=== PATIENT | male | born 1995 | race Caucasian/White ===

== ENCOUNTER 2016-12-09 09:38 | Day surgery (SDC) | payer OTHER ==
[2016-11-23 09:15] VITALS: BMI 25.0
[~2016-12-09] VITALS: Ht 188 cm; Wt 88.6 kg
[~2016-12-09 09:38] MED LIST: ALBU18002 INH; IBUP-1050 PO; LACTATED RINGER'S 1000ML 1,000 ML IV SCH; MONT1TAB3 PO; MULT-506 PO
[2016-12-09 09:59] VITALS: BP 133/81; PULSE 79; TEMP 36.4; BMI 25.0
[2016-12-09 10:48] VITALS: BP 119/70; PULSE 74; TEMP 36.5; Ht 188 cm; Wt 88.6 kg
[2016-12-09] MEDS ORDERED: ROCURONIUM BROMIDE 10 MG/ML 5 ML VIAL ONE (11:18)
[2016-12-09] MEDS ORDERED: SUCCINYLCHOLINE CHLORIDE 20 MG/ML 10 ML VIAL IV ONE (11:18)
[2016-12-09] MEDS ORDERED: LIDOCAINE HCL 2% 2 ML VIAL (20MG/ML) ONE (11:18)
[2016-12-09] MEDS ORDERED: ONDANSETRON INJ 2 MG/ML 2 ML VIAL ONE (11:18)
[2016-12-09] MEDS ORDERED: DEXAMETHASONE SOD INJ 4 MG/ML VIAL ONE (11:18)
[2016-12-09] MEDS ORDERED: PHENYLEPHRINE HCL INJ 10 MG/ML VIAL ONE (11:18)
[2016-12-09] MEDS ORDERED: PROPOFOL IV EMULSION 10 MG/ML 20 ML VIAL IV ONE ×2 (11:18→12:16)
[2016-12-09] MEDS ORDERED: EpHEDrine SULFATE INJ 50 MG/ML AMP ONE (11:18)
[2016-12-09] MEDS ORDERED: NEOSTIGMINE METHYLSULFATE 5 MG/5 ML SYR ONE (11:18)
[2016-12-09] MEDS ORDERED: GLYCOPYRROLATE INJ 0.2 MG/ML VIAL ONE ×2 (11:18→12:37)
[2016-12-09] MEDS ORDERED: FENTANYL CITRATE INJ 50 MCG/1 ML 2 ML VIAL ONE (11:19)
[2016-12-09] MEDS ORDERED: MIDAZOLAM HCL 1 MG/ML 2ML VIAL ONE ×2 (11:19)
[2016-12-09] MEDS ORDERED: LACTATED RINGER'S 1000ML 1,000 ML IV PRN (11:25)
--- NOTE | 2016-12-09 11:27 | History & Physical Bridge Note ---
H&P Re-Evaluation Bridge Note: I have examined the patient, reviewed the History & Physical and in the interval since the performance of the History & Physical I have noted the following changes of clinical significance: No changes noted mother at bedside pt marked
[2016-12-09] MEDS ORDERED: KETOROLAC TROMETHAMINE 30 MG/ML VIAL IV. PRN (11:30)
[2016-12-09] MEDS ORDERED: DiphenhydrAMINE HCL 50 MG/ML VIAL IV PRN (11:30)
[2016-12-09] MEDS ORDERED: METOCLOPRAMIDE HCL INJ 5 MG/ML 2 ML VIAL IV PRN (11:30)
[2016-12-09] MEDS ORDERED: ONDANSETRON INJ 2 MG/ML 2 ML VIAL IV PRN ×2 (11:30→13:15)
[2016-12-09] MEDS ORDERED: BACITRACIN 50000 UNIT VIAL IR ONE (12:27)
[2016-12-09] MEDS ORDERED: CEFAZOLIN SOD 1 GM VIAL ONE (12:34)
[2016-12-09] MEDS ORDERED: OXYC-57 PO (12:48)
--- NOTE | 2016-12-09 12:50 | Discharge Instructions ---
Discharge Instructions Visit Reason for Visit: Right Inguinal Hernia Discharge Discharge Diagnosis / Problem: right inguinal hernia repair Discharge Goals Goal(s): Decrease discomfort Activity Recommendations Activity Limitations: per Instructions/Follow-up section Lifting Limitations: no more than 10 pounds Shower/Bathe: tomorrow Driving or Machine Use: resume 3 days after discharge Anesthesia . Post Anesthesia Instructions: If you have had General Anesthesia or IV Sedation: * Do not drive today. * Resume driving when surgeon permits. * Do not make important decisions or sign legal documents today. * Call surgeon for: 1. Temperature elevations greater than 101 degrees F. 2. Uncontrollable pain. 3. Excessive bleeding. 4. Persistent nausea and vomiting. 5. Medication intolerance (nausea, vomiting or rash). * For nausea and vomiting use only clear liquids such as: tea, soda, bouillon until nausea subsides, then gradually increase diet as tolerated. * If you have any concerns or questions, call your surgeon's office. If physician is unavailable and it is an emergency, call 911 or go to the nearest emergency room. . Instructions / Follow-Up Instructions / Follow-Up Dr. Knapp in 1 week, call [phone] if you do not already have an appt Ice right groin incision off and on alternating every 20 min until bedtime Diet Recommendations Recommended Home Diet: no limitations Pending Studies Studies pending at discharge: no Medical Emergencies . Who to Call and When: Medical Emergencies: If at any time you feel your situation is an emergency, please call 911 immediately. . Non-Emergent Contact Non-Emergency issues call your: Surgeon Call Non-Emergent contact if: you have a fever, temperature is above 101.5, your pain is not controlled, wound has increased redness, wound has increased pain . . "Provider Documentation" section prepared by Adonis Zimmer.
[2016-12-09] MEDS ORDERED: LACTATED RINGER'S 1000ML 1,000 ML IV SCH (13:12)
[2016-12-09] MEDS ORDERED: BUPIVACAINE 0.5 % 5 MG/1 ML MPF 30ML VIAL INJ ONE (13:13)
[2016-12-09] MEDS ORDERED: OXYCODONE/ACETAMINOPHEN 5-325 TAB PO PRN (13:15)
[2016-12-09] MEDS ORDERED: MoRPHine SULFATE 2 MG/ML CARP IV PRN (13:15)
--- NOTE | 2016-12-09 13:25 | [facility] Post Operative Brief Note ---
Immediate Operative Summary Operative Date Dec 09, 2016. Pre-Operative Diagnosis Right inguinal hernia Post-Operative Diagnosis Same Procedure(s) Performed Repair of Open Right Indirect sliding Inguinal Hernia Repair Sage repair Surgeon Dr Knapp Aluminum Hydroxide Process Operator Surgeon(s) Lora Can PA-C Estimated Blood Loss 5ml Findings long indirect sliding hernia Specimens A. Hernia sac
[2016-12-09] MEDS: FENTANYL CITRATE INJ 50 MCG/1 ML 2 ML VIAL IV PRN ×2 (13:29→13:34)
--- NOTE | 2016-12-09 13:40 | Anesthesiology Progress Note ---
Anesthesia Post Op Note Date & Time Dec 09, 2016 at 13:39 Vital Signs Pain Intensity: 5 Vital Signs Past 12 Hours Date Time Temp Pulse Resp B/P Pulse Ox O2 Delivery O2 Flow Rate FiO2 12/09/16 10:48 36.5 74 18 119/70 12/09/16 09:59 36.4 79 18 133/81 Room Air Notes Mental Status: alert / awake / arousable, participated in evaluation Pt Amnestic to Procedure: Yes Nausea / Vomiting: adequately controlled Pain: adequately controlled Airway Patency, RR, SpO2: stable & adequate BP & HR: stable & adequate Hydration State: stable & adequate Anesthetic Complications: no major complications apparent Pt doing well.
[2016-12-09] MEDS: HYDROmorphone INJ 1 MG/ML SYR IV PRN ×2 (13:42→13:47)
[2016-12-09 14:15] VITALS: BP 130/69; PULSE 70; TEMP 36.8; O2SAT 95
[2016-12-09 14:45] VITALS: BP 119/64; PULSE 83; O2SAT 97
--- NOTE | 2016-12-09 14:59 | OPERATIVE REPORT ---
DATE OF OPERATION: 12/09/2016 SURGEON: Sae Knapp MD. SENIOR SUPPORT ENGINEER: Lora Can PA-C. PREOPERATIVE DIAGNOSIS: Right inguinal hernia. POSTOPERATIVE DIAGNOSIS: Right indirect sliding inguinal hernia. PROCEDURE: Repair (Bassini). SUMMARY: The patient induction of anesthesia, the right lower quadrant scrotal area was prepped with Betadine scrub and solution and properly draped. The patient had a large hernia that was going down into the scrotal area on physical exam. It was reducible. We at this point were able then to inject preemptive analgesia about 2 fingerbreadths medial, anterior, superior iliac crest through subfascial external oblique. An incision was made about 2-1/2 inches to 3 inches long parallel to the inguinal ligament, deepened through the subcutaneous tissues. Some larger venous plexus were ligated with 2-0 silk. We went onto the external oblique. More local was used once we had exposed the external oblique to the external ring. The incision was made in the external oblique, opened to the external ring. The nerve identified and avoided and placed underneath hemostats and less superiorly. We got to the external ring area where we were able then to elevate the cord and its structures. There was quite significant amount of tissue, we placed a Jeanine drain and as we were able then to identify, we tried looking for the indirect hernial sac which we identified initially and freed it form significant amount of scar tissue along the cord structure and some really attenuated transversalis fascia inferiorly. Most of our dissection was either blunt or sharp to free up the indirect hernia. Did make a small opening in the indirect hernia, placed my finger in there intraabdominally and what appeared to be like the sliding component was the bladder coming more inferiorly. The protrusion of the hernial sac into the scrotum was approximately 10 cm or so. We at this point then I closed this opening with a chromic suture. We then went to further dissect out and completely free the cord structure from this indirect sac all the way down to the internal ring. Cremasteric fibers and transversalis fascia that were more laterally were divided and ligated with 2-0 silk. At this point, the Jeanine drain was elevated into the cord and actually testicle came into the wound. Once we had freed up completely to the internal ring, it appeared to me that I had more of a free indirect sac at this time, I opened it again, I placed my finger inside and actually could still see that we had freed up more laterally the indirect sac but medially still had a sliding compartment, I resected part of it and then oversewed the sac with a 3-0 chromic suture and attention not to molest the sliding component. Then we were able to return this into the internal ring. Then I closed the internal ring with 2-0 silk sutures as we did a Bassini repair. The direct defect was fairly minimal if any. Using a Bassini repair with #2 interrupted silk, we put the shelving portion of the ligament up to the transversalis fascia. When the internal ring was constructed, it could only accommodate the tip of a hemostat. Hemostasis was achieved and appeared satisfactory. The testicle was returned in the scrotal area along with the cord. We closed the external oblique over the cord structure with interrupted 3-0 silk suture, 3-0 Dexon, luis f for skin edges. Dressing was applied. The procedure was tolerated well by the patient. Estimated blood loss approximately 5 mL. I attest to the content of the Intraoperative Record and any orders documented therein. Any exceptio ns are noted below.
[2016-12-09 15:15] VITALS: BP 126/70; PULSE 73; TEMP 36.5; O2SAT 98
[2017-07-20] MEDS ORDERED: CETI10TA84 PO (14:45)
[2017-07-20] MEDS ORDERED: VNTHFA/IN INH (14:45)
[2017-07-20] MEDS ORDERED: MONT1TAB3 PO (14:45)
[2017-07-28] MEDS ORDERED: MULT-513 PO (12:45)
== END 2016-12-09 15:34 | disposition home or self-care (01) ==
LOC: C.ACU 09:38
PROVIDERS: ATTEND Surgery
DX: K40.90 Unilateral inguinal hernia, without obstruction or gangrene, not specified as recurrent (principal); J45.909 Unspecified asthma, uncomplicated; J30.9 Allergic rhinitis, unspecified; F41.9 Anxiety disorder, unspecified; F32.9 Major depressive disorder, single episode, unspecified

== ENCOUNTER 2017-07-04 12:16 | Inpatient (IN) | payer OTHER ==
[~2017-07-04] VITALS: Ht 185.4 cm; Wt 82.1 kg
[~2017-07-04 12:16] MED LIST changes: -LACTATED RINGER'S 1000ML 1,000 ML IV SCH
[2017-07-04] MEDS ORDERED: BUPRTAB51 PO (12:59)
[2017-07-04 13:02] LABS: ISTAT CREATININE 0.8 mg/dl (0.6-1.3); ISTAT HEMOGLOBIN 13.3 g/dl (14.0-18.0); ISTAT IONIZED CALCIUM 1.12 mmol/l (1.12-1.32)
[2017-07-04] MEDS ORDERED: LEVETIRACETAM IV 1,000 MG in DEXTROSE 5% 100ML 100 ML IV ONE (13:15)
[2017-07-04] MEDS ORDERED: CARBAMAZEPINE 200 MG TAB PO ONE (13:15)
[2017-07-04 13:27] LABS: HEMATOCRIT 37.5 % (42-52); MEAN CORPUSCULAR HEMOGLOBIN 23.6 pg (25-34); MEAN CORPUSCULAR HGB CONC 30.7 g/dl (32-36); MEAN PLATELET VOLUME 9.7 fL (7.4-10.4); PLATELET COUNT 153 K/uL (130-400); RED BLOOD COUNT 4.87 M/uL (4.7-6.1)
[2017-07-04 13:38] LABS: ALT/SGPT 80 U/L (12-78); AST/SGOT 146 U/L (15-37); BLOOD UREA NITROGEN 14 mg/dl (7-18); BUN/CREATININE RATIO 14.7 (10-20); CALCIUM 8.5 mg/dl (8.5-10.1); CARBON DIOXIDE 26 mmol/L (21-32); CHLORIDE 101 mmol/L (98-107); CREATININE 0.92 mg/dl (0.60-1.40); GLUCOSE 128 mg/dl (70-99); POTASSIUM 3.7 mmol/L (3.5-5.1); SODIUM 135 mmol/L (136-145)
[2017-07-04 13:40] LABS: PARTIAL THROMBOPLASTIN RATIO 0.9; PROTHROMBIN TIME (PATIENT) 11.2 SECONDS (9.0-12.0)
[2017-07-04 13:41] LABS: ALKALINE PHOSPHATASE 154 U/L (45-117)
--- NOTE | 2017-07-04 13:45 | EMERGENCY ROOM VISIT NOTE ---
History Report prepared by Bar: Kylah Rutledge Under the Supervision of: Dr. Johnny York M.D. First contact with patient: 12:56 Chief Complaint: GI ASSESSMENT Stated Complaint: VOMITING UP BLOOD, BLACK DIARRHEA, DEHYDRATED Nursing Triage Summary: pt reports head cold, tested negative for strep at urgent care, sent here for further eval. pt reports vomiting blood, having black stools. pt appears pale has been having fevers, diarrhea feels weak History of Present Illness The patient is a 21 year old white male presents to the ED with a cc of constant nausea beginning this morning. Positive hard time breathing, sore throat, vomiting with blood, diarrhea, chills. Negative fever, cough, ear pain. The pt was sent to the ED by [facility]. Source of History: patient Onset: this morning Timing: constant Associated Symptoms: + chills, + nausea, + vomiting, + diarrhea, No fevers, No cough Review of Systems See HPI for pertinent positives and negatives. A total of ten systems were reviewed and were otherwise negative. Past Medical & Surgical Medical Problems: (1) No active medical problems Family History no pertinent family history stated Social History Smoking Status: Current Every Day Smoker Marital Status: single Current/Historical Medications Scheduled Bupropion (Wellbutrin-Xl), 300 MG PO DAILY Allergies Coded Allergies: NO KNOWN DRUG ALLERGIES (Unverified Allergy, Unknown, NONE, 11/23/16) Peanut (Unverified Allergy, Unknown, ANAPHYLAXIS, 11/23/16) Physical Exam Vital Signs Date Time Temp Pulse Resp B/P (MAP) Pulse Ox O2 Delivery O2 Flow Rate FiO2 07/04/17 17:33 111 20 148/93 100 Room Air 07/04/17 16:46 120 19 100 07/04/17 16:11 121 19 98 07/04/17 16:06 119 11 97 07/04/17 16:01 121 15 163/89 97 07/04/17 15:57 134/85 07/04/17 15:56 118 19 97 07/04/17 15:51 119 20 97 07/04/17 15:46 118 19 98 07/04/17 15:41 122 15 98 07/04/17 15:36 120 20 97 07/04/17 15:31 118 20 97 07/04/17 15:26 134 20 07/04/17 15:21 123 15 07/04/17 15:16 262 14 98 07/04/17 14:46 125 17 98 07/04/17 14:16 121 14 100 07/04/17 14:01 123/85 07/04/17 13:46 122 21 99 07/04/17 13:38 122 07/04/17 13:31 140/91 07/04/17 12:26 36.3 122 18 109/66 100 Room Air Physical Exam GENERAL: Awake, alert, well-appearing, NAD HENT: Normocephalic, atraumatic. Posterior pharynx mild exudate, bilateral large tonsils neck no stridor EYES: Normal conjunctiva. Sclera non-icteric. NECK: Supple. No nuchal rigidity. FROM. RESPIRATORY: CTAB, no rhonchi, wheezing, crackles CARDIAC: Tachycardic and regular, no MRG ABDOMEN: Soft, NTND, BS+ MSK: No chest wall TTP, no LE edema NEURO: GCS 15, CN 2-12 intact, moves all 4s on command SKIN: No rash or jaundice noted. Medical Decision & Procedures Laboratory Results 07/04/17 12:40 Red Blood Count 4.87, Mean Corpuscular Volume 77.0, Mean Corpuscular Hemoglobin 23.6, Mean Corpuscular Hemoglobin Concent 30.7, Mean Platelet Volume 9.7 07/04/17 12:40 Test 07/04/17 12:40 07/04/17 12:51 07/04/17 14:46 White Blood Count 11.70 K/uL (4.8-10.8) Red Blood Count 4.87 M/uL (4.7-6.1) Hemoglobin 11.5 g/dL (14.0-18.0) Hematocrit 37.5 % (42-52) Mean Corpuscular Volume 77.0 fL (80-100) Mean Corpuscular Hemoglobin 23.6 pg (25-34) Mean Corpuscular Hemoglobin Concent 30.7 g/dl (32-36) Platelet Count 153 K/uL (130-400) Mean Platelet Volume 9.7 fL (7.4-10.4) RDW Standard Deviation 47.6 fL (36.4-46.3) RDW Coefficient of Variation 16.9 % (11.5-14.5) Neutrophils % (Manual) 47.3 % Lymphocytes % (Manual) 2.6 % Variant Lymphocytes % (manual) 41.4 % Monocytes % (Manual) 6.9 % Basophils % (Manual) 0.9 % (0-2) Metamyelocytes % 0.9 % Neutrophils # (Manual) 5.53 K/uL (1.4-6.5) Total Absolute Neutrophils 5.53 K/uL (1.4-6.5) Lymphocytes # (Manual) 0.30 K/uL (1.2-3.4) Absolute Variant Lymphocytes 4.84 K/uL Total Absolute Lymphocytes 5.15 K/uL (1.2-3.4) Monocytes # (Manual) 0.81 K/uL (0.11-0.59) Basophils # (Manual) 0.11 K/uL (0-0.2) Metamyelocytes # 0.11 K/uL (0-0) Blood Smear Review Prothrombin Time 11.2 SECONDS (9.0-12.0) Prothromb Time International Ratio 1.0 (0.9-1.1) Activated Partial Thromboplast Time 23.8 SECONDS (21.0-31.0) Partial Thromboplastin Ratio 0.9 Est Creatinine Clear Calc Drug Dose 142.3 ml/min Estimated GFR () 136.4 Estimated GFR (Non- 117.6 BUN/Creatinine Ratio 14.7 (10-20) Calcium Level 8.5 mg/dl (8.5-10.1) Total Bilirubin 0.2 mg/dl (0.2-1) Direct Bilirubin < 0.1 mg/dl (0-0.2) Aspartate Amino Transf (AST/SGOT) 146 U/L (15-37) Alanine Aminotransferase (ALT/SGPT) 80 U/L (12-78) Alkaline Phosphatase 154 U/L (45-117) Total Protein 7.9 gm/dl (6.4-8.2) Albumin 3.0 gm/dl (3.4-5.0) Lipase 156 U/L (73-393) Bedside Hemoglobin 13.3 g/dl (14.0-18.0) Bedside Hematocrit 39 % (42-52) Bedside Sodium 137 mEq/L (135-144) Bedside Potassium 3.7 mEq/L (3.3-5.0) Bedside Chloride 99 mEq/L (101-112) Bedside Total CO2 25 mEq/l (24-31) Anion Gap 18.0 mmol/L (16-25) Bedside Blood Urea Nitrogen 13 mg/dl (7-18) Bedside Creatinine 0.8 mg/dl (0.6-1.3) Bedside Glucose (other) 133 mg/dl (70-99) Bedside Ionized Calcium (Keven) 1.12 mmol/l (1.12-1.32) Urine Color YELLOW Urine Appearance CLEAR (CLEAR) Urine pH 8.0 (4.5-7.5) Urine Specific [place] 1.017 (1.000-1.030) Urine Protein NEG (NEG) Urine Glucose (UA) NEG (NEG) Urine Ketones 1+ (NEG) Urine Occult Blood NEG (NEG) Urine Nitrite NEG (NEG) Urine Bilirubin NEG (NEG) Urine Urobilinogen NEG (NEG) Urine Leukocyte Esterase NEG (NEG) Laboratory results reviewed by me Medications Administered Medications (Trade) Dose Ordered Sig/Jasmin Route Start Time Stop Time Status Last Admin Dose Admin Sodium Chloride 1,000 ml @ 999 mls/hr Q1H1M STAT IV 07/04/17 13:50 07/04/17 14:50 DC 07/04/17 13:50 999 MLS/HR Dexamethasone Sodium Phosphate (Decadron Inj) 10 mg NOW ONCE IV 07/04/17 14:00 07/04/17 14:01 DC 07/04/17 13:56 10 MG Ibuprofen (Motrin Tab) 800 mg NOW STAT PO 07/04/17 13:50 07/04/17 13:51 DC 07/04/17 13:50 800 MG Acetaminophen (Tylenol Tab) 1,000 mg NOW STAT PO 07/04/17 13:50 07/04/17 13:51 DC 07/04/17 13:50 1,000 MG Sodium Chloride 1,000 ml @ 999 mls/hr Q1H1M STAT IV 07/04/17 13:51 07/04/17 14:51 DC 07/04/17 13:51 999 MLS/HR Amoxicillin/ Clavulanate Potassium (Augmentin Tab) 875 mg ONE ONCE PO 07/04/17 15:30 07/04/17 15:31 DC 07/04/17 16:23 875 MG Sodium Chloride 1,000 ml @ 999 mls/hr Q1H1M STAT IV 07/04/17 16:17 07/04/17 17:17 DC 07/04/17 16:23 999 MLS/HR Sodium Chloride 1,000 ml @ 999 mls/hr Q1H1M STAT IV 07/04/17 16:17 07/04/17 17:17 DC 07/04/17 16:23 999 MLS/HR ED Course 1330: The patient was evaluated in room C7. A complete history and physical exam was performed. 1515: I reevaluated the pt heels better but his HR still high. 171: Discussed the patient's case with Dr. Frausto. The patient will be evaluated for further treatment and disposition. 1718: Upon reexamination, the patient was resting. I discussed the test results and treatment plan with him. The patient will be evaluated for further management. Medical Decision The patient is a 21 year old white male presents to the ED with a cc of nausea beginning this morning. Differential diagnosis includes but is not limited too : URI, tonsillitis, pharyngitis, strep throat, RPA, [employer], Miguel angina. Patient seen and evaluated. Patient did not have any asymmetric posterior pharyngeal swelling swelling of the submandibular or sublingual space. Patient did have some mildly persistent tachycardia which was evaluated at the bedside ultrasound which showed that his cardiac motion was appropriate patient's IVC was fairly collapsible upon respiration. Patient did have a rectal exam did show gross blood that was heme occult positive. Patient was given antibiotics as well as dexamethasone for his upper respiratory type symptoms . Posterior pharyngeal swelling with tonsillar exudate. Patient's white count was 14. Patient did have a lymphocytic predominance is likely viral. Patient is non- stridulous is handling his secretions and able to tolerate by mouth. Patient had received 4 L of fluid as well as by mouth liquids which did not improve his tachycardia. Given the patient's abnormal hemoglobin in the setting of a positive Hemoccult without great resolution of his tachycardia spoke with the medicine team who agreed to follow-up patient will continue hydration and discussed the need for any additional therapy for the bleeding which may be from his URI-type symptoms versus possible GI source. A PPI was deferred at this time to the medicine team. Medication Reconcilliation Current Medication List: was personally reviewed by mi Blood Pressure Screening Patient's blood pressure: Normal blood pressure Consults Time Called: 1710 Consulting Physician: Dr. Frausto Returned Call: 1712 Discussed the patient's case. The patient will be evaluated for further treatment and disposition. Impression Primary Impression: GI bleed Additional Impressions: Pharyngitis Dehydration Scribe Attestation The scribe's documentation has been prepared under my direction and personally reviewed by me in its entirety. I confirm that the note above accurately reflects all work, treatment, procedures, and medical decision making performed by me. Departure Information Dispostion Being Evaluated By Hospitalist Referrals RV. Lewis MD (PCP) Patient Instructions My [facility] Problem Qualifiers Primary Impression: GI bleed GI bleed type/associated pathology: unspecified gastrointestinal hemorrhage type Qualified Codes: K92.2 - Gastrointestinal hemorrhage, unspecified Additional Impressions: Pharyngitis Pharyngitis/tonsillitis etiology: unspecified etiology Qualified Codes: J02.9 - Acute pharyngitis, unspecified
[2017-07-04] MEDS ORDERED: ACETAMINOPHEN 500 MG TAB PO STA (13:50)
[2017-07-04] MEDS ORDERED: SODIUM CHLORIDE 0.9% 1000ML 1,000 ML IV STA ×4 (13:50→16:17)
[2017-07-04] MEDS ORDERED: IBUPROFEN 800 MG TAB PO STA (13:50)
[2017-07-04] MEDS ORDERED: DEXAMETHASONE SOD INJ 10 MG/ML VIAL IV ONE (14:00)
[2017-07-04 15:01] LABS: URINE APPEARANCE CLEAR (CLEAR); URINE BILIRUBIN NEG (NEG); URINE COLOR YELLOW; URINE NITRITE NEG (NEG); URINE SPECIFIC GRAVITY 1.017 (1.000-1.030); UROBILINOGEN NEG (NEG); ZZUR CULT IF INDIC CLEAN CATCH NO
[2017-07-04 15:03] LABS: MANUAL MICROSCOPIC REQUIRED? NO; REVIEW REQ? NO
[2017-07-04 15:12] LABS: BASO ABS # 0.11 K/uL (0-0.2); BASOPHIL % 0.9 % (0-2); COMPLETE YES; LYMPHOCYTE % 2.6 %; META ABS # 0.11 K/uL (0-0); METAMYELOCYTE % 0.9 %; NEUTROPHILS % 47.3 %; VARIANT LYM ABS # 4.84 K/uL; VARIANT LYMPHOCYTE % 41.4 %
[2017-07-04] MEDS ORDERED: AMOXICILLIN/CLAVULANATE TAB 875 MG TAB PO ONE (15:30)
[2017-07-04] MEDS ORDERED: ONDANSETRON INJ 2 MG/ML 2 ML VIAL IV PRN (18:30)
[2017-07-04] MEDS ORDERED: ZOLPIDEM TARTRATE 5 MG TAB PO PRN (18:30)
[2017-07-04] MEDS ORDERED: IV FLUIDS COMPLETED PRN (18:45)
[2017-07-04 19:04] LABS: HEMATOCRIT 33.2 % (42-52)
[2017-07-04 19:29] VITALS: BP 150/94; PULSE 111; TEMP 36.6; O2SAT 95
--- NOTE | 2017-07-04 20:33 | History and Physical ---
History & Physical Date & Time of Service: Jul 04, 2017 at 20:21 Chief Complaint: Gi Bleed Primary Care Physician: RV. Lewis MD History of Present Illness Source: patient The patient is a 21-year-old male who presents emergency department with sinus congestion and drainage, chills, nausea without vomiting, dark stools, and blood -tinged sputum over the past 24 hours. Because of these symptoms he went to [facility], and was then referred to the emergency department for assessment. Past Medical/Surgical History Medical Problems: (1) No active medical problems Status: Chronic Family History Noncontributory Social History Smoking Status: Current Every Day Smoker Smokeless Tobacco Use: No Alcohol Use: none Drug Use: none Marital Status: single Housing status: lives alone Immunizations History of Influenza Vaccine: Unknown History of Tetanus Vaccine?: Unknown History of Pneumococcal: Unknown History of Hepatitis B Vaccine: Unknown Multi-Drug Resistant Organisms History of MDRO: No Allergies Coded Allergies: NO KNOWN DRUG ALLERGIES (Unverified Allergy, Unknown, NONE, 11/23/16) Peanut (Unverified Allergy, Unknown, ANAPHYLAXIS, 11/23/16) Home Medications Scheduled Bupropion (Wellbutrin-Xl), 300 MG PO DAILY Review of Systems The patient denies chest pain, palpitations, lower extremity swelling, vision change, hearing change, sore throat, fevers, sweats, weight change, fatigue, vomiting, diarrhea or constipation, abdominal pain, pelvic pain, blood in urine , dysuria, urinary frequency or urgency, lightheadedness, dizziness, headache, memory loss, rash, abnormal bruising, imbalance, focal or generalized weakness , numbness or tingling in arms or legs, generalized arthralgias or myalgias, back or neck pain, night sweats, or allergy symptoms. The review of systems is otherwise negative other than for that already noted above, and at least 10 systems have been reviewed. Physical Exam Vital Signs Date Time Temp Pulse Resp B/P (MAP) Pulse Ox O2 Delivery O2 Flow Rate FiO2 07/04/17 19:29 36.6 111 18 150/94 (112) 95 Room Air 07/04/17 18:56 36.3 116 22 148/93 97 07/04/17 18:21 116 22 97 07/04/17 17:51 113 18 97 07/04/17 17:33 111 20 148/93 100 Room Air 07/04/17 17:31 148/93 07/04/17 17:26 148/92 07/04/17 17:21 112 13 98 07/04/17 16:51 112 19 98 07/04/17 16:46 120 19 100 07/04/17 16:11 121 19 98 07/04/17 16:06 119 11 97 07/04/17 16:01 121 15 163/89 97 07/04/17 15:57 134/85 07/04/17 15:56 118 19 97 07/04/17 15:51 119 20 97 07/04/17 15:46 118 19 98 07/04/17 15:41 122 15 98 07/04/17 15:36 120 20 97 07/04/17 15:31 118 20 97 07/04/17 15:26 134 20 07/04/17 15:21 123 15 07/04/17 15:16 262 14 98 07/04/17 14:46 125 17 98 07/04/17 14:16 121 14 100 07/04/17 14:01 123/85 07/04/17 13:46 122 21 99 07/04/17 13:38 122 07/04/17 13:31 140/91 07/04/17 12:26 36.3 122 18 109/66 100 Room Air The patient is awake, well-developed and adequately nourished, alert and oriented 3, normocephalic and atraumatic, lying in bed and in no acute distress. HEENT--PERRL, EOMI, mucous membranes and oropharynx moist, sinus congestion. Neck--supple, no JVD or bruits, thyroid normal, trachea midline, no adenopathy. Heart--normal S1 and S2, no extra beats, no murmurs, rubs or gallops. Lungs--clear bilaterally with good air movement, no respiratory distress, no accessory muscle use. Abdomen--normal bowel sounds and soft, nontender and nondistended, no hernias or masses, no organomegaly. Extremities--no cyanosis, clubbing or edema. There are good distal pulses b/l. Dermatologic--normal skin turgor, normal color, warm and dry, no abnormal lymph nodes, no rash. Neurologic--cranial nerves II through XII grossly intact, motor and sensory examination normal. Rheumatologic--normal range of motion, nontender, muscles and joints. Psychiatric--normal affect. Diagnostics Laboratory Results Results Past 24 Hours Test 07/04/17 12:40 07/04/17 12:51 07/04/17 14:46 07/04/17 18:56 Range/Units White Blood Count 11.70 4.8-10.8 K/uL Red Blood Count 4.87 4.7-6.1 M/uL Hemoglobin 11.5 10.4 14.0-18.0 g/dL Hematocrit 37.5 33.2 42-52 % Mean Corpuscular Volume 77.0 80-100 fL Mean Corpuscular Hemoglobin 23.6 25-34 pg Mean Corpuscular Hemoglobin Concent 30.7 32-36 g/dl Platelet Count 153 130-400 K/uL Mean Platelet Volume 9.7 7.4-10.4 fL RDW Standard Deviation 47.6 36.4-46.3 fL RDW Coefficient of Variation 16.9 11.5-14.5 % Neutrophils % (Manual) 47.3 % Lymphocytes % (Manual) 2.6 % Variant Lymphocytes % (manual) 41.4 % Monocytes % (Manual) 6.9 % Basophils % (Manual) 0.9 0-2 % Metamyelocytes % 0.9 % Neutrophils # (Manual) 5.53 1.4-6.5 K/uL Total Absolute Neutrophils 5.53 1.4-6.5 K/uL Lymphocytes # (Manual) 0.30 1.2-3.4 K/uL Absolute Variant Lymphocytes 4.84 K/uL Total Absolute Lymphocytes 5.15 1.2-3.4 K/uL Monocytes # (Manual) 0.81 0.11-0.59 K/uL Basophils # (Manual) 0.11 0-0.2 K/uL Metamyelocytes # 0.11 0-0 K/uL Blood Smear Review Prothrombin Time 11.2 9.0-12.0 SECONDS Prothromb Time International Ratio 1.0 0.9-1.1 Activated Partial Thromboplast Time 23.8 21.0-31.0 SECONDS Partial Thromboplastin Ratio 0.9 Sodium Level 135 136-145 mmol/L Potassium Level 3.7 3.5-5.1 mmol/L Chloride Level 101 98-107 mmol/L Carbon Dioxide Level 26 21-32 mmol/L Anion Gap 8.0 18.0 16-25 mmol/L Blood Urea Nitrogen 14 7-18 mg/dl Creatinine 0.92 0.60-1.40 mg/dl Est Creatinine Clear Calc Drug Dose 142.3 ml/min Estimated GFR () 136.4 Estimated GFR (Non- 117.6 BUN/Creatinine Ratio 14.7 10-20 Random Glucose 128 70-99 mg/dl Calcium Level 8.5 8.5-10.1 mg/dl Total Bilirubin 0.2 0.2-1 mg/dl Direct Bilirubin < 0.1 0-0.2 mg/dl Aspartate Amino Transf (AST/SGOT) 146 15-37 U/L Alanine Aminotransferase (ALT/SGPT) 80 12-78 U/L Alkaline Phosphatase 154 45-117 U/L Total Protein 7.9 6.4-8.2 gm/dl Albumin 3.0 3.4-5.0 gm/dl Lipase 156 73-393 U/L Bedside Hemoglobin 13.3 14.0-18.0 g/dl Bedside Hematocrit 39 42-52 % Bedside Sodium 137 135-144 mEq/L Bedside Potassium 3.7 3.3-5.0 mEq/L Bedside Chloride 99 101-112 mEq/L Bedside Total CO2 25 24-31 mEq/l Bedside Blood Urea Nitrogen 13 7-18 mg/dl Bedside Creatinine 0.8 0.6-1.3 mg/dl Bedside Glucose (other) 133 70-99 mg/dl Bedside Ionized Calcium (Keven) 1.12 1.12-1.32 mmol/l Urine Color YELLOW Urine Appearance CLEAR CLEAR Urine pH 8.0 4.5-7.5 Urine Specific [place] 1.017 1.000-1.030 Urine Protein NEG NEG Urine Glucose (UA) NEG NEG Urine Ketones 1+ NEG Urine Occult Blood NEG NEG Urine Nitrite NEG NEG Urine Bilirubin NEG NEG Urine Urobilinogen NEG NEG Urine Leukocyte Esterase NEG NEG Microbiology Results 07/04/17 Group A Streptococcus Screen - Final, Resulted SPECIMEN NEGATIVE FOR GROUP A BETA ST... 07/04/17 Group A Streptococcus Screen (JJ), Resulted Pending Impression Assessment and Plan Sinus congestion/gastritis/secondarily heme positive stool--patient will be admitted to the medical floor. H&H every 6 hours. Nothing by mouth status. Normal saline with KCl 20 mEq at 200 ML's per hour. Famotidine 20 mg IV every 12 hours. Zofran 4 mg IV every 6 hours when necessary. Review of patient's outpatient records show history of excessive alcohol use, and therefore presumptive gastritis. Hemoglobin of 11.5 is stable.\ Abnormal liver tests likely secondary to alcohol abuse. We will order an ultrasound of right upper quadrant of abdomen to further assess Consult gastroenterology. Tobacco use disorder--.Counseling. Lymphocytosis--likely cause of sinus congestion. Level of Care Med/Surg Advanced Directives Existing Advance Directive: No Existing Living Will: No Existing Power of Jukebox Routeman: No Resuscitation Status FULL RESUSCITATION VTE Prophylaxis VTE Risk Assessment Done? Y/N: Yes Risk Level: Low Given or contraindicated: SCD's Social Service Consult None Apply
[2017-07-04] MEDS ORDERED: SODIUM CHLORIDE 0.65% NA SOLN 45 ML (OCEAN) PRN (20:45)
[2017-07-04] MEDS ORDERED: NURSING VERBAL MED ORDER ONE (20:45)
[2017-07-04] MEDS ORDERED: FAMOTIDINE IV INJ 20 MG in DEXTROSE 5% 100ML 100 ML IV SCH (21:00)
[2017-07-04] MEDS: NSS + 20MEQ KCL 1000ML 1,000 ML IV SCH (21:01)
[2017-07-04 22:55] VITALS: BP 150/94; PULSE 111; TEMP 36.6; O2SAT 95; Ht 185.4 cm; Wt 82.1 kg
[2017-07-04 23:06] LABS: HEMATOCRIT 26.1 % (42-52)
[2017-07-04 23:38] VITALS: BP 123/74; PULSE 155; TEMP 36.5; O2SAT 96
[2017-07-05] VITALS (25 sets, daily range): BP systolic 109–154; BP diastolic 69–86; PULSE 103–191; TEMP 36.4–37.7; O2SAT 97–100
[2017-07-05] MEDS ORDERED: OCTREOTIDE IV BOLUS & DRIP IV STA (00:47)
[2017-07-05] MEDS ORDERED: OCTREOTIDE ACETATE INJ 100 MCG in SYRINGE 9 ML IV SCH (01:15)
[2017-07-05] MEDS: NSS + 20MEQ KCL 1000ML 1,000 ML IV SCH ×4 (01:43→17:00)
[2017-07-05] MEDS: OCTREOTIDE ACETATE INJ 500 MCG in NSS 100ML IV SCH ×2 (01:43→12:10)
[2017-07-05 02:01] LABS: HEMATOCRIT 22.1 % (42-52)
[2017-07-05] MEDS ORDERED: PANTOprazole INJ 80 MG in DEXTROSE 5% 100ML IV SCH (02:45)
--- NOTE | 2017-07-05 03:08 | Progress Note ---
Progress Note Date of Service Jul 05, 2017. Progress Note 21-year-old male admitted with GI bleed and was started on famotidine IV twice a day with an initial hemoglobin of 11.5. Was paged by RN about episodes of linda hematemesis and dark stool followed by bright red bloody diarrhea. He was continued on NSS with KCl at 200 mL's per hour and hemoglobin and hematocrit were checked every 4 hours which revealed a drop in hemoglobin to 8.2. He was tachycardic but not hypotensive. He was started on octreotide drip with bolus and later Protonix drip was added. His last hemoglobin was 7.2 at which time gastroenterology was called and situation explained. Per GI recommendations, he was ordered 2 units PRBC transfusion. He is to be scheduled for an endoscopic exploration in the morning. Resident Tracking Resident Involvement: Rib Stiffener And Heel Dipper Coverage Note Care Provided: Adult Hospital Medicine
[2017-07-05] MEDS: PANTOprazole INJ 40 MG in DEXTROSE 5% 100ML IV SCH ×2 (03:53→12:11)
[2017-07-05] MEDS ORDERED: NURSING VERBAL MED ORDER ONE ×2 (05:30→18:15)
[2017-07-05] MEDS ORDERED: ACETAMINOPHEN IV 1000MG/100ML IV ONE (05:45)
[2017-07-05] MEDS ORDERED: LORAZEPAM 2 MG/ML 1 ML VIAL IV PRN ×2 (07:30→09:15)
[2017-07-05 08:10] LABS: HEMATOCRIT 25.5 % (42-52); MEAN CORPUSCULAR HEMOGLOBIN 25.4 pg (25-34); MEAN CORPUSCULAR HGB CONC 32.9 g/dl (32-36); MEAN PLATELET VOLUME 9.6 fL (7.4-10.4); PLATELET COUNT 123 K/uL (130-400); RED BLOOD COUNT 3.31 M/uL (4.7-6.1)
[2017-07-05 08:35] LABS: BUN/CREATININE RATIO 11.4 (10-20); CALCIUM 7.3 mg/dl (8.5-10.1); CREATININE 0.81 mg/dl (0.60-1.40); MAGNESIUM 1.7 mg/dl (1.8-2.4); POTASSIUM 3.9 mmol/L (3.5-5.1)
--- NOTE | 2017-07-05 08:51 | GASTROINTESTINAL CONSULTATION ---
DATE OF CONSULTATION: 07/05/2017 DATE OF CONSULTATION: 07/05/2017 REASON FOR EVALUATION: Upper GI bleeding. HISTORY OF PRESENT ILLNESS: The patient is a 21-year-old male who developed a respiratory infection 2 days ago with sinus drainage, cough, sore throat. He was having difficulty sleeping and was feeling very weak. He went to [employer] yesterday and passed out. He had a pulse of 140 and they transferred him to the hospital Emergency Room where he was found to be acutely ill. They rehydrated him and because his pulse remained elevated they decided to admit him to the hospital. After being admitted to the hospital he has had an episode of hematemesis as well as some episodes of melena. His hemoglobin has dropped from 11.2 to 7.2 overnight and he has gotten 2 units of red cells. Currently his blood pressure is 127/84, pulse is 114, temperature is 37. The patient was started initially on famotidine IV and switched to Protonix as well as octreotide. The patient does consume a large amount of alcohol on a daily basis for several years. Also, according to his father, he has used some narcotics and benzodiazepines as well. His liver tests show an abnormal transaminase pattern consistent with alcohol related liver disease. Because of this, he has been on octreotide as well overnight. He has had no further episodes of melena or hematemesis since about 3:00 this morning. PAST MEDICAL HISTORY: Positive for some depression. MEDICATIONS: Wellbutrin 300 mg a day. ALLERGIES: PEANUT CAUSES ANAPHYLAXIS. SOCIAL HISTORY: The patient is single, smokes every day. He is drinking alcohol daily for at least 5 years. 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 REVIEW OF SYSTEMS: Positive for fatigue, sore throat. Remainder is negative. PHYSICAL EXAMINATION: GENERAL: The patient appears pale, but in no acute distress. NECK: Showed anterior and posterior cervical adenopathy. LUNGS: Clear. HEART: Showed a normal S1 and S2 at a rate of 114. ABDOMEN: Soft. There are no masses, tenderness, or hepatosplenomegaly. EXTREMITIES: Showed no clubbing, cyanosis or edema. NEUROLOGIC EXAMINATION: Grossly normal. IMPRESSION: The patient presents with respiratory infection followed by a large volume GI bleeding. There is also concern that he might have alcohol related liver disease which could include esophageal varices, Lora-Benson tear or an ulcer. He does report that since he started feeling sick 2 days ago he has been taking some Tylenol or Aleve. For now the patient will continue on IV fluids. Will order a Monospot and benzodiazepines in case patient goes into alcohol withdrawal. Will get an ultrasound of his abdomen. Will get a toxicology screen. I have ordered a social work consult as the patient will need to go to rehab once he is medically stable and will schedule him for an EGD sometime today whenever we can get it on the schedule. The patient will remain n.p.o. until that time.
[2017-07-05] MEDS ORDERED: BuPROPion XL 300 MG TABCR PO SCH (09:00)
[2017-07-05] MEDS ORDERED: LORAZEPAM 1 MG TAB PO PRN (09:15)
[2017-07-05] MEDS ORDERED: MULTI-VITAMIN INFUSION INJ 10 ML, THIAMINE HCL INJ 100 MG, FoLIC ACID INJ 1 MG in SODIU... IV SCH (09:15)
[2017-07-05 09:26] LABS: BENZODIAZEPINE, URINE NEG (NEG); COCAINE,URINE NEG (NEG); PHENCYCLIDINE, URINE NEG (NEG)
[2017-07-05] MEDS ORDERED: GABAPENTIN 600 MG TAB PO STA (09:26)
[2017-07-05 10:32] LABS: BASO ABS # 0.11 K/uL (0-0.2); BASOPHIL % 0.9 % (0-2); COMPLETE YES; GIANT PLATELETS 1+; HYPOCHROMIA PRESENT; LYMPH ABS # 6.22 K/uL (1.2-3.4); LYMPHOCYTE % 51.8 %; NEUTROPHILS % 25.5 %; VARIANT LYM ABS # 2.18 K/uL; VARIANT LYMPHOCYTE % 18.2 %
--- NOTE | 2017-07-05 10:41 | DIAGNOSTIC IMAGING REPORT ---
ABDOMINAL ULTRASOUND COMPLETE HISTORY: Abnormal LFTs.. COMPARISON: None. FINDINGS: Pancreas: The pancreatic tail is obscured by overlying bowel gas. The remaining portions of the pancreas are within normal limits. Liver: Unremarkable. Gallbladder: No gallbladder wall thickening. No gallstones. CBD: 4 mm. Kidneys: The right kidney was not visualized. The left kidney measures 15 cm. No hydronephrosis. Spleen: Enlarged measuring 15.4 cm in length. Aorta: Normal in caliber. IVC: Patent. IMPRESSION: 1. The right kidney was not visualized and could be absent on a congenital basis given the mildly enlarged left kidney. 2. Splenomegaly. Electronically signed by: Mikael Fung M.D. 07/05/2017 10:39 AM Dictated Date/Time: 07/05/2017 10:37 AM
[2017-07-05 12:31] LABS: HEMATOCRIT 26.6 % (42-52)
--- NOTE | 2017-07-05 13:16 | Endo History and Physical ---
History & Physical Date of Service: Jul 05, 2017. Chief Complaint: bleeding Referring Physician: History of Present Illness See GI consult. Pt with melena and hematemesis. No emesis since early am. Last stool about 1100. No abd pain. Past Surgical History Hx Cardiac Surgery: No Hx Abdominal Surgery: Yes (Ing Hernia 12/2016) Hx Post-Op Nausea and Vomiting: No Hx Cancer Surgery: No Hx Thoracic Surgery: No Hx Orthopedic: No Hx Urinary Tract Surgery: No Social History Smoking Status: Current Every Day Smoker Smokeless Tobacco Use: No Hx Substance Use: No Hx Alcohol Use: Yes (Beer 4-6/week) Allergies Coded Allergies: NO KNOWN DRUG ALLERGIES (Unverified Allergy, Unknown, NONE, 11/23/16) Peanut (Unverified Allergy, Unknown, ANAPHYLAXIS, 11/23/16) Current Medications Reported Home Medications Medications Dose Route/Sig Max Daily Dose Days Date Category Wellbutrin-Xl (Bupropion HCl) 300 Mg Tabcr 300 Mg PO DAILY 07/04/17 Reported Vital Signs Weight (Kilograms): 89.000 Height (Feet): 6 Height (Inches): 1.00 Date Time Temp Pulse Resp B/P (MAP) Pulse Ox O2 Delivery O2 Flow Rate FiO2 07/05/17 12:27 37.0 122 18 114/73 98 Room Air 07/05/17 12:00 98 Room Air 07/05/17 12:00 37.0 122 18 114/73 (87) 98 Room Air 07/05/17 08:00 98 Room Air 07/05/17 08:00 37.3 115 16 138/78 (98) 98 Room Air 07/05/17 06:30 37.0 114 17 127/84 97 07/05/17 06:00 37.0 191 20 154/86 98 07/05/17 05:45 37.1 126 16 136/80 98 07/05/17 05:30 37.1 122 21 147/82 97 07/05/17 05:15 37.4 125 24 148/86 99 07/05/17 05:00 37.0 130 14 146/86 97 07/05/17 04:00 99 Room Air 07/05/17 04:00 36.6 122 16 138/75 99 07/05/17 03:45 36.8 126 21 137/83 99 07/05/17 03:30 36.9 130 78 133/78 97 07/05/17 03:18 36.4 125 20 109/78 07/05/17 00:00 Room Air 07/04/17 23:38 36.5 155 20 123/74 (90) 96 Room Air 07/04/17 22:55 36.6 111 18 150/94 95 Room Air 07/04/17 19:29 36.6 111 18 150/94 (112) 95 Room Air 07/04/17 18:56 36.3 116 22 148/93 97 07/04/17 18:21 116 22 97 07/04/17 17:51 113 18 97 07/04/17 17:33 111 20 148/93 100 Room Air 07/04/17 17:31 148/93 07/04/17 17:26 148/92 07/04/17 17:21 112 13 98 07/04/17 16:51 112 19 98 07/04/17 16:46 120 19 100 07/04/17 16:11 121 19 98 07/04/17 16:06 119 11 97 07/04/17 16:01 121 15 163/89 97 07/04/17 15:57 134/85 07/04/17 15:56 118 19 97 07/04/17 15:51 119 20 97 07/04/17 15:46 118 19 98 07/04/17 15:41 122 15 98 07/04/17 15:36 120 20 97 07/04/17 15:31 118 20 97 07/04/17 15:26 134 20 07/04/17 15:21 123 15 07/04/17 15:16 262 14 98 07/04/17 14:46 125 17 98 07/04/17 14:16 121 14 100 07/04/17 14:01 123/85 07/04/17 13:46 122 21 99 07/04/17 13:38 122 07/04/17 13:31 140/91 Physical Exam General Appearance: WD/WN, no apparent distress Respiratory/Chest: Respiratory effort: no dyspnea, good air movement Auscultation: breath sounds normal, no wheezing Cardiovascular: Heart Auscultation: RRR, no murmurs Abdomen: Bowel Sounds: normal Inspection & Palpation: soft, non-distended Liver: non-tender, no hepatomegaly Assessment and Plan UGI bleeding. EGD today. Procedure and risks explained to patient and mother which include but not limited to medication reaction, bleeding, perforation, aspiration, and missed lesions. Hgb 8.6 at 1200. Noted tox screen pos for maijuana and mono screen positive.
[2017-07-05] MEDS ORDERED: PROPOFOL IV EMULSION 10 MG/ML 20 ML VIAL IV ONE ×6 (13:26→14:15)
[2017-07-05] MEDS ORDERED: LIDOCAINE HCL 2% 2 ML VIAL (20MG/ML) ONE (13:26)
[2017-07-05] MEDS ORDERED: FENTANYL CITRATE INJ 50 MCG/1 ML 2 ML VIAL ONE (13:26)
[2017-07-05] MEDS ORDERED: MIDAZOLAM HCL 1 MG/ML 2ML VIAL ONE ×2 (13:43→14:05)
[2017-07-05] MEDS ORDERED: PROPOFOL IV EMULSION 10 MG/ML 100 ML VIAL IV ONE ×2 (14:00→15:37)
[2017-07-05] MEDS ORDERED: ICU PROTOCOL FOR HYPERGLYCEMIA PRN (14:15)
--- NOTE | 2017-07-05 14:31 | GI REPORT ---
Procedure Date: 07/05/2017 1:24 PM Procedure: Upper GI endoscopy Indications: Hematemesis, Melena Medicines: General Anesthesia Complications: No immediate complications. Estimated Blood Loss: Estimated blood loss was minimal. Procedure: Pre-Anesthesia Assessment: - The risks and benefits of the procedure and the sedation options and risks were discussed with the patient. All questions were answered and informed consent was obtained. - Patient identification and proposed procedure were verified prior to the procedure by the physician, the nurse and the copper plater. The procedure was verified in the procedure room. Procedure and risks explained to patient and mother which include but not limited to medication reaction, bleeding, perforation, aspiration , and missed lesion. After obtaining informed consent, the endoscope was passed under direct vision. Throughout the procedure, the patient's blood pressure, pulse, and oxygen saturations were monitored continuously. The scope was introduced through the mouth, and advanced to the second part of duodenum. The upper GI endoscopy technical part was accomplished without difficulty. The patient desatured during the procedure without any evidence of aspiration but required conversion to endotracheal intubation to complete the procedure becuase of airway spasm presumably from pharygeal disease from mono. . Judicious gas insufflation was used and gas removal done on the way out. The lumen was always visualized when advancing the scope. Prep was good. Washes and suctioning used as needed to get good visualization of the mucosa. Retroflexion to look at the fundus and cardia of the stomach and GE junction was done. Findings: The Z-line was regular and was found 45 cm from the incisors. Localized moderate mucosal variance characterized by congestion and erosion was found at the gastroesophageal junction. Biopsies were taken with a cold forceps for histology. Estimated blood loss was minimal. One 8 mm semipedunculated polyp with ulceration was found in the gastric body. Biopsies were taken with a cold forceps for histology. Estimated blood loss was minimal. A large, viillous friable polypoid mass on a thick stalk was found in the cardia. Biopsies were taken with a cold forceps for histology. Estimated blood loss was minimal. The examined duodenum was normal. No fresh or old blood noted excpept self limited post biopsy and the cardia polyp self limited oozing after passing over with a scope. The exam was otherwise without abnormality. Impression: - Z-line regular, 45 cm from the incisors. - GE junction edema with erosion. Biopsied. - One ulcerated gastric polyp in body. Biopsied. - Rule out malignancy, gastric tumor in the cardia. Biopsied. - Normal examined duodenum. - No fresh or old blood noted excpept self limited post biopsy and the cardia polyp self limited oozing after passing over with a scope. - The examination was otherwise normal. Recommendation: - Return patient to ICU for ongoing care. One or more of the polyps presumably source of bleeding. Johnathan Landrum M.D. Johnathan Landrum MD 07/05/2017 2:30:25 PM This report has been signed electronically. Note Initiated On: 07/05/2017 1:24 PM I attest to the content of the Intraoperative Record and orders documented therein, exceptions below
[2017-07-05] MEDS ORDERED: SUCCINYLCHOLINE 100MG/5ML SYR IV ONE (14:42)
--- NOTE | 2017-07-05 14:49 | Anesthesiology Progress Note ---
Anesthesia Post Op Note Date & Time Jul 05, 2017 at 14:41 Vital Signs Pain Intensity: 0.0 Vital Signs Past 12 Hours Date Time Temp Pulse Resp B/P (MAP) Pulse Ox O2 Delivery O2 Flow Rate FiO2 07/05/17 13:11 37 122 24 159/90 (113) 97 Room Air 07/05/17 12:27 37.0 122 18 114/73 98 Room Air 07/05/17 12:00 98 Room Air 07/05/17 12:00 37.0 122 18 114/73 (87) 98 Room Air 07/05/17 08:00 98 Room Air 07/05/17 08:00 37.3 115 16 138/78 (98) 98 Room Air 07/05/17 06:30 37.0 114 17 127/84 97 07/05/17 06:00 37.0 191 20 154/86 98 07/05/17 05:45 37.1 126 16 136/80 98 07/05/17 05:30 37.1 122 21 147/82 97 07/05/17 05:15 37.4 125 24 148/86 99 07/05/17 05:00 37.0 130 14 146/86 97 07/05/17 04:00 99 Room Air 07/05/17 04:00 36.6 122 16 138/75 99 07/05/17 03:45 36.8 126 21 137/83 99 07/05/17 03:30 36.9 130 78 133/78 97 07/05/17 03:18 36.4 125 20 109/78 Notes Mental Status: alert / awake / arousable, participated in evaluation Pt Amnestic to Procedure: Yes Nausea / Vomiting: adequately controlled Pain: adequately controlled Airway Patency, RR, SpO2: stable & adequate, see Notes BP & HR: stable & adequate, see Notes Hydration State: stable & adequate Anesthetic Complications: Unanticipated intubation Due to significant upper respiratory infection, severe cervical lymphadenopathy , copious secretions, and airway sharing nature of procedure, patient did laryngospasm during procedure. Scope was removed and the laryngospasm was broken with propofol, positive pressure breaths, and eventually succinylcholine. Air movement bilaterally was poor due to cervical adenopathy and so an LMA was placed to facilitate ventilation while the patient was prepped for intubation. The LMA was removed and an 8.0 ETT was placed with glidescope to 23cm at the lip. The cords appeared clear and there was no evidence for obvious aspiration. ETCO2 was confirmed and the tube was secured. Hemodynamics were managed throughout, and pulse ox was never persistently below 60, although transient drops <60 did occur for <30 seconds. Given the patient's ongoing upper respiratory disease, I think it best to leave him intubated for now. Bronchoscopy can be performed if deemed necessary at the discretion of the customer energy specialist. SPO2 on transport to the ICU was 100%. I have spoken with the patient's family member and also the ICU nurse and resident. Awaiting discussion with the customer energy specialist.
--- NOTE | 2017-07-05 15:15 | Progress Note ---
Progress Note Date of Service Jul 05, 2017. Progress Note Saw patient in ICU sedated and intubated. Abdomen exam benign--positive bowel sounds, no gaurding nor rebound. Went over results of procedure and reasons for intubation with mother, Dr Phan the publicity agent and Dr Carlin of [facility]. If he rebleeds and is on vent discussed putting NG down to look for bleeding in stomach. Agree with Dr Phan regarding CT scan of abdomen/ pelvis since saw these lesions in stomach--defer ordering to him when he thinks patient stable to do so. Dr Degroot assuming GI care today at 1700.
[2017-07-05] MEDS ORDERED: OPTIRAY 320 IV PRN (15:30)
[2017-07-05] MEDS ORDERED: MAGNESIUM SULFATE 1GM / D5W 1 GM in PREMIXED IN D5W 100 ML IV SCH (15:30)
--- NOTE | 2017-07-05 15:33 | DIAGNOSTIC IMAGING REPORT ---
CHEST ONE VIEW PORTABLE CLINICAL HISTORY: Placement of endotracheal tube. COMPARISON STUDY: No previous studies for comparison. FINDINGS: The tip of the endotracheal tube is 3.5 cm above the ronaldo. The tip of the nasogastric tube is below the lower aspect of this image but at least within the distal body of the stomach. There is no pneumothorax or pleural effusion. Linear left basilar opacities are suggestive of atelectasis. Pulmonary vascularity is normal. Cardiomediastinal silhouette is normal. IMPRESSION: 1. Satisfactory positioning of the endotracheal tube. 2. Linear left basilar opacity suggestive of atelectasis. Electronically signed by: Abelardo Hendricks M.D. 07/05/2017 3:32 PM Dictated Date/Time: 07/05/2017 3:30 PM
[2017-07-05] MEDS: CEFTRIAXONE SOD INJ 1000 MG in DEXTROSE 5% 50ML IV SCH (15:46)
[2017-07-05] MEDS: GABAPENTIN 600MG Q6H DOSE PO SCH ×2 (15:48→22:13)
[2017-07-05] MEDS ORDERED: METHYLPREDNISOLONE IV 80 MG in SYRINGE 0 ML IV SCH (16:00)
[2017-07-05] MEDS: MIDAZOLAM 125MG/250ML D5W 250 ML IV PRN (17:32)
[2017-07-05] MEDS: PROPOFOL IV EMULSION 10 MG/ML 100 ML VIAL IV PRN ×2 (17:32→21:20)
[2017-07-05] MEDS: NORMOSOL R 1,000 ML IV SCH (18:27)
--- NOTE | 2017-07-05 18:58 | Family Medicine Progress Note ---
Progress Note Date of Service Jul 05, 2017. Subjective Pt evaluation today including: conversation w/ patient, physical exam, chart review, lab review, review of studies Pain: No pain reported this morning Voiding: no voiding problems, no incontinence Patient states that he has had pain with swallowing and enlarged glands in his throat for "months". He also states that he has 4 [place] ice teas and a 6 pack of beer daily for the last 3 years. His last drink was Tuesday night and did not have a drink over the weekend. Yesterday afternoon he was noticing some blood streaking in his sputum and felt very anxious. He also states that he has been having on and off headaches for the last month. He denies any other symptoms including abdominal pain, chest pain, fever, chills, diarrhea, or constipation. Constitutional: + fatigue, No fever, No chills, No sweats ENT: + sore throat, + trouble swallowing, No tinnitus Respiratory: + cough, + sputum, + hemoptysis, No wheezing, No shortness of breath Cardiovascular: No chest pain, No orthopnea, No palpitations Abdomen: + GI bleeding, No pain, No nausea, No vomiting, No diarrhea, No constipation Neurologic: No memory loss, No numbness/tingling Heme: + abnormal bleeding/bruising, + swollen lymph nodes, + night sweats Skin: No rash Medications Current Inpatient Medications Medications (Trade) Dose Ordered Sig/Jasmin Route Start Time Stop Time Status Last Admin Dose Admin Bupropion HCl (Wellbutrin-Xl Tab) 300 mg DAILY PO 07/05/17 09:00 08/04/17 08:59 Future Hold Ondansetron HCl (Zofran Inj) 4 mg Q6H PRN IV 07/04/17 18:30 08/03/17 18:29 Miscellaneous (Iv Fluids Completed) 1 ea PRN PRN N/A 07/04/17 18:45 07/04/18 18:44 Sodium Chloride ([place]ary Nasal [place]) 1 sprays PRN PRN NA 07/04/17 20:45 08/03/17 20:44 07/04/17 21:01 1 SPRAYS Gabapentin (Neurontin Tab) 600 mg Q6H PO 07/05/17 16:00 07/05/17 22:01 07/05/17 15:48 600 MG Gabapentin (Neurontin Tab) 600 mg Q8H PO 07/06/17 06:00 07/06/17 22:01 Gabapentin (Neurontin Tab) 600 mg Q12H PO 07/07/17 10:00 07/07/17 22:01 Gabapentin (Neurontin Tab) 600 mg Q24H PO 07/08/17 22:00 07/08/17 22:01 Miscellaneous Information (Icu Protocol For Hyperglycemia) 1 ea PRN PRN N/A 07/05/17 14:15 07/07/17 14:14 Pantoprazole Sodium 40 mg/ Syringe 10 ml @ 5 mls/min DAILY@,21 IV 07/05/17 21:00 08/04/17 20:59 Ceftriaxone Sodium 1000 mg/ Dextrose 60 ml @ 120 mls/hr Q24H IV 07/05/17 16:00 07/09/17 16:29 07/05/17 15:46 120 MLS/HR Methylprednisolone Sodium Succinate 80 mg/Syringe 1.28 ml @ 1.5 mls/min DAILY@1600 IV 07/05/17 16:00 07/08/17 16:01 07/05/17 15:47 1.5 MLS/MIN Midazolam HCl 250 ml @ 0 mls/hr Q0M PRN IV 07/05/17 15:17 08/04/17 15:16 07/05/17 17:32 20 MLS/HR Ioversol (Optiray 320) 125 ml UD PRN IV 07/05/17 15:30 07/09/17 15:29 Enteral Nutritional Formula (Peptamen Intense VHP) 1 ml goal rate of 70ml/hr OG 07/06/17 16:00 08/05/17 15:59 Propofol (Diprivan Iv Emulsion 100ml Vial) 1 dose UD PRN IV 07/05/17 15:45 07/06/17 15:44 07/05/17 17:32 1 DOSE Parenteral Electrolyte Solution 1,000 ml @ 100 mls/hr Q10H IV 07/05/17 18:30 08/04/17 18:29 Objective Vital Signs Date Time Temp Pulse Resp B/P (MAP) Pulse Ox O2 Delivery O2 Flow Rate FiO2 07/05/17 18:12 40 07/05/17 18:00 109 27 127/81 (96) 100 Mechanical Ventilator 40 07/05/17 16:00 100 Mechanical Ventilator 40 07/05/17 16:00 37.7 107 26 129/76 (93) 100 Mechanical Ventilator 40 07/05/17 15:00 37.7 106 28 121/77 100 Mechanical Ventilator 40 07/05/17 14:55 108 32 125/73 100 Mechanical Ventilator 40 07/05/17 14:50 109 32 120/69 100 Mechanical Ventilator 40 07/05/17 14:45 111 35 131/78 99 Mechanical Ventilator 40 07/05/17 14:42 40 07/05/17 14:40 118 31 128/75 100 Mechanical Ventilator 40 07/05/17 14:35 119 30 128/76 100 Mechanical Ventilator 40 07/05/17 14:30 37.4 107 33 116/71 100 Mechanical Ventilator 40 07/05/17 13:11 37 122 24 159/90 (113) 97 Room Air 07/05/17 12:27 37.0 122 18 114/73 98 Room Air 07/05/17 12:00 98 Room Air 07/05/17 12:00 37.0 122 18 114/73 (87) 98 Room Air 07/05/17 08:00 98 Room Air 07/05/17 08:00 37.3 115 16 138/78 (98) 98 Room Air 07/05/17 06:30 37.0 114 17 127/84 97 07/05/17 06:00 37.0 191 20 154/86 98 07/05/17 05:45 37.1 126 16 136/80 98 07/05/17 05:30 37.1 122 21 147/82 97 07/05/17 05:15 37.4 125 24 148/86 99 07/05/17 05:00 37.0 130 14 146/86 97 07/05/17 04:00 99 Room Air 07/05/17 04:00 36.6 122 16 138/75 99 07/05/17 03:45 36.8 126 21 137/83 99 07/05/17 03:30 36.9 130 78 133/78 97 07/05/17 03:18 36.4 125 20 109/78 07/05/17 00:00 Room Air 07/04/17 23:38 36.5 155 20 123/74 (90) 96 Room Air 07/04/17 22:55 36.6 111 18 150/94 95 Room Air 07/04/17 19:29 36.6 111 18 150/94 (112) 95 Room Air 07/04/17 18:56 36.3 116 22 148/93 97 Physical Exam General Appearance: WD/WN, no apparent distress Eyes: normal inspection, sclerae normal ENT: + pharyngeal erythema, + tonsillar exudate, + pertinent finding ( Bilateral tonsillary enlargement) Neck: supple, trachea midline, + adenopathy present Respiratory/Chest: chest non-tender, lungs clear, normal breath sounds, no respiratory distress, no accessory muscle use Cardiovascular: regular rate, rhythm, no edema, no gallop Abdomen: normal bowel sounds, non tender, soft Extremities: normal range of motion, non-tender, no calf tenderness Neurologic/Psychiatric: alert, normal mood/affect, oriented x 3 Skin: no rash Laboratory Results Results Past 24 Hours Test 07/04/17 18:56 07/04/17 22:55 07/05/17 01:25 07/05/17 08:01 Range/Units Hemoglobin 10.4 8.2 7.2 8.4 14.0-18.0 g/dL Hematocrit 33.2 26.1 22.1 25.5 42-52 % White Blood Count 12.00 4.8-10.8 K/uL Red Blood Count 3.31 4.7-6.1 M/uL Mean Corpuscular Volume 77.0 80-100 fL Mean Corpuscular Hemoglobin 25.4 25-34 pg Mean Corpuscular Hemoglobin Concent 32.9 32-36 g/dl Platelet Count 123 130-400 K/uL Mean Platelet Volume 9.6 7.4-10.4 fL RDW Standard Deviation 50.7 36.4-46.3 fL RDW Coefficient of Variation 17.7 11.5-14.5 % Neutrophils % (Manual) 25.5 % Lymphocytes % (Manual) 51.8 % Variant Lymphocytes % (manual) 18.2 % Monocytes % (Manual) 3.6 % Basophils % (Manual) 0.9 0-2 % Neutrophils # (Manual) 3.06 1.4-6.5 K/uL Total Absolute Neutrophils 3.06 1.4-6.5 K/uL Lymphocytes # (Manual) 6.22 1.2-3.4 K/uL Absolute Variant Lymphocytes 2.18 K/uL Total Absolute Lymphocytes 8.40 1.2-3.4 K/uL Monocytes # (Manual) 0.43 0.11-0.59 K/uL Basophils # (Manual) 0.11 0-0.2 K/uL Giant Platelets 1+ Hypochromasia PRESENT Sodium Level 140 136-145 mmol/L Potassium Level 3.9 3.5-5.1 mmol/L Chloride Level 111 98-107 mmol/L Carbon Dioxide Level 21 21-32 mmol/L Anion Gap 8.0 3-11 mmol/L Blood Urea Nitrogen 9 7-18 mg/dl Creatinine 0.81 0.60-1.40 mg/dl Est Creatinine Clear Calc Drug Dose 161.6 ml/min Estimated GFR () 146.2 Estimated GFR (Non- 126.2 BUN/Creatinine Ratio 11.4 10-20 Random Glucose 140 70-99 mg/dl Calcium Level 7.3 8.5-10.1 mg/dl Magnesium Level 1.7 1.8-2.4 mg/dl Monoscreen POS NEG Test 07/05/17 08:40 07/05/17 09:24 07/05/17 12:19 07/05/17 15:26 Range/Units Urine Opiates Screen NEG NEG Urine Methadone, Qualitative NEG NEG Urine Barbiturates NEG NEG Urine Phencyclidine (PCP) Level NEG NEG Ur Amphetamine/Methamphetamine NEG NEG MDMA (Ecstasy) Screen NEG NEG Urine Benzodiazepines Screen NEG NEG Urine Cocaine Metabolite NEG NEG Urine Marijuana (THC) POS NEG Vitamin B12 Level 285 211-911 pg/mL Folate 12.88 >5.38 ng/mL Hemoglobin 8.6 14.0-18.0 g/dL Hematocrit 26.6 42-52 % Test 07/05/17 16:11 07/05/17 18:27 Range/Units Bedside Glucose 136 70-99 mg/dl Microbiology Results 07/05/17 MRSA DNA Surveillance Screen, Received Pending Assessment and Plan Patient is a 21 year old male that presented to the hospital with hematemesis and hematochezia 1) GI Bleeding - Hematemesis and Hematochezia - EGD performed this afternoon revealed ulcerated gastric polyp as most likely cause of bleed and was subsequently biopsied - Hemoglobin 8.6 after 2 units of transfused PRBC (was as low as 7.2 after being admitted with a Hgb of 11.2) - H/H q6h - IV Protonix - Stool occult positive in ED, along with visualized bright red blood in the toilet - GI consulted 2) Respiratory failure secondary to laryngospasm after EGD - Currently intubated and sedated in the ED - stable - Patient had laryngospasm after procedure 2/2 severe cervical lymphadenopathy, copious secretions, and EGD procedure as per anesthesiology - Hemodynamically stable throughout and pulse ox never went below 60 - Currently being managed in the ICU while sedated on propofol and continue to monitor respiratory status - Midazolam and Propofol 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 Discussed with Dr. Laws and agree with findings and plan as documented in the note. Any exceptions or clarifications are listed here: Pt seen and examined twice today, first in mid-morning prior to his EGD, and then later when he returned from EGD, intubated for acute hypoxemic respiratory failure likely secondary to laryngospasm and pharyngeal edema. He is admitted with acute blood loss anemia, GI bleeding found to be from bleeding large polypoid masses in stomach, and both Mononucleosis pharyngitis and Group G beta Strep pharyngitis. He was transfused 2 units PRBCs overnight and hgb stabilized today in the 8s despite 2 more episodes of melena mixed with BRBPR this AM. He is also here with elevated LFTs, mild thrombocytopenia, and splenomegaly, all related to either Alcoholic Hepatitis, Mononucleosis, or a combination of both. When I spoke to him this AM, his biggest complaint was of a very sore throat, and nasal congestion, blowing out yellow mucus. He told me that those symptoms only started a few days prior. 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 He is also a daily cigarette smoker but had cut down to 1 cigg/ day recently after starting Wellbutrin. Smokes Marijuana but denies any other illicit drug use. He reported his throat felt much better yesterday after being given ibuprofen and IV Decadron in the ER. He also reported hot flashes, feeling that something was crawling on his arms, and anxiety, nervousness. He was having sinus tachycardia and some elevated BPs. After pt returned from EGD and was intubated, I discussed the EGD findings and the case with both GI Dr. Landrum, and Drug Clerk Dr. Phan. Vitals reviewed, ST on tele, appears pale, had a mildly muffled voice Neck with significantly enlarged posterior cervical chain bilateral adenopathy Right TM with mild erythema but no loss of light reflex, no fluid behind TM, Left TM and bilat EACs clear/normal Posterior OP with 3+ tonsils, no exudate, +erythema, uvula in midline, airway was patent Reg rhythm but mild tachycardia, no mgr CTAB no wcr, breathing unlabored Abd +BS, soft, NT ND Ext no edema or calf tenderness in legs Skin no rashes Abd US with splenomegaly, normal liver, GB, and with absent right kidney, enlarged left kidney CT abd/pel with absent right kidney, splenomegaly with possible splenic infarcts vs laceration, prominent ileocolic LINDA possibly reactive Pt is a 21 yo male here with ventilator dependent acute hypoxemic respiratory failure likely secondary to laryngospasm and pharyngeal edema, acute blood loss anemia, GI bleeding found to be from bleeding large polypoid masses in stomach, both Mononucleosis pharyngitis and Group G beta Strep pharyngitis, elevated LFTs , thrombocytopenia, and splenomegaly -Follow CBC and transfuse as needed if hemodynamically unstable with active bleeding or for Hgb < 6.5 -dc octreotide, dc PPI gtt and start Protonix 40mg IV bid as d/w GI -f/u pathology results of gastric masses-malignancy vs benign ulcerated masses -now on Versed gtt for sedation and will be beneficial for EtOH withdrawal -Elevated LFTs and splenomegaly related to [place] vs EtOH-induced hepatitis, INR normal and TBili normal, plts mildly reduced--> follow LFTs, CBC, INR, advised cessation of EtOH and pt wants to do so -continue IV steroids for pharyngeal edema and extubate when able to, may need bronchoscopy prior to that, vent settings as per Drug Clerk -Rocephin for Group G beta strep pharyngitis -will need close observation of splenomegaly and possible infarcts vs laceration , observe for worsening abd pain, worsening anemia in the absence of further GI bleeding -congenital absence of right kidney--> could possibly be part of genetic syndrome? Unclear if has any relationship to abnormal appearing masses in stomach at this time -will need EtOH rehab-suggest inpatient, when recovered from acute illness DVT Proph- SCDs Documented By: Claire Carlin
[2017-07-05 19:31] LABS: HEMATOCRIT 26.7 % (42-52)
--- NOTE | 2017-07-05 19:40 | Critical Care Consultation ---
Critical Care Consultation Date of Consultation: Jul 05, 2017. Attending Physician: Claire Carlin MD Reason for Consultation: Required intubation during Upper Endoscopy, GI Bleed History of Present Illness Patient is a 21-year-old male who was admitted to the ICU after upper endoscopy being performed today for evaluation of upper GI bleeding. The patient has a past medical history significant for alcohol abuse. He drinks at least 10 beers per day. Per records, the patient has been feeling rundown and developed bloody stools which were grossly Hemoccult positive. He continued to drop his H &H and upper endoscopy was performed by GI. During upper endoscopy, the patient had significant bronchospasm requiring intubation here this was performed by anesthesia. Addition to bronchospasm, the patient was found to have significant lymphadenopathy and tonsillar hypertrophy which did seem to complicate intubation. He presents to the ICU sedated on propofol. Per GI, the patient was found to have 2 separate masses in the stomach on upper endoscopy which were each biopsied. There was no active bleeding appreciated during exam. Per records, the patient was found to have a positive Monospot. Patient has a significant past medical history for anxiety for which she is treated previously with Wellbutrin. He has not been on his medications most recently. Other than concern for alcohol abuse, the parents are uncertain as to any other substance use. Per family, the patient recently moved to [place] approximately one year ago. He is currently employed at a local restaurant. Patient is unable to contribute to history of present illness secondary to state of sedation and intubation. Past Medical/Surgical History Anxiety Family History No family history of neurofibromatosis No contributory family history. Social History Smoking Status: Current Every Day Smoker Smokeless Tobacco Use: No Alcohol Use: none Drug Use: none Marital Status: single Housing Status: lives with family Allergies Coded Allergies: NO KNOWN DRUG ALLERGIES (Unverified Allergy, Unknown, NONE, 11/23/16) Peanut (Unverified Allergy, Unknown, ANAPHYLAXIS, 11/23/16) Home Medications Scheduled Bupropion (Wellbutrin-Xl), 300 MG PO DAILY Current Inpatient Medications Current Inpatient Medications Medications (Trade) Dose Ordered Sig/Jasmin Route Start Time Stop Time Status Last Admin Dose Admin Bupropion HCl (Wellbutrin-Xl Tab) 300 mg DAILY PO 07/05/17 09:00 08/04/17 08:59 Future Hold Ondansetron HCl (Zofran Inj) 4 mg Q6H PRN IV 07/04/17 18:30 08/03/17 18:29 Miscellaneous (Iv Fluids Completed) 1 ea PRN PRN N/A 07/04/17 18:45 07/04/18 18:44 Sodium Chloride ([place] Nasal [place]) 1 sprays PRN PRN NA 07/04/17 20:45 08/03/17 20:44 07/04/17 21:01 1 SPRAYS Gabapentin (Neurontin Tab) 600 mg Q6H PO 07/05/17 16:00 07/05/17 22:01 07/05/17 15:48 600 MG Gabapentin (Neurontin Tab) 600 mg Q8H PO 07/06/17 06:00 07/06/17 22:01 Gabapentin (Neurontin Tab) 600 mg Q12H PO 07/07/17 10:00 07/07/17 22:01 Gabapentin (Neurontin Tab) 600 mg Q24H PO 07/08/17 22:00 07/08/17 22:01 Miscellaneous Information (Icu Protocol For Hyperglycemia) 1 ea PRN PRN N/A 07/05/17 14:15 07/07/17 14:14 Pantoprazole Sodium 40 mg/ Syringe 10 ml @ 5 mls/min DAILY@09,21 IV 07/05/17 21:00 08/04/17 20:59 Ceftriaxone Sodium 1000 mg/ Dextrose 60 ml @ 120 mls/hr Q24H IV 07/05/17 16:00 07/09/17 16:29 07/05/17 15:46 120 MLS/HR Methylprednisolone Sodium Succinate 80 mg/Syringe 1.28 ml @ 1.5 mls/min DAILY@1600 IV 07/05/17 16:00 07/08/17 16:01 07/05/17 15:47 1.5 MLS/MIN Midazolam HCl 250 ml @ 0 mls/hr Q0M PRN IV 07/05/17 15:17 08/04/17 15:16 07/05/17 17:32 20 MLS/HR Ioversol (Optiray 320) 125 ml UD PRN IV 07/05/17 15:30 07/09/17 15:29 Enteral Nutritional Formula (Peptamen Intense VHP) 1 ml goal rate of 70ml/hr OG 07/06/17 16:00 08/05/17 15:59 Propofol (Diprivan Iv Emulsion 100ml Vial) 1 dose UD PRN IV 07/05/17 15:45 07/06/17 15:44 07/05/17 17:32 1 DOSE Parenteral Electrolyte Solution 1,000 ml @ 100 mls/hr Q10H IV 07/05/17 18:30 08/04/17 18:29 07/05/17 18:27 100 MLS/HR Review of Systems Unable to obtain secondary to current state of sedation with intubation. Physical Exam Date Time Temp Pulse Resp B/P (MAP) Pulse Ox O2 Delivery O2 Flow Rate FiO2 07/05/17 18:12 40 07/05/17 18:00 109 27 127/81 (96) 100 Mechanical Ventilator 40 07/05/17 16:00 100 Mechanical Ventilator 40 07/05/17 16:00 37.7 107 26 129/76 (93) 100 Mechanical Ventilator 40 07/05/17 15:00 37.7 106 28 121/77 100 Mechanical Ventilator 40 07/05/17 14:55 108 32 125/73 100 Mechanical Ventilator 40 07/05/17 14:50 109 32 120/69 100 Mechanical Ventilator 40 07/05/17 14:45 111 35 131/78 99 Mechanical Ventilator 40 07/05/17 14:42 40 07/05/17 14:40 118 31 128/75 100 Mechanical Ventilator 40 07/05/17 14:35 119 30 128/76 100 Mechanical Ventilator 40 07/05/17 14:30 37.4 107 33 116/71 100 Mechanical Ventilator 40 07/05/17 13:11 37 122 24 159/90 (113) 97 Room Air 07/05/17 12:27 37.0 122 18 114/73 98 Room Air 07/05/17 12:00 98 Room Air 07/05/17 12:00 37.0 122 18 114/73 (87) 98 Room Air 07/05/17 08:00 98 Room Air 07/05/17 08:00 37.3 115 16 138/78 (98) 98 Room Air 07/05/17 06:30 37.0 114 17 127/84 97 07/05/17 06:00 37.0 191 20 154/86 98 07/05/17 05:45 37.1 126 16 136/80 98 07/05/17 05:30 37.1 122 21 147/82 97 8/29/17 05:15 37.4 125 24 148/86 99 07/05/17 05:00 37.0 130 14 146/86 97 07/05/17 04:00 99 Room Air 07/05/17 04:00 36.6 122 16 138/75 99 07/05/17 03:45 36.8 126 21 137/83 99 07/05/17 03:30 36.9 130 78 133/78 97 07/05/17 03:18 36.4 125 20 109/78 07/05/17 00:00 Room Air 07/04/17 23:38 36.5 155 20 123/74 (90) 96 Room Air 07/04/17 22:55 36.6 111 18 150/94 95 Room Air VITAL SIGNS - Vital signs and nursing notes were reviewed. GENERAL - 21-year-old male appearing his stated age who is in no acute distress. Resting comfortably on the ventilator. SKIN - Without rashes. Pale appearing. HEAD - NC/AT. EYES - PERRL with EOMI bilaterally. Sclera anicteric. Palpebral conjunctiva pale with no injection noted. EARS - No deformities of external structures noted on gross examination bilaterally. NOSE - Midline and without cyanosis. No epistaxis or purulent drainage noted. MOUTH/OROPHARYNX - Intubated. Without perioral cyanosis. NECK - Neck with FROM. Supple to palpation. LUNGS - Chest wall symmetric without accessory muscle use, intercostals retractions, or central cyanosis. Normal vesicular breath sounds CTA B/L. No wheezes, rales, or rhonchi appreciated. CARDIAC - RRR with S1/S2. No murmur, rubs, or gallops appreciated. ABDOMEN - Abdominal contour flat without pulsations or visible masses. BS normoactive all four quadrants. No tenderness, palpable masses, hepatosplenomegaly, or ascites noted. EXTREMITIES - No clubbing or peripheral cyanosis. No pretibial edema present. +3 /5 radial and dorsalis pedis pulses palpated throughout. NEUROLOGIC/PSYCH - Intubated and sedated. Laboratory Results Last 24 Hours Test 07/04/17 22:55 07/05/17 01:25 07/05/17 08:01 07/05/17 08:40 Hemoglobin 8.2 g/dL 7.2 g/dL 8.4 g/dL Hematocrit 26.1 % 22.1 % 25.5 % White Blood Count 12.00 K/uL Red Blood Count 3.31 M/uL Mean Corpuscular Volume 77.0 fL Mean Corpuscular Hemoglobin 25.4 pg Mean Corpuscular Hemoglobin Concent 32.9 g/dl Platelet Count 123 K/uL Mean Platelet Volume 9.6 fL RDW Standard Deviation 50.7 fL RDW Coefficient of Variation 17.7 % Neutrophils % (Manual) 25.5 % Lymphocytes % (Manual) 51.8 % Variant Lymphocytes % (manual) 18.2 % Monocytes % (Manual) 3.6 % Basophils % (Manual) 0.9 % Neutrophils # (Manual) 3.06 K/uL Total Absolute Neutrophils 3.06 K/uL Lymphocytes # (Manual) 6.22 K/uL Absolute Variant Lymphocytes 2.18 K/uL Total Absolute Lymphocytes 8.40 K/uL Monocytes # (Manual) 0.43 K/uL Basophils # (Manual) 0.11 K/uL Giant Platelets 1+ Hypochromasia PRESENT Sodium Level 140 mmol/L Potassium Level 3.9 mmol/L Chloride Level 111 mmol/L Carbon Dioxide Level 21 mmol/L Anion Gap 8.0 mmol/L Blood Urea Nitrogen 9 mg/dl Creatinine 0.81 mg/dl Est Creatinine Clear Calc Drug Dose 161.6 ml/min Estimated GFR () 146.2 Estimated GFR (Non- 126.2 BUN/Creatinine Ratio 11.4 Random Glucose 140 mg/dl Calcium Level 7.3 mg/dl Magnesium Level 1.7 mg/dl Monoscreen POS Urine Opiates Screen NEG Urine Methadone, Qualitative NEG Urine Barbiturates NEG Urine Phencyclidine (PCP) Level NEG Ur Amphetamine/Methamphetamine NEG MDMA (Ecstasy) Screen NEG Urine Benzodiazepines Screen NEG Urine Cocaine Metabolite NEG Urine Marijuana (THC) POS Test 07/05/17 09:24 07/05/17 12:19 07/05/17 16:11 07/05/17 19:21 Vitamin B12 Level 285 pg/mL Folate 12.88 ng/mL Hemoglobin 8.6 g/dL 8.7 g/dL Hematocrit 26.6 % 26.7 % Bedside Glucose 136 mg/dl Diagnostic Results Radiological imaging and reports were reviewed by myself. Radiologist's Interpretation as follows: ABDOMINAL ULTRASOUND COMPLETE HISTORY: Abnormal LFTs.. COMPARISON: None. FINDINGS: Pancreas: The pancreatic tail is obscured by overlying bowel gas. The remaining portions of the pancreas are within normal limits. Liver: Unremarkable. Gallbladder: No gallbladder wall thickening. No gallstones. CBD: 4 mm. Kidneys: The right kidney was not visualized. The left kidney measures 15 cm. No hydronephrosis. Spleen: Enlarged measuring 15.4 cm in length. Aorta: Normal in caliber. IVC: Patent. IMPRESSION: 1. The right kidney was not visualized and could be absent on a congenital basis given the mildly enlarged left kidney. 2. Splenomegaly. CHEST ONE VIEW PORTABLE CLINICAL HISTORY: Placement of endotracheal tube. COMPARISON STUDY: No previous studies for comparison. FINDINGS: The tip of the endotracheal tube is 3.5 cm above the ronaldo. The tip of the nasogastric tube is below the lower aspect of this image but at least within the distal body of the stomach. There is no pneumothorax or pleural effusion. Linear left basilar opacities are suggestive of atelectasis. Pulmonary vascularity is normal. Cardiomediastinal silhouette is normal. IMPRESSION: 1. Satisfactory positioning of the endotracheal tube. 2. Linear left basilar opacity suggestive of atelectasis. Assessment & Plan Reason Critically Ill: Intubated and sedated status post upper endoscopy with GI bleed requiring transfusion 2. Mathews with difficult intubation secondary to lymphadenopathy. Neuro - * [facility] ICU: POSITIVE * Sedated with Versed and Propofol. * History of Alcohol abuse with Withdraw. * Protocol in place - Gabapentin, Ativan. Cardiac - * No history of cardiac disease. * Will monitor on telemetry. Respiratory - * Intubated and Ventilated - * Settings: 16/500/5/40% * Planned sedation vacation in the morning with leak test of the cuff - important 2/2 h/o pharyngeal edema and difficulty with intubation. * CXR Without significant findings. * Will monitor pulse oximetry closely. GI - * GI Bleed: * Upper Endoscopy concerning for 2 lesions (?masses) noted to the stomach. Biopsy pending. * Will add CT of Abdomen/Pelvis for further evaluation of other possible contributing processes. * Continue Protonix. * Continue to watch for bleeding - lower GIB not ruled out at this time. * Appreciate GI Consultation. * Transaminitis - EtOH use versus hepatitis 2/2 Mathews. * GI Prophylaxis: Protonix 40 mg. * Tube Feeds - Peptamen with increasing to goal of 70 mL/hr. RENAL/LYTES - * Will monitor daily and correct appropriately. * Normosol at 100 mL/hr - * Garcia Catheter in place. * Strict I&Os ENDO - * No history of DM or Thyroid Dz. * Will monitor BSGs per ICU protocol. * ISS as needed. HEME - * Blood loss anemia 2/2 GIB. * Will monitor serial H&H's. * Transfuse as needed. ID - * IV Rocephin 2/2 ?UGIB. Will be helpful with pharyngitis as well. * IV Steroids for pharyngitis in the setting of mono. LINES/IV ACCESS - * PIVs in place. * Garcia Catheter to [place]. DVT PROPHYLAXIS - * SCDs. * Will hold chemical prophylaxis in the setting of GIB and blood loss anemia. I have personally spent 45 minutes of critical care time in the direct management of this patient. This is a life/limb threatening event. This includes time spent evaluating patient, direct bedside care, chart review, placing orders, interpretation of diagnostic studies, discussion with consultants, patient, and family members, as well as other required patient management activities. This time is exclusive of all separately billable procedures, and teaching time and separate from and in addition to any other critical care service time. Thank you for this consultation allow us to be part of this patient's care. Please refer to my attending physician's documentation for any further recommendations. I have personally evaluated and examined this patient. I agree with assessment and plan of Nancy Garcia PA-C. Possible aspiration pneumonitis versus acute airway obstruction given significant tonsillar swelling from mononucleosis. Will remain intubated overnight to allow starting steroids. Will not start beta blockade given acute gastrointestinal bleeding, will require follow-up pathology. Can start to feeding at this point, because after bedside consultation with gastroenterology patient would require a bowel prep, we can stop to feeds and start bowel prep at that time at the patient declares himself that he has a lower gastrointestinal bleeding source. Patient critically ill due to acute respiratory failure
[2017-07-05] MEDS ORDERED: PEPTAMEN INTENSE VHP 1000ML BAG OG SCH (20:15)
[2017-07-05] MEDS: PANTOprazole INJ 40 MG in SYRINGE 0 ML IV SCH (20:58)
--- NOTE | 2017-07-05 22:17 | DIAGNOSTIC IMAGING REPORT ---
CT ABD/PELVIS IV CONTRAST ONLY CLINICAL HISTORY: abdominal mass COMPARISON STUDY: Abdominal ultrasound dated 07/05/2017 TECHNIQUE: Following the IV administration of 120 mL of Optiray-320, CT scan of the abdomen and pelvis was performed from the lung bases to the proximal femurs. Images are reviewed in the axial, sagittal, and coronal planes. IV contrast was administered without complication. A dose lowering technique was utilized adhering to the principles of ALARA. CT DOSE: 543.65 mGy.cm FINDINGS: Lower chest: There are by basilar opacities, likely atelectatic Liver: The contrast-enhanced liver is normal in size, contour, and attenuation. There is no intrahepatic biliary ductal dilatation. The hepatic veins and portal veins are patent. Gallbladder: Unremarkable. Spleen: The spleen is mildly enlarged measuring 15.9 cm. There is subtle hypodensities involving the superior spleen. In the absence of trauma, these could reflect small infarcts. Pancreas: Unremarkable. Adrenal glands: Unremarkable. Kidneys: The left kidney appears normal. No right kidney is visualized. Bowel: There are no transition zones indicate bowel obstruction. There is no acute diverticulitis. There are no findings to indicate acute appendicitis. Enteric tube is visualized within the stomach. Peritoneum: There is minimal free pelvic fluid. No free air is visualized. Vasculature: The abdominal aorta is normal in course and caliber. Adenopathy: There are minimally prominent ileocolic lymph nodes. These are likely reactive. Pelvic viscera: There is indwelling Garcia catheter Skeletal structures: No destructive osseous lesions are seen. IMPRESSION: 1. No evidence of bowel obstruction. No evidence of free air 2. Small amount of free pelvic fluid 3. Absent right kidney 4. Mild splenomegaly 5. Subtle hypodensities within the superior aspect of the spleen. These are peripheral. In the absence of a traumatic history these may represent small infarcts. There is no significant perisplenic fluid to indicate splenic lacerations, although this is within differential. Electronically signed by: Jhonathan Alicea M.D. 07/05/2017 10:16 PM Dictated Date/Time: 07/05/2017 10:10 PM
[2017-07-06] VITALS (38 sets, daily range): BP systolic 108–133; BP diastolic 62–86; PULSE 91–129; TEMP 36.5–38.9; O2SAT 93–100
[2017-07-06 00:33] LABS: HEMATOCRIT 28.2 % (42-52)
[2017-07-06] MEDS: PROPOFOL IV EMULSION 10 MG/ML 100 ML VIAL IV PRN ×2 (01:23→04:58)
[2017-07-06] MEDS: NORMOSOL R 1,000 ML IV SCH ×2 (02:27→13:23)
[2017-07-06] MEDS: MIDAZOLAM 125MG/250ML D5W 250 ML IV PRN (05:18)
[2017-07-06] MEDS: GABAPENTIN 600MG Q8H DOSE PO SCH ×3 (05:33→21:11)
[2017-07-06 06:10] LABS: HEMATOCRIT 27.9 % (42-52); MEAN CELL VOLUME 80.2 fL (80-100); MEAN CORPUSCULAR HEMOGLOBIN 24.7 pg (25-34); MEAN CORPUSCULAR HGB CONC 30.8 g/dl (32-36); MEAN PLATELET VOLUME 10.5 fL (7.4-10.4); PLATELET COUNT 129 K/uL (130-400); RED BLOOD COUNT 3.48 M/uL (4.7-6.1); WHITE BLOOD COUNT 12.15 K/uL (4.8-10.8)
[2017-07-06 06:11] LABS: VEN BLOOD GAS BASE EXCESS 0.1 mEq/L; VENOUS BLOOD GAS PCO2 51 mmHg (38.0-50.0); VENOUS BLOOD GAS PO2 27 mmHg
[2017-07-06 06:16] LABS: INR 0.9 (0.9-1.1); PROTHROMBIN TIME (PATIENT) 10.1 SECONDS (9.0-12.0)
[2017-07-06 06:17] LABS: VEN BLD GAS O2 SATURATION < 60.0 %
[2017-07-06 06:47] LABS: ALT/SGPT 80 U/L (12-78); AST/SGOT 104 U/L (15-37); BLOOD UREA NITROGEN 5 mg/dl (7-18); BUN/CREATININE RATIO 6.4 (10-20); CALCIUM 7.8 mg/dl (8.5-10.1); CARBON DIOXIDE 26 mmol/L (21-32); CHLORIDE 106 mmol/L (98-107); GLUCOSE 107 mg/dl (70-99); MAGNESIUM 2.4 mg/dl (1.8-2.4); POTASSIUM 4.3 mmol/L (3.5-5.1); SODIUM 138 mmol/L (136-145)
[2017-07-06 06:50] LABS: ALKALINE PHOSPHATASE 100 U/L (45-117); PHOSPHORUS 3.9 mg/dl (2.5-4.9)
--- NOTE | 2017-07-06 07:17 | DIAGNOSTIC IMAGING REPORT ---
CHEST ONE VIEW PORTABLE CLINICAL HISTORY: Intubation. Respiratory failure. COMPARISON STUDY: Chest radiograph July 05, 2017. FINDINGS: Endotracheal tube tip is difficult to visualize on this exam but is appropriately positioned, approximately 3.6 cm above the ronaldo. Tip of nasogastric tube is below lower aspect of image but at least within the mid body of the stomach. There is no pneumothorax or pleural effusion. Mild left basilar opacity suggests atelectasis. There is no consolidation to suggest pneumonia. There is no evidence of pulmonary edema. IMPRESSION: 1. Tip of endotracheal tube approximately 3.6 cm above the ronaldo. 2. Mild left basilar atelectasis. Electronically signed by: Abelardo Hendricks M.D. 07/06/2017 7:15 AM Dictated Date/Time: 07/06/2017 7:12 AM
--- NOTE | 2017-07-06 07:27 | Family Medicine Progress Note ---
Progress Note Date of Service Jul 06, 2017. Subjective Pt evaluation today including: conversation w/ patient, physical exam, chart review, lab review, review of studies Pain: Patient complaining of 9/10 pharyngeal pain Voiding: no voiding problems, no incontinence Patient is resting comfortably in bed this morning after being extubated. He is alert and oriented and understands all of the medical care he has received this far. His only complaint is that he is have a sore throat at this time. He denies any fever, shortness of breath, chest pain, nausea, vomiting, abdominal pain, or any other acute complaints. Constitutional: + fatigue, No fever, No chills, No weakness ENT: + sore throat, No nasal symptoms Respiratory: No cough, No sputum, No shortness of breath Cardiovascular: No chest pain, No palpitations Abdomen: No pain, No nausea, No vomiting, No diarrhea, No constipation, No GI bleeding Neurologic: No memory loss, No weakness Skin: No rash Medications Current Inpatient Medications Medications (Trade) Dose Ordered Sig/Jasmin Route Start Time Stop Time Status Last Admin Dose Admin Bupropion HCl (Wellbutrin-Xl Tab) 300 mg DAILY PO 07/05/17 09:00 08/04/17 08:59 Future Hold Ondansetron HCl (Zofran Inj) 4 mg Q6H PRN IV 07/04/17 18:30 08/03/17 18:29 Miscellaneous (Iv Fluids Completed) 1 ea PRN PRN N/A 07/04/17 18:45 07/04/18 18:44 Sodium Chloride ([place] Nasal [place]) 1 sprays PRN PRN NA 07/04/17 20:45 08/03/17 20:44 07/04/17 21:01 1 SPRAYS Gabapentin (Neurontin Tab) 600 mg Q8H PO 07/06/17 06:00 07/06/17 22:01 07/06/17 21:11 600 MG Gabapentin (Neurontin Tab) 600 mg Q12H PO 07/07/17 10:00 07/07/17 22:01 Gabapentin (Neurontin Tab) 600 mg Q24H PO 07/08/17 22:00 07/08/17 22:01 Miscellaneous Information (Icu Protocol For Hyperglycemia) 1 ea PRN PRN N/A 07/05/17 14:15 07/07/17 14:14 Pantoprazole Sodium 40 mg/ Syringe 10 ml @ 5 mls/min DAILY@09,21 IV 07/05/17 21:00 08/04/17 20:59 07/06/17 21:11 5 MLS/MIN Ceftriaxone Sodium 1000 mg/ Dextrose 60 ml @ 120 mls/hr Q24H IV 07/05/17 16:00 07/09/17 16:29 07/06/17 16:07 120 MLS/HR Ioversol (Optiray 320) 125 ml UD PRN IV 07/05/17 15:30 07/09/17 15:29 Parenteral Electrolyte Solution 1,000 ml @ 100 mls/hr Q10H IV 07/05/17 18:30 08/04/17 18:29 07/06/17 13:23 100 MLS/HR Enteral Nutritional Formula (Peptamen Intense VHP) 1 ml goal rate of 70ml/hr OG 07/05/17 20:15 08/04/17 20:14 07/05/17 20:58 15 ML Acetaminophen 100 ml @ 400 mls/hr Q8H PRN IV 07/06/17 08:00 08/05/17 07:59 07/06/17 16:40 400 MLS/HR Dexmedetomidine HCl 200 mcg/ Sodium Chloride 50 ml @ 0 mls/hr Q0M PRN IV 07/06/17 08:45 07/10/17 08:44 07/06/17 13:26 4.1 MLS/HR Chlordiazepoxide (Librium Cap) 50 mg Q8H PO 07/06/17 18:00 07/07/17 10:01 07/06/17 17:51 50 MG Chlordiazepoxide (Librium Cap) 25 mg Q8H PO 07/07/17 18:00 07/08/17 10:01 Chlordiazepoxide (Librium Cap) 10 mg Q12H PO 07/08/17 22:00 07/09/17 10:01 Methylprednisolone Sodium Succinate 100 mg/Syringe 1.6 ml @ 1.5 mls/min Q12H IV 07/06/17 16:00 08/05/17 15:59 07/06/17 16:05 1.5 MLS/MIN Oxymetazoline HCl (Afrin 0.05% Nasal [place]) 1 sprays Q6H PRN NA 07/06/17 15:45 07/08/17 23:00 07/06/17 16:39 1 SPRAYS Heparin Sodium (Porcine) (Heparin Sq 5000 Unit/0.5ml) 5,000 unit Q12 SQ 07/06/17 21:00 08/05/17 20:59 07/06/17 21:12 5,000 UNIT Objective Vital Signs Date Time Temp Pulse Resp B/P (MAP) Pulse Ox O2 Delivery O2 Flow Rate FiO2 07/06/17 21:00 91 18 115/62 (79) 100 Room Air 07/06/17 20:00 96 Nasal Cannula 2.0 07/06/17 20:00 36.8 94 18 113/66 (82) 96 Nasal Cannula 2.0 07/06/17 19:00 96 20 113/66 (82) 100 Nasal Cannula 2.0 07/06/17 18:00 37.5 108 18 108/79 (89) 98 Nasal Cannula 4.0 07/06/17 17:00 129 20 123/70 (87) 97 Nasal Cannula 4.0 07/06/17 16:00 95 Nasal Cannula 4.0 07/06/17 16:00 121 18 133/79 (97) 96 Nasal Cannula 4.0 07/06/17 15:00 38.5 121 18 132/80 (97) 95 Nasal Cannula 4.0 07/06/17 13:12 37.7 106 20 109/70 (83) 100 Nasal Cannula 4.0 07/06/17 13:01 105 16 121/76 (91) 98 07/06/17 13:00 105 21 96 07/06/17 12:55 104 20 124/76 (92) 98 07/06/17 12:01 108 18 111/77 (88) 97 07/06/17 12:00 106 16 97 07/06/17 11:30 37.9 102 16 125/66 (85) 100 Nasal Cannula 4.0 07/06/17 11:10 Nasal Cannula 4.0 07/06/17 11:01 105 21 121/62 (81) 93 07/06/17 11:00 100 20 07/06/17 10:47 106 23 125/66 (85) 96 07/06/17 10:01 111 26 112/63 (79) 98 07/06/17 10:00 110 24 98 07/06/17 09:47 116 21 109/70 (83) 97 07/06/17 09:30 37.9 114 22 109/70 (83) 100 Mechanical Ventilator 40 07/06/17 09:01 123 31 120/72 (88) 100 07/06/17 09:00 126 26 99 07/06/17 08:50 38.9 07/06/17 08:40 125 32 123/73 (90) 100 07/06/17 08:01 119 19 122/84 (97) 100 07/06/17 08:00 122 16 100 07/06/17 07:50 40 07/06/17 07:39 126 19 132/86 (101) 100 07/06/17 07:36 40 07/06/17 07:30 Mechanical Ventilator 40 07/06/17 07:30 38.8 125 22 132/86 (101) 100 Mechanical Ventilator 40 07/06/17 07:30 40 07/06/17 07:30 Mechanical Ventilator 40 07/06/17 07:01 118 16 122/75 (91) 100 07/06/17 07:00 106 17 100 07/06/17 06:00 101 22 118/72 (87) 100 Mechanical Ventilator 40 07/06/17 05:17 40 07/06/17 04:00 40 07/06/17 04:00 100 Mechanical Ventilator 40 07/06/17 04:00 36.9 96 24 117/71 (86) 100 Mechanical Ventilator 40 07/06/17 02:00 98 24 116/71 (86) 100 Mechanical Ventilator 40 07/06/17 01:57 40 07/06/17 00:01 36.7 92 24 113/68 (83) 100 Mechanical Ventilator 40 07/05/17 23:59 40 07/05/17 23:59 100 Mechanical Ventilator 40 07/05/17 22:19 40 07/05/17 22:00 103 24 119/75 (90) 100 Mechanical Ventilator 40 Physical Exam General Appearance: WD/WN, no apparent distress ENT: + nasal congestion, + pharyngeal erythema, + pertinent finding ( tonsillary enlargement with pharyngeal edema) Neck: + adenopathy present (significant cervical lymph node enlargement) Respiratory/Chest: chest non-tender, lungs clear, normal breath sounds Cardiovascular: regular rate, rhythm, no edema, no gallop Abdomen: normal bowel sounds, non tender, soft, no organomegaly Extremities: no calf tenderness Neurologic/Psychiatric: alert, normal mood/affect, oriented x 3 Laboratory Results Results Past 24 Hours Test 07/05/17 22:22 07/06/17 00:15 07/06/17 05:53 07/06/17 06:15 Range/Units Bedside Glucose 132 101 70-99 mg/dl Hemoglobin 9.1 8.6 14.0-18.0 g/dL Hematocrit 28.2 27.9 42-52 % White Blood Count 12.15 4.8-10.8 K/uL Red Blood Count 3.48 4.7-6.1 M/uL Mean Corpuscular Volume 80.2 80-100 fL Mean Corpuscular Hemoglobin 24.7 25-34 pg Mean Corpuscular Hemoglobin Concent 30.8 32-36 g/dl Platelet Count 129 130-400 K/uL Mean Platelet Volume 10.5 7.4-10.4 fL RDW Standard Deviation 53.4 36.4-46.3 fL RDW Coefficient of Variation 18.1 11.5-14.5 % Neutrophils % (Manual) 22.5 % Lymphocytes % (Manual) 9.0 % Variant Lymphocytes % (manual) 63.1 % Monocytes % (Manual) 5.4 % Neutrophils # (Manual) 2.73 1.4-6.5 K/uL Total Absolute Neutrophils 2.73 1.4-6.5 K/uL Lymphocytes # (Manual) 1.09 1.2-3.4 K/uL Absolute Variant Lymphocytes 7.67 K/uL Total Absolute Lymphocytes 8.76 1.2-3.4 K/uL Monocytes # (Manual) 0.66 0.11-0.59 K/uL Polychromasia 1+ Hypochromasia PRESENT Prothrombin Time 10.1 9.0-12.0 SECONDS Prothromb Time International Ratio 0.9 0.9-1.1 Venous Blood pH 7.33 7.36-7.41 Venous Blood Partial Pressure CO2 51 38.0-50.0 mmHg Venous Blood Partial Pressure O2 27 mmHg Venous Blood HCO3 26 mmol/L Venous Blood Oxygen Saturation < 60.0 % Venous Blood Base Excess 0.1 mEq/L Sodium Level 138 136-145 mmol/L Potassium Level 4.3 3.5-5.1 mmol/L Chloride Level 106 98-107 mmol/L Carbon Dioxide Level 26 21-32 mmol/L Anion Gap 6.0 3-11 mmol/L Blood Urea Nitrogen 5 7-18 mg/dl Creatinine 0.70 0.60-1.40 mg/dl Est Creatinine Clear Calc Drug Dose 187.0 ml/min Estimated GFR () > 150.0 Estimated GFR (Non- 134.0 BUN/Creatinine Ratio 6.4 10-20 Random Glucose 107 70-99 mg/dl Calcium Level 7.8 8.5-10.1 mg/dl Phosphorus Level 3.9 2.5-4.9 mg/dl Magnesium Level 2.4 1.8-2.4 mg/dl Total Bilirubin 0.2 0.2-1 mg/dl Direct Bilirubin < 0.1 0-0.2 mg/dl Aspartate Amino Transf (AST/SGOT) 104 15-37 U/L Alanine Aminotransferase (ALT/SGPT) 80 12-78 U/L Alkaline Phosphatase 100 45-117 U/L Total Protein 6.8 6.4-8.2 gm/dl Albumin 2.6 3.4-5.0 gm/dl Lipase 128 73-393 U/L Test 07/06/17 08:45 07/06/17 10:51 07/06/17 12:23 07/06/17 16:46 Range/Units Urine Color YELLOW Urine Appearance CLEAR CLEAR Urine pH 5.5 4.5-7.5 Urine Specific [place] 1.026 1.000-1.030 Urine Protein TRACE NEG Urine Glucose (UA) NEG NEG Urine Ketones NEG NEG Urine Occult Blood 1+ NEG Urine Nitrite NEG NEG Urine Bilirubin NEG NEG Urine Urobilinogen NEG NEG Urine Leukocyte Esterase NEG NEG Urine WBC (Auto) 1-5 0-5 /hpf Urine RBC (Auto) 10-30 0-4 /hpf Urine Hyaline Casts (Auto) 0 0-5 /lpf Urine Epithelial Cells (Auto) 5-10 0-5 /lpf Urine Bacteria (Auto) NEG NEG Bedside Glucose 103 111 70-99 mg/dl Hemoglobin 8.2 14.0-18.0 g/dL Hematocrit 25.4 42-52 % Test 07/06/17 21:24 Range/Units Bedside Glucose 118 70-99 mg/dl Microbiology Results 07/06/17 Blood Culture, Received Pending 07/06/17 Blood Culture, Received Pending Assessment and Plan Patient is a 21 year old male that presented to the hospital with hematemesis and hematochezia 1) Acute blood loss anemia 2/2 GI Bleeding - Hematemesis and Hematochezia - Hemoglobin 8.6 after 2 units of transfused PRBC (was as low as 7.2 after being admitted with a Hgb of 11.2) - EGD performed yesterday revealed ulcerated gastric polyp as most likely cause of bleed and was subsequently biopsied - Large polypoid mass also seen on EGD --> benign tissue identified with no malignancy identified on pathology - Biopsies also negative for H. Pylori - H/H q12h and transfuse with Hgb threshold of <6.5 or if hemodynamically unstable with active bleeding - IV Protonix 40mg BID as discussed with GI, discontinued octreotide and PPI gtt - Stool occult positive in ED, along with visualized bright red blood in the toilet - GI consulted 2) Ventilator Dependent Acute Hypoxic Respiratory failure secondary to laryngospasm after EGD - Extubated this afternoon and being weaned off of Librium and Precedex - Weaned off of Propofol and Versed earlier today for extubation - Patient had laryngospasm after procedure 2/2 severe cervical lymphadenopathy, copious secretions, and EGD procedure as per anesthesiology - Hemodynamically stable throughout and pulse ox never went below 60 - Currently being managed in the ICU 3) Alcoholic Withdrawal - Last drink Sunday 07/01 - Minor tremors this morning - Tachycardia and borderline elevated temperatures - AWSS protocol - Librium 50mg q8h - Urine Tox positive for marijuana 4) Transaminitis and Splenomegaly - Secondary to Mononucleosis vs Alcoholic Hepatitis - LFTs improving - AST 140 --> 104, ALT 86 --> 80, Alk Phos 154 --> 100 - INR within normal limits - Low Platelets (129) - CT abdomen also shows splenic infarcts vs laceration so continue to monitor H/ H and abdominal pain - Echo ordered to evaluate for possible cardiac emboli leading to splenic infarcts 5) Mononucleosis - Monospot test returned positive - Significant pharyngeal enlargement significantly contributing to laryngospasm leading to intubation - IV Methylprednisolone for pharyngeal edema - Tylenol IV as needed for pharyngeal pain 6) Group B Strep Pharyngitis - Recently worsening sore throat over the last few days in addition to yellow mucous production - Positive Group B Strep throat culture - Rocephin Day 2 7) Gastric Mass - Large, Villous, friable polypoid mass on a thick stalk found in the cardia - Pathology --> Biopsied masses all benign, no malignant cells identified 8) Congenital Absence of Right Kidney - Initially visualized on Abdominal US and later confirmed on CT abdomen - Unsure if related to Gastric Masses - Kidney function appears within normal limits 9) Depression - Restart Wellbutrin tomorrow morning 10) Nicotine Use - Recently decreased cigarette use while on Wellbutrin 11) DVT Prophylaxis - Heparin 5,000 units q12 12) Code Status - Full Resuscitation 13) Disposition - Consider alcoholic rehabilitation on discharge Resident Tracking Resident Involvement: Resident Care Provided Care Provided: [facility] Medicine Reviewed: Pt Seen/Exam by Me History Resident Physician Supervision Note: I interviewed and examined the patient. Discussed with Dr. Laws and agree with findings and plan as documented in the note. Any exceptions or clarifications are listed here: Patient was extubated this morning and remains on Precedex drip but is being weaned off as tolerated for alcohol withdrawal symptoms. He still has significant throat pain. No further GI bleeding. His hemoglobin remained stable. I discussed the case with GI today at length. I also reviewed the case conjunction with the metal base blocker. Vitals reviewed, ST on tele, appears pale, had a mildly muffled voice Neck with significantly enlarged posterior cervical chain bilateral adenopathy Posterior OP with 3+ tonsils, no exudate, no erythema uvula in midline, with significantly increased posterior pharynx and soft palate edema Reg rhythm but mild tachycardia, no mgr CTAB no wcr, breathing unlabored Abd +BS, soft, NT ND Ext no edema or calf tenderness in legs Skin no rashes Abd US with splenomegaly, normal liver, GB, and with absent right kidney, enlarged left kidney CT abd/pel with absent right kidney, splenomegaly with possible splenic infarcts vs laceration, prominent ileocolic LINDA possibly reactive Pt is a 21 yo male here with ventilator dependent acute hypoxemic respiratory failure-now resolved, likely secondary to laryngospasm and pharyngeal edema, acute blood loss anemia, GI bleeding found to be from bleeding 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 There is no evidence of portal hypertension or varices on imaging. Splenomegaly could be from his acute mononucleosis - pathology results of gastric masses-benign hyperplastic polyps with ulceration and gastritis-could be secondary to alcohol use -Continue Librium and gabapentin tapers and wean off Precedex drip for alcohol withdrawal symptoms -INR normal and TBili normal, plts mildly reduced-all improving--> follow LFTs, CBC, INR, check acute hepatitis panel, advised cessation of EtOH and pt wants to do so -continue IV steroids for pharyngeal edema from mono -Rocephin for Group G beta strep pharyngitis -will need close observation of splenomegaly and possible infarcts vs laceration , observe for worsening abd pain, worsening anemia in the absence of further GI bleeding -congenital absence of right kidney--> could possibly be part of genetic syndrome? Unclear if has any relationship to abnormal appearing masses in stomach at this time -will need EtOH rehab-suggest inpatient, when recovered from acute illness DVT Proph- SCDs Documented By: Claire Carlin
[2017-07-06] MEDS: ACETAMINOPHEN IV 100 ML IV PRN ×2 (08:07→16:40)
[2017-07-06 08:08] LABS: COMPLETE YES; HYPOCHROMIA PRESENT; LYMPH ABS # 1.09 K/uL (1.2-3.4); NEUTROPHILS % 22.5 %; POLYCHROMASIA 1+; VARIANT LYM ABS # 7.67 K/uL; VARIANT LYMPHOCYTE % 63.1 %
[2017-07-06] MEDS: PANTOprazole INJ 40 MG in SYRINGE 0 ML IV SCH ×2 (08:08→21:11)
--- NOTE | 2017-07-06 08:51 | Anesthesiology Progress Note ---
Anesthesia Post Op Note Date & Time Jul 06, 2017 at 08:50 Vital Signs Pain Intensity: 0.0 Vital Signs Past 12 Hours Date Time Temp Pulse Resp B/P (MAP) Pulse Ox O2 Delivery O2 Flow Rate FiO2 07/06/17 07:50 40 07/06/17 07:36 40 07/06/17 07:30 Mechanical Ventilator 40 07/06/17 06:00 101 22 118/72 (87) 100 Mechanical Ventilator 40 07/06/17 05:17 40 07/06/17 04:00 40 07/06/17 04:00 100 Mechanical Ventilator 40 07/06/17 04:00 36.9 96 24 117/71 (86) 100 Mechanical Ventilator 40 07/06/17 02:00 98 24 116/71 (86) 100 Mechanical Ventilator 40 07/06/17 01:57 40 07/06/17 00:01 36.7 92 24 113/68 (83) 100 Mechanical Ventilator 40 07/05/17 23:59 40 07/05/17 23:59 100 Mechanical Ventilator 40 07/05/17 22:19 40 07/05/17 22:00 103 24 119/75 (90) 100 Mechanical Ventilator 40 Notes Mental Status: alert / awake / arousable, participated in evaluation Pt Amnestic to Procedure: Yes Nausea / Vomiting: adequately controlled Pain: adequately controlled Airway Patency, RR, SpO2: stable & adequate BP & HR: stable & adequate Hydration State: stable & adequate Anesthetic Complications: no major complications apparent Patient extubated and doing well this morning
[2017-07-06] MEDS: DexMEDEtomidine HCL INJ 200 MCG in SODIUM CHLORIDE 0.9% 50ML 48 ML IV PRN ×2 (08:56→13:26)
[2017-07-06] MEDS ORDERED: CHLORDIAZEPOXIDE 25 MG CAP PO ONE (09:00)
[2017-07-06 09:15] LABS: URINE APPEARANCE CLEAR (CLEAR); URINE BILIRUBIN NEG (NEG); URINE COLOR YELLOW; URINE NITRITE NEG (NEG); URINE PH 5.5 (4.5-7.5); URINE SPECIFIC GRAVITY 1.026 (1.000-1.030); UROBILINOGEN NEG (NEG)
[2017-07-06 09:18] LABS: MANUAL MICROSCOPIC REQUIRED? NO; REVIEW REQ? NO
[2017-07-06] MEDS ORDERED: CHLORDIAZEPOXIDE 25 MG CAP PO STA (09:19)
--- NOTE | 2017-07-06 10:33 | Medical Student: [facility] ---
Med Student Progress Note Date of Service Jul 06, 2017. Subjective Pt evaluation today including: conversation w/ patient, physical exam, chart review, lab review, review of studies Pain: Denies PO Intake: Clear liquid diet as tolerated Voiding: wolfe catheter in place Patient is a 21yo with PMH of substance abuse and anxiety who presented to ED with several day history of nausea, fever, chills, fatigue. He also reported melena at home. While in hospital heme occult was positive for blood in stool and he had hematemesis. During EGD study, two friable, polypoid lesions where discovered with bleeding, study was terminated early due to laryngeo/bronchospasm that resulted in patient intubation with ventilation. Patient has been successfully extubated but remains moderately sedated do to alcohol prophylaxis although he has become increasingly alert and orientated throughout the day. Denies any chest/abd pain, nausea, vomiting, SOB. Does report feeling weak/fatigues described as "out of it", and feeling feverish. Also states that his throat is very sore 9/10 and has a throbbing headache. He has been tolerating small sips of liquid without difficulty Review of Systems Constitutional: + fever (38.8), + weakness, + fatigue, No chills, No sweats ENT: + sore throat (recently extubated, strep +, mono +), + problem reported ( tolerating small sips of water well), No trouble swallowing Respiratory: No shortness of breath Cardiac: No chest pain Abdomen: No pain, No nausea, No vomiting Neurologic: + weakness Psychiatric: + substance abuse (per family - daily alcohol for several year) Endo: + fatigue Objective Vital Signs Date Time Temp Pulse Resp B/P (MAP) Pulse Ox O2 Delivery O2 Flow Rate FiO2 07/06/17 07:50 40 07/06/17 07:36 40 07/06/17 07:30 Mechanical Ventilator 40 07/06/17 06:00 101 22 118/72 (87) 100 Mechanical Ventilator 40 07/06/17 05:17 40 07/06/17 04:00 40 07/06/17 04:00 100 Mechanical Ventilator 40 07/06/17 04:00 36.9 96 24 117/71 (86) 100 Mechanical Ventilator 40 07/06/17 02:00 98 24 116/71 (86) 100 Mechanical Ventilator 40 07/06/17 01:57 40 07/06/17 00:01 36.7 92 24 113/68 (83) 100 Mechanical Ventilator 40 07/05/17 23:59 40 07/05/17 23:59 100 Mechanical Ventilator 40 07/05/17 22:19 40 07/05/17 22:00 103 24 119/75 (90) 100 Mechanical Ventilator 40 07/05/17 20:00 Mechanical Ventilator 40 07/05/17 20:00 40 07/05/17 20:00 37.0 108 24 144/74 (97) 99 Mechanical Ventilator 40 07/05/17 19:40 40 07/05/17 18:12 40 07/05/17 18:00 109 27 127/81 (96) 100 Mechanical Ventilator 40 07/05/17 16:00 100 Mechanical Ventilator 40 07/05/17 16:00 37.7 107 26 129/76 (93) 100 Mechanical Ventilator 40 07/05/17 15:00 37.7 106 28 121/77 100 Mechanical Ventilator 40 07/05/17 14:55 108 32 125/73 100 Mechanical Ventilator 40 07/05/17 14:50 109 32 120/69 100 Mechanical Ventilator 40 07/05/17 14:45 111 35 131/78 99 Mechanical Ventilator 40 07/05/17 14:42 40 07/05/17 14:40 118 31 128/75 100 Mechanical Ventilator 40 07/05/17 14:35 119 30 128/76 100 Mechanical Ventilator 40 07/05/17 14:30 37.4 107 33 116/71 100 Mechanical Ventilator 40 07/05/17 13:11 37 122 24 159/90 (113) 97 Room Air 07/05/17 12:27 37.0 122 18 114/73 98 Room Air 07/05/17 12:00 98 Room Air 07/05/17 12:00 37.0 122 18 114/73 (87) 98 Room Air Physical Exam General Appearance: WD/WN, + mild distress, + pertinent finding (Sedated post extubation) ENT: + pharyngeal erythema (significant, soft palate distension), + muffled/ hoarse voice Neck: supple, no JVD, trachea midline, + adenopathy present ([place] v. strep v. extubation) Respiratory/Chest: chest non-tender, lungs clear, normal breath sounds, no respiratory distress, no accessory muscle use Cardiovascular: no edema, no gallop, no JVD, no murmur, + tachycardia (100s- 110s on tele monitor) Abdomen: normal bowel sounds, non tender, soft, no organomegaly, no pulsatile mass Extremities: non-tender, normal inspection, no pedal edema, normal capillary refill Neurologic/Psychiatric: alert, + pertinent finding (moderately sedated, fidgeting (withdrawal v. anxiety)) Skin: no rash, + diaphoresis, + pallor, + pertinent finding (warm/hot to the touch) Lymphatic: + pertinent finding (Cervical lymphadenopathy) Laboratory Results Last 24 Hours Test 07/05/17 08:40 07/05/17 09:24 07/05/17 12:19 07/05/17 16:11 Urine Opiates Screen NEG Urine Methadone, Qualitative NEG Urine Barbiturates NEG Urine Phencyclidine (PCP) Level NEG Ur Amphetamine/Methamphetamine NEG MDMA (Ecstasy) Screen NEG Urine Benzodiazepines Screen NEG Urine Cocaine Metabolite NEG Urine Marijuana (THC) POS Vitamin B12 Level 285 pg/mL Folate 12.88 ng/mL Hemoglobin 8.6 g/dL Hematocrit 26.6 % Bedside Glucose 136 mg/dl Test 07/05/17 19:21 07/05/17 22:22 07/06/17 00:15 07/06/17 05:53 Hemoglobin 8.7 g/dL 9.1 g/dL 8.6 g/dL Hematocrit 26.7 % 28.2 % 27.9 % HIV (1&2) Ab and P24 Ag, 4th Gener NEG Bedside Glucose 132 mg/dl White Blood Count 12.15 K/uL Red Blood Count 3.48 M/uL Mean Corpuscular Volume 80.2 fL Mean Corpuscular Hemoglobin 24.7 pg Mean Corpuscular Hemoglobin Concent 30.8 g/dl Platelet Count 129 K/uL Mean Platelet Volume 10.5 fL RDW Standard Deviation 53.4 fL RDW Coefficient of Variation 18.1 % Neutrophils % (Manual) 22.5 % Lymphocytes % (Manual) 9.0 % Variant Lymphocytes % (manual) 63.1 % Monocytes % (Manual) 5.4 % Neutrophils # (Manual) 2.73 K/uL Total Absolute Neutrophils 2.73 K/uL Lymphocytes # (Manual) 1.09 K/uL Absolute Variant Lymphocytes 7.67 K/uL Total Absolute Lymphocytes 8.76 K/uL Monocytes # (Manual) 0.66 K/uL Polychromasia 1+ Hypochromasia PRESENT Prothrombin Time 10.1 SECONDS Prothromb Time International Ratio 0.9 Venous Blood pH 7.33 Venous Blood Partial Pressure CO2 51 mmHg Venous Blood Partial Pressure O2 27 mmHg Venous Blood HCO3 26 mmol/L Venous Blood Oxygen Saturation < 60.0 % Venous Blood Base Excess 0.1 mEq/L Sodium Level 138 mmol/L Potassium Level 4.3 mmol/L Chloride Level 106 mmol/L Carbon Dioxide Level 26 mmol/L Anion Gap 6.0 mmol/L Blood Urea Nitrogen 5 mg/dl Creatinine 0.70 mg/dl Est Creatinine Clear Calc Drug Dose 187.0 ml/min Estimated GFR () > 150.0 Estimated GFR (Non- 134.0 BUN/Creatinine Ratio 6.4 Random Glucose 107 mg/dl Calcium Level 7.8 mg/dl Phosphorus Level 3.9 mg/dl Magnesium Level 2.4 mg/dl Total Bilirubin 0.2 mg/dl Direct Bilirubin < 0.1 mg/dl Aspartate Amino Transf (AST/SGOT) 104 U/L Alanine Aminotransferase (ALT/SGPT) 80 U/L Alkaline Phosphatase 100 U/L Total Protein 6.8 gm/dl Albumin 2.6 gm/dl Lipase 128 U/L Test 07/06/17 06:15 Bedside Glucose 101 mg/dl Medications Current Inpatient Medications Medications (Trade) Dose Ordered Sig/Jasmin Route Start Time Stop Time Status Last Admin Dose Admin Bupropion HCl (Wellbutrin-Xl Tab) 300 mg DAILY PO 07/05/17 09:00 08/04/17 08:59 Future Hold Ondansetron HCl (Zofran Inj) 4 mg Q6H PRN IV 07/04/17 18:30 08/03/17 18:29 Miscellaneous (Iv Fluids Completed) 1 ea PRN PRN N/A 07/04/17 18:45 07/04/18 18:44 Sodium Chloride (Keith Nasal Tell) 1 sprays PRN PRN NA 07/04/17 20:45 08/03/17 20:44 07/04/17 21:01 1 SPRAYS Gabapentin (Neurontin Tab) 600 mg Q8H PO 07/06/17 06:00 07/06/17 22:01 07/06/17 08:07 600 MG Gabapentin (Neurontin Tab) 600 mg Q12H PO 07/07/17 10:00 07/07/17 22:01 Gabapentin (Neurontin Tab) 600 mg Q24H PO 07/08/17 22:00 07/08/17 22:01 Miscellaneous Information (Icu Protocol For Hyperglycemia) 1 ea PRN PRN N/A 07/05/17 14:15 07/07/17 14:14 Pantoprazole Sodium 40 mg/ Syringe 10 ml @ 5 mls/min DAILY@09,21 IV 07/05/17 21:00 08/04/17 20:59 07/06/17 08:08 5 MLS/MIN Ceftriaxone Sodium 1000 mg/ Dextrose 60 ml @ 120 mls/hr Q24H IV 07/05/17 16:00 07/09/17 16:29 07/05/17 15:46 120 MLS/HR Methylprednisolone Sodium Succinate 80 mg/Syringe 1.28 ml @ 1.5 mls/min DAILY@1600 IV 07/05/17 16:00 07/08/17 16:01 07/05/17 15:47 1.5 MLS/MIN Midazolam HCl 250 ml @ 0 mls/hr Q0M PRN IV 07/05/17 15:17 08/04/17 15:16 07/06/17 05:18 8 MLS/HR Ioversol (Optiray 320) 125 ml UD PRN IV 07/05/17 15:30 07/09/17 15:29 Propofol (Diprivan Iv Emulsion 100ml Vial) 1 dose UD PRN IV 07/05/17 15:45 07/06/17 15:44 07/06/17 04:58 1 DOSE Parenteral Electrolyte Solution 1,000 ml @ 100 mls/hr Q10H IV 07/05/17 18:30 08/04/17 18:29 07/06/17 02:27 100 MLS/HR Enteral Nutritional Formula (Peptamen Intense VHP) 1 ml goal rate of 70ml/hr OG 07/05/17 20:15 08/04/17 20:14 07/05/17 20:58 15 ML Acetaminophen 100 ml @ 400 mls/hr Q8H PRN IV 07/06/17 08:00 08/05/17 07:59 07/06/17 08:07 400 MLS/HR Assessment and Plan Problems GI bleed Assessment and Plan: GI Bleeding: Hgb 8.6 * Likely secondary to gastric lesions * EGD: two friable, oozing polypoid lesions in stomach * 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 pylori * Official pathology report * Q12 CBC to r/o continued bleeding * Patients hgb fell from 9.1 to 8.6 (most recent) * Lab draw induced v. continued bleeding * Continuous cardiac monitoring and vitals q2 - tachycardia + hypotension may suggest hypovolemic shock due to blood loss * Colonoscopy to r/o additional source of bleeding if Hgb downtrends - bowel prep * Transfuse if Hgb falls below 6.5 * Pantoprazole IV drip Ventilation assisted respiration - now extubated * Sedation with midazolam and propofol IV * Lower dosage for weaning ventilation - patient now more aware with decrease, able to answer yes/no questions * Continue use of soft restraints to prevent self-extubation * D/C Wolfe catheter with D/C ventilator and decreased sedation * Extubated 07/[address] Phan - patient awake and able to answer questions, complains of sore throat - no other complaints Substance abuse * Gabapentin prophylaxis for curbing withdrawal symptoms * Chlordiazepoxide PRN for agitation/withdrawal symptoms - it program engagement director recommends changing to IV Ativan * PRECEDEX for assistance of withdrawal symptom control * Consult psych once patient is weaned from the ventilator - substance abuse, anxiety * Case management for alcohol discontinuation - rehab * Smoking cessation education - able to cut down with use of Wellbutrin Anxiety: restless movements * Restless secondary to situation v. withdrawal * Continue IV Ativan and gabapentin * Consult psych - management of KALIN * Restart Wellbutrin - helped him reduce smoking quantity Pharyngitis: secondary to positive group G strep + mono * Ceftriaxone IV for Group G: day 2 of 5 * IV steroids to reduce inflammation: day 2 of 5 * Acetaminophen PRN for pain/fever * Supportive maintenance fluids * Clear liquid diet Elevated LFTs: AST 104, ALT 80, Albumin 2.6 * Likely secondary to alcoholic hepatitis with contribution from mono * Daily CMP to trend Splenomegaly with areas of darkening: mild-moderate on CT imaging * Enlargement likely secondary to mono * CT - darkening likely infarcts, trauma v. septic emboli from an underlying endocarditis * Echocardiogram makes endocarditis unlikely DVT prophylaxis * HUSSAIN and SCDs * Hold Lovenox due to presenting GI bleed Discharge plan * Plan to keep in ICU for today due to continued pharyngeal erythema and lymphadenopathy * Downgrade to tele due to continued tachycardia Continued [facility] stay due to: multiple IV medications needed Discharge planning: home
--- NOTE | 2017-07-06 12:30 | ECHOCARDIOGRAM REPORT ---
*NOTICE TO RECEIVING [employer] This information is strictly Confidential and protected under [place] law. [place] law prohibits you from making any further disclosure of this information unless further disclosure is expressly permitted by the written consent of the person to whom it pertains or is authorized by law. A general authorization for the release of medical or other information is not sufficient for this purpose. Hospital accepts no responsibility if the information is made available to any other person, INCLUDING THE PATIENT. Interpretation Summary * Name: DONOVAN BALL Study Date: 07/06/2017 09:57 AM BP: 109/70 mmHg * [facility] HR: 110 * : 1995 (M/d/yyyy) Gender: Male Height: 73 in * Age: 21 yrs Ethnicity: [place] Weight: 179 lb * Ordering Physician: Aditya Garcia * Referring Physician: Self, Referred * Performed By: Lauren Shaw RDCS * * Reason For Study: ENDOCARDITIS * BSA: 2.1 m2 * Normal biventricular systolic function. * Normal chamber dimensions. * No significant valvular abnormalities. * There is no evidence of a mass or vegetation. This does not rule out endocarditis. Procedure Details * A complete two-dimensional transthoracic echocardiogram was performed (2D, M-mode, Doppler and color flow Doppler). Left Ventricle * The left ventricle is normal in size. * There is normal left ventricular wall thickness. * Ejection Fraction = 50-55%. * Left ventricular systolic function is low normal. * No regional wall motion abnormalities noted. Right Ventricle * The right ventricle is normal in size and function. * The right ventricular systolic function is normal as assessed by tricuspid annular plane systolic excursion (TAPSE) (normal >1.5 cm). Atria * The left atrial size is normal. * Right atrial size is normal. * No ASD detected; PFO is not assessed. Mitral Valve * The mitral valve is normal. * There is no mitral valve stenosis. * There is no mitral regurgitation noted. Tricuspid Valve * The tricuspid valve is normal. * There is no tricuspid stenosis. * There is trace tricuspid regurgitation. * Right ventricular systolic pressure is normal. Aortic Valve * The aortic valve is trileaflet. * The aortic valve opens well. * Aortic stenosis is absent. * No aortic regurgitation is present. Pulmonic Valve * The pulmonic valve is not well seen, but is grossly normal. * There is no pulmonic valvular stenosis. * There is no pulmonic valvular regurgitation. Great Vessels * The aortic root is normal size. Pericardium/Pleural * There is no pericardial effusion. Great Vessels * Normal inferior vena cava diameter and respiratory variation suggests normal central venous pressure. MMode 2D Measurements and Calculations IVSd 1.0 cm IVSs 1.5 cm LVIDd 5.3 cm LVIDs 3.9 cm LVPWd 1.1 cm LVPWs 1.8 cm IVS/LVPW 0.95 FS 25.9 % EDV(Teich) 132.5 ml ESV(Teich) 65.6 ml EF(Teich) 50.5 % EDV(cubed) 144.8 ml ESV(cubed) 58.9 ml EF(cubed) 59.3 % % IVS thick 48.0 % % LVPW thick 64.1 % LV mass(C)d 211.8 grams LV mass(C)dI 103.2 grams/m\S\2 LV mass(C)s 260.4 grams LV mass(C)sI 126.8 grams/m\S\2 SV(Teich) 66.9 ml SI(Teich) 32.6 ml/m\S\2 SV(cubed) 85.9 ml SI(cubed) 41.8 ml/m\S\2 Ao root diam 3.6 cm Ao root area 10.2 cm\S\2 LA dimension 3.2 cm LA/Ao 0.88 LVAd ap4 38.4 cm\S\2 LVLd ap4 10.4 cm EDV(MOD-sp4) 116.8 ml EDV(sp4-el) 120.6 ml LVAs ap4 22.9 cm\S\2 LVLs ap4 8.4 cm ESV(MOD-sp4) 52.0 ml ESV(sp4-el) 52.9 ml EF(MOD-sp4) 55.4 % EF(sp4-el) 56.2 % LVAd ap2 41.1 cm\S\2 LVLd ap2 10.6 cm EDV(MOD-sp2) 132.8 ml EDV(sp2-el) 135.5 ml LVAs ap2 25.3 cm\S\2 LVLs ap2 9.0 cm ESV(MOD-sp2) 62.4 ml ESV(sp2-el) 60.5 ml EF(MOD-sp2) 53.0 % EF(sp2-el) 55.3 % LVLd %diff 1.8 % EDV(MOD-bp) 124.7 ml LVLs %diff 6.3 % ESV(MOD-bp) 58.7 ml EF(MOD-bp) 52.9 % SV(MOD-sp4) 64.8 ml SI(MOD-sp4) 31.6 ml/m\S\2 SV(MOD-sp2) 70.4 ml SI(MOD-sp2) 34.3 ml/m\S\2 SV(MOD-bp) 65.9 ml SI(MOD-bp) 32.1 ml/m\S\2 SV(sp4-el) 67.8 ml SI(sp4-el) 33.0 ml/m\S\2 SV(sp2-el) 75.0 ml SI(sp2-el) 36.5 ml/m\S\2 Doppler Measurements and Calculations Ao V2 max 146.6 cm/sec Ao max PG 8.6 mmHg Ao max PG (full) 4.7 mmHg LV V1 max PG 3.9 mmHg LV V1 max 98.5 cm/sec TR max trav 176.5 cm/sec
[2017-07-06 12:34] LABS: HEMATOCRIT 25.4 % (42-52)
[2017-07-06] MEDS ORDERED: SODIUM CHLORIDE 0.9% 500ML 500 ML IV ONE (16:00)
[2017-07-06] MEDS ORDERED: PEPTAMEN INTENSE VHP 1000ML BAG OG SCH (16:00)
[2017-07-06] MEDS: METHYLPREDNISOLONE IV 100 MG in SYRINGE 0 ML IV SCH (16:05)
[2017-07-06] MEDS: CEFTRIAXONE SOD INJ 1000 MG in DEXTROSE 5% 50ML IV SCH (16:07)
--- NOTE | 2017-07-06 16:29 | Critical Care Progress Note ---
Critical Care Progress Note Date of Service Jul 06, 2017. ICU Day ICU Day Number: [address] Phan Subjective Patient is a 21-year-old male who was admitted to the ICU after upper endoscopy and need for continued intubation. There were no reported events overnight. The patient is alert with mild sedation at this point. He will likely undergo extubation pending leak test. Objective VITAL SIGNS - Vital signs and nursing notes were reviewed. GENERAL - 21-year-old male appearing his stated age who is in no acute distress. Resting comfortably on the ventilator. SKIN - Without rashes. Pale appearing. HEAD - NC/AT. EYES - PERRL with EOMI bilaterally. Sclera anicteric. Palpebral conjunctiva pale with no injection noted. EARS - No deformities of external structures noted on gross examination bilaterally. NOSE - Midline and without cyanosis. No epistaxis or purulent drainage noted. MOUTH/OROPHARYNX - Intubated. Without perioral cyanosis. NECK - Neck with FROM. Moderate bilateral lymphadenopathy appreciated. LUNGS - Chest wall symmetric without accessory muscle use, intercostals retractions, or central cyanosis. Normal vesicular breath sounds CTA B/L. No wheezes, rales, or rhonchi appreciated. CARDIAC - RRR with S1/S2. No murmur, rubs, or gallops appreciated. ABDOMEN - Abdominal contour flat without pulsations or visible masses. BS normoactive all four quadrants. No tenderness, palpable masses, hepatosplenomegaly, or ascites noted. EXTREMITIES - No clubbing or peripheral cyanosis. No pretibial edema present. +3 /5 radial and dorsalis pedis pulses palpated throughout. NEUROLOGIC/PSYCH - CAM NEGATIVE. Remains lightly sedated. Current SOFA Score SOFA Score Response (Comments) Value Platelets (x10) < 150 1 Bilirubin (mg/dL) < 1.2 0 Sabrina Coma Score 15 0 Level of Hypotension No Hypotension 0 Creatinine (mg/dL) < 1.2 0 Total 1 Assessment & Plan (1) Alcohol withdrawal (2) Transaminitis (3) Mononucleosis (4) splenic hypodensities with questionable significance (5) Pharyngitis (6) GI bleed (7) Acute blood loss anemia (8) Congenital absence of one kidney Reason Critically Ill: Intubated and sedated status post upper endoscopy with GI bleed requiring transfusion 2. Woodson with difficult intubation secondary to lymphadenopathy. Neuro - * CAM ICU: NEGATIVE * On evaluation today, patient is tolerating sedation vacation well. Will plan on moving forward with extubation if he is found to have a successful leak test. * History of Alcohol abuse with Withdraw. * Will continue with Ativan and Gabapentin. * Will add Librium. * Will place on Precedex s/p intubation for concerns for need of heavy sedation (likely related to EtOH use) and risk for withdraw symptoms. Cardiac - * No history of cardiac disease. * Will monitor on telemetry. * In the setting of fever this AM, will add Echo for evaluation of valvular disease/vegetations. * Will consider the use of Propranolol for withdraw for a HR >120 not in the setting of fever or hypovolemia. Respiratory - * Intubated and Ventilated - * Settings: 16/500/5/40% * Planned sedation vacation in the morning with leak test of the cuff - important 2/2 h/o pharyngeal edema and difficulty with intubation. * CXR Without significant findings. * Will monitor pulse oximetry closely. * Patient had successful leak test this AM. Was successfully extubated. GI - * GI Bleed: * Upper Endoscopy concerning for 2 lesions (?masses) noted to the stomach. Formal Pathology Biopsy pending. * CT Abdomen demonstrates congenitally absent RIGHT kidney, Splenomegaly, and subtle hypodensities in the spleen without significant perisplenic fluid. * Continue Protonix. * Continue to watch for bleeding - lower GIB not ruled out at this time. * Appreciate GI Consultation. * Transaminitis (EtOH use versus hepatitis 2/2 Woodson.) - Improving. * Maddrey's Discriminant Function for Alcoholic Hepatitis screening score: 5.3 ( suggests "Good Prognosis"). * Will continue Protonix 40 mg. * Will add a clear liquid diet at this point. RENAL/LYTES - * Will monitor daily and correct appropriately. * Normosol at 100 mL/hr * Found to have a Congenitally Absent RIGHT Kidney on CT - Educated Patient. - * Garcia Catheter in place. * Strict I&Os ENDO - * No history of DM or Thyroid Dz. * Will monitor BSGs per ICU protocol. * ISS as needed. HEME - * Blood loss anemia 2/2 GIB. * H&H has remained stable. Will change to serial q8h assessments. * Transfuse as needed. ID - * IV Rocephin 2/2 ?UGIB. Will be helpful with pharyngitis as well. * IV Steroids for pharyngitis in the setting of mono. * In conversation with Dr. Malhotra (ENT), he recommends increasing the steroid dose to 100 mg BID for the next few days. He also suggests symptomatic management at this point as the patient is not a surgical candidate and the setting of his active mononucleosis infection. * Blood cultures x2 obtained today in setting of fever. Will follow. * Echo ordered for further evaluation. LINES/IV ACCESS - * PIVs in place. * Garcia Catheter to [place]. DVT PROPHYLAXIS - * SCDs. * Will add Heparin sq - Monitor platelets as they are 129 today. Will start with BID dosing. Can escalate as tolerated. I have personally spent 45 minutes of critical care time in the direct management of this patient. This is a life/limb threatening event. This includes time spent evaluating patient, direct bedside care, chart review, placing orders, interpretation of diagnostic studies, discussion with consultants, patient, and family members, as well as other required patient management activities. This time is exclusive of all separately billable procedures, and teaching time and separate from and in addition to any other critical care service time. Thank you for this consultation allow us to be part of this patient's care. Please refer to my attending physician's documentation for any further recommendations. I have personally evaluated and examined this patient. I agree with assessment and plan of Nancy Garcia PA-C. Patient critically ill due to respiratory failure secondary to possible aspiration and medication effect, he was successfully extubated this morning, however remains at risk for further respiratory failure having intermittent difficulty handling secretions. We have discussed the case with ENT, and we'll accordingly increase the steroid dosage. Patient also experiencing alcohol withdrawal, drinks approximately 10 beers daily for the past 3 years and had prior withdrawal symptoms when he had a short period of incarceration and required medications. Accordingly we'll place him on empiric Librium. Consults & Procedures Consultants: Dr. Malhotra - BLAKE (Informal) Dr. Diallo Carlin - Hospitalist Procedures: None at this point. Data Medications: Current Inpatient Medications Medications (Trade) Dose Ordered Sig/Jasmin Route Start Time Stop Time Status Last Admin Dose Admin Bupropion HCl (Wellbutrin-Xl Tab) 300 mg DAILY PO 07/05/17 09:00 08/04/17 08:59 Future Hold Ondansetron HCl (Zofran Inj) 4 mg Q6H PRN IV 07/04/17 18:30 08/03/17 18:29 Miscellaneous (Iv Fluids Completed) 1 ea PRN PRN N/A 07/04/17 18:45 07/04/18 18:44 Sodium Chloride ([place] Nasal [place]) 1 sprays PRN PRN NA 07/04/17 20:45 08/03/17 20:44 07/04/17 21:01 1 SPRAYS Gabapentin (Neurontin Tab) 600 mg Q8H PO 07/06/17 06:00 07/06/17 22:01 07/06/17 08:07 600 MG Gabapentin (Neurontin Tab) 600 mg Q12H PO 07/07/17 10:00 07/07/17 22:01 Gabapentin (Neurontin Tab) 600 mg Q24H PO 07/08/17 22:00 07/08/17 22:01 Miscellaneous Information (Icu Protocol For Hyperglycemia) 1 ea PRN PRN N/A 07/05/17 14:15 07/07/17 14:14 Pantoprazole Sodium 40 mg/ Syringe 10 ml @ 5 mls/min DAILY@09,21 IV 07/05/17 21:00 08/04/17 20:59 07/06/17 08:08 5 MLS/MIN Ceftriaxone Sodium 1000 mg/ Dextrose 60 ml @ 120 mls/hr Q24H IV 07/05/17 16:00 07/09/17 16:29 07/05/17 15:46 120 MLS/HR Methylprednisolone Sodium Succinate 80 mg/Syringe 1.28 ml @ 1.5 mls/min DAILY@1600 IV 07/05/17 16:00 07/08/17 16:01 07/05/17 15:47 1.5 MLS/MIN Ioversol (Optiray 320) 125 ml UD PRN IV 07/05/17 15:30 07/09/17 15:29 Parenteral Electrolyte Solution 1,000 ml @ 100 mls/hr Q10H IV 07/05/17 18:30 08/04/17 18:29 07/06/17 13:23 100 MLS/HR Enteral Nutritional Formula (Peptamen Intense VHP) 1 ml goal rate of 70ml/hr OG 07/05/17 20:15 9/28/17 20:14 07/05/17 20:58 15 ML Acetaminophen 100 ml @ 400 mls/hr Q8H PRN IV 07/06/17 08:00 08/05/17 07:59 07/06/17 08:07 400 MLS/HR Dexmedetomidine HCl 200 mcg/ Sodium Chloride 50 ml @ 0 mls/hr Q0M PRN IV 07/06/17 08:45 07/10/17 08:44 07/06/17 13:26 4.1 MLS/HR Chlordiazepoxide (Librium Cap) 50 mg Q8H PO 07/06/17 18:00 07/07/17 10:01 Chlordiazepoxide (Librium Cap) 25 mg Q8H PO 07/07/17 18:00 07/08/17 10:01 Chlordiazepoxide (Librium Cap) 10 mg Q12H PO 07/08/17 22:00 07/09/17 10:01 I & O: 24-Hour Column 07/07/17 08:00 Intake Total 902 ml Output Total 900 ml Balance 2 ml Vital Signs: Date Time Temp Pulse Resp B/P (MAP) Pulse Ox O2 Delivery O2 Flow Rate FiO2 07/06/17 13:12 37.7 106 20 109/70 (83) 100 Nasal Cannula 4.0 07/06/17 13:01 105 16 121/76 (91) 98 07/06/17 13:00 105 21 96 07/06/17 12:55 104 20 124/76 (92) 98 07/06/17 12:01 108 18 111/77 (88) 97 07/06/17 12:00 106 16 97 07/06/17 11:30 37.9 102 16 125/66 (85) 100 Nasal Cannula 4.0 07/06/17 11:10 Nasal Cannula 4.0 07/06/17 11:01 105 21 121/62 (81) 93 07/06/17 11:00 100 20 07/06/17 10:47 106 23 125/66 (85) 96 07/06/17 10:01 111 26 112/63 (79) 98 07/06/17 10:00 110 24 98 07/06/17 09:47 116 21 109/70 (83) 97 07/06/17 09:30 37.9 114 22 109/70 (83) 100 Mechanical Ventilator 40 07/06/17 09:01 123 31 120/72 (88) 100 07/06/17 09:00 126 26 99 07/06/17 08:50 38.9 07/06/17 08:40 125 32 123/73 (90) 100 07/06/17 08:01 119 19 122/84 (97) 100 07/06/17 08:00 122 16 100 07/06/17 07:50 40 07/06/17 07:39 126 19 132/86 (101) 100 07/06/17 07:36 40 07/06/17 07:30 Mechanical Ventilator 40 07/06/17 07:30 38.8 125 22 132/86 (101) 100 Mechanical Ventilator 40 07/06/17 07:30 40 07/06/17 07:30 Mechanical Ventilator 40 07/06/17 07:01 118 16 122/75 (91) 100 07/06/17 07:00 106 17 100 07/06/17 06:00 101 22 118/72 (87) 100 Mechanical Ventilator 40 07/06/17 05:17 40 07/06/17 04:00 40 07/06/17 04:00 100 Mechanical Ventilator 40 07/06/17 04:00 36.9 96 24 117/71 (86) 100 Mechanical Ventilator 40 07/06/17 02:00 98 24 116/71 (86) 100 Mechanical Ventilator 40 07/06/17 01:57 40 07/06/17 00:01 36.7 92 24 113/68 (83) 100 Mechanical Ventilator 40 07/05/17 23:59 40 07/05/17 23:59 100 Mechanical Ventilator 40 07/05/17 22:19 40 07/05/17 22:00 103 24 119/75 (90) 100 Mechanical Ventilator 40 07/05/17 20:00 Mechanical Ventilator 40 07/05/17 20:00 40 07/05/17 20:00 37.0 108 24 144/74 (97) 99 Mechanical Ventilator 40 07/05/17 19:40 40 07/05/17 18:12 40 07/05/17 18:00 109 27 127/81 (96) 100 Mechanical Ventilator 40 07/05/17 16:00 100 Mechanical Ventilator 40 07/05/17 16:00 37.7 107 26 129/76 (93) 100 Mechanical Ventilator 40 Laboratory Results: Last 24 Hours Test 07/05/17 16:11 07/05/17 19:21 07/05/17 22:22 07/06/17 00:15 Bedside Glucose 136 mg/dl 132 mg/dl Hemoglobin 8.7 g/dL 9.1 g/dL Hematocrit 26.7 % 28.2 % HIV (1&2) Ab and P24 Ag, 4th Gener NEG Test 07/06/17 05:53 07/06/17 06:15 07/06/17 08:45 07/06/17 10:51 White Blood Count 12.15 K/uL Red Blood Count 3.48 M/uL Hemoglobin 8.6 g/dL Hematocrit 27.9 % Mean Corpuscular Volume 80.2 fL Mean Corpuscular Hemoglobin 24.7 pg Mean Corpuscular Hemoglobin Concent 30.8 g/dl Platelet Count 129 K/uL Mean Platelet Volume 10.5 fL RDW Standard Deviation 53.4 fL RDW Coefficient of Variation 18.1 % Neutrophils % (Manual) 22.5 % Lymphocytes % (Manual) 9.0 % Variant Lymphocytes % (manual) 63.1 % Monocytes % (Manual) 5.4 % Neutrophils # (Manual) 2.73 K/uL Total Absolute Neutrophils 2.73 K/uL Lymphocytes # (Manual) 1.09 K/uL Absolute Variant Lymphocytes 7.67 K/uL Total Absolute Lymphocytes 8.76 K/uL Monocytes # (Manual) 0.66 K/uL Polychromasia 1+ Hypochromasia PRESENT Prothrombin Time 10.1 SECONDS Prothromb Time International Ratio 0.9 Venous Blood pH 7.33 Venous Blood Partial Pressure CO2 51 mmHg Venous Blood Partial Pressure O2 27 mmHg Venous Blood HCO3 26 mmol/L Venous Blood Oxygen Saturation < 60.0 % Venous Blood Base Excess 0.1 mEq/L Sodium Level 138 mmol/L Potassium Level 4.3 mmol/L Chloride Level 106 mmol/L Carbon Dioxide Level 26 mmol/L Anion Gap 6.0 mmol/L Blood Urea Nitrogen 5 mg/dl Creatinine 0.70 mg/dl Est Creatinine Clear Calc Drug Dose 187.0 ml/min Estimated GFR () > 150.0 Estimated GFR (Non- 134.0 BUN/Creatinine Ratio 6.4 Random Glucose 107 mg/dl Calcium Level 7.8 mg/dl Phosphorus Level 3.9 mg/dl Magnesium Level 2.4 mg/dl Total Bilirubin 0.2 mg/dl Direct Bilirubin < 0.1 mg/dl Aspartate Amino Transf (AST/SGOT) 104 U/L Alanine Aminotransferase (ALT/SGPT) 80 U/L Alkaline Phosphatase 100 U/L Total Protein 6.8 gm/dl Albumin 2.6 gm/dl Lipase 128 U/L Bedside Glucose 101 mg/dl 103 mg/dl Urine Color YELLOW Urine Appearance CLEAR Urine pH 5.5 Urine Specific [place] 1.026 Urine Protein TRACE Urine Glucose (UA) NEG Urine Ketones NEG Urine Occult Blood 1+ Urine Nitrite NEG Urine Bilirubin NEG Urine Urobilinogen NEG Urine Leukocyte Esterase NEG Urine WBC (Auto) 1-5 /hpf Urine RBC (Auto) 10-30 /hpf Urine Hyaline Casts (Auto) 0 /lpf Urine Epithelial Cells (Auto) 5-10 /lpf Urine Bacteria (Auto) NEG Test 07/06/17 12:23 Hemoglobin 8.2 g/dL Hematocrit 25.4 %
[2017-07-06] MEDS: OXYMETAZOLINE HCL 0.05% NA SPR 15 ML BTL PRN (16:39)
[2017-07-06] MEDS: CHLORDIAZEPOXIDE 50MG 2ND DOSE PO SCH (17:51)
[2017-07-06] MEDS: HEPARIN SOD 5000 UNIT/0.5 ML CARP SQ SCH (21:12)
[2017-07-07] VITALS (34 sets, daily range): BP systolic 121–145; BP diastolic 75–91; PULSE 96–132; TEMP 36.4–37.5; O2SAT 89–100
[2017-07-07] MEDS: NORMOSOL R 1,000 ML IV SCH ×3 (00:06→19:40)
[2017-07-07] MEDS: CHLORDIAZEPOXIDE 50MG 2ND DOSE PO SCH ×2 (01:43→09:24)
[2017-07-07] MEDS: METHYLPREDNISOLONE IV 100 MG in SYRINGE 0 ML IV SCH ×2 (03:59→15:41)
[2017-07-07 05:48] LABS: HEMATOCRIT 26.8 % (42-52); MEAN CELL VOLUME 77.9 fL (80-100); MEAN CORPUSCULAR HEMOGLOBIN 24.4 pg (25-34); MEAN CORPUSCULAR HGB CONC 31.3 g/dl (32-36); MEAN PLATELET VOLUME 9.9 fL (7.4-10.4); PLATELET COUNT 146 K/uL (130-400); RED BLOOD COUNT 3.44 M/uL (4.7-6.1); WHITE BLOOD COUNT 12.37 K/uL (4.8-10.8)
[2017-07-07 05:57] LABS: PROTHROMBIN TIME (PATIENT) 10.3 SECONDS (9.0-12.0)
[2017-07-07 06:23] LABS: ALT/SGPT 120 U/L (12-78); BLOOD UREA NITROGEN 7 mg/dl (7-18); BUN/CREATININE RATIO 9.7 (10-20); CALCIUM 7.7 mg/dl (8.5-10.1); CARBON DIOXIDE 27 mmol/L (21-32); CHLORIDE 100 mmol/L (98-107); CREATININE 0.71 mg/dl (0.60-1.40); GLUCOSE 99 mg/dl (70-99); MAGNESIUM 2.2 mg/dl (1.8-2.4); POTASSIUM 3.8 mmol/L (3.5-5.1); SODIUM 134 mmol/L (136-145)
[2017-07-07 06:30] LABS: ALKALINE PHOSPHATASE 111 U/L (45-117); AST/SGOT 149 U/L (15-37)
--- NOTE | 2017-07-07 06:45 | GASTROENTEROLOGY PROGRESS NOTE ---
DATE: 07/06/2017 I saw and examined the patient today. The patient was accompanied by his parents and brother. He underwent endotracheal extubation earlier today and was started on prednisone for some laryngeal swelling likely as a result to his infectious mononucleosis. The biopsies from his upper endoscopy performed earlier this week by Dr. Landrum revealed hypoplastic changes both in the sizable polyp in the cardia as well as in the gastric body and inflammatory features in the GE junctional region. There was no malignancy or premalignancy which was reported. I also asked radiology to review the CT scan to assess for any evidence of portal hypertension or varices, and except for a large spleen, there is no evidence for varices. The stomach is underdistended, and therefore, further clarification of this polypoid lesion at the cardia is not possible. The patient is doing well overall, although appears pale and is resting comfortably in bed. MEDICATIONS: His medications were reviewed and include gabapentin, Librium, Wellbutrin, Solu-Medrol, Afrin nasal spray, pantoprazole 40 mg IV daily, IV fluids. LABORATORY STUDIES: Today reveal hemoglobin of 8.2, hematocrit 25.4, platelets 129,000. His white count earlier this morning was 12.1. The MCV is low normal at 80.2 but was decreased on admission at 77 suggesting iron deficiency. Interestingly, the patient's mother had reported that at the time of an inguinal hernia repair several months ago, he was told that he was anemic at that time. ALLERGIES: He has no known drug allergies. HE DOES HAVE A PEANUT ALLERGY. REVIEW OF SYSTEMS: Otherwise noncontributory. There is significant alcohol history for this patient. He did receive 2 units of packed red cells on admission. PHYSICAL EXAMINATION: VITAL SIGNS: At the present time, blood pressure 133/79, pulse ox 96% on 4 liters, heart rate is tachycardic at 121 but regular, respirations 18. GENERAL: The patient is awake, alert and oriented x3. HEENT: Sclerae are anicteric. Conjunctivae are pale. Skin is pale. Oral mucosa is slightly parched. HEART: Normal S1, S2. LUNGS: Clear to auscultation. ABDOMEN: Soft, nontender, nondistended with good bowel sounds. EXTREMITIES: Without clubbing, cyanosis or edema. RECTAL: Deferred. IMPRESSION AND PLAN: The patient reports an evidence of microcytic anemia which would suggest chronicity. There are reports by the mother that he was known to be anemic at least at the time of a surgery several months ago. The patient himself does not recall any hematemesis, coffee-ground emesis, melena or bright red blood per rectum that is chronic, although there was copious gastrointestinal bleeding during this admission. Upper endoscopy identified polypoid lesions that are hypoplastic in nature, which is unusual for the patient's age, although it is unclear if this is the specific source of the patient's blood loss. Although these apparently were friable during endoscopy, it is not clear if this explains the patient's pattern. There is no family history of colorectal cancer, although there may be a family history of polyps; however, a familial type polyp distribution is not identified according to the parent's history. Nevertheless, I think this is important to exclude eventually by colonoscopy for other colonic polyps given the presence of these sizable lesions in the upper gastrointestinal tract. It would not appear that there is evidence of portal hypertension. Depending on the patient's response to extubation and his overall wellbeing, consideration for colonoscopy Tuesday will be made with bowel prep . At some point, a repeat upper endoscopy may be necessary to completely remove these polyps and to assess for any other sources of bleeding. I did spend some time talking to the patient and his family regarding the necessity to minimize or avoid alcoholic beverages, especially those taken in excess as this can have short and residential consequences on the patient's health. Further recommendations to follow. We will continue to follow with you. Thank you for allowing me to participate in this patient's care. NANCY
[2017-07-07 07:00] LABS: COMPLETE YES; HYPOCHROMIA PRESENT; LYMPH ABS # 0.46 K/uL (1.2-3.4); LYMPHOCYTE % 3.7 %; POLYCHROMASIA 1+; VACUOLIZATION 1+; VARIANT LYMPHOCYTE % 57.4 %
--- NOTE | 2017-07-07 07:11 | DIAGNOSTIC IMAGING REPORT ---
CHEST ONE VIEW PORTABLE CLINICAL HISTORY: intubated,respiratory failure COMPARISON STUDY: 07/06/2017 FINDINGS: The cardiac and mediastinal contours are normal. There is no evidence of focal pulmonary consolidation. There is no evidence of failure. No pleural effusions are visualized.[ The endotracheal tube and nasogastric tubes have been removed. IMPRESSION: Interval removal of the endotracheal tube and nasogastric tube. No active disease in the chest. Electronically signed by: Jhonathan Alicea M.D. 07/07/2017 7:09 AM Dictated Date/Time: 07/07/2017 7:09 AM
[2017-07-07] MEDS: BuPROPion XL 300 MG TABCR PO SCH (08:05)
[2017-07-07] MEDS: OXYMETAZOLINE HCL 0.05% NA SPR 15 ML BTL PRN (08:05)
[2017-07-07] MEDS: PANTOprazole INJ 40 MG in SYRINGE 0 ML IV SCH ×2 (08:05→20:50)
[2017-07-07] MEDS: HEPARIN SOD 5000 UNIT/0.5 ML CARP SQ SCH ×2 (08:17→21:02)
--- NOTE | 2017-07-07 08:25 | Medical Student: [facility] ---
Med Student Progress Note Date of Service Jul 07, 2017. Subjective Pt evaluation today including: conversation w/ patient, physical exam, chart review, lab review, review of studies, review of inpatient medication list Pain: Throat 5/10 PO Intake: Solids Voiding: wolfe catheter in place Patient was sitting up unassisted, speaking easily with his father, and eating breakfast without difficulty upon my arrival. He states he is feeling much better today - while his throat is still sore (rated 5/10), it has improved since yesterday and he reports no difficulty swallowing. He also reports a continued sinus pressure/pain and BARLOW which have also improved. We discussed the current state of his labs and the plan for the next couple of days, including the possibility of a bowel prep today for a colonoscopy tomorrow with which he is agreeable. Denies any SOB, chest/abdominal pain, NV, dizziness, fever, chills, palpitations , significant weakness, or numbness/tingling. States he does feel fatigued but is not concerned about the degree due to hospital stay and illness Review of Systems Constitutional: + fatigue, No fever, No chills, No sweats, No weakness Eyes: No problem reported ENT: + sore throat, No trouble swallowing Respiratory: No shortness of breath Cardiac: No chest pain, No palpitations Abdomen: No pain, No nausea, No vomiting Neurologic: No weakness, No numbness/tingling Objective Vital Signs Date Time Temp Pulse Resp B/P (MAP) Pulse Ox O2 Delivery O2 Flow Rate FiO2 07/07/17 07:30 Room Air 07/07/17 07:30 36.7 101 20 145/84 (104) 95 Room Air 07/07/17 06:00 37.5 110 20 136/79 (98) 94 Room Air 07/07/17 04:00 100 Room Air 07/07/17 04:00 37.0 106 20 125/82 (96) 100 Room Air 07/07/17 03:01 109 23 121/76 (91) 96 07/07/17 02:00 107 23 134/75 (94) 95 07/07/17 01:00 104 13 121/78 (92) 98 07/07/17 00:00 37.0 115 20 127/79 (95) 97 Room Air 07/06/17 23:28 98 Room Air 07/06/17 23:00 104 15 128/78 (95) 99 Room Air 07/06/17 22:00 36.5 111 20 127/79 (95) 99 Room Air 07/06/17 21:00 91 18 115/62 (79) 100 Room Air 07/06/17 20:00 96 Nasal Cannula 2.0 07/06/17 20:00 36.8 94 18 113/66 (82) 96 Nasal Cannula 2.0 07/06/17 19:00 96 20 113/66 (82) 100 Nasal Cannula 2.0 07/06/17 18:00 37.5 108 18 108/79 (89) 98 Nasal Cannula 4.0 07/06/17 17:00 129 20 123/70 (87) 97 Nasal Cannula 4.0 07/06/17 16:00 95 Nasal Cannula 4.0 07/06/17 16:00 121 18 133/79 (97) 96 Nasal Cannula 4.0 07/06/17 15:00 38.5 121 18 132/80 (97) 95 Nasal Cannula 4.0 07/06/17 13:12 37.7 106 20 109/70 (83) 100 Nasal Cannula 4.0 07/06/17 13:01 105 16 121/76 (91) 98 07/06/17 13:00 105 21 96 07/06/17 12:55 104 20 124/76 (92) 98 07/06/17 12:01 108 18 111/77 (88) 97 07/06/17 12:00 106 16 97 07/06/17 11:30 37.9 102 16 125/66 (85) 100 Nasal Cannula 4.0 07/06/17 11:10 Nasal Cannula 4.0 07/06/17 11:01 105 21 121/62 (81) 93 07/06/17 11:00 100 20 07/06/17 10:47 106 23 125/66 (85) 96 07/06/17 10:01 111 26 112/63 (79) 98 07/06/17 10:00 110 24 98 07/06/17 09:47 116 21 109/70 (83) 97 07/06/17 09:30 37.9 114 22 109/70 (83) 100 Mechanical Ventilator 40 07/06/17 09:01 123 31 120/72 (88) 100 07/06/17 09:00 126 26 99 07/06/17 08:50 38.9 07/06/17 08:40 125 32 123/73 (90) 100 Physical Exam General Appearance: WD/WN, no apparent distress Eyes: bilateral eyes normal inspection, bilateral eyes PERRL ENT: hearing grossly normal, + pharyngeal erythema, + muffled/hoarse voice ( improved from 07/06) Neck: no JVD, trachea midline, + adenopathy present Respiratory/Chest: chest non-tender, lungs clear, normal breath sounds, no respiratory distress, no accessory muscle use, + pertinent finding (x1 productive-sounding cough during exam) Cardiovascular: no edema, no gallop, no murmur, + tachycardia Abdomen: normal bowel sounds, non tender, soft, no organomegaly, no pulsatile mass Extremities: normal inspection, no pedal edema Neurologic/Psychiatric: no motor/sensory deficits, alert, normal mood/affect, oriented x 3 Skin: warm/dry, no rash, + pallor Comments: Patient appears more calm today compared to yesterday - hands resting comfortably in lap, good eye contact, no signs of restlessness/agitation Laboratory Results Last 24 Hours Test 07/06/17 08:45 07/06/17 10:51 07/06/17 12:23 07/06/17 16:46 Urine Color YELLOW Urine Appearance CLEAR Urine pH 5.5 Urine Specific [place] 1.026 Urine Protein TRACE Urine Glucose (UA) NEG Urine Ketones NEG Urine Occult Blood 1+ Urine Nitrite NEG Urine Bilirubin NEG Urine Urobilinogen NEG Urine Leukocyte Esterase NEG Urine WBC (Auto) 1-5 /hpf Urine RBC (Auto) 10-30 /hpf Urine Hyaline Casts (Auto) 0 /lpf Urine Epithelial Cells (Auto) 5-10 /lpf Urine Bacteria (Auto) NEG Bedside Glucose 103 mg/dl 111 mg/dl Hemoglobin 8.2 g/dL Hematocrit 25.4 % Test 07/06/17 21:24 07/06/17 22:19 07/07/17 05:38 07/07/17 07:42 Bedside Glucose 118 mg/dl Hemoglobin 8.8 g/dL 8.4 g/dL Hematocrit 28.0 % 26.8 % White Blood Count 12.37 K/uL Red Blood Count 3.44 M/uL Mean Corpuscular Volume 77.9 fL Mean Corpuscular Hemoglobin 24.4 pg Mean Corpuscular Hemoglobin Concent 31.3 g/dl Platelet Count 146 K/uL Mean Platelet Volume 9.9 fL RDW Standard Deviation 51.6 fL RDW Coefficient of Variation 18.0 % Neutrophils % (Manual) 37.0 % Lymphocytes % (Manual) 3.7 % Variant Lymphocytes % (manual) 57.4 % Monocytes % (Manual) 1.9 % Neutrophils # (Manual) 4.58 K/uL Total Absolute Neutrophils 4.58 K/uL Lymphocytes # (Manual) 0.46 K/uL Absolute Variant Lymphocytes 7.10 K/uL Total Absolute Lymphocytes 7.56 K/uL Monocytes # (Manual) 0.24 K/uL Toxic Vacuolation 1+ Polychromasia 1+ Hypochromasia PRESENT Prothrombin Time 10.3 SECONDS Prothromb Time International Ratio 1.0 Sodium Level 134 mmol/L Potassium Level 3.8 mmol/L Chloride Level 100 mmol/L Carbon Dioxide Level 27 mmol/L Anion Gap 7.0 mmol/L Blood Urea Nitrogen 7 mg/dl Creatinine 0.71 mg/dl Est Creatinine Clear Calc Drug Dose 184.4 ml/min Estimated GFR () > 150.0 Estimated GFR (Non- 133.2 BUN/Creatinine Ratio 9.7 Random Glucose 99 mg/dl Calcium Level 7.7 mg/dl Phosphorus Level 3.0 mg/dl Magnesium Level 2.2 mg/dl Total Bilirubin 0.2 mg/dl Direct Bilirubin 0.1 mg/dl Aspartate Amino Transf (AST/SGOT) 149 U/L Alanine Aminotransferase (ALT/SGPT) 120 U/L Alkaline Phosphatase 111 U/L Total Protein 6.8 gm/dl Albumin 2.5 gm/dl Lipase 169 U/L Medications Current Inpatient Medications Medications (Trade) Dose Ordered Sig/Jasmin Route Start Time Stop Time Status Last Admin Dose Admin Bupropion HCl (Wellbutrin-Xl Tab) 300 mg DAILY PO 07/05/17 09:00 08/04/17 08:59 Future Hold Ondansetron HCl (Zofran Inj) 4 mg Q6H PRN IV 07/04/17 18:30 08/03/17 18:29 Miscellaneous (Iv Fluids Completed) 1 ea PRN PRN N/A 07/04/17 18:45 07/04/18 18:44 Sodium Chloride ([place] Nasal Whiteside) 1 sprays PRN PRN NA 07/04/17 20:45 08/03/17 20:44 07/04/17 21:01 1 SPRAYS Gabapentin (Neurontin Tab) 600 mg Q12H PO 07/07/17 10:00 07/07/17 22:01 Gabapentin (Neurontin Tab) 600 mg Q24H PO 07/08/17 22:00 07/08/17 22:01 Miscellaneous Information (Icu Protocol For Hyperglycemia) 1 ea PRN PRN N/A 07/05/17 14:15 07/07/17 14:14 Pantoprazole Sodium 40 mg/ Syringe 10 ml @ 5 mls/min DAILY@,21 IV 07/05/17 21:00 08/04/17 20:59 07/06/17 21:11 5 MLS/MIN Ceftriaxone Sodium 1000 mg/ Dextrose 60 ml @ 120 mls/hr Q24H IV 07/05/17 16:00 07/09/17 16:29 07/06/17 16:07 120 MLS/HR Ioversol (Optiray 320) 125 ml UD PRN IV 07/05/17 15:30 07/09/17 15:29 Parenteral Electrolyte Solution 1,000 ml @ 100 mls/hr Q10H IV 07/05/17 18:30 08/04/17 18:29 07/07/17 00:06 100 MLS/HR Enteral Nutritional Formula (Peptamen Intense VHP) 1 ml goal rate of 70ml/hr OG 07/05/17 20:15 08/04/17 20:14 07/05/17 20:58 15 ML Acetaminophen 100 ml @ 400 mls/hr Q8H PRN IV 07/06/17 08:00 08/05/17 07:59 07/06/17 16:40 400 MLS/HR Chlordiazepoxide (Librium Cap) 50 mg Q8H PO 07/06/17 18:00 07/07/17 10:01 07/07/17 01:43 50 MG Chlordiazepoxide (Librium Cap) 25 mg Q8H PO 07/07/17 18:00 07/08/17 10:01 Chlordiazepoxide (Librium Cap) 10 mg Q12H PO 07/08/17 22:00 07/09/17 10:01 Methylprednisolone Sodium Succinate 100 mg/Syringe 1.6 ml @ 1.5 mls/min Q12H IV 07/06/17 16:00 08/05/17 15:59 07/07/17 03:59 1.5 MLS/MIN Oxymetazoline HCl (Afrin 0.05% Nasal [place]) 1 sprays Q6H PRN NA 07/06/17 15:45 07/08/17 23:00 07/06/17 16:39 1 SPRAYS Heparin Sodium (Porcine) (Heparin Sq 5000 Unit/0.5ml) 5,000 unit Q12 SQ 07/06/17 21:00 08/05/17 20:59 07/06/17 21:12 5,000 UNIT Bupropion HCl (Wellbutrin-Xl Tab) 300 mg QAM PO 07/07/17 09:00 08/06/17 08:59 Assessment and Plan Assessment and Plan: Patient is a pleasant 21yo male with history of substance abuse admitted for GI bleeding secondary to gastric polypoid masses complicated by laryngeospasm requiring 24hr intubation and mononucleosis + strep G induced pharyngitis with lymphadenopathy and edema GI Bleeding: Hgb 8.4 * Likely secondary to gastric lesions * EGD: two friable, oozing polypoid lesions in stomach * Official pathology: benign histology with signs of acute and chronic gastritis, negative for H. pylori * Q12 CBC to r/o continued bleeding * Patients hgb fell from 9.1 to 8.4 (most recent) * Lab draw induced v. continued bleeding * Continuous cardiac monitoring and vitals q2 - tachycardia + hypotension may suggest hypovolemic shock due to blood loss * Colonoscopy to r/o additional source of bleeding if Hgb downtrends and additional polypoid masses * Dr Harmon has been consulted and will evaluate patient stability - possible bowel prep today with colonoscopy tomorrow * Transfuse if Hgb falls below 6.5 * Continue Pantoprazole IV drip Ventilation assisted respiration - now extubated * Sedation with midazolam and propofol IV * Lower dosage for weaning ventilation - patient now more aware with decrease, able to answer yes/no questions * Continue use of soft restraints to prevent self-extubation * D/C Wolfe catheter with D/C ventilator and decreased sedation * Extubated 07/[address] Phan - patient awake on nasal cannula and able to answer questions, complains of sore throat - no other complaints * 07/07 Nasal cannula discontinued, patient breathing and conversing comfortably on room air Substance abuse * Gabapentin prophylaxis for curbing withdrawal symptoms - consider beginning taper due to day 5 since last drink * Chlordiazepoxide PRN for agitation/withdrawal symptoms - hull inspector recommends changing to IV Ativan * PRECEDEX for assistance of withdrawal symptom control * Consult psych - substance abuse, anxiety * Case management for alcohol discontinuation - rehab * Smoking cessation education - able to cut down with use of Wellbutrin Anxiety: no sign of restless movements * Restlessness secondary to situation v. withdrawal - resolved * Continue IV Ativan and gabapentin PRN * Restart Wellbutrin - helped him reduce smoking quantity Pharyngitis: secondary to positive group G strep + mono * Ceftriaxone IV for Group G: day 3 of 5 * IV steroids to reduce inflammation: day 3 of 5 * Acetaminophen PRN for pain/fever * Supportive maintenance fluids * Solid diet as tolerated - no reports of difficulty swallowing Elevated LFTs: AST 149, ALT 120, Albumin 2.6 * Likely secondary to alcoholic hepatitis with contribution from mono * Daily CMP to trend Splenomegaly with areas of darkening: mild-moderate on CT imaging * Enlargement likely secondary to mono * CT - darkening likely infarcts, trauma v. septic emboli from an underlying endocarditis * Echocardiogram makes endocarditis unlikely DVT prophylaxis * HSUSAIN and SCDs * Hold Lovenox due to presenting GI bleed Discharge plan - Reevaluate today * Downgrade to tele today due to continued tachycardia, pharyngeal erythema and lymphadenopathy Continued [facility] stay due to: multiple IV medications needed Discharge planning: home
[2017-07-07] MEDS: GABAPENTIN 600MG Q12H DOSE PO SCH ×2 (09:24→20:51)
[2017-07-07] MEDS ORDERED: ACETAMINOPHEN 500 MG TAB PO PRN (10:45)
--- NOTE | 2017-07-07 11:19 | Family Medicine Progress Note ---
Progress Note Date of Service Jul 07, 2017. Subjective Pt evaluation today including: conversation w/ patient, physical exam, chart review, lab review, review of studies Pain: Patient denies any pain this morning Voiding: no voiding problems (Garcia catheter removed this morning), no incontinence Patient resting comfortably in bed with no acute complaints overnight. Patient looks MUCH better today and is alert and conscious as compared to his previous mental status earlier in the week. He is still having some upper respiratory congestion. He was having a little difficulty sleeping but once he received his does of Librium he was able to fall asleep. Denies any throat discomfort this morning and had a bowel movement that was loose but with no blood. Has been able to tolerate a clear liquid diet and denies any difficulties swallowing. Denies any headache, tremor, abdominal pain, anxiety, or shortness of breath. Constitutional: + fatigue, No fever, No chills, No sweats ENT: + nasal symptoms (congestion), No sore throat, No trouble swallowing Respiratory: + sputum, No cough, No wheezing, No shortness of breath Medications Current Inpatient Medications Medications (Trade) Dose Ordered Sig/Jasmin Route Start Time Stop Time Status Last Admin Dose Admin Ondansetron HCl (Zofran Inj) 4 mg Q6H PRN IV 07/04/17 18:30 08/03/17 18:29 Miscellaneous (Iv Fluids Completed) 1 ea PRN PRN N/A 07/04/17 18:45 07/04/18 18:44 Sodium Chloride ([place] Nasal Merlin) 1 sprays PRN PRN NA 07/04/17 20:45 08/03/17 20:44 07/04/17 21:01 1 SPRAYS Gabapentin (Neurontin Tab) 600 mg Q12H PO 07/07/17 10:00 07/07/17 22:01 07/07/17 09:24 600 MG Gabapentin (Neurontin Tab) 600 mg Q24H PO 07/08/17 22:00 07/08/17 22:01 Miscellaneous Information ([facility] Protocol For Hyperglycemia) 1 ea PRN PRN N/A 07/05/17 14:15 07/07/17 14:14 Pantoprazole Sodium 40 mg/ Syringe 10 ml @ 5 mls/min DAILY@,21 IV 07/05/17 21:00 08/04/17 20:59 07/07/17 08:05 5 MLS/MIN Ceftriaxone Sodium 1000 mg/ Dextrose 60 ml @ 120 mls/hr Q24H IV 07/05/17 16:00 07/09/17 16:29 07/06/17 16:07 120 MLS/HR Ioversol (Optiray 320) 125 ml UD PRN IV 07/05/17 15:30 07/09/17 15:29 Parenteral Electrolyte Solution 1,000 ml @ 100 mls/hr Q10H IV 07/05/17 18:30 08/04/17 18:29 07/07/17 09:24 100 MLS/HR Chlordiazepoxide (Librium Cap) 25 mg Q8H PO 07/07/17 18:00 07/08/17 10:01 Chlordiazepoxide (Librium Cap) 10 mg Q12H PO 07/08/17 22:00 07/09/17 10:01 Methylprednisolone Sodium Succinate 100 mg/Syringe 1.6 ml @ 1.5 mls/min Q12H IV 07/06/17 16:00 07/11/17 04:02 07/07/17 03:59 1.5 MLS/MIN Oxymetazoline HCl (Afrin 0.05% Nasal Merlin) 1 sprays Q6H PRN NA 07/06/17 15:45 07/08/17 23:00 07/07/17 08:05 1 SPRAYS Heparin Sodium (Porcine) (Heparin Sq 5000 Unit/0.5ml) 5,000 unit Q12 SQ 07/06/17 21:00 08/05/17 20:59 07/07/17 08:17 5,000 UNIT Bupropion HCl (Wellbutrin-Xl Tab) 300 mg QAM PO 07/07/17 09:00 08/06/17 08:59 07/07/17 08:05 300 MG Acetaminophen (Tylenol Tab) 500 mg Q6H PRN PO 07/07/17 10:45 08/06/17 10:44 Objective Vital Signs Date Time Temp Pulse Resp B/P (MAP) Pulse Ox O2 Delivery O2 Flow Rate FiO2 07/07/17 09:30 36.7 115 20 130/84 (99) 96 Room Air 07/07/17 07:30 Room Air 07/07/17 07:30 36.7 101 20 145/84 (104) 95 Room Air 07/07/17 06:00 37.5 110 20 136/79 (98) 94 Room Air 07/07/17 04:00 100 Room Air 07/07/17 04:00 37.0 106 20 125/82 (96) 100 Room Air 07/07/17 03:01 109 23 121/76 (91) 96 07/07/17 02:00 107 23 134/75 (94) 95 07/07/17 01:00 104 13 121/78 (92) 98 07/07/17 00:00 37.0 115 20 127/79 (95) 97 Room Air 07/06/17 23:28 98 Room Air 07/06/17 23:00 104 15 128/78 (95) 99 Room Air 07/06/17 22:00 36.5 111 20 127/79 (95) 99 Room Air 07/06/17 21:00 91 18 115/62 (79) 100 Room Air 07/06/17 20:00 96 Nasal Cannula 2.0 07/06/17 20:00 36.8 94 18 113/66 (82) 96 Nasal Cannula 2.0 07/06/17 19:00 96 20 113/66 (82) 100 Nasal Cannula 2.0 07/06/17 18:00 37.5 108 18 108/79 (89) 98 Nasal Cannula 4.0 07/06/17 17:00 129 20 123/70 (87) 97 Nasal Cannula 4.0 07/06/17 16:00 95 Nasal Cannula 4.0 07/06/17 16:00 121 18 133/79 (97) 96 Nasal Cannula 4.0 07/06/17 15:00 38.5 121 18 132/80 (97) 95 Nasal Cannula 4.0 07/06/17 13:12 37.7 106 20 109/70 (83) 100 Nasal Cannula 4.0 07/06/17 13:01 105 16 121/76 (91) 98 07/06/17 13:00 105 21 96 07/06/17 12:55 104 20 124/76 (92) 98 07/06/17 12:01 108 18 111/77 (88) 97 07/06/17 12:00 106 16 97 07/06/17 11:30 37.9 102 16 125/66 (85) 100 Nasal Cannula 4.0 07/06/17 11:10 Nasal Cannula 4.0 07/06/17 11:01 105 21 121/62 (81) 93 07/06/17 11:00 100 20 Physical Exam General Appearance: WD/WN, no apparent distress Eyes: normal inspection, sclerae normal ENT: + pharyngeal erythema, + pertinent finding (Significant tonsillary enlargement) Neck: supple, + adenopathy present Respiratory/Chest: chest non-tender, lungs clear, normal breath sounds Cardiovascular: regular rate, rhythm, no edema, no gallop Abdomen: normal bowel sounds, non tender, soft Extremities: no pedal edema, no calf tenderness Neurologic/Psychiatric: alert, normal mood/affect, oriented x 3 Laboratory Results Results Past 24 Hours Test 07/06/17 12:23 07/06/17 16:46 07/06/17 21:24 07/06/17 22:19 Range/Units Hemoglobin 8.2 8.8 14.0-18.0 g/dL Hematocrit 25.4 28.0 42-52 % Bedside Glucose 111 118 70-99 mg/dl Test 07/07/17 05:38 07/07/17 08:22 Range/Units White Blood Count 12.37 4.8-10.8 K/uL Red Blood Count 3.44 4.7-6.1 M/uL Hemoglobin 8.4 14.0-18.0 g/dL Hematocrit 26.8 42-52 % Mean Corpuscular Volume 77.9 80-100 fL Mean Corpuscular Hemoglobin 24.4 25-34 pg Mean Corpuscular Hemoglobin Concent 31.3 32-36 g/dl Platelet Count 146 130-400 K/uL Mean Platelet Volume 9.9 7.4-10.4 fL RDW Standard Deviation 51.6 36.4-46.3 fL RDW Coefficient of Variation 18.0 11.5-14.5 % Neutrophils % (Manual) 37.0 % Lymphocytes % (Manual) 3.7 % Variant Lymphocytes % (manual) 57.4 % Monocytes % (Manual) 1.9 % Neutrophils # (Manual) 4.58 1.4-6.5 K/uL Total Absolute Neutrophils 4.58 1.4-6.5 K/uL Lymphocytes # (Manual) 0.46 1.2-3.4 K/uL Absolute Variant Lymphocytes 7.10 K/uL Total Absolute Lymphocytes 7.56 1.2-3.4 K/uL Monocytes # (Manual) 0.24 0.11-0.59 K/uL Toxic Vacuolation 1+ Polychromasia 1+ Hypochromasia PRESENT Prothrombin Time 10.3 9.0-12.0 SECONDS Prothromb Time International Ratio 1.0 0.9-1.1 Sodium Level 134 136-145 mmol/L Potassium Level 3.8 3.5-5.1 mmol/L Chloride Level 100 98-107 mmol/L Carbon Dioxide Level 27 21-32 mmol/L Anion Gap 7.0 3-11 mmol/L Blood Urea Nitrogen 7 7-18 mg/dl Creatinine 0.71 0.60-1.40 mg/dl Est Creatinine Clear Calc Drug Dose 184.4 ml/min Estimated GFR () > 150.0 Estimated GFR (Non- 133.2 BUN/Creatinine Ratio 9.7 10-20 Random Glucose 99 70-99 mg/dl Calcium Level 7.7 8.5-10.1 mg/dl Phosphorus Level 3.0 2.5-4.9 mg/dl Magnesium Level 2.2 1.8-2.4 mg/dl Total Bilirubin 0.2 0.2-1 mg/dl Direct Bilirubin 0.1 0-0.2 mg/dl Aspartate Amino Transf (AST/SGOT) 149 15-37 U/L Alanine Aminotransferase (ALT/SGPT) 120 12-78 U/L Alkaline Phosphatase 111 45-117 U/L Total Protein 6.8 6.4-8.2 gm/dl Albumin 2.5 3.4-5.0 gm/dl Lipase 169 73-393 U/L Hepatitis B Surface Antigen NEG NEG Hepatitis C Antibody NEG NEG Assessment and Plan Patient is a 21 year old male that presented to the hospital with hematemesis and hematochezia 1) Acute blood loss anemia 2/2 GI Bleeding - Hematemesis and Hematochezia - Hemoglobin stable (8.4) with no acute bleeding or transfusion requirements since EGD performed on 07/05 - Tolerating clear liquid diet now and GI will most likely take patient for Colonoscopy tomorrow - Hemoglobin 8.6 after 2 units of transfused PRBC (was as low as 7.2 after being admitted with a Hgb of 11.2) - EGD performed on 07/05 revealed ulcerated gastric polyp as most likely cause of bleed and was subsequently biopsied - Large polypoid mass also seen on EGD --> benign tissue identified with no malignancy identified on pathology - Biopsies also negative for H. Pylori - H/H q12h and transfuse with Hgb threshold of <6.5 or if hemodynamically unstable with active bleeding - IV Protonix 40mg BID as discussed with GI, discontinued octreotide and PPI gtt - Stool occult positive in ED, along with visualized bright red blood in the toilet - GI consulted 2) Ventilator Dependent Acute Hypoxic Respiratory failure secondary to laryngospasm after EGD - Extubated on 07/07 and weaned off of Precedex yesterday - Weaned off of Propofol and Versed earlier today for extubation - Patient had laryngospasm after procedure 2/2 severe cervical lymphadenopathy, copious secretions, and EGD procedure as per anesthesiology - Hemodynamically stable throughout and pulse ox never went below 60 - Currently being managed in the ICU 3) Alcoholic Withdrawal - Improving with no tremors but continued tachycardia - AWSS protocol - Librium 50mg q8h and Gabapentin 600mg q12h - Last drink Sunday 07/01 - Tremors have now resolved - Continued tachycardia and borderline elevated temperatures - Urine Tox positive for marijuana 4) Transaminitis and Splenomegaly - Secondary to Mononucleosis vs Alcoholic Hepatitis - LFTs initially improved but have now returned to the levels on admission - AST 140 --> 104 --> 149, ALT 86 --> 80 --> 120, Alk Phos 154 --> 100 --> 111 - INR within normal limits - Thrombocytopenia --> Resolved (129--> 146) - CT abdomen also shows splenic infarcts vs laceration so continue to monitor H/ H and abdominal pain - Echo on 07/06: No evidence of mass or vegetation or motion abnormality 5) Mononucleosis - IV Methylprednisolone for pharyngeal edema --> Increased to 100mg BID dosing as per Dr. Larson - Monospot test positive - Significant pharyngeal enlargement significantly contributing to laryngospasm leading to intubation - Tylenol IV as needed for pharyngeal pain 6) Group G Beta Strep Pharyngitis - No complaints of pharyngitis this morning - Recently worsening sore throat over the last few days in addition to yellow mucous production - Positive Group B Strep throat culture - Rocephin Day 3 7) Gastric Mass - Upper endoscopy showed polypoids lesions that were hypoplastic in nature ( large, Villous, friable polypoid mass on a thick stalk found in the cardia) which were unusual for the patients age - Although masses were friable, unclear if these were source of the patient's blood loss - Given sizeable gastric polyps Colonoscopy warranted to rule out colonic polyps - Pathology --> Biopsied masses all benign, no malignant cells identified - No family history of polyp disorders but may have questionable family history of polyps in Grandfather 8) Congenital Absence of Right Kidney - Initially visualized on Abdominal US and later confirmed on CT abdomen - Unsure if related to Gastric Masses - Kidney function appears within normal limits 9) Depression - Wellbutrin 300mg qAM 10) Nicotine Use - Recently decreased cigarette use while on Wellbutrin 11) DVT Prophylaxis - Heparin 5,000 units q12 12) Code Status - Full Resuscitation 13) Disposition - Consider alcoholic rehabilitation on discharge Resident Tracking Resident Involvement: Resident Care Provided Care Provided: Adult Hospital Medicine Reviewed: Pt Seen/Exam by Me History Resident Physician Supervision Note: I interviewed and examined the patient. Discussed with Dr. Laws and agree with findings and plan as documented in the note. Any exceptions or clarifications are listed here: Significantly improved today, cervical adenopathy is decreased, throat pain is much less, and only minimal tremors and anxiety. He was transferred to medical floor. Vitals reviewed Neck with significantly improved posterior cervical chain bilateral adenopathy now left greater than right Posterior OP with 2+ tonsils, minimal exudate and erythema, uvula in midline, with significantly decreased posterior pharynx and soft palate edema RRR, no mgr CTAB no wcr, breathing unlabored Abd +BS, soft, NT ND Ext no edema or calf tenderness in legs Skin no rashes Abd US with splenomegaly, normal liver, GB, and with absent right kidney, enlarged left kidney CT abd/pel with absent right kidney, splenomegaly with possible splenic infarcts vs laceration, prominent ileocolic LINDA possibly reactive Pt is a 21 yo male here with ventilator dependent acute hypoxemic respiratory failure-now resolved, likely secondary to laryngospasm and pharyngeal edema, acute blood loss anemia, GI bleeding found to be from bleeding 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 -Continue to Follow CBC and transfuse as needed if hemodynamically unstable with active bleeding or for Hgb < 6.5 -Continue Protonix 40mg IV bid -GI plans for colonoscopy tomorrow, may need removal of gastric polyps in the future to prevent rebleeding although unclear if this is the source of his massive hemorrhage. There is no evidence of portal hypertension or varices on imaging. Splenomegaly could be from his acute mononucleosis - pathology results of gastric masses-benign hyperplastic polyps with ulceration and gastritis-could be secondary to alcohol use versus polyp forming syndrome? -Continue Librium and gabapentin tapers for alcohol withdrawal symptoms -INR normal and TBili normal, plts improved to normal improving--> follow-up acute hepatitis panel, advised cessation of EtOH and pt wants to do so -continue IV steroids for pharyngeal edema from mono 5 days then taper off -Rocephin for Group G beta strep pharyngitis 5 days -will need close observation of splenomegaly and possible infarcts vs laceration , observe for worsening abd pain, worsening anemia in the absence of further GI bleeding-discussed with patient to avoid contact sports and vigorous activity for one month -congenital absence of right kidney--> could possibly be part of genetic syndrome? Not likely to have any relationship to abnormal appearing masses in stomach at this time-discussed with patient importance of staying well hydrated and if ever had flank pain, to get checked out for kidney stones right away -will need EtOH rehab-patient is on attending Alcoholics Anonymous meetings and will look into outpatient therapy with [facility] DVT Proph- SCDs, subcutaneous heparin started Documented By: Claire Carlin
--- NOTE | 2017-07-07 15:20 | Critical Care Progress Note ---
Critical Care Progress Note Date of Service Jul 07, 2017. ICU Day ICU Day Number: [address] Phan Subjective Patient is a 21-year-old male in the ICU status post need for intubation during upper endoscopy procedure performed secondary to concern for upper GI bleed. He was extubated yesterday. We did increase his steroid dose to 100 mg twice daily. He denies any complaints overnight other than difficulty with sleeping. His Precedex has been stopped. He continues the withdrawal protocol. Patient reports that his throat feels much better and he can swallow and breathe much better as well. Objective VITAL SIGNS - Vital signs and nursing notes were reviewed. GENERAL - 21-year-old male appearing his stated age who is in no acute distress. Voice sounds much better today. SKIN - Without rashes. Pale appearing. HEAD - NC/AT. EYES - PERRL with EOMI bilaterally. Sclera anicteric. Palpebral conjunctiva pale with no injection noted. EARS - No deformities of external structures noted on gross examination bilaterally. NOSE - Midline and without cyanosis. No epistaxis or purulent drainage noted. MOUTH/OROPHARYNX - Without perioral cyanosis. Moderate adenoidal edema, but improved since yesterday. NECK - Neck with FROM. Moderate bilateral lymphadenopathy appreciated. LUNGS - Chest wall symmetric without accessory muscle use, intercostals retractions, or central cyanosis. Normal vesicular breath sounds CTA B/L. No wheezes, rales, or rhonchi appreciated. CARDIAC - RRR with S1/S2. No murmur, rubs, or gallops appreciated. ABDOMEN - Abdominal contour flat without pulsations or visible masses. BS normoactive all four quadrants. No tenderness, palpable masses, hepatosplenomegaly, or ascites noted. EXTREMITIES - No clubbing or peripheral cyanosis. No pretibial edema present. +3 /5 radial and dorsalis pedis pulses palpated throughout. NEUROLOGIC - Cranial nerves II through XII grossly intact. Sensory intact to light touch throughout. PSYCH - A&Ox3 and cooperates fully with examiner. Pt is very pleasant and interacts well with examiner. Current SOFA Score SOFA Score Response (Comments) Value Platelets (x10) < 150 1 Bilirubin (mg/dL) < 1.2 0 Sabrina Coma Score 15 0 Level of Hypotension No Hypotension 0 Creatinine (mg/dL) < 1.2 0 Total 1 Assessment & Plan (1) Alcohol withdrawal (2) Transaminitis (3) Mononucleosis (4) splenic hypodensities with questionable significance (5) Pharyngitis (6) GI bleed (7) Acute blood loss anemia (8) Congenital absence of one kidney Reason Critically Ill: Intubated and sedated status post upper endoscopy with GI bleed requiring transfusion 2. Darke with difficult intubation secondary to lymphadenopathy. Neuro - * CAM ICU: NEGATIVE * History of Alcohol abuse with Withdraw. * Will continue Gabapentin and Librium. Cardiac - * No history of cardiac disease. * Will monitor on telemetry. * ECHO: * Normal biventricular systolic function. * Normal chamber dimensions. * No significant valvular abnormalities. * There is no evidence of a mass or vegetation. This does not rule out endocarditis. * Will consider the use of Propranolol for withdraw for a HR >120 not in the setting of fever or hypovolemia. Respiratory - * Extubated yesterday. * Airway improving w/ steroids. * Will monitor pulse oximetry closely. GI - * GI Bleed: * CT Abdomen demonstrates congenitally absent RIGHT kidney, Splenomegaly, and subtle hypodensities in the spleen without significant perisplenic fluid. * Continue Protonix. * Continue to watch for bleeding - lower GIB not ruled out at this time. * Appreciate GI Consultation. * Lesions to Stomach noted on EGD: A. POLYPOID MASS, STOMACH, BIOPSIES: 1. HYPERPLASTIC POLYP WITH MODERATE ACUTE AND CHRONIC GASTRITIS. 2. NEGATIVE FOR INTESTINAL METAPLASIA, DYSPLASIA, AND CARCINOMA. 3. H. PYLORI IMMUNOPEROXIDASE STAIN NEGATIVE. B. POLYPOID MASS, GASTRIC CARDIA, BIOPSIES: 1. HYPERPLASTIC POLYP WITH MODERATE ACUTE AND CHRONIC GASTRITIS. 2. NEGATIVE FOR INTESTINAL METAPLASIA, DYSPLASIA, AND CARCINOMA. 3. H. PYLORI IMMUNOPEROXIDASE STAIN NEGATIVE. C. GE JUNCTION, BIOPSIES: 1. BENIGN GASTRIC-TYPE GLANDULAR MUCOSA WITH MODERATE ACUTE AND CHRONIC INFLAMMATION AND FOCAL ULCERATION. 2. NEGATIVE FOR INTESTINAL METAPLASIA, DYSPLASIA, AND CARCINOMA. 3. NO SQUAMOUS EPITHELIUM IDENTIFIED. * Transaminitis (EtOH use versus hepatitis 2/2 Darke.) * Maddrey's Discriminant Function for Alcoholic Hepatitis screening score: 5.3 ( suggests "Good Prognosis"). * Will continue Protonix 40 mg. * Will progress diet to Soft Foods. RENAL/LYTES - * Will monitor daily and correct appropriately. * Will continue IVF for now as pt has poor diet 2/2 throat pain. Responded well to IVFs yesterday while febrile. * Found to have a Congenitally Absent RIGHT Kidney on CT - Educated Patient. - * Discontinue Garcia Catheter. ENDO - * No history of DM or Thyroid Dz. * Will monitor BSGs per ICU protocol. * ISS as needed. HEME - * Blood loss anemia 2/2 GIB. * H&H has remained stable. Will change to serial q8h assessments. * Transfuse as needed. ID - * IV Rocephin 2/2 ?UGIB. Will be helpful with pharyngitis as well. * IV Steroids for pharyngitis in the setting of mono. * In conversation with Dr. Malhotra (ENT), he recommends increasing the steroid dose to 100 mg BID for the next few days. He also suggests symptomatic management at this point as the patient is not a surgical candidate and the setting of his active mononucleosis infection. * Steroids improving edema and pt's symptoms. * Blood cultures x2 pending. * Echo unremarkable. LINES/IV ACCESS - * PIVs in place. DVT PROPHYLAXIS - * SCDs. * Will increase Heparin sq to tid dosing. At this time, the patient has improved greatly. His throat edema has improved. He will continue with antibiotics for a complete course of 5 days. He will continue the high-dose steroids for 5 days as well. He may benefit from taper. At this point, the patient can be downgraded from ICU status as he has had persistent improvement. I have personally spent 45 minutes of critical care time in the direct management of this patient. This is a life/limb threatening event. This includes time spent evaluating patient, direct bedside care, chart review, placing orders, interpretation of diagnostic studies, discussion with consultants, patient, and family members, as well as other required patient management activities. This time is exclusive of all separately billable procedures, and teaching time and separate from and in addition to any other critical care service time. Thank you for this consultation allow us to be part of this patient's care. Please refer to my attending physician's documentation for any further recommendations. I have personally evaluated and examined this patient. I agree with assessment and plan of Nancy Garcia PA-C. Significant improvement last 24 hours of patient's oral pharyngeal swelling. Also tolerating liquid diet will advance today. There is plan for colonoscopy on Tuesday. Pathology reviewed, I highly doubt there is bleeding in the spleen, the findings on the CT scan again likely artifactual. He is remained hemodynamically stable not requiring any additional blood transfusions. Patient is stable for downgraded out of the ICU today. Consults & Procedures Consultants: Dr. Malhotra - ENT (Informal) Dr. Landrum - GI Dr. Carlin - Hospitalist Procedures: None at this point. Data Medications: Current Inpatient Medications Medications (Trade) Dose Ordered Sig/Jasmin Route Start Time Stop Time Status Last Admin Dose Admin Ondansetron HCl (Zofran Inj) 4 mg Q6H PRN IV 07/04/17 18:30 08/03/17 18:29 Miscellaneous (Iv Fluids Completed) 1 ea PRN PRN N/A 07/04/17 18:45 07/04/18 18:44 Sodium Chloride ([place] Nasal [place]) 1 sprays PRN PRN NA 07/04/17 20:45 08/03/17 20:44 07/04/17 21:01 1 SPRAYS Gabapentin (Neurontin Tab) 600 mg Q12H PO 07/07/17 10:00 07/07/17 22:01 07/07/17 09:24 600 MG Gabapentin (Neurontin Tab) 600 mg Q24H PO 07/08/17 22:00 07/08/17 22:01 Pantoprazole Sodium 40 mg/ Syringe 10 ml @ 5 mls/min DAILY@09,21 IV 07/05/17 21:00 08/04/17 20:59 07/07/17 08:05 5 MLS/MIN Ceftriaxone Sodium 1000 mg/ Dextrose 60 ml @ 120 mls/hr Q24H IV 07/05/17 16:00 07/09/17 16:29 07/06/17 16:07 120 MLS/HR Ioversol (Optiray 320) 125 ml UD PRN IV 07/05/17 15:30 07/09/17 15:29 Parenteral Electrolyte Solution 1,000 ml @ 100 mls/hr Q10H IV 07/05/17 18:30 08/04/17 18:29 07/07/17 09:24 100 MLS/HR Chlordiazepoxide (Librium Cap) 25 mg Q8H PO 07/07/17 18:00 07/08/17 10:01 Chlordiazepoxide (Librium Cap) 10 mg Q12H PO 07/08/17 22:00 9/2/17 10:01 Methylprednisolone Sodium Succinate 100 mg/Syringe 1.6 ml @ 1.5 mls/min Q12H IV 07/06/17 16:00 07/11/17 04:02 07/07/17 03:59 1.5 MLS/MIN Oxymetazoline HCl (Afrin 0.05% Nasal [place]) 1 sprays Q6H PRN NA 07/06/17 15:45 07/08/17 23:00 07/07/17 08:05 1 SPRAYS Heparin Sodium (Porcine) (Heparin Sq 5000 Unit/0.5ml) 5,000 unit Q12 SQ 07/06/17 21:00 08/05/17 20:59 07/07/17 08:17 5,000 UNIT Bupropion HCl (Wellbutrin-Xl Tab) 300 mg QAM PO 07/07/17 09:00 08/06/17 08:59 07/07/17 08:05 300 MG Acetaminophen (Tylenol Tab) 500 mg Q6H PRN PO 07/07/17 10:45 08/06/17 10:44 I & O: 24-Hour Column 07/08/17 08:00 Intake Total 2032 ml Output Total 1550 ml Balance 482 ml Vital Signs: Date Time Temp Pulse Resp B/P (MAP) Pulse Ox O2 Delivery O2 Flow Rate FiO2 07/07/17 13:15 37.2 107 20 138/84 (102) 93 Room Air 07/07/17 11:15 Room Air 07/07/17 11:15 37.0 99 20 128/76 (93) 96 Room Air 07/07/17 10:30 89 Room Air 07/07/17 09:30 36.7 115 20 130/84 (99) 96 Room Air 07/07/17 07:30 Room Air 07/07/17 07:30 36.7 101 20 145/84 (104) 95 Room Air 07/07/17 06:00 37.5 110 20 136/79 (98) 94 Room Air 07/07/17 04:00 100 Room Air 07/07/17 04:00 37.0 106 20 125/82 (96) 100 Room Air 07/07/17 03:01 109 23 121/76 (91) 96 07/07/17 02:00 107 23 134/75 (94) 95 07/07/17 01:00 104 13 121/78 (92) 98 07/07/17 00:00 37.0 115 20 127/79 (95) 97 Room Air 07/06/17 23:28 98 Room Air 07/06/17 23:00 104 15 128/78 (95) 99 Room Air 07/06/17 22:00 36.5 111 20 127/79 (95) 99 Room Air 07/06/17 21:00 91 18 115/62 (79) 100 Room Air 07/06/17 20:00 96 Nasal Cannula 2.0 07/06/17 20:00 36.8 94 18 113/66 (82) 96 Nasal Cannula 2.0 07/06/17 19:00 96 20 113/66 (82) 100 Nasal Cannula 2.0 07/06/17 18:00 37.5 108 18 108/79 (89) 98 Nasal Cannula 4.0 07/06/17 17:00 129 20 123/70 (87) 97 Nasal Cannula 4.0 07/06/17 16:00 95 Nasal Cannula 4.0 07/06/17 16:00 121 18 133/79 (97) 96 Nasal Cannula 4.0 07/06/17 15:00 38.5 121 18 132/80 (97) 95 Nasal Cannula 4.0 Laboratory Results: Last 24 Hours Test 07/06/17 16:46 07/06/17 21:24 07/06/17 22:19 07/07/17 05:38 Bedside Glucose 111 mg/dl 118 mg/dl Hemoglobin 8.8 g/dL 8.4 g/dL Hematocrit 28.0 % 26.8 % White Blood Count 12.37 K/uL Red Blood Count 3.44 M/uL Mean Corpuscular Volume 77.9 fL Mean Corpuscular Hemoglobin 24.4 pg Mean Corpuscular Hemoglobin Concent 31.3 g/dl Platelet Count 146 K/uL Mean Platelet Volume 9.9 fL RDW Standard Deviation 51.6 fL RDW Coefficient of Variation 18.0 % Neutrophils % (Manual) 37.0 % Lymphocytes % (Manual) 3.7 % Variant Lymphocytes % (manual) 57.4 % Monocytes % (Manual) 1.9 % Neutrophils # (Manual) 4.58 K/uL Total Absolute Neutrophils 4.58 K/uL Lymphocytes # (Manual) 0.46 K/uL Absolute Variant Lymphocytes 7.10 K/uL Total Absolute Lymphocytes 7.56 K/uL Monocytes # (Manual) 0.24 K/uL Toxic Vacuolation 1+ Polychromasia 1+ Hypochromasia PRESENT Prothrombin Time 10.3 SECONDS Prothromb Time International Ratio 1.0 Sodium Level 134 mmol/L Potassium Level 3.8 mmol/L Chloride Level 100 mmol/L Carbon Dioxide Level 27 mmol/L Anion Gap 7.0 mmol/L Blood Urea Nitrogen 7 mg/dl Creatinine 0.71 mg/dl Est Creatinine Clear Calc Drug Dose 184.4 ml/min Estimated GFR () > 150.0 Estimated GFR (Non- 133.2 BUN/Creatinine Ratio 9.7 Random Glucose 99 mg/dl Calcium Level 7.7 mg/dl Phosphorus Level 3.0 mg/dl Magnesium Level 2.2 mg/dl Total Bilirubin 0.2 mg/dl Direct Bilirubin 0.1 mg/dl Aspartate Amino Transf (AST/SGOT) 149 U/L Alanine Aminotransferase (ALT/SGPT) 120 U/L Alkaline Phosphatase 111 U/L Total Protein 6.8 gm/dl Albumin 2.5 gm/dl Lipase 169 U/L Test 07/07/17 08:22 Hepatitis B Surface Antigen NEG Hepatitis C Antibody NEG
[2017-07-07] MEDS: CEFTRIAXONE SOD INJ 1000 MG in DEXTROSE 5% 50ML IV SCH (15:41)
[2017-07-07] MEDS ORDERED: LAVAGE SOLUTION 4000ML PO PRN (17:00)
--- NOTE | 2017-07-07 17:16 | GASTROENTEROLOGY PROGRESS NOTE ---
DATE: 07/07/2017 SUBJECTIVE: The patient is doing well since the extubation yesterday. His breathing is nonlabored. He is tolerating clear liquids well, although still has a slight sore throat. He has no abdominal pain, nausea or vomiting and overall feels like he is getting back to normal. His laboratory studies today show that his hemoglobin is 8.4 this morning and white count is 12.3, both of which are stable. MCV again is down to 77.9 and platelet count is actually slowly climbing and is currently 146. This may have multiple sources including the acute infectious mononucleosis as well as acute alcohol effect on production. His INR has remained stable and had been 1.0. Serum chemistries today, potassium is 3.8, BUN and creatinine 7 and 0.71. LFTs are still slightly elevated, AST 149, ALT 120, and alk phos is 111 and normal. Total bilirubin 0.2. LFTs are slightly elevated compared to yesterday. There appears to be no evidence for bacterial infection with negative specimen for group A beta hemolytic strep. Blood cultures are pending from yesterday. Chest x-ray today shows interval removal of the endotracheal tube with no active disease in the chest. REVIEW OF SYSTEMS: Otherwise noncontributory based on 13-point exam except for mentioned above. The patient is make urine. The patient also had bowel movements, which were nonbloody and mostly some loose stools with pellet-like contents. PHYSICAL EXAMINATION: GENERAL: Today, the patient is awake, alert and oriented x3. HEENT: Sclerae are anicteric. Conjunctivae moist. Oral mucosa is slightly parched. HEART: Normal S1 and S2. LUNGS: Clear to auscultation. ABDOMEN: Soft, nontender, and flat without rebound or guarding. There is no hepatosplenomegaly appreciated. There is no evidence of ascites or shifting dullness. EXTREMITIES: Without clubbing, cyanosis or edema. RECTAL: Deferred at this time. IMPRESSION: The patient is with a microcytic anemia that may go back at least to the time when he underwent inguinal hernia repair several months ago. The source of this is unclear and although, it may reflect an upper gastrointestinal bleeding source, it is importance to exclude any lower gastrointestinal sources including inflammatory bowel disease or possibly a polyposis syndrome given polyps identified on the upper endoscopy. These were benign. I made the following recommendations: The patient seems stable at the present time and I believe can tolerate the bowel prep. We will plan for colonoscopy tomorrow and this will be ordered with the [employer] prep this evening. Dr. Degroot will be performing the colonoscopy tomorrow afternoon. At some point, a repeat upper endoscopy to address these polyps is reasonable. Presently, there is no evidence for portal hypertension or varices. However, would favor repeating upper endoscopy and polypectomy once the patient's acute infectious mononucleosis is resolved. Further recommendations to follow. BARBERD
[2017-07-07 17:57] LABS: HEMATOCRIT 26.5 % (42-52)
[2017-07-07] MEDS ORDERED: LAVAGE SOLUTION 4000ML PO SCH (18:00)
[2017-07-07] MEDS: CHLORDIAZEPOXIDE 25MG 3RD DOSE PO SCH (18:03)
[2017-07-07] MEDS: LORAZEPAM INJ 1 MG in SYRINGE 0.5 ML IV PRN (23:48)
[2017-07-08] VITALS (7 sets, daily range): BP systolic 122–140; BP diastolic 76–90; PULSE 86–102; TEMP 36.5–37.1; O2SAT 96–98
[2017-07-08] MEDS: CHLORDIAZEPOXIDE 25MG 3RD DOSE PO SCH ×2 (02:11→11:17)
[2017-07-08] MEDS: METHYLPREDNISOLONE IV 100 MG in SYRINGE 0 ML IV SCH ×2 (04:09→16:29)
[2017-07-08] MEDS: HEPARIN SOD 5000 UNIT/0.5 ML CARP SQ SCH ×3 (05:23→22:41)
[2017-07-08] MEDS: NORMOSOL R 1,000 ML IV SCH ×2 (05:24→16:33)
[2017-07-08 06:38] LABS: HEMATOCRIT 26.5 % (42-52); MEAN CELL VOLUME 78.2 fL (80-100); MEAN CORPUSCULAR HEMOGLOBIN 25.1 pg (25-34); MEAN CORPUSCULAR HGB CONC 32.1 g/dl (32-36); MEAN PLATELET VOLUME 10.2 fL (7.4-10.4); PLATELET COUNT 185 K/uL (130-400); RED BLOOD COUNT 3.39 M/uL (4.7-6.1)
[2017-07-08 06:54] LABS: PROTHROMBIN TIME (PATIENT) 10.6 SECONDS (9.0-12.0)
[2017-07-08 07:12] LABS: ALKALINE PHOSPHATASE 102 U/L (45-117); ALT/SGPT 130 U/L (12-78); AST/SGOT 116 U/L (15-37)
--- NOTE | 2017-07-08 08:23 | Medical Student: [facility] ---
Med Student Progress Note Date of Service Jul 08, 2017. Subjective Pt evaluation today including: conversation w/ patient, physical exam, chart review, lab review, review of studies, review of inpatient medication list Pain: 2/10 PO Intake: Clear fluids Voiding: no voiding problems, no incontinence Patient states he is feeling 100% better than when he was admitted. Denies any difficulty ambulating, SOB, chest/abd pain, palpitations, NV, blood in stool, BARLOW , and dizziness at rest/standing. States pain has improved to 2 of 10, no difficulty swallowing, and reports he slept fairly well. Discussed plan for colonoscopy today, patient was able to tolerate and complete bowel prep yesterday. Patient also asked about possible discharge date Review of Systems Constitutional: + fatigue, No fever, No chills, No sweats, No weakness ENT: + sore throat, No trouble swallowing Respiratory: No shortness of breath Cardiac: No chest pain, No palpitations Abdomen: No pain, No nausea, No vomiting, No diarrhea, No constipation, No GI bleeding Male : No problem reported Neurologic: No weakness, No numbness/tingling, No balance problems Endo: + fatigue Objective Vital Signs Date Time Temp Pulse Resp B/P (MAP) Pulse Ox O2 Delivery O2 Flow Rate FiO2 07/08/17 07:19 36.5 90 16 132/85 (101) 96 Room Air 07/07/17 23:17 36.4 109 20 131/83 (99) 93 Room Air 07/07/17 16:11 37.4 96 22 97 2.0 07/07/17 16:00 37.4 99 20 137/82 (100) 97 Room Air 07/07/17 15:18 Room Air 07/07/17 15:18 37.4 96 22 123/75 (91) 97 Room Air 07/07/17 15:01 100 21 123/75 (91) 97 07/07/17 15:00 99 23 97 07/07/17 14:01 125 21 140/91 (107) 100 07/07/17 14:00 111 20 91 07/07/17 13:15 37.2 107 20 138/84 (102) 93 Room Air 07/07/17 13:01 100 14 138/84 (102) 95 07/07/17 13:00 112 18 98 07/07/17 12:01 108 136/80 (98) 98 07/07/17 12:00 110 99 07/07/17 11:26 104 13 128/76 (93) 97 07/07/17 11:15 Room Air 07/07/17 11:15 37.0 99 20 128/76 (93) 96 Room Air 07/07/17 11:00 104 19 98 07/07/17 10:30 89 Room Air 07/07/17 10:01 111 18 130/86 (101) 97 07/07/17 10:00 114 18 96 07/07/17 09:30 36.7 115 20 130/84 (99) 96 Room Air 07/07/17 09:01 112 21 130/84 (99) 97 07/07/17 09:00 132 15 97 07/07/17 08:27 113 15 129/82 (98) 97 Physical Exam General Appearance: WD/WN, no apparent distress Eyes: bilateral eyes normal inspection, bilateral eyes PERRL, bilateral eyes EOMI ENT: hearing grossly normal, + pharyngeal erythema (edema present but improved) , + muffled/hoarse voice (improved) Neck: no JVD, no carotid bruits, trachea midline, + adenopathy present ( improved) Respiratory/Chest: chest non-tender, lungs clear, normal breath sounds, no respiratory distress, no accessory muscle use Cardiovascular: no edema, no gallop, no JVD, no murmur, + tachycardia Abdomen: normal bowel sounds, non tender, soft, no organomegaly, no pulsatile mass Extremities: normal range of motion, normal inspection Neurologic/Psychiatric: no motor/sensory deficits, alert, normal mood/affect, oriented x 3 Skin: warm/dry, no rash, + pallor Comments: Continues to improve Laboratory Results Last 24 Hours Test 07/07/17 08:22 07/07/17 15:47 07/07/17 17:43 07/07/17 23:48 Hepatitis B Surface Antigen NEG Hepatitis C Antibody NEG Bedside Glucose 101 mg/dl 193 mg/dl Hemoglobin 8.3 g/dL Hematocrit 26.5 % Test 07/08/17 06:06 White Blood Count 10.50 K/uL Red Blood Count 3.39 M/uL Hemoglobin 8.5 g/dL Hematocrit 26.5 % Mean Corpuscular Volume 78.2 fL Mean Corpuscular Hemoglobin 25.1 pg Mean Corpuscular Hemoglobin Concent 32.1 g/dl Platelet Count 185 K/uL Mean Platelet Volume 10.2 fL RDW Standard Deviation 51.9 fL RDW Coefficient of Variation 18.1 % Nucleated RBC Absolute Count (auto) 0.03 K/uL Nucleated Red Blood Cells % 0.3 % Prothrombin Time 10.6 SECONDS Prothromb Time International Ratio 1.0 Phosphorus Level 3.0 mg/dl Total Bilirubin 0.2 mg/dl Direct Bilirubin < 0.1 mg/dl Aspartate Amino Transf (AST/SGOT) 116 U/L Alanine Aminotransferase (ALT/SGPT) 130 U/L Alkaline Phosphatase 102 U/L Total Protein 6.8 gm/dl Albumin 2.4 gm/dl Lipase 220 U/L Medications Current Inpatient Medications Medications (Trade) Dose Ordered Sig/Jasmin Route Start Time Stop Time Status Last Admin Dose Admin Ondansetron HCl (Zofran Inj) 4 mg Q6H PRN IV 07/04/17 18:30 08/03/17 18:29 Miscellaneous (Iv Fluids Completed) 1 ea PRN PRN N/A 07/04/17 18:45 07/04/18 18:44 Sodium Chloride ([place] Nasal [place]) 1 sprays PRN PRN NA 07/04/17 20:45 08/03/17 20:44 07/04/17 21:01 1 SPRAYS Gabapentin (Neurontin Tab) 600 mg Q24H PO 07/08/17 22:00 07/08/17 22:01 Pantoprazole Sodium 40 mg/ Syringe 10 ml @ 5 mls/min DAILY@09,21 IV 07/05/17 21:00 08/04/17 20:59 07/07/17 20:50 5 MLS/MIN Ceftriaxone Sodium 1000 mg/ Dextrose 60 ml @ 120 mls/hr Q24H IV 07/05/17 16:00 07/09/17 16:29 07/07/17 15:41 120 MLS/HR Ioversol (Optiray 320) 125 ml UD PRN IV 07/05/17 15:30 07/09/17 15:29 Parenteral Electrolyte Solution 1,000 ml @ 100 mls/hr Q10H IV 07/05/17 18:30 08/04/17 18:29 07/08/17 05:24 100 MLS/HR Chlordiazepoxide (Librium Cap) 25 mg Q8H PO 07/07/17 18:00 07/08/17 10:01 07/08/17 02:11 25 MG Chlordiazepoxide (Librium Cap) 10 mg Q12H PO 07/08/17 22:00 07/09/17 10:01 Methylprednisolone Sodium Succinate 100 mg/Syringe 1.6 ml @ 1.5 mls/min Q12H IV 07/06/17 16:00 07/11/17 04:02 07/08/17 04:09 1.5 MLS/MIN Oxymetazoline HCl (Afrin 0.05% Nasal [place]) 1 sprays Q6H PRN NA 07/06/17 15:45 07/08/17 23:00 07/07/17 08:05 1 SPRAYS Bupropion HCl (Wellbutrin-Xl Tab) 300 mg QAM PO 07/07/17 09:00 08/06/17 08:59 07/07/17 08:05 300 MG Acetaminophen (Tylenol Tab) 500 mg Q6H PRN PO 07/07/17 10:45 08/06/17 10:44 Heparin Sodium (Porcine) (Heparin Sq 5000 Unit/0.5ml) 5,000 unit Q8 SQ 07/07/17 22:00 08/06/17 21:59 07/07/17 21:02 5,000 UNIT Lorazepam 1 mg/ Syringe 1 ml @ 0.5 mls/min Q4H PRN IV 07/07/17 19:30 08/06/17 19:29 07/07/17 23:48 0.5 MLS/MIN Assessment and Plan Assessment and Plan: Patient is a pleasant 21yo male with history of substance abuse admitted for GI bleeding secondary to gastric polypoid masses complicated by laryngospasm requiring 24hr intubation and mononucleosis + strep G induced pharyngitis with lymphadenopathy and edema GI Bleeding: Hgb 8.5 * Likely secondary to gastric lesions * EGD: two friable, oozing polypoid lesions in stomach * Official pathology: benign histology with signs of acute and chronic gastritis, negative for H. pylori * Q12 CBC to r/o continued bleeding * Patients hgb fell from 9.1 to 8.5 (most recent) * Lab draw induced v. continued bleeding * Continuous cardiac monitoring and vitals q2 - tachycardia + hypotension may suggest hypovolemic shock due to blood loss * Colonoscopy to r/o additional source of bleeding if Hgb downtrends and additional polypoid masses * Dr Harmon has been consulted - bowel prep completed and colonoscopy planned for today * Transfuse if Hgb falls below 6.5 * Continue Pantoprazole IV drip Ventilation assisted respiration - Resolved * Sedation with midazolam and propofol IV * Lower dosage for weaning ventilation - patient now more aware with decrease, able to answer yes/no questions * Continue use of soft restraints to prevent self-extubation * D/C Garcia catheter with D/C ventilator and decreased sedation * Extubated 07/[address] Phan - patient awake on nasal cannula and able to answer questions, complains of sore throat - no other complaints * 07/07 Nasal cannula discontinued, patient breathing and conversing comfortably on room air Substance abuse * Gabapentin prophylaxis for curbing withdrawal symptoms - consider beginning taper due to day 6 since last drink * Chlordiazepoxide PRN for agitation/withdrawal symptoms * PRECEDEX D/C * Consult psych - substance abuse, anxiety * Case management consulted for alcohol discontinuation - patient is not interested in rehab at this time, plans to use accountability plan with AA meetings * Smoking cessation education - able to cut down with use of Wellbutrin Anxiety: no sign of restless movements * Restlessness secondary to situation v. withdrawal - resolved * Continue librium and gabapentin taper * Wellbutrin restarted Pharyngitis: secondary to positive group G strep + mono * Ceftriaxone IV for Group G: day 4 of 5 * IV steroids to reduce inflammation: day 4 of 5 * Acetaminophen PRN for pain/fever * Supportive maintenance fluids * Solid diet as tolerated planned for post colonoscopy - no reports of difficulty swallowing Elevated LFTs: AST 116, ALT 130, Albumin 2.6 * Likely secondary to alcoholic hepatitis with contribution from mono * Daily CMP to trend Splenomegaly with areas of darkening: mild-moderate on CT imaging * Enlargement likely secondary to mono * CT - darkening likely infarcts, trauma v. septic emboli from an underlying endocarditis * Echocardiogram makes endocarditis unlikely DVT prophylaxis * HUSSAIN and SCDs * Heparin prophylaxis - held today 07/08 for colonoscopy Discharge plan - Reevaluate today * Downgraded to med/surg Continued [facility] stay due to: multiple IV medications needed Discharge planning: home
[2017-07-08 08:36] LABS: COMPLETE YES; HYPOCHROMIA PRESENT; LYMPH ABS # 1.45 K/uL (1.2-3.4); LYMPHOCYTE % 13.8 %; MICROCYTOSIS PRESENT; NEUTROPHILS % 26.6 %; POLYCHROMASIA 1+; VARIANT LYM ABS # 6.07 K/uL; VARIANT LYMPHOCYTE % 57.8 %
[2017-07-08] MEDS: PANTOprazole INJ 40 MG in SYRINGE 0 ML IV SCH ×2 (08:55→22:00)
[2017-07-08] MEDS: BuPROPion XL 300 MG TABCR PO SCH (08:55)
--- NOTE | 2017-07-08 11:41 | Progress Note ---
Post ICU Progress Note Date & Time Jul 08, 2017 at 11:39 Vital Signs Vital Signs Past 12 Hours Date Time Temp Pulse Resp B/P (MAP) Pulse Ox O2 Delivery O2 Flow Rate FiO2 07/08/17 11:10 37.1 88 14 130/87 (101) 96 Room Air 07/08/17 08:37 96 Room Air 07/08/17 08:11 37.0 102 14 140/90 (107) 96 Room Air 07/08/17 08:00 Room Air 07/08/17 07:19 36.5 90 16 132/85 (101) 96 Room Air Notes Mental Status: alert / awake Nausea / Vomiting: adequately controlled Pain: adequately controlled Airway Patency, RR, SpO2: stable & adequate BP & HR: stable & adequate Patient is a 21-year-old male who was initially admitted to the ICU after need for intubation during upper endoscopy. He was subsequently extubated and did well with IV steroids for his pharyngeal edema in the setting of mononucleosis. For completion of care, the patient will reportedly undergo colonoscopy per GI recommendations for his GI bleed. His H&H has been stable. On review the patient today, he appears much better. He has continued posterior pharyngeal edema, but this has improved. Symptomatically, the patient has been doing well. He offers no complaints. Consider outpatient follow up in 1 to 2 weeks with: GI/PCP Repeat imaging needed: Per attending services Follow up cultures: Blood cultures negative x2 Reviewed progress notes, labs, and inpatient medication list Continue current management Additional recommendations: None at this point. Please feel free to reconsult as needed. ICU staff will sign off at this time. Thank you for allowing us to be part of the care of this patient. Consults & Procedures Consultants: Dr. Malhotra - ENT (Informal) Dr. Landrum - GI Dr. Carlin - Hospitalist Procedures: None at this point.
[2017-07-08] MEDS: CEFTRIAXONE SOD INJ 1000 MG in DEXTROSE 5% 50ML IV SCH (16:29)
--- NOTE | 2017-07-08 17:47 | PROGRESS NOTE ---
DATE: 07/08/2017 SUBJECTIVE: The patient is able to swallow a little bit better today and was tolerating full liquids. OBJECTIVE: His vital signs are normal. He is afebrile. LABORATORY DATA: His hemoglobin is stable at 8.5 today, white count is down to normal at 10.5. Chemistries show an AST 116, ALT 130, alkaline phosphatase is normal at 102; bilirubin 0.2. Toxicology is positive for marijuana, serologies are negative for hepatitis B and C, antibodies and HIV. Microbiology test is positive for group G beta strep in his throat. He has had no evidence of alcohol withdrawal symptoms. His EGD showed a 5 cm mass in the upper stomach and biopsies were consistent with hyperplastic polyp with erosion and bleeding. He was scheduled for a colonoscopy today but it was canceled due to the poor airway and desaturations during his EGD that required emergency intubation. The fact that he is no longer bleeding and his counts are stable, it was decided to cancel the procedure and pursue this as an outpatient in a few weeks once his mono has improved and his airway has improved as well. IMPRESSION AND PLAN: The patient has group G beta hemolytic strep, which is being treated. He is also on steroids to help reduce the swelling in his pharynx. Will also continue on his proton pump inhibitors to reduce the risk for rebleeding from this gastric polyp. Hopefully, will be able to be discharged tomorrow and plan on contacting the endoscopist at [place] to see if they would be willing to remove this lesion endoscopically, if so, will make the arrangements for him to go down there once his airway improves, otherwise will have a surgeon remove it surgically. We can pursue a colonoscopy at some point down the road. In the meantime, the patient will abstain from alcohol. Dr. Landrum will be covering this weekend.
[2017-07-08] MEDS ORDERED: NURSING VERBAL MED ORDER ONE (18:15)
[2017-07-08] MEDS ORDERED: COUGH DROP (SUGAR FREE) LOZ 24 LOZ/1 BOX PO PRN (18:30)
--- NOTE | 2017-07-08 19:14 | Family Medicine Progress Note ---
Progress Note Date of Service Jul 08, 2017. Subjective Pt evaluation today including: conversation w/ patient, physical exam, chart review, lab review, review of studies Pain: No pain reported this morning Voiding: no voiding problems, no incontinence Patient states that his throat is no longer sore at this time. He has been tolerating a liquid diet and would like to have solid foods at this point. No other complaints at this time. Constitutional: No fever, No chills, No sweats, No fatigue Respiratory: No cough, No sputum, No wheezing, No shortness of breath Cardiovascular: No chest pain, No orthopnea, No palpitations Abdomen: No pain, No nausea, No vomiting Musculoskeletal: No muscle pain Medications Current Inpatient Medications Medications (Trade) Dose Ordered Sig/Jasmin Route Start Time Stop Time Status Last Admin Dose Admin Ondansetron HCl (Zofran Inj) 4 mg Q6H PRN IV 07/04/17 18:30 08/03/17 18:29 Miscellaneous (Iv Fluids Completed) 1 ea PRN PRN N/A 07/04/17 18:45 07/04/18 18:44 Sodium Chloride (Zion Nasal Otto) 1 sprays PRN PRN NA 07/04/17 20:45 08/03/17 20:44 07/04/17 21:01 1 SPRAYS Gabapentin (Neurontin Tab) 600 mg Q24H PO 07/08/17 22:00 07/08/17 22:01 Pantoprazole Sodium 40 mg/ Syringe 10 ml @ 5 mls/min DAILY@09,21 IV 07/05/17 21:00 08/04/17 20:59 07/08/17 08:55 5 MLS/MIN Ceftriaxone Sodium 1000 mg/ Dextrose 60 ml @ 120 mls/hr Q24H IV 07/05/17 16:00 07/09/17 16:29 07/08/17 16:29 120 MLS/HR Ioversol (Optiray 320) 125 ml UD PRN IV 07/05/17 15:30 07/09/17 15:29 Parenteral Electrolyte Solution 1,000 ml @ 100 mls/hr Q10H IV 07/05/17 18:30 08/04/17 18:29 07/08/17 16:33 100 MLS/HR Chlordiazepoxide (Librium Cap) 10 mg Q12H PO 07/08/17 22:00 07/09/17 10:01 Methylprednisolone Sodium Succinate 100 mg/Syringe 1.6 ml @ 1.5 mls/min Q12H IV 07/06/17 16:00 07/11/17 04:02 07/08/17 16:29 1.5 MLS/MIN Oxymetazoline HCl (Afrin 0.05% Nasal Otto) 1 sprays Q6H PRN NA 07/06/17 15:45 07/08/17 23:00 07/07/17 08:05 1 SPRAYS Bupropion HCl (Wellbutrin-Xl Tab) 300 mg QAM PO 07/07/17 09:00 08/06/17 08:59 07/08/17 08:55 300 MG Acetaminophen (Tylenol Tab) 500 mg Q6H PRN PO 07/07/17 10:45 08/06/17 10:44 07/08/17 18:09 500 MG Heparin Sodium (Porcine) (Heparin Sq 5000 Unit/0.5ml) 5,000 unit Q8 SQ 07/07/17 22:00 08/06/17 21:59 07/07/17 21:02 5,000 UNIT Lorazepam 1 mg/ Syringe 1 ml @ 0.5 mls/min Q4H PRN IV 07/07/17 19:30 08/06/17 19:29 07/07/17 23:48 0.5 MLS/MIN Menthol (Nice Clara) 1 clara PRN PRN PO 07/08/17 18:30 08/07/17 18:29 07/08/17 18:44 1 CLARA Objective Vital Signs Date Time Temp Pulse Resp B/P (MAP) Pulse Ox O2 Delivery O2 Flow Rate FiO2 07/08/17 16:13 36.8 86 18 124/76 (92) 97 Room Air 07/08/17 15:30 Room Air 07/08/17 12:09 37.1 102 16 130/87 96 Room Air 07/08/17 11:10 37.1 88 14 130/87 (101) 96 Room Air 07/08/17 08:37 96 Room Air 07/08/17 08:11 37.0 102 14 140/90 (107) 96 Room Air 07/08/17 08:00 Room Air 07/08/17 07:19 36.5 90 16 132/85 (101) 96 Room Air 07/07/17 23:17 36.4 109 20 131/83 (99) 93 Room Air Physical Exam General Appearance: WD/WN, no apparent distress Eyes: normal inspection, sclerae normal ENT: + pharyngeal erythema, + pertinent finding (Significant tonsillary enlargement bilaterally ) Neck: supple, no carotid bruits, + adenopathy present (Significant), + pertinent finding Respiratory/Chest: chest non-tender, lungs clear, normal breath sounds Cardiovascular: regular rate, rhythm, no edema, no gallop Abdomen: normal bowel sounds, non tender, soft Extremities: normal inspection, no pedal edema, no calf tenderness Neurologic/Psychiatric: alert, normal mood/affect, oriented x 3 Laboratory Results Results Past 24 Hours Test 07/07/17 23:48 07/08/17 06:06 Range/Units Bedside Glucose 193 70-99 mg/dl White Blood Count 10.50 4.8-10.8 K/uL Red Blood Count 3.39 4.7-6.1 M/uL Hemoglobin 8.5 14.0-18.0 g/dL Hematocrit 26.5 42-52 % Mean Corpuscular Volume 78.2 80-100 fL Mean Corpuscular Hemoglobin 25.1 25-34 pg Mean Corpuscular Hemoglobin Concent 32.1 32-36 g/dl Platelet Count 185 130-400 K/uL Mean Platelet Volume 10.2 7.4-10.4 fL RDW Standard Deviation 51.9 36.4-46.3 fL RDW Coefficient of Variation 18.1 11.5-14.5 % Nucleated RBC Absolute Count (auto) 0.03 0-0 K/uL Neutrophils % (Manual) 26.6 % Lymphocytes % (Manual) 13.8 % Variant Lymphocytes % (manual) 57.8 % Monocytes % (Manual) 1.8 % Nucleated Red Blood Cells % 0.3 % Neutrophils # (Manual) 2.79 1.4-6.5 K/uL Total Absolute Neutrophils 2.79 1.4-6.5 K/uL Lymphocytes # (Manual) 1.45 1.2-3.4 K/uL Absolute Variant Lymphocytes 6.07 K/uL Total Absolute Lymphocytes 7.52 1.2-3.4 K/uL Monocytes # (Manual) 0.19 0.11-0.59 K/uL Polychromasia 1+ Hypochromasia PRESENT Microcytosis PRESENT Prothrombin Time 10.6 9.0-12.0 SECONDS Prothromb Time International Ratio 1.0 0.9-1.1 Phosphorus Level 3.0 2.5-4.9 mg/dl Total Bilirubin 0.2 0.2-1 mg/dl Direct Bilirubin < 0.1 0-0.2 mg/dl Aspartate Amino Transf (AST/SGOT) 116 15-37 U/L Alanine Aminotransferase (ALT/SGPT) 130 12-78 U/L Alkaline Phosphatase 102 45-117 U/L Total Protein 6.8 6.4-8.2 gm/dl Albumin 2.4 3.4-5.0 gm/dl Lipase 220 73-393 U/L Assessment and Plan Patient is a 21 year old male that presented to the hospital with hematemesis and hematochezia 1) Acute blood loss anemia 2/2 GI Bleeding - Hematemesis and Hematochezia - Hemoglobin stable (8.2) with no acute bleeding or transfusion requirements since EGD performed on 07/05 - Tolerating clear liquid diet now --> Advance to full liquid diet tonight and then soft diet tomorrow morning as tolerated - GI has decided a colonoscopy is not urgent at this time and the patient can have a colonoscopy performed as an outpatient - The patient will also require a procedure to remove the large gastric mass on EGD --> Arrange General Surgery outpatient consultation - Hemoglobin 8.6 after 2 units of transfused PRBC (was as low as 7.2 after being admitted with a Hgb of 11.2) - EGD performed on 07/05 revealed ulcerated gastric polyp as most likely cause of bleed and was subsequently biopsied - Large polypoid mass also seen on EGD --> benign tissue identified with no malignancy identified on pathology - Biopsies also negative for H. Pylori - H/H q12h and transfuse with Hgb threshold of <6.5 or if hemodynamically unstable with active bleeding - IV Protonix 40mg BID as discussed with GI, discontinued octreotide and PPI gtt --> Discharge home tomorrow of PPI as per GI - Stool occult positive in ED, along with visualized bright red blood in the toilet - GI consulted 2) Ventilator Dependent Acute Hypoxic Respiratory failure secondary to laryngospasm after EGD - Extubated on 07/07 and weaned off of Precedex prior to being transferred from the ICU - Weaned off of Propofol and Versed - Patient had laryngospasm after procedure 2/2 severe cervical lymphadenopathy, copious secretions, and EGD procedure as per anesthesiology - Hemodynamically stable throughout and pulse ox never went below 60 - Patient now stable in Med/ Surg 3) Alcoholic Withdrawal - Improving with no tremors but continued tachycardia - AWSS protocol - Librium 25mg q8h --> 10mg q12h tonight + Gabapentin 600mg q12h --> 600mg q24 tonight - Last drink Sunday 07/01 - Tremors have now resolved - Now afebrile with intermittent tachycardia - Urine Tox positive for marijuana 4) Transaminitis and Splenomegaly - Secondary to Mononucleosis vs Alcoholic Hepatitis - LFTs fluctuated over the last 4 days, both AST and ALT in low 100's - INR within normal limits - Thrombocytopenia --> Resolved (129--> 146) - CT abdomen also shows splenic infarcts vs laceration so continue to monitor H/ H and abdominal pain - Echo on 07/06: No evidence of mass or vegetation or motion abnormality ( performed to rule out cause of possible splenic findings on CT) 5) Mononucleosis - IV Methylprednisolone for pharyngeal edema --> Increased to 100mg BID dosing as per Dr. Larson - Monospot test positive - Significant pharyngeal enlargement significantly contributing to laryngospasm leading to intubation - Tylenol IV as needed for pharyngeal pain 6) Group G Beta Strep Pharyngitis - No complaints of pharyngitis this morning - Recently worsening sore throat over the last few days in addition to yellow mucous production - Positive Group G Beta Strep throat culture - Rocephin Day 4 7) Gastric Mass - Upper endoscopy showed polypoids lesions that were hypoplastic in nature ( large, Villous, friable polypoid mass on a thick stalk found in the cardia) which were unusual for the patients age - Although masses were friable, unclear if these were source of the patient's blood loss - Given sizeable gastric polyps Colonoscopy warranted to rule out colonic polyps - Pathology --> Biopsied masses all benign, no malignant cells identified - No family history of polyp disorders but may have questionable family history of polyps in Grandfather - General Surgery consultation as outpatient due to significant size of mass and will need coordinated effort between GI and Gen Surg to remove 8) Congenital Absence of Right Kidney - Initially visualized on Abdominal US and later confirmed on CT abdomen - Unsure if related to Gastric Masses - Kidney function appears within normal limits 9) Depression - Wellbutrin 300mg qAM 10) Nicotine Use - Recently decreased cigarette use while on Wellbutrin 11) DVT Prophylaxis - Heparin 5,000 units q12 12) Code Status - Full Resuscitation 13) Disposition - Consider alcoholic rehabilitation on discharge Resident Tracking Resident Involvement: Resident Care Provided Care Provided: Adult [facility] Medicine Reviewed: Pt Seen/Exam by Me History Resident Physician Supervision Note: I interviewed and examined the patient. Discussed with Dr. Laws and agree with findings and plan as documented in the note. Any exceptions or clarifications are listed here: Doing very well today. I discussed the case at length with GI today. Anesthesia canceled the case due to his persistent pharyngeal edema and risk for airway compromise during surgery. Colonoscopy will be deferred to as an outpatient. GI also suggests either endoscopic evaluation at [facility] for polypectomy versus general surgery consultation as an outpatient. Patient feeling much better, no further GI bleeding, throat is improved and he is hungry for regular food. Vitals reviewed Neck with significantly improved posterior cervical chain bilateral adenopathy now left greater than right Posterior OP with 2+ tonsils, minimal exudate and erythema, uvula in midline, with significantly decreased posterior pharynx and soft palate edema RRR, no mgr CTAB no wcr, breathing unlabored Abd +BS, soft, NT ND Ext no edema or calf tenderness in legs Skin no rashes Abd US with splenomegaly, normal liver, GB, and with absent right kidney, enlarged left kidney CT abd/pel with absent right kidney, splenomegaly with possible splenic infarcts vs laceration, prominent ileocolic LINDA possibly reactive Pt is a 21 yo male here with ventilator dependent acute hypoxemic respiratory failure-now resolved, likely secondary to laryngospasm and pharyngeal edema, acute blood loss anemia, GI bleeding found to be from bleeding 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 No further bleeding -Continue to Follow CBC in the morning but has remained stable and transfuse as needed if hemodynamically unstable with active bleeding or for Hgb < 6.5 -Continue Protonix 40mg IV bid and switch to by mouth twice a day for discharge -GI plans for colonoscopy as an outpatient, will need removal of gastric polyps in the future to prevent rebleeding. This will be GI at [facility] endoscopically versus general surgery. There is no evidence of portal hypertension or varices on imaging. Splenomegaly could be from his acute mononucleosis - pathology results of gastric masses-benign hyperplastic polyps with ulceration and gastritis-unclear etiology -Continue Librium and gabapentin tapers for alcohol withdrawal symptoms -INR normal and TBili normal, plts improved to normal improving--> follow-up acute hepatitis panel, advised cessation of EtOH and pt wants to do so -continue IV steroids for pharyngeal edema from mono 5 days then taper off with by mouth steroids -Rocephin for Group G beta strep pharyngitis 5 days and then switched to amoxicillin for 5 days -will need close observation of splenomegaly and possible infarcts vs laceration , observe for worsening abd pain, worsening anemia in the absence of further GI bleeding-discussed with patient to avoid contact sports and vigorous activity for one month -congenital absence of right kidney--> could possibly be part of genetic syndrome? Not likely to have any relationship to abnormal appearing masses in stomach at this time -Discussed with patient importance of staying well hydrated and if ever had flank pain, to get checked out for kidney stones right away -will need EtOH rehab-patient is on attending Alcoholics Anonymous meetings and will look into outpatient therapy with [facility] DVT Proph- SCDs, subcutaneous heparin started Documented By: Claire Carlin
[2017-07-08] MEDS ORDERED: GABAPENTIN 600MG Q24H DOSE PO SCH (22:00)
[2017-07-08] MEDS: CHLORDIAZEPOXIDE 10MG 4TH DOSE PO SCH (22:00)
[2017-07-08] MEDS: LORAZEPAM INJ 1 MG in SYRINGE 0.5 ML IV PRN (23:35)
[2017-07-09] MEDS: NORMOSOL R 1,000 ML IV SCH ×2 (02:45→12:30)
[2017-07-09] MEDS: METHYLPREDNISOLONE IV 100 MG in SYRINGE 0 ML IV SCH (05:05)
[2017-07-09] MEDS: HEPARIN SOD 5000 UNIT/0.5 ML CARP SQ SCH (05:05)
[2017-07-09 07:20] VITALS: BP 136/92; PULSE 99; TEMP 36.7; O2SAT 97
[2017-07-09 07:40] LABS: HEMATOCRIT 27.2 % (42-52); MEAN CELL VOLUME 78.6 fL (80-100); MEAN CORPUSCULAR HEMOGLOBIN 24.6 pg (25-34); MEAN CORPUSCULAR HGB CONC 31.3 g/dl (32-36); MEAN PLATELET VOLUME 10.2 fL (7.4-10.4); PLATELET COUNT 265 K/uL (130-400); RED BLOOD COUNT 3.46 M/uL (4.7-6.1); WHITE BLOOD COUNT 12.29 K/uL (4.8-10.8)
[2017-07-09 07:58] LABS: PROTHROMBIN TIME (PATIENT) 10.5 SECONDS (9.0-12.0)
[2017-07-09 08:11] LABS: ALKALINE PHOSPHATASE 94 U/L (45-117); ALT/SGPT 108 U/L (12-78); AST/SGOT 64 U/L (15-37); PHOSPHORUS 3.1 mg/dl (2.5-4.9)
[2017-07-09] MEDS: BuPROPion XL 300 MG TABCR PO SCH (09:34)
[2017-07-09] MEDS: PANTOprazole INJ 40 MG in SYRINGE 0 ML IV SCH (09:34)
[2017-07-09] MEDS: CHLORDIAZEPOXIDE 10MG 4TH DOSE PO SCH (09:37)
[2017-07-09] MEDS ORDERED: AMOX500C3 PO (12:41)
[2017-07-09] MEDS ORDERED: THIA100T11 PO (12:41)
[2017-07-09] MEDS ORDERED: PRT/40 PO ×2 (12:41→13:05)
[2017-07-09] MEDS ORDERED: CYAN100073 PO (12:41)
[2017-07-09] MEDS ORDERED: FLV1 PO (12:41)
[2017-07-09] MEDS ORDERED: METH4PAK PO (12:41)
[2017-07-09] MEDS ORDERED: MONT1TAB3 PO (12:41)
[2017-07-09] MEDS ORDERED: MULTTAB58 PO (12:41)
[2017-07-09] MEDS ORDERED: PRVHFAIN INH (12:43)
--- NOTE | 2017-07-09 12:54 | Discharge Instructions ---
Discharge Instructions Date of Service Jul 09, 2017. Admission Reason for Admission: Gi Bleed Discharge Discharge Diagnosis / Problem: Mononucleosis / Strep Throat / Gi bleed, acute blood loss anemia Discharge Goals Goal(s): Improve function, Improve nutritional status, Diagnostic testing, Therapeutic intervention, Screening, Prevent Disease Progression Activity Recommendations Activity Limitations: per Instructions/Follow-up section Exercise/Sports Limitations: until after follow-up appointment (please refrain from any sports or contact activities for the next 4 weeks) Shower/Bathe: no limitations Driving or Machine Use: no limitations Please refrain from any sports of physical contact for the next 1 month. Instructions / Follow-Up Instructions / Follow-Up You were diagnosed with mononucleosis, strep throat as well as a gastrointestinal bleed from a mass in your stomach 1) Mononucleosis - Please refrain from any sports or physical activity that could cause direct trauma to your abdomen for the next 1 month. Your spleen is at risk of bleeding during this time - You can take tylenol or ibuprofen on an as needed basis for your sore throat - Rest and drink plenty of fluids until symptoms resolve 2) Strep throat - We will be sending you home with 6 more days of antibiotics to complete a 10 day course. Please take these as prescribed 3) GI mass - Please follow up with Dr. Degroot in the next 1-2 weeks --> Please phone his office - Please repeat your blood work on Tuesday and follow up with your PCP on Tuesday in order to make sure your blood counts are stable 4) Alcohol dependence - Please refrain from drinking alcohol as it can be very damaging to your liver and can weaken your immune - Please follow up with [facility] outpatient alcohol counselling - Please take the multivitamins as prescribed. You can get these over the counter at the pharmacy 5) Asthma - We prescribed singulair and ventolin for your asthma. Please take these as prescribed and follow up with your PCP Current Hospital Diet Patient's current hospital diet: Regular Diet Discharge Diet Recommended Diet: Regular Diet Procedures Procedures Performed: EGD Pending Studies Studies pending at discharge: yes List of pending studies: Final blood culture results - negative to date Medical Emergencies . Who to Call and When: Medical Emergencies: If at any time you feel your situation is an emergency, please call 911 immediately. . Non-Emergent Contact Non-Emergency issues call your: Primary Care Provider, [facility] . . "Provider Documentation" section prepared by Ad Rasheed. . VTE Core Measure Inpt VTE Proph given/why not?: SCD's
[2017-07-09 13:18] VITALS: BP 136/92; PULSE 99; TEMP 36.7; O2SAT 97
--- NOTE | 2017-07-09 14:47 | Discharge Summary ---
Discharge Summary Date of Service Jul 09, 2017. (Ad Rasheed MD) Discharge Summary Admission Date: Jul 05, 2017 at 10:34 Discharge Date: Jul 09, 2017 Discharge Disposition: Home Principal Diagnosis: GI mass with acute blood loss anemia Problems/Secondary Diagnoses: Mononucleosis and Group G strep Immunizations: Have You Had Influenza Vaccine: Unknown History of Tetanus Vaccine?: Unknown History of Pneumococcal: Unknown History of Hepatitis B Vaccine: Unknown Procedures: EGD with biopsy Consultations: GI Intensive care (Ad Rasheed MD) Problems/Secondary Diagnoses: Hematemesis Hematochezia Acute blood loss anemia secondary to GI Bleeding Large gastric masses x 2-benign on pathology Ventilator Dependent Acute Hypoxic Respiratory failure secondary to laryngospasm during EGD Alcoholic Dependence and Withdrawal Marijuana abuse Transaminitis Splenomegaly Splenic infarcts Mononucleosis Alcoholic Hepatitis Thrombocytopenia Group G Beta Strep Pharyngitis Congenital Absence of Right Kidney Depression with anxiety Nicotine Use-current smoker Prominent ileocolic lymphadenopathy- possibly reactive, seen on CT Procedures: 1) ABD US: 1. The right kidney was not visualized and could be absent on a congenital basis given the mildly enlarged left kidney. 2. Splenomegaly 15.4 cm 2) Chest xrays s 3) Intubation 4) CT Abd/Pel: 1. No evidence of bowel obstruction. No evidence of free air 2. Small amount of free pelvic fluid 3. Absent right kidney 4. Mild splenomegaly 5. Subtle hypodensities within the superior aspect of the spleen. These are peripheral. In the absence of a traumatic history these may represent small infarcts. There is no significant perisplenic fluid to indicate splenic lacerations, although this is within differential. 5) ECHO: * Normal biventricular systolic function. * Normal chamber dimensions. * No significant valvular abnormalities. * There is no evidence of a mass or vegetation. This does not rule out endocarditis (Claire Carlin MD) Medication Reconciliation New Medications: Albuterol (Ventolin Hfa) 60 Puffs/5400 Mcg Aers 1 PUFF INH Q4 PRN for Shortness of Breath for 30 Days, #1 INHALER 3 Refills Amoxicillin (Amoxil) 500 Mg Cap 1 CAP PO BID for 6 Days, #12 CAP Cyanocobalamin (B12) 1,000 Mcg Tab 1000 MCG PO DAILY for 30 Days Folic Acid (Folic Acid) 1 Mg Tab 1 MG PO DAILY for 30 Days Methylprednisolone (Medrol Dosepak) 4 Mg Elpidio 1 PKT PO UD for 6 Days, #1 PKT Montelukast Sodium (Singulair) 10 Mg Tab 10 MG PO DAILY for 30 Days, #30 TAB Multiple Vitamin (Multivitamin) 1 Tab Tab 1 TAB PO DAILY for 30 Days, #30 TAB Pantoprazole (Pantoprazole Sodium) 40 Mg Tab 40 MG PO BID for 30 Days, #60 TAB Take 30 minutes before meal Thiamine Hcl (Vitamin B-1) 100 Mg Tab 100 MG PO DAILY for 30 Days, #30 TAB Continued Medications: Bupropion (Wellbutrin-Xl) 300 Mg Tabcr 300 MG PO DAILY Discharge Exam Patient without any acute events overnight He was transitioned to a regular diet yesterday evening without any diarrhea, nausea, vomiting He had a regular bowel movement this am without any blood Throat still painful 12/17 Says that he takes singulair and doesn't have a current script for it and also says he takes proair at home Review of Systems: Constitutional: No fever, No chills, No sweats Respiratory: No cough, No sputum, No shortness of breath, No dyspnea on exertion, No hemoptysis Cardiovascular: No chest pain, No edema, No palpitations Abdomen: No pain, No nausea, No vomiting, No diarrhea, No GI bleeding Musculoskeletal: No joint pain, No muscle pain, No calf pain Genitourinary - Male: No dysuria Hematologic / Lymphatic: + swollen lymph nodes, No abnormal bleeding/ bruising Integumentary: No rash, No itch, No new/changing skin lesions Physical Exam: General Appearance: WD/WN, no apparent distress Eyes: normal inspection, PERRL ENT: hearing grossly normal, + pharyngeal erythema (swollen but without any exudate), + pertinent finding (anterior cervical lymphadenopathy (worse on Left compared to Right)) Neck: supple, trachea midline Respiratory/Chest: lungs clear, no respiratory distress, no accessory muscle use Cardiovascular: regular rate, rhythm, no murmur, normal peripheral pulses Abdomen / GI: normal bowel sounds, non tender, soft Extremities: no calf tenderness, no pedal edema, normal range of motion, non -tender Neurologic/Psychiatric: alert, normal mood/affect, oriented x 3 Skin: normal color, warm/dry, no rash (Ad Rasheed MD) Hospital Course The patient is a 21-year-old male with alcohol dependence (10 beers/day) who developed a respiratory infection on 07/02 at which point he went to [facility] where he passed out and he was therefore transferred to the Emergency room. He was admitted to the hospital due to persistent tachycardia despite fluid resuscitation. After being admitted he had an episode of hematemasis as well as melena and his Hgb dropped from 11.2 to 7.2 overnight and he was given 2 units of PRBC. He was started on a Famotidine IV but was then switched to protonix and octreotide and GI were consulted for further intervention. On 07/05 he had an upper endoscopy performed by GI. During the endoscopy he had significant bronchospasm requiring intubation. He was then admitted to the ICU sedated on propofol. Gi found two separate masses in the stomach and both were biopsied. Complicating this the patient was also found to be positive for Mononucleosis as well as Group G strep pharyngitis Patient was started on Rocephin for the upper GI bleed and was started on IV steroids to decrease the swelling in his throat. He had a CT scan which showed splenomegaly as well as an absent right kidney. The biopsy results from his upper endoscopy revealed hypoplastic changes both in the gastric body and cardia of the stomach (there were no malignancy or pre- malignancy noted). The patient was successfully extubated on 07/06. The following day he was transitioned to the floors for continued medical management. The patient continued to progress well with IV steroids, and antibiotics. The patient had regular Hgb checks and GI decided that they would follow up with the patient as an outpatient with a colonoscopy and would help set up with further management of his abdominal masses. The patient was discharged on 07/09/2017 hemodynamically stable and in no acute distress. Plan Upon Discharge 1) GI Mass and Bleeding - Hgb stable at discharge at 8.5. Repeat CBC and CMP on Tuesday before visit with PCP - Follow up with Dr. Degroot for further management of gastric mass - Discharge with PPI 2) Group G strep - Take amoxicillin for 6 days to finish 10 day course of antibiotics 3) Mononucleosis - refrain from contact sports or high impact activity for 1 month - Follow transaminitis with CMP 4) Alcohol dependence - Advised to decrease alcohol intake and follow up with [facility] - Follow transaminitis with CMP Total Time Spent: Less than 30 minutes This includes examination of the patient, discharge planning, medication reconciliation, and communication with other providers. (Ad Rasheed MD) Discharge Instructions Please refer to the electronic Patient Visit Report (Discharge Instructions) for additional information. (Ad Rasheed MD) Additional Copies To RV. Lewis MD; Devon Degroot M.D. Reviewed: Pt Seen/Exam by Me (Claire Carlin MD) History Resident Physician Supervision Note: I interviewed and examined the patient. Discussed with Dr. Rasheed and agree with findings and plan as documented in the note. Any exceptions or clarifications are listed here: Doing very well today. Tolerating regular diet, throat improved, labs stable or improved. Motivated to not drink EtOH any more. Vitals reviewed Neck with significantly improved posterior cervical chain bilateral adenopathy now left greater than right Posterior OP with 2+ tonsils, minimal exudate and erythema, uvula in midline, with significantly decreased posterior pharynx and soft palate edema RRR, no mgr CTAB no wcr, breathing unlabored Abd +BS, soft, NT ND Ext no edema or calf tenderness in legs Skin no rashes Pt is a 21 yo male here with ventilator dependent acute hypoxemic respiratory failure-now resolved, likely secondary to laryngospasm and pharyngeal edema, acute blood loss anemia, GI bleeding found to be from bleeding 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 No further bleeding -Follow CBC and LFTs as outpt next week -continue PPI and f/u with GI for definitive management of gastric masses -GI plans for colonoscopy as an outpatient, will need removal of gastric polyps in the future to prevent rebleeding. This will be GI at [place] endoscopically versus general surgery. There is no evidence of portal hypertension or varices on imaging. Splenomegaly could be from his acute mononucleosis - pathology results of gastric masses-benign hyperplastic polyps with ulceration and gastritis-unclear etiology -completed Librium and gabapentin tapers for alcohol withdrawal symptoms -continue po steroids for pharyngeal edema from mono -Rocephin for Group G beta strep pharyngitis 5 days and then switched to amoxicillin for 5 days -will need close observation of splenomegaly and possible infarcts- observe for worsening abd pain, worsening anemia in the absence of further GI bleeding- discussed with patient to avoid contact sports and vigorous activity for one month -congenital absence of right kidney--> could possibly be part of genetic syndrome? Not likely to have any relationship to abnormal appearing masses in stomach at this time -Discussed with patient importance of staying well hydrated and if ever had flank pain, to get checked out for kidney stones right away -will need EtOH rehab-patient is on attending Alcoholics Anonymous meetings and will look into outpatient therapy with [facility] Total Time Spent: Greater than 30 minutes This includes examination of the patient, discharge planning, medication reconciliation, and communication with other providers. Documented By: Claire Carlin (Claire Carlin MD)
[2017-07-20] MEDS ORDERED: CETI10TA84 PO (14:45)
[2017-07-20] MEDS ORDERED: MONT1TAB3 PO (14:45)
[2017-07-20] MEDS ORDERED: VNTHFA/IN INH (14:45)
[2017-07-28] MEDS ORDERED: MULT-513 PO (12:45)
[2017-08-20] MEDS ORDERED: PRT40 PO (11:51)
== END 2017-07-09 13:45 | disposition home or self-care (01) | DRG 377 ==
LOC: C.EDB 12:19 → UNDOADMOB 18:27 → C.MS2W 18:27 → ENRESERV 18:42 → C.MSICU 07-05 03:37 → OBSVTOIN 07-05 10:34 → ENRESERV 07-07 15:40 → C.MS2W 07-07 16:32
PROVIDERS: ADMIT Hospitalist; ATTEND Family Medicine
PROC: 5A1935Z Respiratory Ventilation, Less than 24 Consecutive Hours (ICD-10-PCS; 2017-07-05)
PROC: 0BH17EZ Insertion of Endotracheal Airway into Trachea, Via Natural or Artificial Opening (ICD-10-PCS; 2017-07-05)
PROC: 0DB48ZX Excision of Esophagogastric Junction, Via Natural or Artificial Opening Endoscopic, Diagnostic (ICD-10-PCS; principal; 2017-07-05 12:52)
PROC: 0DB68ZX Excision of Stomach, Via Natural or Artificial Opening Endoscopic, Diagnostic (ICD-10-PCS; principal; 2017-07-05 12:52)
DX: K92.2 Gastrointestinal hemorrhage, unspecified (principal); J96.01 Acute respiratory failure with hypoxia; D62 Acute posthemorrhagic anemia; F10.239 Alcohol dependence with withdrawal, unspecified; Q60.0 Renal agenesis, unilateral; K25.9 Gastric ulcer, unspecified as acute or chronic, without hemorrhage or perforation; D13.1 Benign neoplasm of stomach; B27.90 Infectious mononucleosis, unspecified without complication; J02.0 Streptococcal pharyngitis; J38.5 Laryngeal spasm; J39.2 Other diseases of pharynx; K70.10 Alcoholic hepatitis without ascites; R16.1 Splenomegaly, not elsewhere classified; F17.210 Nicotine dependence, cigarettes, uncomplicated; F12.90 Cannabis use, unspecified, uncomplicated; D72.820 Lymphocytosis (symptomatic); F32.9 Major depressive disorder, single episode, unspecified; Z79.899 Other long term (current) drug therapy

== ENCOUNTER → 2017-07-12 | Outpatient (CLI) | payer OTHER ==
[~2017-07-12] MED LIST changes: -ALBU18002 INH; +AMOX500C3 PO; +BUPRTAB51 PO; +CETI10TA84 PO; +CYAN100073 PO; +FLV1 PO; -IBUP-1050 PO; +METH4PAK PO; -MULT-506 PO; +MULT-513 PO; +MULTTAB58 PO; +PANT40TA2 PO; +PRT40 PO; +PRVHFAIN INH; +THIA100T11 PO; +VNTHFA/IN INH
[2017-07-12 13:52] LABS: HEMATOCRIT 29.9 % (42-52); MEAN CELL VOLUME 78.7 fL (80-100); MEAN CORPUSCULAR HEMOGLOBIN 24.5 pg (25-34); MEAN CORPUSCULAR HGB CONC 31.1 g/dl (32-36); MEAN PLATELET VOLUME 10.4 fL (7.4-10.4); PLATELET COUNT 457 K/uL (130-400); WHITE BLOOD COUNT 12.73 K/uL (4.8-10.8)
[2017-07-12 14:22] LABS: ALT/SGPT 148 U/L (12-78); AST/SGOT 71 U/L (15-37); BLOOD UREA NITROGEN 12 mg/dl (7-18); BUN/CREATININE RATIO 15.5 (10-20); CALCIUM 8.9 mg/dl (8.5-10.1); CARBON DIOXIDE 25 mmol/L (21-32); CHLORIDE 102 mmol/L (98-107); GLUCOSE 123 mg/dl (70-99); POTASSIUM 4.5 mmol/L (3.5-5.1); SODIUM 135 mmol/L (136-145)
[2017-07-12 14:25] LABS: ALB/GLOB RATIO 0.5 (0.9-2); ALKALINE PHOSPHATASE 142 U/L (45-117)
--- NOTE | 2017-07-18 07:23 | CODING QUERY NO DIAGNOSIS ---
TREATMENT RENDERED WITHOUT A DIAGNOSIS Dr. Rasheed, To promote full compliance with coding requirements relating to patient care, physician participation is requested in all cases of copying machine repairer uncertainty. Please assist us with providing a diagnosis/symptom for the test(s) below: A diagnosis/symptom was not documented on your Order. A valid diagnosis/symptom is required to bill all insurances. Please remember that we are unable to code a diagnosis of rule out, probable, possible, questionable, or suspected. Tests that require a diagnosis: * CBC W/O DIFF DIAGNOSIS: * CMP DIAGNOSIS: DATE OF SERVICE: 07/12/17 Provider Signature: Date: Thank you Adonis Brown [facility] Information Management Once completed, please kindly fax back to [phone] For questions please call [phone]
--- NOTE | 2017-09-13 06:34 | EDITING REQUIRED CODING QUERY ---
TREATMENT RENDERED WITHOUT A DIAGNOSIS Dr. Rasheed, To promote full compliance with coding requirements relating to patient care, physician participation is requested in all cases of spray gun repairer uncertainty. Please assist us with providing a diagnosis/symptom for the test(s) below: A diagnosis/symptom was not documented on your Order. A valid diagnosis/symptom is required to bill all insurances. Please remember that we are unable to code a diagnosis of rule out, probable, possible, questionable, or suspected. Tests that require a diagnosis: * CBC W/O DIFF DIAGNOSIS: * CMP DIAGNOSIS: DATE OF SERVICE: 07/12/17 Provider Signature: Date: Thank you Adonis Brown [facility] Information Management Once completed, please kindly fax back to [phone] For questions please call [phone]
== END | disposition home or self-care (01) ==
LOC: C.LABBC 11:09
PROVIDERS: ATTEND Student in an Organized Health Care Education/Training Program
DX: K22.3 Perforation of esophagus (principal); D62 Acute posthemorrhagic anemia; R74.0 Nonspecific elevation of levels of transaminase and lactic acid dehydrogenase [LDH]

== ENCOUNTER → 2017-07-28 | Day surgery (SDC) | payer OTHER ==
[2017-07-20 14:46] VITALS: BMI 23.0
[~2017-07-28] VITALS: Ht 188 cm; Wt 81.8 kg
[~2017-07-28] MED LIST changes: -AMOX500C3 PO; -CYAN100073 PO; -FLV1 PO; +LIDOCAINE HCL 2% 2 ML VIAL (20MG/ML) ONE; -METH4PAK PO; -MULTTAB58 PO; -PANT40TA2 PO; +PHENYLEPHRINE 100MCG/ML 5ML SYR ONE; +PROPOFOL IV EMULSION 10 MG/ML 20 ML VIAL IV ONE; -PRVHFAIN INH; -THIA100T11 PO
[2017-07-28 12:46] VITALS: Ht 188 cm; Wt 81.8 kg
--- NOTE | 2017-07-28 13:16 | Endo History and Physical ---
History & Physical Date of Service: Jul 28, 2017. Chief Complaint: RECTAL BLEEDING Referring Physician: DR GRIMES History of Present Illness For Colonoscopy Past Surgical History Hx Cardiac Surgery: No Hx Internal Defibrillator: No Hx Pacemaker: No Hx Abdominal Surgery: Yes (HERNIA REPAIR) Hx of Implantable Prosthesis: No Hx Post-Op Nausea and Vomiting: No Hx Cancer Surgery: No Hx Thoracic Surgery: No Hx Orthopedic: No Hx Urinary Tract Surgery: No Family History None Social History Smoking Status: Former Smoker Hx Substance Use: No Hx Alcohol Use: No Allergies Coded Allergies: NO KNOWN DRUG ALLERGIES (Unverified Allergy, Unknown, NONE, 07/28/17) Peanut (Unverified Allergy, Unknown, ANAPHYLAXIS, 07/28/17) Current Medications Reported Home Medications Medications Dose Route/Sig Max Daily Dose Days Date Category Mvi With Minerals (Multivitamins/Minerals) Tab 1 Tab PO DAILY 07/28/17 Reported Ventolin Hfa (Albuterol) 200 Puffs/14032 Mcg Aers 2-4 Puffs INH Q6H PRN 07/20/17 Reported Zyrtec (Cetirizine HCl) 10 Mg Tab 10 Mg PO DAILY PRN 07/20/17 Reported Singulair (Montelukast Sodium) 10 Mg Tab 10 Mg PO QAM 07/20/17 Reported Wellbutrin-Xl (Bupropion HCl) 300 Mg Tabcr 300 Mg PO QAM 07/04/17 Reported Vital Signs Weight (Kilograms): 81.82 Height (Feet): 6 Height (Inches): 2 Date Time Temp Pulse Resp B/P (MAP) Pulse Ox O2 Delivery O2 Flow Rate FiO2 07/28/17 12:50 36.6 88 16 115/68 (84) 100 Room Air Physical Exam General Appearance: WD/WN Respiratory/Chest: Respiratory effort: no dyspnea Cardiovascular: Heart Auscultation: RRR Abdomen: Inspection & Palpation: soft Assessment and Plan Rectal bleeding for colonoscopy
--- NOTE | 2017-07-28 13:18 | Anesthesiology Progress Note ---
Anesthesia Post Op Note Date & Time Jul 28, 2017 at 13:18 Vital Signs Pain Intensity: 0 Vital Signs Past 12 Hours Date Time Temp Pulse Resp B/P (MAP) Pulse Ox O2 Delivery O2 Flow Rate FiO2 07/28/17 12:50 36.6 88 16 115/68 (84) 100 Room Air Notes Mental Status: alert / awake / arousable, participated in evaluation Pt Amnestic to Procedure: Yes Nausea / Vomiting: adequately controlled Pain: adequately controlled Airway Patency, RR, SpO2: stable & adequate BP & HR: stable & adequate Hydration State: stable & adequate Anesthetic Complications: no major complications apparent
--- NOTE | 2017-07-28 14:04 | Discharge Instructions ---
Endoscopy Patient Instructions Date / Procedure(s) Performed Jul 28, 2017. Colonoscopy Allergy Information Coded Allergies: NO KNOWN DRUG ALLERGIES (Unverified Allergy, Unknown, NONE, 07/28/17) Peanut (Unverified Allergy, Unknown, ANAPHYLAXIS, 07/28/17) Discharge Date / Findings Jul 28, 2017. colon polyps Medication Instructions Restart Stopped Medication(s): resume meds Reported Home Medications Medications Dose Route/Sig Max Daily Dose Days Date Category Mvi With Minerals (Multivitamins/Minerals) Tab 1 Tab PO DAILY 07/28/17 Reported Ventolin Hfa (Albuterol) 200 Puffs/11256 Mcg Aers 2-4 Puffs INH Q6H PRN 07/20/17 Reported Zyrtec (Cetirizine HCl) 10 Mg Tab 10 Mg PO DAILY PRN 07/20/17 Reported Singulair (Montelukast Sodium) 10 Mg Tab 10 Mg PO QAM 07/20/17 Reported Wellbutrin-Xl (Bupropion HCl) 300 Mg Tabcr 300 Mg PO QAM 07/04/17 Reported Provider Instructions Activity Restrictions - No exercising or heavy lifting for 24 hours. - Do not drink alcohol the day of the procedure. - Do not drive a car or operate machinery until the day after the procedure. - Do not make any important decisions or sign important papers in 24 hours after the procedure. Following Day: - Return to full activity which may include returning to work/school. Diet Start your diet with liquids and light foods (jello, soup, juice, toast). Then eat your usual diet if not nauseated. Treatment For Common After Affects For mild abdominal pain, bloating, or excessive gas: - Rest - Eat lightly - Lie on right side Follow-Up Information Follow-up with DR GRIMES as scheduled Anesthesia Information What You Should Know You have had a procedure that required some medicine to reduce anxiety and discomfort. This treatment is called moderate sedation. After receiving the treatment, you may be sleepy, but you will be able to breathe on your own. The effects of the treatment may last for several hours. Follow these instructions along with Activity/Diet recommendations noted above: * Do NOT do anything where dizziness or clumsiness would be dangerous. * Rest quietly at home today, then you can be up and about tomorrow. * Have a responsible person stay with you the rest of today. * You may have had an I.V. today. If so, you may take the dressing off later today. Recommendations Call your doctor if: * Trouble breathing * Continuous vomiting for more than 24 hours * Temperature above 101 degrees * Severe abdominal pain or bloating * Pain not relieved by pain medicine ordered * There is increased drainage or redness from any incision * A large amount of rectal bleeding greater than 2-3 tablespoons. (If you had a polyp/s removed or have hemorrhoids, a small amount of blood - from the rectum is to be expected.) * You have any unanswered questions or concerns. IN THE EVENT OF A SERIOUS EMERGENCY, GO TO THE NEAREST EMERGENCY ROOM Your discharge instructions were prepared by provider Devon Degroot. Patient Instructions Signature Page Hosea Castro Patient (or Guardian) Signature/Date: I have read and understand the instructions given to me by my caregivers. Caregiver/RN/Doctor Signature/Date: The above-named patient and/or guardian has received patient instructions on this date. + Original Patient Signature Page (only) stays with chart. Please make copy for patient.
--- NOTE | 2017-07-28 14:08 | GI REPORT ---
Procedure Date: 07/28/2017 1:05 PM Procedure: Colonoscopy Indications: Hematochezia Medicines: Propofol total dose 530 mg IV, Lidocaine 40 mg IV Complications: No immediate complications. Estimated Blood Loss: Estimated blood loss: none. Procedure: Pre-Anesthesia Assessment: - Prior to the procedure, a History and Physical was performed, and patient medications, allergies and sensitivities were reviewed. The patient's tolerance of previous anesthesia was reviewed. - The risks and benefits of the procedure and the sedation options and risks were discussed with the patient. All questions were answered and informed consent was obtained. After I obtained informed consent, the scope was passed under direct vision. Throughout the procedure, the patient's blood pressure, pulse, and oxygen saturations were monitored continuously. The scope was introduced through the anus and advanced to the cecum, identified by appendiceal orifice and ileocecal valve. The colonoscopy was performed without difficulty. The patient tolerated the procedure well. The quality of the bowel preparation was good. Findings: Three pedunculated polyps were found in the cecum. The polyps were 13 to 24 mm in size. These polyps were removed with a hot snare. Resection and retrieval were complete. To prevent bleeding post-intervention, five hemostatic clips were successfully placed (MR conditional). There was no bleeding during, and at the end, of the procedure. Estimated blood loss: none. Impression: - Three 13 to 24 mm polyps in the cecum, removed with a hot snare. Resected and retrieved. Clips (MR conditional) were placed. Recommendation: - Discharge patient to home (ambulatory). - Continue present medications. - Await pathology results. - Return to GI office as previously scheduled. Devon Degroot M.D. Devon Degroot MD 07/28/2017 2:08:32 PM This report has been signed electronically. Note Initiated On: 07/28/2017 1:05 PM I attest to the content of the Intraoperative Record and orders documented therein, exceptions below
--- NOTE | 2017-07-28 14:38 | Anesthesiology Progress Note ---
Anesthesia Post Op Note Date & Time Jul 28, 2017 at 14:38 Vital Signs Pain Intensity: 0 Vital Signs Past 12 Hours Date Time Temp Pulse Resp B/P (MAP) Pulse Ox O2 Delivery O2 Flow Rate FiO2 07/28/17 14:25 83 16 114/71 (85) 98 Room Air 07/28/17 14:10 85 16 103/56 (72) 100 Room Air 07/28/17 12:50 36.6 88 16 115/68 (84) 100 Room Air Notes Mental Status: alert / awake / arousable, participated in evaluation Pt Amnestic to Procedure: Yes Nausea / Vomiting: adequately controlled Pain: adequately controlled Airway Patency, RR, SpO2: stable & adequate BP & HR: stable & adequate Hydration State: stable & adequate Anesthetic Complications: no major complications apparent
[2017-07-28 14:40] VITALS: BP 123/72; PULSE 80; O2SAT 100
[2017-07-28 15:17] LABS: HEMATOCRIT 29.1 % (42-52)
== END | disposition home or self-care (01) ==
LOC: C.GI 12:19
PROVIDERS: ATTEND Internal Medicine Gastroenterology
DX: K62.5 Hemorrhage of anus and rectum (principal); D12.0 Benign neoplasm of cecum; J45.909 Unspecified asthma, uncomplicated; Z87.891 Personal history of nicotine dependence

== ENCOUNTER 2017-08-19 06:24 | Observation (INO) | payer OTHER ==
[2017-07-20 14:53] VITALS: BMI 23.0
[~2017-08-19] VITALS: Ht 188 cm; Wt 77.8 kg
[~2017-08-19 06:24] MED LIST changes: +LACTATED RINGER'S 1000ML 1,000 ML IV SCH; -LIDOCAINE HCL 2% 2 ML VIAL (20MG/ML) ONE; -PHENYLEPHRINE 100MCG/ML 5ML SYR ONE; -PROPOFOL IV EMULSION 10 MG/ML 20 ML VIAL IV ONE; -PRT40 PO
[2017-08-19 06:49] VITALS: BP 127/68; PULSE 80; TEMP 37.1; O2SAT 99
[2017-08-19 06:52] VITALS: BMI 23.0
[2017-08-19] MEDS ORDERED: PROMETHAZINE HCL INJ 12.5 MG in SODIUM CHLORIDE 0.9% 50ML 50 ML IV PRN (07:00)
[2017-08-19] MEDS ORDERED: ATROPINE SULFATE 0.1 MG/ML 5ML SYR IV PRN (07:00)
[2017-08-19] MEDS ORDERED: ONDANSETRON INJ 2 MG/ML 2 ML VIAL IV PRN ×2 (07:00→16:45)
[2017-08-19] MEDS ORDERED: FENTANYL CITRATE INJ 50 MCG/1 ML 2 ML VIAL IV PRN (07:00)
[2017-08-19] MEDS ORDERED: EpHEDrine SULFATE INJ 50 MG/ML AMP IV PRN (07:00)
[2017-08-19] MEDS ORDERED: HYDROmorphone INJ 1 MG/ML SYR IV PRN (07:00)
[2017-08-19] MEDS ORDERED: SODIUM CHLORIDE 0.9% 500ML 500 ML IV ONE ×2 (07:15→08:00)
--- NOTE | 2017-08-19 07:15 | Endo History and Physical ---
History & Physical Date of Service: Aug 19, 2017. Chief Complaint: gastric polyps; hx colonic juvenile polyposis; anemia Referring Physician: History of Present Illness gastric polyps; hx colonic juvenile polyposis; anemia Past Surgical History Hx Cardiac Surgery: No Hx Internal Defibrillator: No Hx Pacemaker: No Hx Abdominal Surgery: Yes (HERNIA REPAIR) Hx Post-Op Nausea and Vomiting: No Hx Cancer Surgery: No Hx Thoracic Surgery: No Hx Orthopedic: No Hx Urinary Tract Surgery: No Social History Smoking Status: Former Smoker Hx Substance Use: No Hx Alcohol Use: No Allergies Coded Allergies: NO KNOWN DRUG ALLERGIES (Unverified Allergy, Unknown, NONE, 07/28/17) Peanut (Unverified Allergy, Unknown, ANAPHYLAXIS, 07/28/17) Current Medications Reported Home Medications Medications Dose Route/Sig Max Daily Dose Days Date Category Mvi With Minerals (Multivitamins/Minerals) Tab 1 Tab PO DAILY 07/28/17 Reported Ventolin Hfa (Albuterol) 200 Puffs/91591 Mcg Aers 2-4 Puffs INH Q6H PRN 07/20/17 Reported Zyrtec (Cetirizine HCl) 10 Mg Tab 10 Mg PO DAILY PRN 07/20/17 Reported Singulair (Montelukast Sodium) 10 Mg Tab 10 Mg PO QAM 07/20/17 Reported Wellbutrin-Xl (Bupropion HCl) 300 Mg Tabcr 300 Mg PO QAM 07/04/17 Reported Vital Signs Weight (Kilograms): 81.82 Height (Feet): 6 Height (Inches): 2 Date Time Temp Pulse Resp B/P (MAP) Pulse Ox O2 Delivery O2 Flow Rate FiO2 08/19/17 06:49 37.1 80 18 127/68 (87) 99 Room Air Physical Exam General Appearance: WD/WN, no apparent distress Respiratory/Chest: Auscultation: breath sounds normal Cardiovascular: Heart Auscultation: RRR Abdomen: Bowel Sounds: normal Inspection & Palpation: soft, non-distended, no tenderness, guarding & rebound AAO x3 Nl s1s2 Lungs CTA Abd soft NT/ND + BS - CCE Assessment and Plan EGF with possible biospy, polypectomy /endoscopic mucosal resection. EUS to assess polypoid lesion Risks of bleeding/infection /perforation ( approx 1:500). pancreatitis Approx 5 % Pt agrees to proceed irena
[2017-08-19] MEDS ORDERED: MIDAZOLAM HCL 1 MG/ML 2ML VIAL ONE (07:31)
[2017-08-19] MEDS ORDERED: FENTANYL CITRATE INJ 50 MCG/1 ML 2 ML VIAL ONE (07:31)
[2017-08-19] MEDS ORDERED: PROPOFOL IV EMULSION 10 MG/ML 20 ML VIAL IV ONE (08:10)
[2017-08-19] MEDS ORDERED: LIDOCAINE HCL 2% 2 ML VIAL (20MG/ML) ONE ×2 (08:10)
[2017-08-19] MEDS ORDERED: DEXAMETHASONE SOD INJ 4 MG/ML VIAL ONE (08:53)
[2017-08-19] MEDS ORDERED: ONDANSETRON INJ 2 MG/ML 2 ML VIAL ONE (08:53)
[2017-08-19] MEDS ORDERED: SUCCINYLCHOLINE CHLORIDE 20 MG/ML 10 ML VIAL IV ONE (09:05)
[2017-08-19] MEDS ORDERED: ROCURONIUM BROMIDE 10 MG/ML 5 ML VIAL IV ONE (10:41)
--- NOTE | 2017-08-19 11:10 | Anesthesiology Progress Note ---
Anesthesia Post Op Note Date & Time Aug 19, 2017 at 11:10 Vital Signs Pain Intensity: 0 Vital Signs Past 12 Hours Date Time Temp Pulse Resp B/P (MAP) Pulse Ox O2 Delivery O2 Flow Rate FiO2 08/19/17 11:05 100 16 136/82 97 Oxymask 10 08/19/17 10:55 36.7 97 16 131/89 100 Oxymask 10 08/19/17 06:49 37.1 80 18 127/68 (87) 99 Room Air Notes Mental Status: alert / awake / arousable, participated in evaluation Pt Amnestic to Procedure: Yes Nausea / Vomiting: adequately controlled Pain: adequately controlled Airway Patency, RR, SpO2: stable & adequate BP & HR: stable & adequate Hydration State: stable & adequate Anesthetic Complications: no major complications apparent Doing well. VSS.
[2017-08-19 11:56] LABS: HEMATOCRIT 31.1 % (42-52); MEAN CELL VOLUME 70.7 fL (80-100); MEAN CORPUSCULAR HEMOGLOBIN 20.5 pg (25-34); MEAN CORPUSCULAR HGB CONC 28.9 g/dl (32-36); MEAN PLATELET VOLUME 9.1 fL (7.4-10.4); PLATELET COUNT 374 K/uL (130-400); WHITE BLOOD COUNT 14.55 K/uL (4.8-10.8)
--- NOTE | 2017-08-19 12:51 | Medical Consult ---
Consultation Note Date of Service Aug 19, 2017. Consultation Note Large polyp removed anhdf partly removed. No bleeding at end of procedure. Will plan for admit for observation. Rec: 1) PPI BID for 8 weeks 2) CBC NOW AND RECHECK IN AM CLEAR LIQUIDS TODAY Monitor stools for bloody output Thank You irena
[2017-08-19] MEDS ORDERED: IV FLUIDS COMPLETED PRN (16:00)
[2017-08-19 16:25] VITALS: BP 126/62; PULSE 82; TEMP 36.4; O2SAT 95; Ht 188 cm; Wt 77.8 kg
--- NOTE | 2017-08-19 16:32 | History and Physical ---
History & Physical Date & Time of Service: Aug 19, 2017 at 16:32 Chief Complaint: Acute Blood Loss Anemia Primary Care Physician: RV. Lewis MD History of Present Illness Source: patient The patient is referred directly from the endoscopy suite for admission by Dr. Harmon for concerns regarding the possibility of bleeding post polypectomy. The patient is a 21-year-old male with a tentative diagnosis of juvenile polyposis, who had a large polypectomy performed by Dr. villagran with cauterization and clipping, and because of the size of the polyp, there is increased risk for bleeding, and he is being admitted to the telemetry unit for close blood pressure and hemoglobin monitoring. Past Medical/Surgical History Medical Problems: (1) No active medical problems Status: Chronic Family History noncontributory Social History Smoking Status: Former Smoker Drug Use: none Marital Status: single Housing status: lives alone Immunizations History of Influenza Vaccine: Unknown History of Tetanus Vaccine?: Unknown History of Pneumococcal: Unknown History of Hepatitis B Vaccine: Unknown Multi-Drug Resistant Organisms History of MDRO: No Allergies Coded Allergies: NO KNOWN DRUG ALLERGIES (Unverified Allergy, Unknown, NONE, 07/28/17) Peanut (Unverified Allergy, Unknown, ANAPHYLAXIS, 07/28/17) Home Medications Scheduled Bupropion (Wellbutrin-Xl), 300 MG PO QAM Montelukast Sodium (Singulair), 10 MG PO QAM Multivitamins/Minerals (Mvi With Minerals), 1 TAB PO DAILY Scheduled PRN Albuterol Hfa (Ventolin Hfa), 2-4 PUFFS INH Q6H PRN for SOB/Wheezing Cetirizine (Zyrtec), 10 MG PO DAILY PRN for ALLERGIES Review of Systems The patient denies chest pain, palpitations, shortness of breath, cough, lower extremity swelling, vision change, hearing change, sore throat, fevers, chills, sweats, weight change, fatigue, nausea, vomiting, diarrhea or constipation, abdominal pain, pelvic pain, blood in urine or stool, dysuria, urinary frequency or urgency, lightheadedness , dizziness, headache, memory loss, rash, abnormal bruising or bleeding, imbalance, focal or generalized weakness, numbness or tingling in arms or legs, generalized arthralgias or myalgias, back or neck pain, or night sweats. The review of systems is otherwise negative other than for that already noted above, and at least 10 systems have been reviewed. Physical Exam Vital Signs Date Time Temp Pulse Resp B/P (MAP) Pulse Ox O2 Delivery O2 Flow Rate FiO2 08/19/17 15:45 88 16 134/76 97 Room Air 08/19/17 15:30 88 16 134/76 97 Room Air 08/19/17 15:15 87 16 144/72 100 Room Air 08/19/17 15:00 85 16 133/80 98 Room Air 08/19/17 14:45 86 16 125/87 97 Room Air 08/19/17 14:30 86 18 136/75 97 Room Air 08/19/17 14:15 36.2 94 18 141/89 97 Room Air 08/19/17 14:00 97 18 137/84 99 Room Air 08/19/17 13:45 83 18 129/75 100 Room Air 08/19/17 13:30 83 18 132/74 99 Room Air 08/19/17 13:15 86 18 141/81 99 Room Air 08/19/17 12:55 88 18 132/83 97 Room Air 08/19/17 12:40 90 18 136/75 99 Room Air 08/19/17 12:25 91 18 124/70 99 Room Air 08/19/17 12:15 83 16 121/73 99 Room Air 08/19/17 12:00 36.4 99 16 126/70 99 Room Air 08/19/17 11:45 36.4 80 16 121/86 97 Room Air 08/19/17 11:35 99 16 95/53 98 Room Air 08/19/17 11:25 96 16 126/80 97 Room Air 08/19/17 11:15 98 16 135/67 98 Room Air 08/19/17 11:05 100 16 136/82 97 Oxymask 10 08/19/17 10:55 36.7 97 16 131/89 100 Oxymask 10 08/19/17 06:49 37.1 80 18 127/68 (87) 99 Room Air The patient is awake, well-developed and adequately nourished, alert and oriented 3, normocephalic and atraumatic, lying in bed and in no acute distress. HEENT--PERRL, EOMI, mucous membranes and oropharynx normal. Neck--supple, no JVD or bruits, thyroid normal, trachea midline, no adenopathy. Heart--normal S1 and S2, no extra beats, no murmurs, rubs or gallops. Lungs--clear bilaterally with good air movement, no respiratory distress, no accessory muscle use. Abdomen--normal bowel sounds and soft, nontender and nondistended, no hernias or masses, no organomegaly. Extremities--no cyanosis, clubbing or edema. There are good distal pulses b/l. Dermatologic--normal skin turgor, normal color, warm and dry, no abnormal lymph nodes, no rash. Neurologic--cranial nerves II through XII grossly intact, motor and sensory examination normal. Rheumatologic--normal range of motion, nontender, muscles and joints. Psychiatric--normal affect. Diagnostics Laboratory Results Results Past 24 Hours Test 08/19/17 11:10 Range/Units White Blood Count 14.55 4.8-10.8 K/uL Red Blood Count 4.40 4.7-6.1 M/uL Hemoglobin 9.0 14.0-18.0 g/dL Hematocrit 31.1 42-52 % Mean Corpuscular Volume 70.7 80-100 fL Mean Corpuscular Hemoglobin 20.5 25-34 pg Mean Corpuscular Hemoglobin Concent 28.9 32-36 g/dl RDW Standard Deviation 43.3 36.4-46.3 fL RDW Coefficient of Variation 16.7 11.5-14.5 % Platelet Count 374 130-400 K/uL Mean Platelet Volume 9.1 7.4-10.4 fL Impression Assessment and Plan Juvenile polyposis/status post polypectomy/increased risk for bleeding-- Patient will be admitted to the telemetry unit for frequent monitoring for the possibility of bleeding and anemia. Patient will be placed on pantoprazole 40 mg by mouth twice a day, and will be continued post discharge. Clear liquid diet. Serial H&H's. Consult Dr. Harmon. Anxiety-- Continue Wellbutrin XL 300 mg by mouth every morning. Place on lorazepam 1 mg IV every 6 hours when necessary, as the patient reports he has needed 2-3 mg orally at a time, and did receive IV while in the hospital recently. Seasonal allergy-like Continue montelukast past and cetirizine. Level of Care Telemetry Advanced Directives Existing Advance Directive: No Existing Living Will: No Existing Power of Librarian Special Collections: No Resuscitation Status FULL RESUSCITATION VTE Prophylaxis VTE Risk Assessment Done? Y/N: Yes Risk Level: Low Given or contraindicated: SCD's Social Service Consult None Apply
[2017-08-19] MEDS ORDERED: ACETAMINOPHEN 325 MG TAB PO PRN (16:45)
[2017-08-19] MEDS ORDERED: ALBUTEROL HFA 8 GM INHALER INH PRN (16:45)
[2017-08-19] MEDS ORDERED: CETIRIZINE HCL 10 MG TAB PO PRN (16:45)
--- NOTE | 2017-08-19 17:49 | GI REPORT ---
Procedure Date: 08/19/2017 8:52 AM Procedure: Upper GI endoscopy Indications: Therapeutic procedure, Suspected benign gastric tumor Medicines: General Anesthesia: Complications: No immediate complications. Estimated blood loss: None. Estimated Blood Loss: Estimated blood loss: none. Procedure: Pre-Anesthesia Assessment: - Prior to the procedure, a History and Physical was performed, and patient medications and allergies were reviewed. Consent and preprocedure documentation and orders performed well in advance of 8 AM (scheduled start time). Case delayed nearly one hour due to OR schedule/staff. The patient's tolerance of previous anesthesia was also reviewed. The risks and benefits of the procedure and the sedation options and risks were discussed with the patient. All questions were answered, and informed consent was obtained. Prior Anticoagulants: The patient has taken no previous anticoagulant or antiplatelet agents. ASA Grade Assessment: II - A patient with mild systemic disease. After reviewing the risks and benefits, the patient was deemed in satisfactory condition to undergo the procedure. After obtaining informed consent, the endoscope was passed under direct vision. Throughout the procedure, the patient's blood pressure, pulse, and oxygen saturations were monitored continuously. The Scope was introduced through the mouth, and advanced to the second part of duodenum. The upper GI endoscopy was unusually difficult due to unusual anatomy. The patient tolerated the procedure well. Findings: The examined esophagus was normal. The Z-line was regular and was found 37 cm from the incisors. Initially, diagnostic exam performed to define lesions, followed by EUS and then return to EGD for therapy of polyps requiring increased time, equipment and multiple insertions and withdrawals due piecemeal resection. A single 25 mm pedunculated and sessile polyp with no bleeding and no stigmata of recent bleeding was found on the greater curvature of the stomach. Area was successfully injected with 12 mL of a 1:20,000 solution of epinephrine for a lift polypectomy. The polyp was removed with a hot snare. Resection and retrieval were complete. To prevent bleeding after the polypectomy, two hemostatic clips were successfully placed (MR conditional). There was no bleeding during, and at the end, of the procedure. A single greater than 50 mm pedunculated and sessile polyp with no bleeding and no stigmata of recent bleeding was found on the greater curvature of the gastric body. Area was successfully injected with 25 mL of a 1:20,000 solution of epinephrine for a lift polypectomy. The polyp was removed with a piecemeal technique using a hot snare. Polyp resection was incomplete. The resected tissue was retrieved. To prevent bleeding after mucosal resection, three hemostatic clips were successfully placed (MR conditional). There was no bleeding during, and at the end, of the procedure. The 2nd part of the duodenum was normal. Biopsies for histology were taken with a cold forceps for evaluation of celiac disease. Estimated blood loss was minimal. Verification of patient identification for the specimen was done by the physician and preventative maintenance technician using the patient's name and medical record number. Multiple greater than 50 mm sessile polyps with no bleeding and no stigmata of recent bleeding were found on the posterior wall of the gastric body. Biopsies were taken with a cold forceps for histology. Estimated blood loss was minimal. Verification of patient identification for the specimen was done by the physician and preventative maintenance technician using the patient's name and medical record number. The exam of the stomach was otherwise normal. The examined duodenum was normal. The cardia and gastric fundus were normal on retroflexion. Impression: - Normal esophagus. - Z-line regular, 37 cm from the incisors. - A single gastric polyp. Resected and retrieved. Injected. Clips (MR conditional) were placed. - A single gastric polyp. Incomplete resection. Resected tissue retrieved. Injected. Clips (MR conditional) were placed. - Normal 2nd part of the duodenum. Biopsied. - Multiple gastric polyps. Biopsied. - Normal examined duodenum. Recommendation: - Observe patient in same day observation unit for observation. request to hospitalist service placed near the end of the procedure. All personnel aware of plans for observation/admission at completion of procedure. - Clear liquid diet today. - Check hemogram with white blood cell count and platelets at the next available appointment. Follow Hb serially - Depending on pathology may need either surgical evaluation for consideration of gastric resection vs serial endoscopy and polypectomy. Significant portion of the proximal stomach also appears to be involved with multiple polypoid regions and/ or mucosal thickening. SEE EUS OF SAME DAY FOR IMAGES OF RESECTED POLYP SITES MD Carlos Griffith MD 08/19/2017 5:49:04 PM This report has been signed electronically. Note Initiated On: 08/19/2017 8:52 AM I attest to the content of the Intraoperative Record and orders documented therein, exceptions below
[2017-08-19] MEDS ORDERED: NURSING VERBAL MED ORDER ONE ×4 (18:00→20:45)
--- NOTE | 2017-08-19 18:03 | GI REPORT ---
Procedure Date: 08/19/2017 8:52 AM Procedure: Upper EUS Indications: Gastric mucosal mass/polyp found on endoscopy Medicines: General Anesthesia Complications: No immediate complications. Estimated blood loss: None. Estimated Blood Loss: Estimated blood loss: none. Procedure: Pre-Anesthesia Assessment: - Prior to the procedure, a History and Physical was performed, and patient medications and allergies were reviewed. The patient's tolerance of previous anesthesia was also reviewed. The risks and benefits of the procedure and the sedation options and risks were discussed with the patient. All questions were answered, and informed consent was obtained. Prior Anticoagulants: The patient has taken no previous anticoagulant or antiplatelet agents. ASA Grade Assessment: I - A normal, healthy patient. After reviewing the risks and benefits, the patient was deemed in satisfactory condition to undergo the procedure. After obtaining informed consent, the endoscope was passed under direct vision. Throughout the procedure, the patient's blood pressure, pulse, and oxygen saturations were monitored continuously. The Endosonoscope was introduced through the mouth, and advanced to the second part of duodenum. The upper EUS was accomplished without difficulty. The patient tolerated the procedure well. Findings: Endoscopic Finding : The examined esophagus was normal. Two 25 to 60 mm pedunculated and sessile polyps with no bleeding and no stigmata of recent bleeding were found in the gastric body. The examined duodenum was normal. Endosonographic Finding : The esophagus, stomach and duodenum and adjacent structures were visualized endosonographically. There was no sign of significant endosonographic abnormality in the esophagus. No pathologic lymphadenopathy was identified. A hyperechoic and heterogenous non-circumferential mass was identified endosonographically in the proximal greater curve of the stomach. The mass measured 60 mm in maximal cross-sectional diameter. The endosonographic borders were well-defined. An intact interface was seen between the mass and the adjacent structures suggesting a lack of invasion. There was no sign of significant endosonographic abnormality in the examined duodenum. No pathologic lymphadenopathy was identified. There was no sign of significant endosonographic abnormality in the gallbladder. An unremarkable gallbladder and no pathologic lymphadenopathy were identified. There was no sign of significant endosonographic abnormality in the pancreatic head, in the pancreatic body, in the pancreatic tail and in the main pancreatic duct. The pancreatic duct measured up to 1 mm in diameter. The pancreas was well visualized, no pathologic lymphadenopathy, no masses, no cysts, the pancreatic duct was regular in contour. No lymphadenopathy seen. Impression: - Normal esophagus. - Two gastric polyps. Large- to be removed upon completion of EUS today. - Normal examined duodenum. - There was no sign of significant pathology in the esophagus. - A mass was found in the greater curve of the stomach. - There was no sign of significant pathology in the examined duodenum. - There was no sign of significant pathology in the gallbladder. - There was no sign of significant pathology in the pancreatic head, in the pancreatic body, in the pancreatic tail and in the main pancreatic duct. - No specimens collected. Recommendation: - Perform an upper GI endoscopy today for polypectomy/EMR. - Clear liquid diet today. NOTE - pictures of polypectomy therapy performed during EGD. MD Carlos Griffith MD 08/19/2017 6:02:57 PM This report has been signed electronically. Note Initiated On: 08/19/2017 8:52 AM I attest to the content of the Intraoperative Record and orders documented therein, exceptions below
[2017-08-19] MEDS: LORAZEPAM 2 MG/ML 1 ML VIAL IV PRN (18:15)
[2017-08-19] MEDS ORDERED: LORAZEPAM INJ 1 MG in SYRINGE 0.5 ML IV PRN (18:15)
[2017-08-19 20:00] VITALS: BP 122/78; PULSE 92; TEMP 36.7; O2SAT 99
--- NOTE | 2017-08-19 20:54 | GASTROENTEROLOGY PROGRESS NOTE ---
DATE: 08/19/2017 GASTROENTEROLOGY INPATIENT PROGRESS NOTE The patient underwent outpatient EGD, endoscopic ultrasound, and therapeutic EGD for removal of large polyps. Decision was made intraoperatively that the patient should be managed with admission with observation status at least for 24 hours to exclude any perforation or the development of post-procedural bleeding although at the time of completion of the procedure, there were no features to suggest perforation and no active bleeding had occurred throughout the entire study. During the procedure, all participants in the room were aware that the patient would need admission for observation status and that it would occur through the hospitalist. This was communicated with the PACU staff. Following the procedure, the patient was examined by me in the PACU area, and his abdomen was benign. The patient was alert and lying in bed comfortably with the patient's mother at the bedside. All questions and explanation of the procedure were provided to both of them and the recommendation for observation given the sizable yet incomplete removal of the large proximal gastric polyp. Hospitalist service was made aware of the request for admission for observation. Recommendations for the postoperative and discharge include; 1. A post-procedure baseline CBC as well as a serial blood count in the morning, Tuesday, to ensure that there is no evidence of blood loss. 2. Careful monitoring of the patient's abdominal exam as well as stool output to ensure that there is no evidence for melena or bright red blood per rectum. 3. The patient should be placed on a proton pump inhibitor (Protonix 40 mg twice daily or an equivalent orally and this should be continued in the discharge period for at least 8-12 weeks). As I discussed with the patient in the PACU and his mother the options, depending on the pathology results, include continued serial endoscopy for removal of the remnant of polyp in the proximal stomach. This will depend on the specimens microscopically as well as the sizable proximal stomach, sessile polypoid appearance that seems to involve a significant portion of the upper third of the stomach. Second option depending on the pathology is a surgical evaluation and potential surgery to remove this portion of the stomach. If serial polypectomy by endoscopy is agreeable, then this may occur at [facility] given the sizable sessile appearance to this area in addition to the remnant remaining from the quite large polyp in the proximal stomach. I discussed these recommendations also with Dr. Winter, the admitting hospitalist, at approximately 3:15 p.m. this afternoon. I visited the patient at 6:15 this evening. The patient was lying comfortably in bed, had finished his clear-liquid diet without difficulty and had no symptoms of nausea, vomiting or abdominal pain, and had no bowel movement at the time of exam. The abdomen was soft without rebound or guarding, and there were positive bowel sounds. I again reviewed all the recommendations above with the patient. I also encouraged him to refrain from the use of any alcoholic beverages. Dr. Landrum will be covering for the [facility] GI service this weekend and is aware of these recommendations as well. Addendum 08/20/17 at ~ 10:30 am: Spoke with patient by phone directly via hospital multiplex operator. Pt reports doing well overnight . Pt w/o abdominal pain, GI bleeding/melena and tolerated clears. Pt feels hungry and report formed brown BM this am. I also spoke with nurse caring for pt and she reports, except for mild anxiety for which he received Ativan ( chronic home med), he was also tachycardic but otherwise asymptomatic. Pt had orthostatics performed at my request today and she reports no evidence for drop in BP or significant rise in HR. Pt is ambulating in [place]. Post Hb yesterday was 9.7, this am 9.4 and in mid 8 range upon d/c from hospital in Jul 2017. Dr Landrum to see pt today prior to D/C today. OK to advance diet to regular meal. Please d/c pt on po BID PPI. Thank You irena CRUZ
[2017-08-19 22:29] LABS: HEMATOCRIT 33.2 % (42-52)
[2017-08-19 22:56] VITALS: BP 134/77; PULSE 86; TEMP 36.8; O2SAT 98
[2017-08-20] VITALS (7 sets, daily range): BP systolic 115–128; BP diastolic 60–85; PULSE 89–108; TEMP 36.5–37.1; O2SAT 99–100
[2017-08-20] MEDS: LORAZEPAM 2 MG/ML 1 ML VIAL IV PRN (00:26)
[2017-08-20 06:44] LABS: MEAN CELL VOLUME 69.8 fL (80-100); MEAN CORPUSCULAR HEMOGLOBIN 19.9 pg (25-34); MEAN CORPUSCULAR HGB CONC 28.5 g/dl (32-36); MEAN PLATELET VOLUME 9.4 fL (7.4-10.4); PLATELET COUNT 388 K/uL (130-400); RED BLOOD COUNT 4.73 M/uL (4.7-6.1); WHITE BLOOD COUNT 6.11 K/uL (4.8-10.8)
[2017-08-20 07:08] LABS: BLOOD UREA NITROGEN 9 mg/dl (7-18); CREATININE 0.76 mg/dl (0.60-1.40); GLUCOSE 88 mg/dl (70-99)
[2017-08-20 07:09] LABS: CALCIUM 8.4 mg/dl (8.5-10.1); CARBON DIOXIDE 23 mmol/L (21-32); CHLORIDE 107 mmol/L (98-107); MAGNESIUM 2.2 mg/dl (1.8-2.4); POTASSIUM 3.4 mmol/L (3.5-5.1); SODIUM 139 mmol/L (136-145)
[2017-08-20 07:26] LABS: ANISOCYTOSIS PRESENT; BASO % 0.5 %; BASO ABS # 0.03 K/uL (0-0.2); COMPLETE YES; EOS % 1.1 %; HYPOCHROMIA PRESENT; IG% 0.2 %; LYMPH % 35.4 %; LYMPH ABS # 2.16 K/uL (1.2-3.4); MICROCYTOSIS PRESENT; MONO % 12.8 %
[2017-08-20] MEDS ORDERED: POTASSIUM CHLORIDE 10 MEQ TABCR PO ONE (08:15)
[2017-08-20] MEDS ORDERED: CEROVITE ADV FORMULA TAB PO SCH (09:00)
[2017-08-20] MEDS ORDERED: MONTELUKAST SOD 10 MG TAB PO SCH (09:00)
[2017-08-20] MEDS ORDERED: BuPROPion XL 300 MG TABCR PO SCH (09:00)
--- NOTE | 2017-08-20 11:19 | Gastroenterology Progress Note ---
Progress Note Date of Service: Aug 20, 2017 Subjective Pt evaluation today including: conversation w/ patient, physical exam, chart review, lab review, review of studies, review of inpatient medication list cc f/u post EGD/EUS with large gastric polyps removal HPI Pt denies abd pain. No n./v. No lightheadedness. Had normal brown stool this am. States he is normally tachycardic. Orthostatic BP HR up but pressures normal. Review of Systems Respiratory: No shortness of breath Cardiac: No chest pain Medications Current Inpatient Medications Medications (Trade) Dose Ordered Sig/Jasmin Route Start Time Stop Time Status Last Admin Dose Admin Miscellaneous (Iv Fluids Completed) 1 ea PRN PRN N/A 08/19/17 16:00 08/19/18 15:59 Acetaminophen (Tylenol Tab) 650 mg Q4H PRN PO 08/19/17 16:45 09/18/17 16:44 Albuterol (Ventolin Hfa Inhaler) 2 puffs Q6H PRN INH 08/19/17 16:45 09/18/17 16:44 Bupropion HCl (Wellbutrin-Xl Tab) 300 mg QAM PO 08/20/17 09:00 09/19/17 08:59 08/20/17 07:44 300 MG Cetirizine HCl (zyrTEC TAB) 10 mg DAILY PRN PO 08/19/17 16:45 09/18/17 16:44 Montelukast Sodium (Singulair Tab) 10 mg QAM PO 08/20/17 09:00 09/19/17 08:59 08/20/17 07:43 10 MG Multivitamins/ Minerals (Multivitamin W/ Minerals Tab) 1 tab DAILY PO 08/20/17 09:00 09/19/17 08:59 08/20/17 07:44 1 TAB Ondansetron HCl (Zofran Inj) 4 mg Q6H PRN IV 08/19/17 16:45 09/18/17 16:44 Lorazepam 1 mg/ Syringe 1 ml @ 1 mls/min Q6H PRN IV 08/19/17 18:15 09/18/17 18:14 08/19/17 18:15 1 MLS/MIN Lorazepam (Ativan Inj) 1 mg Q6H PRN IV 08/19/17 18:15 09/18/17 18:14 08/20/17 00:26 1 MG Objective Vital Signs Date Time Temp Pulse Resp B/P (MAP) Pulse Ox O2 Delivery O2 Flow Rate FiO2 08/20/17 09:54 108 125/60 (81) 99 Room Air 08/20/17 09:53 101 18 128/69 (88) 99 Room Air 08/20/17 09:52 36.9 89 18 125/63 (83) 99 Room Air 08/20/17 08:05 Room Air 08/20/17 07:59 36.5 98 16 125/85 (98) 99 08/20/17 04:00 Room Air 08/20/17 03:10 37.1 101 18 115/68 (84) 100 Room Air 08/20/17 00:01 Room Air 08/19/17 22:56 36.8 86 16 134/77 (96) 98 Room Air 08/19/17 20:00 Room Air 08/19/17 20:00 36.7 92 18 122/78 (93) 99 08/19/17 16:25 36.4 82 18 126/62 95 Room Air 08/19/17 15:45 88 16 134/76 97 Room Air 08/19/17 15:30 88 16 134/76 97 Room Air 08/19/17 15:15 87 16 144/72 100 Room Air 08/19/17 15:00 85 16 133/80 98 Room Air 08/19/17 14:45 86 16 125/87 97 Room Air 08/19/17 14:30 86 18 136/75 97 Room Air 08/19/17 14:15 36.2 94 18 141/89 97 Room Air 08/19/17 14:00 97 18 137/84 99 Room Air 08/19/17 13:45 83 18 129/75 100 Room Air 08/19/17 13:30 83 18 132/74 99 Room Air 08/19/17 13:15 86 18 141/81 99 Room Air 08/19/17 12:55 88 18 132/83 97 Room Air 08/19/17 12:40 90 18 136/75 99 Room Air 08/19/17 12:25 91 18 124/70 99 Room Air 08/19/17 12:15 83 16 121/73 99 Room Air 08/19/17 12:00 36.4 99 16 126/70 99 Room Air 08/19/17 11:45 36.4 80 16 121/86 97 Room Air 08/19/17 11:35 99 16 95/53 98 Room Air 08/19/17 11:25 96 16 126/80 97 Room Air Physical Exam General Appearance: WD/WN, no apparent distress Respiratory/Chest: lungs clear, no respiratory distress Cardiovascular: regular rate, rhythm, no edema Abdomen: normal bowel sounds, non tender, soft, no organomegaly, no pulsatile mass Neurologic/Psych: normal mood/affect, oriented x 3 Laboratory Results Last 24 Hours Test 08/19/17 22:09 08/20/17 06:11 Hemoglobin 9.7 g/dL 9.4 g/dL Hematocrit 33.2 % 33.0 % White Blood Count 6.11 K/uL Red Blood Count 4.73 M/uL Mean Corpuscular Volume 69.8 fL Mean Corpuscular Hemoglobin 19.9 pg Mean Corpuscular Hemoglobin Concent 28.5 g/dl Platelet Count 388 K/uL Mean Platelet Volume 9.4 fL Neutrophils (%) (Auto) 50.0 % Lymphocytes (%) (Auto) 35.4 % Monocytes (%) (Auto) 12.8 % Eosinophils (%) (Auto) 1.1 % Basophils (%) (Auto) 0.5 % Neutrophils # (Auto) 3.06 K/uL Lymphocytes # (Auto) 2.16 K/uL Monocytes # (Auto) 0.78 K/uL Eosinophils # (Auto) 0.07 K/uL Basophils # (Auto) 0.03 K/uL RDW Standard Deviation 42.7 fL RDW Coefficient of Variation 16.6 % Immature Granulocyte % (Auto) 0.2 % Immature Granulocyte # (Auto) 0.01 K/uL Hypochromasia PRESENT Anisocytosis PRESENT Microcytosis PRESENT Sodium Level 139 mmol/L Potassium Level 3.4 mmol/L Chloride Level 107 mmol/L Carbon Dioxide Level 23 mmol/L Anion Gap 9.0 mmol/L Blood Urea Nitrogen 9 mg/dl Creatinine 0.76 mg/dl Est Creatinine Clear Calc Drug Dose 167.8 ml/min Estimated GFR () > 150.0 Estimated GFR (Non- 129.5 BUN/Creatinine Ratio 12.0 Random Glucose 88 mg/dl Calcium Level 8.4 mg/dl Magnesium Level 2.2 mg/dl Assessment and Plan Gastric polyps--s/p removal, pt stable. Recommend protonix daily to help heal ulcers from polypectomy. Warned patient about bleeding in the next 2 weeks so if he vomits blood or coffee grounds or has black or bloody stools needs to call or go to ER. Recommended bland diet, avoid NSAIDS except tylenol and avoid ETOH. Ok for DC after solid lunch if tolerates that anemia--recommend he continue oral Iron at home.
[2017-08-20] MEDS ORDERED: PANTOprazole SOD 40 MG TAB PO SCH (11:45)
[2017-08-20] MEDS ORDERED: PRT40 PO (11:51)
--- NOTE | 2017-08-20 11:52 | Discharge Instructions ---
Discharge Instructions Date of Service Aug 20, 2017. Admission Reason for Admission: Acute Blood Loss Anemia Discharge Discharge Diagnosis / Problem: Gastric polyps--s/p removal, possibel uper GI bleeding Discharge Goals Goal(s): Decrease discomfort, Improve function, Increase independence, Improve disease control, Improve nutritional status, Learn about illness, Diagnostic testing, Therapeutic intervention, Prevent Disease Progression, Specific goals Activity Recommendations Activity Limitations: resume your previous activity . Instructions / Follow-Up Instructions / Follow-Up you have Gastric polyps--s/p removal, pt stable. Recommend protonix daily to help heal ulcers from polypectomy. you may bleeding again in the next 2 weeks you needs to call GI , or go to ER if vomits blood or coffee grounds or has black or bloody stools Recommended bland diet, avoid NSAIDS except tylenol and avoid ETOH. you need to continue oral Iron at home - you need to follow up with your primary care physician in 1 week, - you need to follow up with Gi as instructed - take medication as instructed, never overdose or any misuse, or take with alcohol, because misuse of medicine may cause organ damage or , call your primary care physician if have questions of medicaitons. - call your primary care physician OR go to local emergency room if has any fever/chill, chest pain, shortness of breathing, nausea/vomiting/abdominal pain , facial droop/slurry speech/local weakness, or if has any questions. - fall precaution - diet as instructed - you need to follow up with your subspecialist - you should understand that it is important to follow up the above instruction , and "not following the above instruction" may cause delayed or missed care of your medical conditions which may cause permanent organ damage and even . Current Hospital Diet Patient's current hospital diet: Regular Diet Discharge Diet Recommended Diet: Regular Diet Procedures Procedures Performed: Esophagogastroduodenoscopy, Upper Endoscopic Ultrasonography, Esophagogastroduodenoscopy with Polypectomy Pending Studies Studies pending at discharge: no Medical Emergencies . Who to Call and When: Medical Emergencies: If at any time you feel your situation is an emergency, please call 911 immediately. . Non-Emergent Contact Non-Emergency issues call your: Primary Care Provider, Straw Hat Plunger Operator . . "Provider Documentation" section prepared by Ad Graf. . VTE Core Measure Inpt VTE Proph given/why not?: SCD's
--- NOTE | 2017-08-20 12:06 | Discharge Summary ---
Discharge Summary Date of Service Aug 20, 2017. Discharge Summary Admission Date: Aug 19, 2017 at 15:36 Discharge Date: Aug 20, 2017 Discharge Disposition: Home Principal Diagnosis: Gastric polyps--s/p remova Problems/Secondary Diagnoses: possible upper GI bleeding Immunizations: Have You Had Influenza Vaccine: Unknown History of Tetanus Vaccine?: Unknown History of Pneumococcal: Unknown History of Hepatitis B Vaccine: Unknown Procedures: post EGD/EUS with large gastric polyps removal Consultations: GI Medication Reconciliation New Medications: Pantoprazole (Pantoprazole Sodium) 40 Mg Tab 40 MG PO QAM for 30 Days, #30 TAB Continued Medications: Albuterol Hfa (Ventolin Hfa) 200 Puffs/48366 Mcg Aers 2-4 PUFFS INH Q6H PRN for SOB/Wheezing Bupropion (Wellbutrin-Xl) 300 Mg Tabcr 300 MG PO QAM Cetirizine (Zyrtec) 10 Mg Tab 10 MG PO DAILY PRN for ALLERGIES Montelukast Sodium (Singulair) 10 Mg Tab 10 MG PO QAM Multivitamins/Minerals (Mvi With Minerals) Tab 1 TAB PO DAILY, TAB Discharge Exam Doing well, no nausea vomiting, no vomiting blood, no dizziness Review of Systems: Constitutional: No fever, No chills, No sweats, No weight loss, No weakness , No fatigue, No problem reported Eyes: No worsening of vision, No eye pain, No redness, No discharge, No diplopia, No problem reported ENT: No hearing loss, No unusual epistaxis, No nasal symptoms, No sore throat, No tinnitus, No dental problems, No trouble swallowing, No problem reported Respiratory: No cough, No sputum, No wheezing, No shortness of breath, No dyspnea on exertion, No dyspnea at rest, No hemoptysis, No problem reported Cardiovascular: No chest pain, No orthopnea, No PND, No edema, No claudication, No palpitations, No problem reported Abdomen: No pain, No nausea, No vomiting, No diarrhea, No constipation, No GI bleeding, No problem reported Musculoskeletal: No joint pain, No muscle pain, No swelling, No calf pain, No problem reported Genitourinary - Male: No hematuria, No dysuria, No urinary frequency, No urinary urgency, No urinary hesitancy, No urinary retention, No urinary incontinence, No penile discharge, No lesions, No impotence, No problem reported Neurologic: No memory loss, No paralysis, No weakness, No numbness/tingling , No vertigo, No balance problems, No problem reported Psychiatric: No depression symptoms, No anhedonism, No anxiety, No insomnia , No substance abuse, No problem reported Endocrine: No fatigue, No excessive thirst, No excessive urination, No problem reported Hematologic / Lymphatic: No abnormal bleeding/bruising, No clotting problems , No swollen lymph nodes, No night sweats, No problem reported Integumentary: No rash, No itch, No new/changing skin lesions, No color change, No bleeding, No problem reported Physical Exam: General Appearance: WD/WN, no apparent distress Eyes: normal inspection, PERRL ENT: normal ENT inspection, hearing grossly normal Neck: supple, no adenopathy, thyroid normal Respiratory/Chest: chest non-tender, lungs clear, normal breath sounds, no respiratory distress, no accessory muscle use Cardiovascular: regular rate, rhythm, no edema, no gallop, no JVD Abdomen / GI: normal bowel sounds, non tender, soft, no organomegaly, no pulsatile mass Extremities: normal inspection, no calf tenderness, normal capillary refill , no pedal edema, normal range of motion Neurologic/Psychiatric: conference concierge II-XII nml as tested, no motor/sensory deficits , alert, normal mood/affect, normal reflexes, oriented x 3 Skin: normal color, warm/dry Hospital Course 21 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 was on placed on pantoprazole 40 mg by mouth twice a day, Clear liquid diet. Serial H&H's. Consult Dr EBRNSTEIN, who informed me , pt can be discharged, i eval pt and talk to mom , pt is stable, ok ot release Anxiety-- Continue Wellbutrin XL 300 mg by mouth every morning. Place on lorazepam 1 mg IV every 6 hours when necessary, as the patient reports he has needed 2-3 mg orally at a time, and did receive IV while in the hospital recently. Seasonal allergy-like Continue montelukast past and cetirizine. Patient up and walk no dizziness, no any complaint, patient discharged in stable condition Instructions / Follow-Up you have Gastric polyps--s/p removal, pt stable. Recommend protonix daily to help heal ulcers from polypectomy. you may bleeding again in the next 2 weeks you needs to call GI , or go to ER if vomits blood or coffee grounds or has black or bloody stools Recommended bland diet, avoid NSAIDS except tylenol and avoid ETOH. you need to continue oral Iron at home - you need to follow up with your primary care physician in 1 week, - you need to follow up with Gi as instructed - take medication as instructed, never overdose or any misuse, or take with alcohol, because misuse of medicine may cause organ damage or , call your primary care physician if have questions of medicaitons. - call your primary care physician OR go to local emergency room if has any fever/chill, chest pain, shortness of breathing, nausea/vomiting/abdominal pain , facial droop/slurry speech/local weakness, or if has any questions. - fall precaution - diet as instructed - you need to follow up with your subspecialist - you should understand that it is important to follow up the above instruction , and "not following the above instruction" may cause delayed or missed care of your medical conditions which may cause permanent organ damage and even . Total Time Spent: Less than 30 minutes This includes examination of the patient, discharge planning, medication reconciliation, and communication with other providers. Discharge Instructions Please refer to the electronic Patient Visit Report (Discharge Instructions) for additional information. Additional Copies To RV. Lewis MD; Carlos Harmon M.D.
== END 2017-08-20 12:39 | disposition home or self-care (01) ==
LOC: C.ACU 06:24 → C.2T 15:36 → ENRESERV 15:54
PROVIDERS: ADMIT Hospitalist; ATTEND Hospitalist
DX: D62 Acute posthemorrhagic anemia (principal); K31.7 Polyp of stomach and duodenum; J45.909 Unspecified asthma, uncomplicated; F41.9 Anxiety disorder, unspecified; Z87.891 Personal history of nicotine dependence; Z86.010 Personal history of colon polyps

== ENCOUNTER → 2017-10-26 | Day surgery (SDC) | payer OTHER ==
[2017-10-20 14:38] VITALS: BMI 22.0
[~2017-10-26] VITALS: Ht 188 cm; Wt 77.3 kg
[~2017-10-26] MED LIST changes: +FENTANYL CITRATE INJ 50 MCG/1 ML 2 ML VIAL ONE; -LACTATED RINGER'S 1000ML 1,000 ML IV SCH; +MIDAZOLAM HCL 1 MG/ML 2ML VIAL ONE; +ONDANSETRON INJ 2 MG/ML 2 ML VIAL ONE; +PROPOFOL IV EMULSION 10 MG/ML 20 ML VIAL IV ONE; +SODIUM CHLORIDE 0.9% 500ML 500 ML IV ONE
[2017-10-26 12:28] VITALS: Ht 188 cm; Wt 77.3 kg
--- NOTE | 2017-10-26 13:13 | Endo History and Physical ---
History & Physical Date of Service: Oct 26, 2017. Chief Complaint: JUVENILE POLYPOSIS Referring Physician: DR GRIMES History of Present Illness gastric polyp Past Surgical History Hx Cardiac Surgery: No Hx Internal Defibrillator: No Hx Pacemaker: No Hx Abdominal Surgery: Yes (HERNIA REPAIR) Hx of Implantable Prosthesis: No Hx Post-Op Nausea and Vomiting: No Hx Cancer Surgery: No Hx Thoracic Surgery: No Hx Orthopedic: No Hx Urinary Tract Surgery: No Family History None Social History Smoking Status: Current Every Day Smoker Hx Substance Use: No Hx Alcohol Use: No Allergies Coded Allergies: NO KNOWN DRUG ALLERGIES (Verified Allergy, Unknown, NONE, 10/26/17) Peanut (Verified Allergy, Unknown, ANAPHYLAXIS, 10/26/17) Current Medications Reported Home Medications Medications Dose Route/Sig Max Daily Dose Days Date Category Mvi With Minerals (Multivitamins/Minerals) Tab 1 Tab PO DAILY 07/28/17 Reported Ventolin Hfa (Albuterol) 200 Puffs/44748 Mcg Aers 2-4 Puffs INH Q6H PRN 07/20/17 Reported Zyrtec (Cetirizine HCl) 10 Mg Tab 10 Mg PO DAILY PRN 07/20/17 Reported Singulair (Montelukast Sodium) 10 Mg Tab 10 Mg PO QAM 07/20/17 Reported Wellbutrin-Xl (Bupropion HCl) 300 Mg Tabcr 300 Mg PO QAM 07/04/17 Reported Vital Signs Weight (Kilograms): 77.27 Height (Feet): 6 Height (Inches): 2 Date Time Temp Pulse Resp B/P (MAP) Pulse Ox O2 Delivery O2 Flow Rate FiO2 10/26/17 12:27 37.1 72 20 133/78 (96) 98 Room Air Physical Exam General Appearance: WD/WN, no apparent distress Respiratory/Chest: Auscultation: breath sounds normal Cardiovascular: Heart Auscultation: RRR Abdomen: Bowel Sounds: normal Inspection & Palpation: soft, non-distended, no tenderness, guarding & rebound Assessment and Plan EGD for polyp removal
--- NOTE | 2017-10-26 14:30 | Discharge Instructions ---
Endoscopy Patient Instructions Date / Procedure(s) Performed Oct 26, 2017. EGD Allergy Information Coded Allergies: NO KNOWN DRUG ALLERGIES (Verified Allergy, Unknown, NONE, 10/26/17) Peanut (Verified Allergy, Unknown, ANAPHYLAXIS, 10/26/17) Discharge Date / Findings Oct 26, 2017. partial polyp resection Medication Instructions Restart Stopped Medication(s): Reported Home Medications Medications Dose Route/Sig Max Daily Dose Days Date Category Mvi With Minerals (Multivitamins/Minerals) Tab 1 Tab PO DAILY 07/28/17 Reported Ventolin Hfa (Albuterol) 200 Puffs/34067 Mcg Aers 2-4 Puffs INH Q6H PRN 07/20/17 Reported Zyrtec (Cetirizine HCl) 10 Mg Tab 10 Mg PO DAILY PRN 07/20/17 Reported Singulair (Montelukast Sodium) 10 Mg Tab 10 Mg PO QAM 07/20/17 Reported Wellbutrin-Xl (Bupropion HCl) 300 Mg Tabcr 300 Mg PO QAM 07/04/17 Reported Prilosec 40mg twice daily Reported Home Medications Medications Dose Route/Sig Max Daily Dose Days Date Category Mvi With Minerals (Multivitamins/Minerals) Tab 1 Tab PO DAILY 07/28/17 Reported Ventolin Hfa (Albuterol) 200 Puffs/53623 Mcg Aers 2-4 Puffs INH Q6H PRN 07/20/17 Reported Zyrtec (Cetirizine HCl) 10 Mg Tab 10 Mg PO DAILY PRN 07/20/17 Reported Singulair (Montelukast Sodium) 10 Mg Tab 10 Mg PO QAM 07/20/17 Reported Wellbutrin-Xl (Bupropion HCl) 300 Mg Tabcr 300 Mg PO QAM 07/04/17 Reported Prilosec 40mg twice daily Provider Instructions Activity Restrictions - No exercising or heavy lifting for 24 hours. - Do not drink alcohol the day of the procedure. - Do not drive a car or operate machinery until the day after the procedure. - Do not make any important decisions or sign important papers in 24 hours after the procedure. Following Day: - Return to full activity which may include returning to work/school. Diet Start your diet with liquids and light foods (jello, soup, juice, toast). Then eat your usual diet if not nauseated. Treatment For Common After Affects For mild abdominal pain, bloating, or excessive gas: - Rest - Eat lightly - Lie on right side Follow-Up Information Follow-up with DR GRIMES as scheduled Anesthesia Information What You Should Know You have had a procedure that required some medicine to reduce anxiety and discomfort. This treatment is called moderate sedation. After receiving the treatment, you may be sleepy, but you will be able to breathe on your own. The effects of the treatment may last for several hours. Follow these instructions along with Activity/Diet recommendations noted above: * Do NOT do anything where dizziness or clumsiness would be dangerous. * Rest quietly at home today, then you can be up and about tomorrow. * Have a responsible person stay with you the rest of today. * You may have had an I.V. today. If so, you may take the dressing off later today. Recommendations Call your doctor if: * Trouble breathing * Continuous vomiting for more than 24 hours * Temperature above 101 degrees * Severe abdominal pain or bloating * Pain not relieved by pain medicine ordered * There is increased drainage or redness from any incision * A large amount of rectal bleeding greater than 2-3 tablespoons. (If you had a polyp/s removed or have hemorrhoids, a small amount of blood - from the rectum is to be expected.) * You have any unanswered questions or concerns. IN THE EVENT OF A SERIOUS EMERGENCY, GO TO THE NEAREST EMERGENCY ROOM Your discharge instructions were prepared by provider Carlos Harmon. Patient Instructions Signature Page Hosea Castro Patient (or Guardian) Signature/Date: I have read and understand the instructions given to me by my caregivers. Caregiver/RN/Doctor Signature/Date: The above-named patient and/or guardian has received patient instructions on this date. + Original Patient Signature Page (only) stays with chart. Please make copy for patient.
--- NOTE | 2017-10-26 14:47 | GI REPORT ---
Procedure Date: 10/26/2017 12:50 PM Procedure: Upper GI endoscopy Indications: Benign gastric tumor, For therapy of benign gastric tumor Medicines: Propofol per Anesthesia Complications: No immediate complications. Estimated blood loss: Minimal. Estimated Blood Loss: Estimated blood loss was minimal. Procedure: Pre-Anesthesia Assessment: - Prior to the procedure, a History and Physical was performed, and patient medications and allergies were reviewed. The patient's tolerance of previous anesthesia was also reviewed. The risks and benefits of the procedure and the sedation options and risks were discussed with the patient. All questions were answered, and informed consent was obtained. Prior Anticoagulants: The patient has taken no previous anticoagulant or antiplatelet agents. ASA Grade Assessment: II - A patient with mild systemic disease. After reviewing the risks and benefits, the patient was deemed in satisfactory condition to undergo the procedure. After obtaining informed consent, the endoscope was passed under direct vision. Throughout the procedure, the patient's blood pressure, pulse, and oxygen saturations were monitored continuously. The Scope was introduced through the mouth, and advanced to the second part of duodenum. The upper GI endoscopy was accomplished without difficulty. The patient tolerated the procedure well. Findings: The examined esophagus was normal. A single greater than 50 mm pedunculated and sessile polyp with no bleeding and no stigmata of recent bleeding was found in the gastric fundus. Area was successfully injected with 10 mL of a 1:10,000 solution of epinephrine for hemostasis. The polyp was removed with a hot snare at 20 live. Polyp resection was incomplete. The resected tissue was retrieved using a [place] net. Multiple sessile polyps with no bleeding and no stigmata of recent bleeding were found in the gastric fundus and in the gastric body. The exam of the stomach was otherwise normal. The examined duodenum was normal. The cardia and gastric fundus were normal on retroflexion. Impression: - Normal esophagus. - A single gastric polyp. Incomplete resection. Resected tissue retrieved. Injected. - Multiple gastric polyps. - Normal examined duodenum. Recommendation: - Discharge patient to home (ambulatory). - Resume regular diet. - Use Prilosec (omeprazole) 40 mg PO BID for 2 months. - Repeat the upper endoscopy in 6 weeks for retreatment. - Will arrange for intubation given need for piecemeal resection of polyps and repeated needed for specimen retreival. The sessile portion of the polyp remains and may need to refer [place] [facility] [place] . - Await pathology results. - Return to referring physician as previously scheduled. MD Carlos Griffith MD 10/26/2017 2:28:19 PM This report has been signed electronically. Note Initiated On: 10/26/2017 12:50 PM I attest to the content of the Intraoperative Record and orders documented therein, exceptions below
[2017-10-26 14:52] VITALS: BP 130/90; PULSE 83; O2SAT 98
--- NOTE | 2017-10-26 14:54 | Anesthesiology Progress Note ---
Anesthesia Post Op Note Date & Time Oct 26, 2017 at 14:53 Vital Signs Pain Intensity: 0 Vital Signs Past 12 Hours Date Time Temp Pulse Resp B/P (MAP) Pulse Ox O2 Delivery O2 Flow Rate FiO2 10/26/17 14:37 81 18 141/91 (108) 98 Room Air 10/26/17 14:22 37.1 101 16 134/76 (95) 98 Room Air 10/26/17 12:27 37.1 72 20 133/78 (96) 98 Room Air Notes Mental Status: alert / awake / arousable, participated in evaluation Pt Amnestic to Procedure: Yes Nausea / Vomiting: adequately controlled Pain: adequately controlled Airway Patency, RR, SpO2: stable & adequate BP & HR: stable & adequate Hydration State: stable & adequate Anesthetic Complications: no major complications apparent
[2017-10-26 16:16] LABS: HEMATOCRIT 33.3 % (42-52); MEAN CELL VOLUME 66.2 fL (80-100); MEAN CORPUSCULAR HEMOGLOBIN 19.1 pg (25-34); MEAN CORPUSCULAR HGB CONC 28.8 g/dl (32-36); MEAN PLATELET VOLUME 9.3 fL (7.4-10.4); PLATELET COUNT 258 K/uL (130-400); RED BLOOD COUNT 5.03 M/uL (4.7-6.1); WHITE BLOOD COUNT 8.67 K/uL (4.8-10.8)
[2017-10-26 16:19] LABS: ANISOCYTOSIS PRESENT; BASO % 0.3 %; BASO ABS # 0.03 K/uL (0-0.2); COMPLETE YES; EOS % 1.3 %; HYPOCHROMIA PRESENT; IG% 0.2 %; LYMPH % 27.1 %; LYMPH ABS # 2.35 K/uL (1.2-3.4); MICROCYTOSIS PRESENT; MONO % 7.7 %; NEUT % 63.4 %
== END | disposition home or self-care (01) ==
LOC: C.GI 12:09
PROVIDERS: ATTEND Internal Medicine Gastroenterology
DX: K31.7 Polyp of stomach and duodenum (principal); D21.4 Benign neoplasm of connective and other soft tissue of abdomen; F17.200 Nicotine dependence, unspecified, uncomplicated; J45.909 Unspecified asthma, uncomplicated; F41.9 Anxiety disorder, unspecified

== ENCOUNTER 2019-03-05 04:53 | Inpatient (IN) ==
[2019-03-05] MEDS ORDERED: ONDANSETRON INJ 2 MG/ML 2 ML VIAL IV STA (05:27)
[2019-03-05] MEDS ORDERED: MoRPHine SULFATE 4 MG/ML 1 ML CARP\\VIAL IV STA (05:27)
[2019-03-05] MEDS ORDERED: FAMOTIDINE 20MG/5ML IV PUSH IV STA (05:27)
[2019-03-05] MEDS: SODIUM CHLORIDE 0.9% 1000ML 1,000 ML IV SCH ×4 (05:41→18:13)
[2019-03-05 05:44] LABS: Basophils # (auto) 0.02 K/uL (0-0.2); Basophils % (auto) 0.2 %; Eosinophils # (auto) 0.41 K/uL (0-0.5); Eosinophils % (auto) 4.7 %; Hematocrit (blood only) 35.6 % (42-52); Hemoglobin 12.3 g/dL (14.0-18.0); Immature Granulocytes # (auto) 0.01 K/uL (0.00-0.02); Immature Granulocytes % (auto) 0.1 %; Lymphocytes # (auto) 2.74 K/uL (1.2-3.4); Lymphocytes % (auto) 31.7 %; Mean Corpuscular Hgb Conc 34.6 g/dL (32-36); Mean Corpuscular Volume 89.9 fL (80-100); Mean Platelet Volume 10.2 fL (7.4-10.4); Monocytes # (auto) 0.61 K/uL (0.11-0.59); Monocytes % (auto) 7.1 %; Neutrophils # (auto) 4.85 K/uL (1.4-6.5); Neutrophils % (auto) 56.2 %; Platelet Count 184 K/uL (130-400); RDW Coefficient of Variation 12.6 % (11.5-14.5); Red Blood Count 3.96 M/uL (4.7-6.1); White Blood Count 8.64 K/uL (4.8-10.8)
[2019-03-05 06:02] LABS: Alanine Aminotransferase 32 U/L (12-78); Albumin Level 3.3 gm/dl (3.4-5.0); Aspartate Aminotransferase 27 U/L (15-37); Blood Urea Nitrogen 28 mg/dl (7-18); Calcium 8.3 mg/dl (8.5-10.1); Carbon Dioxide 22 mmol/L (21-32); Chloride 106 mmol/L (98-107); Creatinine Clr Calc Pharmacy 194.8 ml/min; Est GFR (African American) > 150.0; Est GFR (Non-African American) 133.7; Glucose 86 mg/dl (70-99); Potassium 3.9 mmol/L (3.5-5.1); Sodium 134 mmol/L (136-145)
[2019-03-05 06:09] LABS: INR 1.1 (0.9-1.1); Partial Thromboplastin Ratio 0.9; Partial Thromboplastin Time 24.1 Seconds (21.0-31.0); Prothrombin Time 10.8 Seconds (9.0-12.0)
[2019-03-05 06:13] LABS: Albumin Globulin Ratio 0.9 (0.9-2); Alkaline Phosphatase 56 U/L (45-117); Bilirubin,Total 0.5 mg/dl (0.2-1); C Reactive Protein < 0.29 mg/dl (0-0.29); Globulin 3.6 gm/dl (2.5-4.0); Total Protein 6.9 gm/dl (6.4-8.2); Troponin I < 0.015 ng/ml (0-0.045)
[2019-03-05 06:39] LABS: Appearance Urine Clear (Clear); Bilirubin Urine Negative (Negative); Blood Urine Negative (Negative); Color Urine Yellow; Glucose Urine UA Negative (Negative); Ketones Urine Negative (Negative); Leukocyte Esterase Urine Negative (Negative); Nitrite Urine Negative (Negative); Protein Urine Negative (Negative); Specific Gravity Urine 1.015 (1.000-1.030); Urobilinogen Urine Negative (Negative)
--- NOTE | 2019-03-05 07:39 | History & Physical Report ---
Date of Service March 05, 2019 Assessment & Plan (1) Gastrointestinal bleeding: most likely related to GI polyposis; can't exclude UGI source related to irritation from EtOH -pepcid given in ER, continue w BID protonix -2 units on hold -isotonic IVF -follow vitals, follow Hgb, follow clinical status working ddx for lower abdominal pain is colon irritation/cramping from GI bleeding - will continue to follow closely. exam c/w this, no imaging indicated at this time, but will follow situation. (2) Anemia: mild, but does show significant drop from just a few months ago -almost certainly related to above (3) Tachycardia: follow - not clear how much is related to blood/volume loss and how much is related to anxiety, but given context, have to assume bleed related until proven otherwise -follow closely -follow Hgb/blood on hold as above -isotonic fluids -supportive care (4) Anxiety: continue home meds, reassurance, supportive care, PCP f/u after discharge (5) DVT prophylaxis: pharmacologic contraindicated due to bleeding; mechanical of dubious benefit and possible harm (falls) (6) Allergic asthma: continue singulair and albuterol (7) Intestinal polyposis: History of Present Illness Chief Complaint: black and bloody stool Primary Care Provider: Allan Barahona MD pleasant 23yo male, prior GI bleeding with colon and gastric polyps. weak and dizzy, black and maroon stools last day or so. no significant epigastric pain. no other complaints - given that this was similar to prior bleeding he ended up stopping eating yesterday and then came to hospital for evaluation. otherwise anxiety not good but is trying to reduce drinking - down from prior 8- 10 beers a night to probalby more like 4-5 recently - and no EtOH since about tuesday. allergies have been a bit bad this spring - didn't start on zyrtec as early as he usually does, and has needed albuterol a little more than typical. otherwise ROS otherwise entirely negative except for as above Allergies Allergy/AdvReac Type Severity Reaction Status Date / Time No Known Drug Allergies Allergy Unknown NONE Verified 12/15/18 22:52 peanut Allergy Unknown ANAPHYLAXIS Verified 12/15/18 22:52 Home Medications Home Medications Medication Instructions Recorded Confirmed Type montelukast 10 mg PO QAM 12/15/18 03/05/19 History multivitamin 1 tab PO DAILY 12/15/18 03/05/19 History albuterol sulfate 2 puff INHALATION Q6H PRN 03/05/19 03/05/19 History cetirizine [Zyrtec] 10 mg PO DAILY 03/05/19 03/05/19 History hydroxyzine HCl 10 mg PO DAILY PRN 03/05/19 03/05/19 History sertraline 50 mg PO DAILY 03/05/19 03/05/19 History Past Med/Surg History Medical History Inguinal hernia repair by aubree Intestinal polyposis Anxiety Environmental and seasonal allergies (Chronic) Asthma (Chronic) Congenital absence of one kidney (Chronic) Alcohol abuse Juvenile polyposis syndrome Family History Father Anxiety Essential hypertension Family/Other Colorectal cancer Social History Feels Safe at Home: Yes Smoking Status: Current every day smoker Hx Alcohol Use: Yes Review of Systems Review of Systems: All systems reviewed & are unremarkable except as noted in HPI & below Physical Exam Physical Exam: gen - aaox3 pleasant nad heent - nc at mmm cardio - reg no r/m/g lungs - technically clear, but faintly tubular sounding base L, no true r/r/w good effort no accessory muscles abd - soft nd, very mild suprapubic tenderness no guarding no rebound (+) BS. no other tenderness, elsewhere soft nd nt no guarding/reboundrigidity rectal - deferred - was done by ER SOLIS black stool grossly heme (+) ext -no c/c/e no calf tenderness skin - no rashes no pallor or icterus, scattered acne lesions on trunk neuro - cn 2-12 grossly intact gross motor/sensory intact mental - good recent and remote recall, normal mood and affect, good judgement and insight msk - no gross lesions/deformities, normal joint motion, no notably significant somatic dysfunction Results & Data Vital Signs (Past 12 Hours) Vital Signs Temp Pulse Pulse Resp BP BP Pulse Ox 03/05/19 06:50 114 H 22 129/90 100 03/05/19 06:15 170 H 40 H 141/91 H 100 03/05/19 05:40 98 H 16 132/87 98 03/05/19 05:30 97 03/05/19 04:58 36.7 C 135 H 18 127/80 99 Lab Results 03/05/19 03/05/19 03/05/19 Range/Units 05:30 05:30 05:30 WBC 8.64 (4.8-10.8) K/uL RBC 3.96 L (4.7-6.1) M/uL Hgb 12.3 L (14.0-18.0) g/dL Hct 35.6 L (42-52) % MCV 89.9 (80-100) fL MCH 31.1 (25-34) pg MCHC 34.6 (32-36) g/dL RDW Std Deviation 41.0 (36.4-46.3) fL RDW Coeff of [place] 12.6 (11.5-14.5) % Plt Count 184 (130-400) K/uL MPV 10.2 (7.4-10.4) fL Immature Gran % (Auto) 0.1 % Neut % (Auto) 56.2 % Lymph % (Auto) 31.7 % [place] % (Auto) 7.1 % Eos % (Auto) 4.7 % Baso % (Auto) 0.2 % Immature Gran # (Auto) 0.01 (0.00-0.02) K/uL Neut # (Auto) 4.85 (1.4-6.5) K/uL Lymph # (Auto) 2.74 (1.2-3.4) K/uL [place] # (Auto) 0.61 H (0.11-0.59) K/uL Eos # (Auto) 0.41 (0-0.5) K/uL Baso # (Auto) 0.02 (0-0.2) K/uL ESR (0-14) mm/hr PT 10.8 (9.0-12.0) Seconds INR 1.1 (0.9-1.1) APTT 24.1 (21.0-31.0) Seconds PTT Ratio 0.9 Sodium 134 L (136-145) mmol/L Potassium 3.9 (3.5-5.1) mmol/L Chloride 106 (98-107) mmol/L Carbon Dioxide 22 (21-32) mmol/L Anion Gap 6.0 (3-11) BUN 28 H (7-18) mg/dl Creatinine 0.68 (0.6-1.4) mg/dl Est Cr Clr Drug Dosing 194.8 ml/min Est GFR ( Amer) > 150.0 Est GFR (Non-Af Amer) 133.7 BUN/Creatinine Ratio 41.0 H (10-20) Glucose 86 (70-99) mg/dl Calcium 8.3 L (8.5-10.1) mg/dl Total Bilirubin 0.5 (0.2-1) mg/dl AST 27 (15-37) U/L ALT 32 (12-78) U/L Alkaline Phosphatase 56 (45-117) U/L Troponin I < 0.015 (0-0.045) ng/ml C-Reactive Protein < 0.29 (0-0.29) mg/dl Total Protein 6.9 (6.4-8.2) gm/dl Albumin 3.3 L (3.4-5.0) gm/dl Globulin 3.6 (2.5-4.0) gm/dl Albumin/Globulin Ratio 0.9 (0.9-2) Lipase 130 (73-393) U/L TSH 2.700 (0.300-4.500) uIu/ml Urine Color Urine Appearance (Clear) Urine pH (4.5-7.5) Ur Specific [place] (1.000-1.030) Urine Protein (Negative) Urine Glucose (UA) (Negative) Urine Ketones (Negative) Urine Blood (Negative) Urine Nitrite (Negative) Urine Bilirubin (Negative) Urine Urobilinogen (Negative) Ur Leukocyte Esterase (Negative) Blood Type Antibody Screen 03/05/19 03/05/19 03/05/19 Range/Units 05:30 05:32 06:16 WBC (4.8-10.8) K/uL RBC (4.7-6.1) M/uL Hgb (14.0-18.0) g/dL Hct (42-52) % MCV (80-100) fL MCH (25-34) pg MCHC (32-36) g/dL RDW Std Deviation (36.4-46.3) fL RDW Coeff of [place] (11.5-14.5) % Plt Count (130-400) K/uL MPV (7.4-10.4) fL Immature Gran % (Auto) % Neut % (Auto) % Lymph % (Auto) % [place] % (Auto) % Eos % (Auto) % Baso % (Auto) % Immature Gran # (Auto) (0.00-0.02) K/uL Neut # (Auto) (1.4-6.5) K/uL Lymph # (Auto) (1.2-3.4) K/uL [place] # (Auto) (0.11-0.59) K/uL Eos # (Auto) (0-0.5) K/uL Baso # (Auto) (0-0.2) K/uL ESR 2 (0-14) mm/hr PT (9.0-12.0) Seconds INR (0.9-1.1) APTT (21.0-31.0) Seconds PTT Ratio Sodium (136-145) mmol/L Potassium (3.5-5.1) mmol/L Chloride (98-107) mmol/L Carbon Dioxide (21-32) mmol/L Anion Gap (3-11) BUN (7-18) mg/dl Creatinine (0.6-1.4) mg/dl Est Cr Clr Drug Dosing ml/min Est GFR ( Amer) Est GFR (Non-Af Amer) BUN/Creatinine Ratio (10-20) Glucose (70-99) mg/dl Calcium (8.5-10.1) mg/dl Total Bilirubin (0.2-1) mg/dl AST (15-37) U/L ALT (12-78) U/L Alkaline Phosphatase (45-117) U/L Troponin I (0-0.045) ng/ml C-Reactive Protein (0-0.29) mg/dl Total Protein (6.4-8.2) gm/dl Albumin (3.4-5.0) gm/dl Globulin (2.5-4.0) gm/dl Albumin/Globulin Ratio (0.9-2) Lipase (73-393) U/L TSH (0.300-4.500) uIu/ml Urine Color Yellow Urine Appearance Clear (Clear) Urine pH 8.0 H (4.5-7.5) Ur Specific [place] 1.015 (1.000-1.030) Urine Protein Negative (Negative) Urine Glucose (UA) Negative (Negative) Urine Ketones Negative (Negative) Urine Blood Negative (Negative) Urine Nitrite Negative (Negative) Urine Bilirubin Negative (Negative) Urine Urobilinogen Negative (Negative) Ur Leukocyte Esterase Negative (Negative) Blood Type O Positive Antibody Screen NEGATIVE
--- NOTE | 2019-03-05 07:54 | Emergency Department Note ---
History of Present Illness General Chief complaint: GI Assessment Stated complaint: BLOOD IN STOOL, DIZZY Time Seen by Provider: 03/05/19 05:04 History of Present Illness Maximum Pain Intensity: 4 This is a 23-year-old male presenting to the emergency department for evaluation of bleeding during bowel movements. The patient reports a history of colonic and gastric polyps were discovered after a significant GI bleed 2 years ago. The patient did require transfusion at that time, and has evidently been doing well ever since. Evidently 2 days ago the patient had a bowel movement that was primarily red and dark. This continued again today, and the patient is now feeling lightheaded and dizzy. He is not reporting significant chest pain, chest tightness, or shortness of breath. He may have some very low abdominal discomfort but not distinct pain. He has been urinating as normal. The patient does drink alcohol estimating 14 or more drinks per week. He does not drink every day. He does admit to tobacco and marijuana use. He does not report abdominal surgery in the past. He rates his current discomfort a 4/10. Home Medications Home Medications Medication Instructions Recorded Confirmed Type montelukast 10 mg PO QAM 12/15/18 03/05/19 History multivitamin 1 tab PO DAILY 12/15/18 03/05/19 History albuterol sulfate 2 puff INHALATION Q6H PRN 03/05/19 03/05/19 History cetirizine [Zyrtec] 10 mg PO DAILY 03/05/19 03/05/19 History hydroxyzine HCl 10 mg PO DAILY PRN 03/05/19 03/05/19 History sertraline 50 mg PO DAILY 03/05/19 03/05/19 History Allergies Allergy/AdvReac Type Severity Reaction Status Date / Time No Known Drug Allergies Allergy Unknown NONE Verified 12/15/18 22:52 peanut Allergy Unknown ANAPHYLAXIS Verified 12/15/18 22:52 Past Med/Surg History Medical History Intestinal polyposis Anxiety Environmental and seasonal allergies (Chronic) Asthma (Chronic) Congenital absence of one kidney (Chronic) Alcohol abuse Juvenile polyposis syndrome Family History Father Anxiety Essential hypertension Family/Other Colorectal cancer Social History Feels Safe at Home: Yes Smoking Status: Current every day smoker Hx Alcohol Use: Yes Review of Systems A total of 10 systems reviewed and were otherwise negative Physical Exam Vital Signs Vital Signs - 24 hr 03/05/19 04:58 03/05/19 05:30 03/05/19 05:40 Temperature 36.7 C Temperature Source Oral Sepsis Recent Fever Within 48 Hours No Sepsis Action Taken by Nursing No Action Required Pulse Rate 135 H Pulse Rate [Finger] 98 H Pulse Rhythm [Finger] Respiratory Rate 18 16 Respiratory Effort / Characteristics Non-Labored Respiratory Depth Normal Blood Pressure 127/80 Blood Pressure [Right Arm] 132/87 Blood Pressure Mean 95 Blood Pressure Mean [Right Arm] 102 Blood Pressure Position Sitting Pulse Oximetry 99 97 98 Oxygen Delivery Method Room Air Room Air Room Air 03/05/19 06:15 03/05/19 06:50 Temperature Temperature Source Sepsis Recent Fever Within 48 Hours Sepsis Action Taken by Nursing Pulse Rate Pulse Rate [Finger] 170 H 114 H Pulse Rhythm [Finger] Regular Respiratory Rate 40 H 22 Respiratory Effort / Characteristics Respiratory Depth Blood Pressure Blood Pressure [Right Arm] 141/91 H 129/90 Blood Pressure Mean Blood Pressure Mean [Right Arm] 107 103 Blood Pressure Position Pulse Oximetry 100 100 Oxygen Delivery Method Room Air Room Air VITALS: Vitals are noted on the nurse's note and reviewed by myself. Vital signs with tachycardia GENERAL: Anxious appearing white male who is cooperative with the examination HEAD: Normocephalic atraumatic. EARS: External ear normal. External auditory canals clear, tympanic membranes pearly combs without erythema or effusion bilaterally. EYES: Pupils equal round and reactive to light and accommodation. Conjunctivae without injection, sclerae without icterus. Extraocular movements intact. NOSE: Patent, turbinates without inflammation or discharge. MOUTH: Mucous membranes moist. Tonsils are not enlarged. Pharynx without erythema, blood, or exudate. Uvula midline. Airway patent. NECK: Supple without nuchal rigidity. No lymphadenopathy. No thyromegaly. Cervical spine is nontender. HEART: Regular rate and rhythm without murmurs gallops or rubs. LUNGS: Clear to auscultation bilaterally without wheezes, rales or rhonchi. No retractions or accessory muscle use. ABDOMEN: Positive normal bowel sounds x 4. Soft, nontender, without masses or organomegaly. No guarding or rebound tenderness. : No significant perirectal findings. Digital rectal exam does reveal a dark black sand-like stool that is guaiac positive. MUSCULOSKELETAL: No muscle atrophy, erythema, or edema noted. Full range of motion in all extremities. NEURO: Patient was alert and oriented to person place and time. CN II through XII grossly intact Course Administered Medications Discontinued Medications Famotidine (Pepcid 20mg Iv Push) 20 mg IV ONE STA Stop: 03/05/19 05:28 Last Admin: 03/05/19 05:41 Dose: 20 mg Documented by: [id number] Sodium Chloride (Nss 1000ml) 1,000 mls @ 999 mls/hr IV .Q1H1M SHONDA Stop: 03/05/19 07:30 Last Infusion: 03/05/19 07:26 Dose: 0 mls/hr Documented by: [id number] Admin: 03/05/19 06:25 Dose: 999 mls/hr Documented by: [id number] Infusion: 03/05/19 06:25 Dose: 999 mls/hr Documented by: [id number] Admin: 03/05/19 05:41 Dose: 999 mls/hr Documented by: [id number] Morphine Sulfate (Morphine Sulfate) 4 mg IV NOW STA Stop: 03/05/19 05:28 Last Admin: 03/05/19 05:41 Dose: Not Given Documented by: [id number] Medical Decision Making Differential Diagnosis Differential diagnosis: Etiologies such as esophagitis, variceal bleed, [place], [place] tear, gastritis, peptic ulcer disease, AVM, inflammatory bowel disease, ischemia, diverticulosis, colitis, malignancy, coagulopathy, thrombocytopenia, fissure, hemorrhoid, epistaxis , as well as others were entertained. Laboratory Data Result diagrams: 03/05/19 05:30 03/05/19 05:30 Lab Results 03/05/19 03/05/19 03/05/19 Range/Units 05:30 05:30 05:30 WBC 8.64 (4.8-10.8) K/uL RBC 3.96 L (4.7-6.1) M/uL Hgb 12.3 L (14.0-18.0) g/dL Hct 35.6 L (42-52) % MCV 89.9 (80-100) fL MCH 31.1 (25-34) pg MCHC 34.6 (32-36) g/dL RDW Std Deviation 41.0 (36.4-46.3) fL RDW Coeff of Guerrero 12.6 (11.5-14.5) % Plt Count 184 (130-400) K/uL MPV 10.2 (7.4-10.4) fL Immature Gran % (Auto) 0.1 % Neut % (Auto) 56.2 % Lymph % (Auto) 31.7 % [place] % (Auto) 7.1 % Eos % (Auto) 4.7 % Baso % (Auto) 0.2 % Immature Gran # (Auto) 0.01 (0.00-0.02) K/uL Neut # (Auto) 4.85 (1.4-6.5) K/uL Lymph # (Auto) 2.74 (1.2-3.4) K/uL [place] # (Auto) 0.61 H (0.11-0.59) K/uL Eos # (Auto) 0.41 (0-0.5) K/uL Baso # (Auto) 0.02 (0-0.2) K/uL ESR (0-14) mm/hr PT 10.8 (9.0-12.0) Seconds INR 1.1 (0.9-1.1) APTT 24.1 (21.0-31.0) Seconds PTT Ratio 0.9 Sodium 134 L (136-145) mmol/L Potassium 3.9 (3.5-5.1) mmol/L Chloride 106 (98-107) mmol/L Carbon Dioxide 22 (21-32) mmol/L Anion Gap 6.0 (3-11) BUN 28 H (7-18) mg/dl Creatinine 0.68 (0.6-1.4) mg/dl Est Cr Clr Drug Dosing 194.8 ml/min Est GFR ( Amer) > 150.0 Est GFR (Non-Af Amer) 133.7 BUN/Creatinine Ratio 41.0 H (10-20) Glucose 86 (70-99) mg/dl Calcium 8.3 L (8.5-10.1) mg/dl Total Bilirubin 0.5 (0.2-1) mg/dl AST 27 (15-37) U/L ALT 32 (12-78) U/L Alkaline Phosphatase 56 (45-117) U/L Troponin I < 0.015 (0-0.045) ng/ml C-Reactive Protein < 0.29 (0-0.29) mg/dl Total Protein 6.9 (6.4-8.2) gm/dl Albumin 3.3 L (3.4-5.0) gm/dl Globulin 3.6 (2.5-4.0) gm/dl Albumin/Globulin Ratio 0.9 (0.9-2) Lipase 130 (73-393) U/L TSH 2.700 (0.300-4.500) uIu/ml Urine Color Urine Appearance (Clear) Urine pH (4.5-7.5) Ur Specific [place] (1.000-1.030) Urine Protein (Negative) Urine Glucose (UA) (Negative) Urine Ketones (Negative) Urine Blood (Negative) Urine Nitrite (Negative) Urine Bilirubin (Negative) Urine Urobilinogen (Negative) Ur Leukocyte Esterase (Negative) Blood Type Antibody Screen 03/05/19 03/05/19 03/05/19 Range/Units 05:30 05:32 06:16 WBC (4.8-10.8) K/uL RBC (4.7-6.1) M/uL Hgb (14.0-18.0) g/dL Hct (42-52) % MCV (80-100) fL MCH (25-34) pg MCHC (32-36) g/dL RDW Std Deviation (36.4-46.3) fL RDW Coeff of [place] (11.5-14.5) % Plt Count (130-400) K/uL MPV (7.4-10.4) fL Immature Gran % (Auto) % Neut % (Auto) % Lymph % (Auto) % [place] % (Auto) % Eos % (Auto) % Baso % (Auto) % Immature Gran # (Auto) (0.00-0.02) K/uL Neut # (Auto) (1.4-6.5) K/uL Lymph # (Auto) (1.2-3.4) K/uL [place] # (Auto) (0.11-0.59) K/uL Eos # (Auto) (0-0.5) K/uL Baso # (Auto) (0-0.2) K/uL ESR 2 (0-14) mm/hr PT (9.0-12.0) Seconds INR (0.9-1.1) APTT (21.0-31.0) Seconds PTT Ratio Sodium (136-145) mmol/L Potassium (3.5-5.1) mmol/L Chloride (98-107) mmol/L Carbon Dioxide (21-32) mmol/L Anion Gap (3-11) BUN (7-18) mg/dl Creatinine (0.6-1.4) mg/dl Est Cr Clr Drug Dosing ml/min Est GFR ( Amer) Est GFR (Non-Af Amer) BUN/Creatinine Ratio (10-20) Glucose (70-99) mg/dl Calcium (8.5-10.1) mg/dl Total Bilirubin (0.2-1) mg/dl AST (15-37) U/L ALT (12-78) U/L Alkaline Phosphatase (45-117) U/L Troponin I (0-0.045) ng/ml C-Reactive Protein (0-0.29) mg/dl Total Protein (6.4-8.2) gm/dl Albumin (3.4-5.0) gm/dl Globulin (2.5-4.0) gm/dl Albumin/Globulin Ratio (0.9-2) Lipase (73-393) U/L TSH (0.300-4.500) uIu/ml Urine Color Yellow Urine Appearance Clear (Clear) Urine pH 8.0 H (4.5-7.5) Ur Specific [place] 1.015 (1.000-1.030) Urine Protein Negative (Negative) Urine Glucose (UA) Negative (Negative) Urine Ketones Negative (Negative) Urine Blood Negative (Negative) Urine Nitrite Negative (Negative) Urine Bilirubin Negative (Negative) Urine Urobilinogen Negative (Negative) Ur Leukocyte Esterase Negative (Negative) Blood Type O Positive Antibody Screen NEGATIVE MDM Narrative Physical exam and history were performed. Nursing notes, EMR, and Medication List were personally reviewed. Patient appears to have blood in his stool for the past 2 days. He does have a past history of GI bleed and polyps. On examination he is tachycardic. He is guaiac positive. IV access was established x2 and labs were obtained. The patient was hydrated with 2 L normal saline. He was given IV Pepcid. Type and screen was performed. Case was discussed with my attending. The patient's blood work is as above and was reviewed. His hemoglobin today is 12.3, whereas approximately 2 months ago it was 15.8. This does not seem to represent a distinct drop in his hemoglobin. He does not have a significant electrolyte imbalance. INR is 1.1. Transaminases are not diagnostic. Troponin x1 is negative. Urine is without evidence of infection. On reevaluation the patient did feel improved after hydration, however he is reporting anxiety with his symptoms. The case was discussed with the on-call GI, Dr. Landrum, who does recommend admission to the hospital for further management. I did speak with the on-call hospitalist, Dr Purcell, who did agree to evaluate the patient here in the department. Please see their dictation for further patient course, plan, and disposition. The chart was completed utilizing [employer] in [employer] Voice Recognition Software. Grammatical errors, random word insertions, pronoun errors, and incomplete sentences are an occasional consequence of this system due to software limitat ions, ambient noise, and hardware issues. Any formal questions or concerns about the content, text, or information contained within the body of this dictation should be directly addressed to the provider for clarification. . Impression & Plan GI bleed, Stool guaiac positive Discharge Plan Visit Data Chief Complaint: GI Assessment Stated Complaint: BLOOD IN STOOL, DIZZY ED Provider: Chely Krueger ED Midlevel Provider: Hao Rosenberg Discharge Problem: GI bleed, Stool guaiac positive Forms Stand Alone Forms: My [facility] Prescriptions Prescriptions: No Action hydroxyzine HCl 10 mg tablet 10 mg PO DAILY PRN (Reason: Anxiety) RF: 0 sertraline 50 mg tablet 50 mg PO DAILY RF: 0 cetirizine [Zyrtec] 10 mg Tablet 10 mg PO DAILY RF: 0 albuterol sulfate 90 mcg/actuation Hfa Aerosol Inhaler 2 puff INHALATION Q6H PRN (Reason: Shortness Of Breath Or Wheezing) RF: 0 multivitamin Tablet 1 tab PO DAILY RF: 0 montelukast 10 mg Tablet 10 mg PO QAM RF: 0 Referrals Referrals: Allan Barahona MD [Primary Care Provider] -
[2019-03-05] MEDS ORDERED: THIAMINE HCL 100 MG in SYRINGE 9 ML IV SCH (09:37)
[2019-03-05] MEDS ORDERED: SERTRALINE HCL 50 MG TABLET PO SCH (09:37)
[2019-03-05] MEDS ORDERED: CETIRIZINE HCL 10 MG TABLET PO SCH (09:37)
[2019-03-05] MEDS ORDERED: ONDANSETRON INJ 2 MG/ML 2 ML VIAL IV PRN (09:37)
[2019-03-05] MEDS ORDERED: hydrOXYzine HCl 10 MG TAB PO PRN (09:37)
[2019-03-05] MEDS ORDERED: SODIUM CHLORIDE 0.9% 250 ML IV PRN (09:37)
[2019-03-05] MEDS ORDERED: PANTOprazole 40 MG TAB PO SCH (09:37)
[2019-03-05] MEDS ORDERED: FOLIC ACID 1 MG in SYRINGE 9.8 ML IV SCH (09:37)
[2019-03-05] MEDS ORDERED: MONTELUKAST SODIUM 10 MG TABLET PO SCH (09:37)
[2019-03-05] MEDS ORDERED: ALBUTEROL HFA 8 GM INHALER INH PRN (09:37)
--- NOTE | 2019-03-05 10:42 | Anesthesiology Consultation ---
Date of Service March 05, 2019 Assessment & Plan (1) Encounter for pre-operative examination: Chart Review Chart Review: Acceptable Risk for Surgery History Surgery Operation Date: 03/05/19 08:30 Proposed Procedures p Esophagogastroduodenoscopy Dr Mikayla Degroot Height/Weight Height: 6 ft 2 in Weight: 88.4 kg Allergies Allergy/AdvReac Type Severity Reaction Status Date / Time No Known Drug Allergies Allergy Unknown NONE Verified 12/15/18 22:52 peanut Allergy Unknown ANAPHYLAXIS Verified 12/15/18 22:52 Medications Home Medications Medication Instructions Recorded Confirmed Last Taken montelukast 10 mg PO QAM 12/15/18 03/05/19 12/15/18 multivitamin 1 tab PO DAILY 12/15/18 03/05/19 12/15/18 albuterol sulfate 2 puff INHALATION Q6H PRN 03/05/19 03/05/19 Unknown cetirizine [Zyrtec] 10 mg PO DAILY 03/05/19 03/05/19 Unknown hydroxyzine HCl 10 mg PO DAILY PRN 03/05/19 03/05/19 Unknown sertraline 50 mg PO DAILY 03/05/19 03/05/19 Unknown Active Medications Generic Name Dose Route Start Last Admin Trade Name Freq PRN Reason Stop Dose Admin Cetirizine HCl 10 mg 03/05/19 09:37 03/05/19 10:38 Zyrtec PO 04/04/19 09:36 10 mg DAILY SHONDA Administration Sodium Chloride 1,000 mls @ 125 mls/hr 03/05/19 09:37 03/05/19 10:12 Nss 1000ml IV 04/04/19 09:36 125 mls/hr .Q8H SHONDA Administration Folic Acid 1 mg/ Syringe 10 mls @ 5 mls/min 03/05/19 09:37 03/05/19 10:22 IV 04/04/19 09:36 5 mls/min QAM SHONDA Administration Thiamine HCl 100 mg/ Syringe 10 mls @ 2 mls/min 03/05/19 09:37 03/05/19 10:21 IV 04/04/19 09:36 2 mls/min QAM SHONDA Administration Montelukast Sodium 10 mg 03/05/19 09:37 03/05/19 10:38 Singulair PO 04/04/19 09:36 10 mg QAM SHONDA Administration Pantoprazole Sodium 40 mg 03/05/19 09:37 03/05/19 10:37 Protonix PO 04/04/19 09:36 40 mg BID SHONDA Administration Sertraline HCl 50 mg 03/05/19 09:37 03/05/19 10:37 Zoloft PO 04/04/19 09:36 50 mg DAILY SHONDA Administration Past Medical History Medical History Inguinal hernia repair by ramondelli Intestinal polyposis Anxiety Environmental and seasonal allergies (Chronic) Asthma (Chronic) Congenital absence of one kidney (Chronic) Anemia Alcohol abuse Juvenile polyposis syndrome Past Family History Family History Father Anxiety Essential hypertension Family/Other Colorectal cancer Past Surgical History Surgical History History of endoscopy Social History Smoking Status: Current every day smoker tobacco type: cigarettes Smoking cigarettes per day: 10 Do You Dip or Chew Tobacco: No Hx Alcohol Use: Yes Alcohol type: wine alcohol intake frequency: 3 or more drinks per day Alcohol Intake Frequency Comment: 4-5/ day Hx Substance Use: Yes substance use type: marijuana Substance Use Type Other:: occasionally Physical Exam Vital Signs Last Vital Signs Temp 36.7 C 03/05/19 04:58 Pulse 111 H 03/05/19 09:52 Resp 16 03/05/19 09:52 BP 117/85 03/05/19 09:52 Pulse Ox 95 03/05/19 09:52 Testing Electrocardiogram Date: 03/05/19 Findings: + NSR @ (97 inf T's inverted) Laboratory Results 03/05/19 05:30 03/05/19 05:30 Blood Type O Positive 03/05/19 05:32 Antibody Screen NEGATIVE 03/05/19 05:32 PT 10.8 Seconds (9.0-12.0) 03/05/19 05:30 INR 1.1 (0.9-1.1) 03/05/19 05:30 APTT 24.1 Seconds (21.0-31.0) 03/05/19 05:30 Urine Color Yellow 03/05/19 06:16 Urine Appearance Clear (Clear) 03/05/19 06:16 Urine pH 8.0 (4.5-7.5) H 03/05/19 06:16 Ur Specific [place] 1.015 (1.000-1.030) 03/05/19 06:16 Urine Protein Negative (Negative) 03/05/19 06:16 Urine Glucose (UA) Negative (Negative) 03/05/19 06:16 Urine Ketones Negative (Negative) 03/05/19 06:16 Urine Nitrite Negative (Negative) 03/05/19 06:16 Ur Leukocyte Esterase Negative (Negative) 03/05/19 06:16
[2019-03-05] MEDS ORDERED: LIDOCAINE HCL 2% 2 ML VIAL/AMP(20MG/ML) INFIL ONE (15:29)
[2019-03-05] MEDS ORDERED: PROPOFOL IV EMULSION 10 MG/ML 20 ML VIAL IV ONE (15:29)
[2019-03-05] MEDS ORDERED: fentaNYL citrate 100 MCG/2 ML VIAL ONE (15:48)
[2019-03-05] MEDS ORDERED: MIDAZOLAM HCL 1 MG/ML 2ML VIAL ONE (15:48)
--- NOTE | 2019-03-05 15:50 | History & Physical Report ---
Date of Service March 05, 2019 History of Present Illness Chief Complaint: rectal bleeding Primary Care Provider: Allan Barahona MD For EGD Allergies Allergy/AdvReac Type Severity Reaction Status Date / Time No Known Drug Allergies Allergy Unknown NONE Verified 12/15/18 22:52 peanut Allergy Unknown ANAPHYLAXIS Verified 12/15/18 22:52 Home Medications Home Medications Medication Instructions Recorded Confirmed Type montelukast 10 mg PO QAM 12/15/18 03/05/19 History multivitamin 1 tab PO DAILY 12/15/18 03/05/19 History albuterol sulfate 2 puff INHALATION Q6H PRN 03/05/19 03/05/19 History cetirizine [Zyrtec] 10 mg PO DAILY 03/05/19 03/05/19 History hydroxyzine HCl 10 mg PO DAILY PRN 03/05/19 03/05/19 History sertraline 50 mg PO DAILY 03/05/19 03/05/19 History Past Med/Surg History Medical History Inguinal hernia repair by aubree Intestinal polyposis Anxiety Environmental and seasonal allergies (Chronic) Asthma (Chronic) Congenital absence of one kidney (Chronic) Anemia Alcohol abuse Juvenile polyposis syndrome Surgical History History of endoscopy Family History Father Anxiety Essential hypertension Family/Other Colorectal cancer Social History Preferred Language: Afghan Communication Ability: Effective Facility Service Manager Required: Yes Beliefs That Will Affect Care: None Current Living Situation: Parent Other Information That Helps Us Care for You: No Feels Safe at Home: Yes Safety Concerns: Feels Safe At This Time Smoking Status: Current every day smoker Tobacco Type: cigarettes Cigarettes Per Day: 10 Do You Dip or Chew Tobacco: No Second Hand Exposure: Yes Hx Alcohol Use: Yes Alcohol type: wine Hx Substance Use: Yes substance use type: marijuana Substance Use Type Other:: occasionally Physical Exam Vital Signs (Past 24 Hours): Last Vital Signs Temp 36.7 C 03/05/19 15:21 Pulse 113 H 03/05/19 15:21 Resp 22 03/05/19 15:21 BP 126/91 03/05/19 15:21 Pulse Ox 100 03/05/19 15:21 Constitutional: well developed and well nourished ENMT: Scar right cheek Respiratory: normal respiratory effort Cardiovascular: Rate/Rhythm: regular rate and regular rhythm Gastrointestinal (Abdomen): Percussion/Palpation: abdomen soft
--- NOTE | 2019-03-05 16:33 | GI REPORT ---
Patient Name: Hosea Castro Procedure Date: 03/05/2019 3:48 PM Date of : 1995 Admit Type: Inpatient Age: 23 Gender: Male Attending MD: Devon Degroot MD Procedure: Upper GI endoscopy Providers: Devon Degroot MD Referring MD: Ashish Purcell Indications: Melena Medicines: Fentanyl 100 micrograms IV, Midazolam 2 mg IV, Propofol total dose 400 mg IV Complications: treated with administration of oxygen Estimated Blood Loss: Estimated blood loss was minimal. Procedure: Pre-Anesthesia Assessment: - Prior to the procedure, a History and Physical was performed, and patient medications, allergies and sensitivities were reviewed. The patient's tolerance of previous anesthesia was reviewed. - The risks and benefits of the procedure and the sedation options and risks were discussed with the patient. All questions were answered and informed consent was obtained. After obtaining informed consent, the endoscope was passed under direct vision. Throughout the procedure, the patient's blood pressure, pulse, and oxygen saturations were monitored continuously. The Endoscope was introduced through the mouth, and advanced to the third part of duodenum. The upper GI endoscopy was technically difficult and complex due to unusual anatomy. The patient tolerated the procedure poorly due to the patient's agitation. Findings: The examined esophagus was normal. Two 20 mm semi-sessile polyps with no bleeding and stigmata of recent bleeding were found in the cardia. I was unable to maneuver an Endo loop or a large snare over the polyps. The examined duodenum was normal. Hematin (altered blood/impdtv-vrpfpp-cjol material) was found in the gastric body. Impression: - Normal esophagus. - Two gastric polyps. - Normal examined duodenum. - Hematin (altered blood/lccpql-bcgyjr-tech material) in the gastric body. - No specimens collected. Recommendation: - Transfer patient to another hospital. Devon Degroot M.D. Devon Degroot MD 03/05/2019 4:33:13 PM This report has been signed electronically. Note Initiated On: 03/05/2019 3:48 PM Number of Addenda: 0 I attest to the content of the Intraoperative Record and orders documented therein, exceptions below {[id number]}
[2019-03-05] MEDS ORDERED: ESMOLOL HCL INJ 10 MG/ML 10ML VIAL IV ONE (16:38)
--- NOTE | 2019-03-05 17:06 | Anesthesiology Progress Note ---
Date of Service March 05, 2019 Anesthesia Post Procedure Vital Signs Vital Signs: Temp Pulse Pulse Resp BP BP BP 03/05/19 16:51 110 H 22 125/88 03/05/19 16:35 115 H 22 125/61 03/05/19 15:21 36.7 C 113 H 22 126/91 03/05/19 15:13 36.8 C 107 H 20 130/85 03/05/19 09:52 111 H 16 117/85 03/05/19 09:15 111 H 14 117/85 03/05/19 09:01 105 H 14 117/85 03/05/19 08:20 116 H 14 119/71 03/05/19 06:50 114 H 22 129/90 03/05/19 06:15 170 H 40 H 141/91 H 03/05/19 05:40 98 H 16 132/87 03/05/19 05:30 03/05/19 04:58 36.7 C 135 H 18 127/80 Pulse Ox 03/05/19 16:51 97 03/05/19 16:35 97 03/05/19 15:21 100 03/05/19 15:13 100 03/05/19 09:52 95 03/05/19 09:15 96 03/05/19 09:01 98 03/05/19 08:20 98 03/05/19 06:50 100 03/05/19 06:15 100 03/05/19 05:40 98 03/05/19 05:30 97 03/05/19 04:58 99 Pain Intensity Abdomen: Pain Intensity: 2 Transfer of Care Handoff Completed per policy Notes Mental Status: alert / awake / arousable Patient Amnestic to Procedure: Yes Nausea / Vomiting: adequately controlled Pain: adequately controlled Airway Patency, RR, SpO2: stable & adequate BP & HR: stable & adequate Hydration State: stable & adequate Anesthetic Complications: no major complications apparent and Pt Satisfied with anesthetic care Notes: The patient was under MAC sedation. He was noted to have two large polyps. Dr. Degroot attempted to lasso one of the polyps but it was difficult for him to reach. The patient began to gag and was not tolerating the sedation anesthetic so the decision was made to end the procedure. The patient is now awake and comfortable in recovery. He will be transported to [place] where a specialist will remove the polyps. The patient and his mom agree with the plan.
--- NOTE | 2019-03-05 17:21 | Consultation Report ---
DATE OF CONSULTATION: 03/05/2019 REASON FOR EVALUATION: Melena. HISTORY: The patient is a 23-year-old with juvenile polyposis syndrome who was seen 2 years ago at the hospital when he presented with rectal bleeding. At that time he had 3 large polyps in the cecum that were removed. Pathology returned as juvenile polyps. He subsequently was seen by Dr. Harmon in October of 2017 had an upper endoscopy and was found to have a large polyp in the area of the cardia. The polyp was not able to be removed completely, but he did remove about 3 cm of the polyp and again returned as a juvenile polyp. The patient did well until today when he had some melena and maroon stool. He presented to the hospital where he was found to have a hemoglobin of 9.3. Blood pressure is 125/88. Endoscopy was performed in the [facility]. Unfortunately, he was very difficult to sedate and required a lot of sedation, 2 mg of Versed, 100 mcg of fentanyl and 400 mg of propofol. The patient was either gagging and kind of combative or not breathing at all, which made it difficult and there were 2 large polyps in the gastric cardia. One was so large I was not able to get an Endoloop or even the largest snare around it to try to resect it. There was some old blood in the stomach but no active bleeding after consultation with the patient and his mother and with the hospitalist at [facility], we decided to transfer the patient to [facility] for attempted endoscopic removal probably under general anesthesia.
--- NOTE | 2019-03-05 17:33 | Discharge Summary ---
Date of Service March 05, 2019 Admission HPI Per Admitting Provider For EGD Principal Diagnosis large gastric polyps with upper GI bleeding Discharge Exam see AM exam, no significant changes Discharge Data Allergies Allergy/AdvReac Type Severity Reaction Status Date / Time No Known Drug Allergies Allergy Unknown NONE Verified 12/15/18 22:52 peanut Allergy Unknown ANAPHYLAXIS Verified 12/15/18 22:52 Consultations 03/05/19 07:12 ED Decision to Admit Stat 03/05/19 09:37 Consult Gastroenterology Routine Procedures Performed Operation Date: 03/05/19 08:30 Actual Procedures p Esophagogastroduodenoscopy - Devon Degroot - showing large gastric polyps - unable to be resected due to size Hgb most recently 9.3 (was ~12 on admission, clinically, however, bleeding appears to have stopped) Hospital Course (1) Gastrointestinal bleeding: related to large gastric polyps - scope shows that bleeding appears to have stopped, but too large to be resected here - transfer to tertiary for higher end endoscopic interventions -was given pepcid x1, ongoing protonix BID working ddx for lower abdominal pain is colon irritation/cramping from GI bleeding - will continue to follow closely. exam c/w this, no imaging indicated at this time, but will follow situation. (2) Anemia: appearing to be acute blood loss related to upper GI bleeding -HR has improved overall, currently clinically stable - still needs to be followed closely -2 units PRBC matched -isotonic fluids -with bleeding appearing to have resolved endoscopically, and vitals improving, appears quite stable for ground transport (3) Tachycardia: see above. improving from this AM. continue to follow. isotonic fluids (4) Anxiety: continue home meds, reassurance, supportive care, PCP f/u after discharge (5) DVT prophylaxis: pharmacologic contraindicated due to bleeding; mechanical of dubious benefit and possible harm (falls) (6) Allergic asthma: continue singulair and albuterol (7) Intestinal polyposis: Total Time Total Time Spent Total Time Spent (In Minutes): <30 this afternoon. certainly well over 30 over the course of today. Discharge Plan Discharge Items Patient Disposition: Transfer Acute Care Hospital Reason For Visit: BLOOD IN STOOL, DIZZY, Discharge Diagnosis: GI bleeding from gastric polyps Discharge Goals: Diagnostic testing Activity: As commented below Activity Comment: per Non-emergency contact: Primary Care Provider and [place] Can Worker Call non-emergency contact if: your symptoms worsen Follow-up/Referrals: Allan Barahona MD [Primary Care Provider] - 03/12/19 11:40 am (Please, follow up with Dr. Lewis on TuesdayMarch 12 at 11:40 am. *If you need to change this appointment, call the office at [phone].) Diet: See below Diet Comment: pending orders on arrival at halfway, NPO currently Addtl Provider Instructions: per admitting and gastroenterology teams at halfway Prescriptions: New pantoprazole [Protonix] 40 mg tablet,delayed release (DR/EC) 40 mg PO BID 10 Days Qty: 20 RF: 0 Continued hydroxyzine HCl 10 mg tablet 10 mg PO DAILY PRN (Reason: Anxiety) RF: 0 sertraline 50 mg tablet 50 mg PO DAILY RF: 0 cetirizine [Zyrtec] 10 mg Tablet 10 mg PO DAILY RF: 0 albuterol sulfate 90 mcg/actuation Hfa Aerosol Inhaler 2 puff INHALATION Q6H PRN (Reason: Shortness Of Breath Or Wheezing) RF: 0 multivitamin Tablet 1 tab PO DAILY RF: 0 montelukast 10 mg Tablet 10 mg PO QAM RF: 0 Stand-Alone Forms: [facility] Discharge Orders: Discharge Order (Routine); Ordered 03/05/19 Ordered By: Ashish Purcell Admission Data Admit Date/Time: 03/05/19 07:43 Attending Provider: Ashish Purcell Admit Provider: Ashish Purcell Primary Care Provider: Allan Barahona V. Other Providers: Ashish Purcell ; Johnathan Landrum Service: Medical Other Interventions: Discharge Summary Assessment (RN) Last Done: 03/05/19 17:04
[2019-03-05] MEDS ORDERED: SODIUM CHLORIDE 0.65% NA SOLN 45 ML (OCEAN) ONE (19:11)
[2019-03-05] MEDS ORDERED: SALINE NASAL 225 SPRAYS, GENTAMICIN SULFATE 60 MG, BARCODE IDENTIFIER 0 EA PRN (19:14)
--- OUTSIDE RECORDS SUMMARY | 2019-03-05 22:47 | External Medical Summary | Continuity of Care Document ---
:1995 Author Name Handy Kang, Provider Address Unavailable Unavailable , Care Team Providers Name Role Phone Kirstin Lewis [email or web address] JULIANA GRIMES M.D., KIRSTIN Bryant Unavailable Un available Unavailable Unavailable Unavailable Problems Acne (706.1) (L70.9) Asthma (493.90) (J45.909) Depression (311) (F32.9) Hemorrhage of gastrointestinal tract (578.9) (K92.2) History of Mononucleosis (075) (B27.90) Status: Resolved Colon polyps (211.3) (K63.5) Juvenile polyposis syndrome (211.3) (D12.6) Anemia (285.9) (D64.9) Difficulty concentrating (799.51) (R41.840) Anxiety (300.00) (F41.9) Allergic rhinitis (477.9) (J30.9) Moderate alcohol consumption (V49.89) (Z78.9) Allergies and Adverse Reactions No Known Drug Allergies (Allergy) Nuts (Allergy) Medications Montelukast Sodium 10 MG Oral Tablet; Take 1 tablet da wero Pearl Lewis Start: 01-Sep-2016 Quantity: 90 Refills: 1 Sertraline HCl - 50 MG Oral Tablet; TAKE 1 TABLET ADIEL Y DIRECTED. Pearl Bey Start: 23-Feb-2019 Quantity: 1 30 Tablet Bottle Refills: 1 hydrOXYzine HCl - 10 MG Oral Tablet; Take 1 tablet by mouth every day Pearl Lewis Start: 23-Feb-2019 Quantity: 30 Refills: 0 Multi Vitamin Daily Oral Tablet; TAKE 1 TABLET DAILY. Start: 16-Nov-2016 Refills: 0 ZyrTEC Allergy 10 MG Oral Tablet; TAKE 1 TABLET DAILY DIR ECTED. Start: 01-Mar-2017 Refills: 0 Procedures History of Hernia Repair Inguinal Sliding Status: Completed 09-Dec-2016 0:00 Immunizations Immunizations not documented Family History Father Family history of Anxiety (300.00) (F41.9) Status: Active Family history of hypertension (V17.49) (Z82.49) Status: Act brown Family history of alcohol abuse (V61.41) (Z81.1) Status: Act brown Brother Family history of depression (V17.0) (Z81.8) Status: Active great grandfather Family history of Cancer of colon (153.9) (C18.9) Status: Ac tive Mother Family history of alcohol abuse (V61.41) (Z81.1) Status: Act brown Grandmother Family history of malignant neoplasm of breast (V16.3) (Z80. 3) Status: Active Grandmother Family history of myocardial infarction (V17.3) (Z82.49) Sta tus: Active Social History - Smoking Status Current every day smoker Former smoker Plan of Treatment Planned Encounters Appointment; Kirstin Leiws M.D. Start: 11:40 Request Planned Observations Planned Goals not documented Results No Known Results Results not documented Vital Signs 23-Feb-2019 13:29 Systolic 134 mm[Hg] Comments: Location: LUE; Position: Sitting Diastolic 100 mm[Hg] Comments: Location: LUE; Position: Sitting Respiration 16 /min Comments: Quality: N ormal Weight 199.375 lb Heart Rate 80 /min Comments: Location: L Radial; BMI Calculated 25.6 kg/m2 Height 74 in BSA Calculated 2.17 m2 Encounters Appointment; Kirstin Lewis M.D. 9 13:20 Encounter Diagnosis: Problem not documented Appointment; Kirstin Lewis M.D. 8 7:40 Encounter Diagnosis: Problem not documented Appointment; Kirstin Lewis M.D. 8 7:00 Encounter Diagnosis: Problem not documented Appointment; Kirstin Lewis M.D. 8 15:00 Encounter Diagnosis: Problem not documented Appointment; Ronda Carbajal PA-C 20-Jul-2017 8:00 Encounter Diagnosis: Problem not documented Appointment; Ronda Carbajal PA-C 13-Jul-2017 9:30 Encounter Diagnosis: Problem not documented Appointment; Ronda Carbajal PA-C 13-Jun-2017 9:15 Encounter Diagnosis: Problem not documented Appointment; Kirstin Lewis M.D. 12-Mar-2019 11:40 Encounter Diagnosis: Problem not documented
[2019-03-05] MEDS ORDERED: ONDANSETRON INJ 2 MG/ML 2 ML VIAL ONE (23:55)
== END 2019-03-05 20:04 | disposition short-term general hospital (02) | DRG 394 ==
LOC: ED 04:53 → 4W 07:43

== ENCOUNTER 2020-06-05 04:07 | Observation (INO) ==
[2020-06-05] MEDS ORDERED: SODIUM CHLORIDE 0.9% 1000ML 1,000 ML IV ONE (04:15)
[2020-06-05] MEDS ORDERED: ONDANSETRON INJ 2 MG/ML 2 ML VIAL IV STA (04:15)
[2020-06-05] MEDS ORDERED: LORazepam 2 MG/4 ML VIAL IV STA (04:15)
--- NOTE | 2020-06-05 04:20 | Emergency Department Note ---
History of Present Illness General Chief complaint: Anxiety Stated complaint: ANXIETY Time Seen by Provider: 06/05/20 04:09 Source: patient Mode of arrival: EMS Limitations: no limitations History of Present Illness This patient is a 24-year-old male who presents to the emergency department via EMS for evaluation of alcohol withdrawal. The patient was seen here by myself 2 days ago. He states that since then, he has not had any more alcohol to drink but his symptoms have worsened significantly. He states that he is feeling very shaky and anxious and has begun vomiting. He is unable to keep anything down. He states he has not had anything to drink since he was seen here. He has contacted an outpatient rehab facility to set this up. He denies any seizures or hallucinations. Patient has a history of alcoholism but states that he was sober for some time until the last few weeks. He states that he has been drinking about 15 malt beers per day along with a few shots of liquor. The patient denies any drug use. He denies chest pain or shortness of breath. Patient did have some rectal bleeding when he was seen here, but states that this has since improved. Home Medications Home Medications Medication Instructions Recorded Confirmed Type cetirizine [Zyrtec] 10 mg PO HS 03/05/19 06/05/20 History montelukast 10 mg tablet 10 mg PO QAM #90 tab 08/27/19 06/05/20 Rx trazodone 150 mg tablet 150 mg PO HS #90 tab 02/27/20 06/05/20 Rx epinephrine [EpiPen] 0.3 mg IM DIRECTED PRN 04/14/20 06/05/20 History albuterol sulfate 90 mcg/actuation 2 puff INHALATION Q6H PRN #8 gm 05/01/20 06/05/20 Rx aerosol inhaler naltrexone 50 mg tablet 50 mg PO DAILY #30 tab 05/01/20 06/05/20 Rx Allergies Allergy/AdvReac Type Severity Reaction Status Date / Time nut - unspecified Allergy Severe Anaphylaxis Verified 06/05/20 04:11 peanut Allergy Severe Anaphylaxis Verified 06/05/20 04:11 No Known Drug Allergies Allergy Unknown NONE Verified 06/05/20 04:11 Past Med/Surg History Social History Smoking Status: Current every day smoker Tobacco Type: Cigarettes Cigarettes Per Day: 10; Second Hand Exposure: Yes; Hx Alcohol Use: Yes Alcohol type: wine Hx Substance Use: Yes Substance Use Type Other:: occasionally Preferred Language: Bulgarian Communication Ability: Effective Visual Impairment: No Limitations Hearing Ability: Normal Towing Pilot Required: Yes Beliefs That Will Affect Care: None marital status: Single Current Living Situation: Parent current occupational status: employed Feels Safe at Home: Yes Childhood Exposure to Second-Hand Smoke: Yes Dental Care, Regularly: Yes Physical Activity Frequency: 1-2 Times per Week Seatbelt Use: always Review of Systems A total of 10 systems reviewed and were otherwise negative Physical Exam Vital Signs Vital Signs - 24 hr 06/05/20 04:25 06/05/20 05:25 Temperature 36.6 C Temperature Source Oral Pulse Rate 137 H Pulse Rate [Right Finger] 100 H Respiratory Rate 18 16 Respiratory Depth Normal Normal Blood Pressure 146/78 H Blood Pressure [Right Arm] 153/97 H Blood Pressure Mean 100 Blood Pressure Mean [Right Arm] 115 Blood Pressure Position Lying Blood Pressure Position [Right Arm] Lying Pulse Oximetry 98 98 Oxygen Delivery Method Room Air Room Air Sepsis Recent Fever Within 48 Hours No Sepsis New/Unexplained Change in Mental Status No Sepsis Action Taken by Nursing No Action Required VITALS: Vitals are noted on the nurse's note and reviewed by myself. GENERAL: This is a 24-year-old male, in no acute distress, well-developed well- nourished. SKIN: The skin was without rashes. HEAD: Normocephalic atraumatic. EARS: External auditory canals clear, tympanic membranes pearly combs without erythema or effusion bilaterally. EYES: Pupils equal round and reactive to light and accommodation. Extraocular movements intact. NOSE: Patent, turbinates without inflammation or discharge. MOUTH: Mucous membranes moist. Tonsils are not enlarged. Pharynx without erythema or exudate. NECK: Supple without nuchal rigidity. No lymphadenopathy. HEART: Tachycardic, regular rhythm without murmurs gallops or rubs. LUNGS: Clear to auscultation bilaterally without wheezes, rales or rhonchi. ABDOMEN: Positive bowel sounds x 4. Soft, nontender to palpation.. No guarding or rebound tenderness. MUSCULOSKELETAL: Full range of motion throughout. Strength 5/5 throughout. NEURO: Patient was alert and oriented to person place and time. No focal neurological deficits. Course Consultations Consultation #1: Dr. Mar - [facility] [place] Administered Medications Discontinued Medications Sodium Chloride (Nss 1000ml) 1,000 mls @ 999 mls/hr IV .Q1H1M ONE Stop: 06/05/20 05:15 Last Admin: 06/05/20 04:36 Dose: 999 mls/hr Documented by: [id number] Lorazepam (Ativan) 2 mg in 4 mls @ 4 mls/min IV NOW STA Stop: 06/05/20 04:16 Last Admin: 06/05/20 04:35 Dose: 4 mls/min Documented by: [id number] Ondansetron HCl (Zofran) 4 mg IV NOW STA Stop: 06/05/20 04:16 Last Admin: 06/05/20 04:36 Dose: 4 mg Documented by: [id number] Medical Decision Making Differential Diagnosis Differential diagnosis includes alcohol withdrawal, drug withdrawal, infection, dehydration, electrolyte abnormality, among others. Medical Records Attestation: I reviewed the patient's medical records. Home Medications Current Medication List: was personally reviewed by me Laboratory Data Attestation: I reviewed the patient's lab results. Result diagrams: 06/05/20 04:31 06/05/20 04:31 Lab Results 06/05/20 06/05/20 06/05/20 Range/Units 04:31 04:31 04:31 WBC 7.74 (4.8-10.8) K/uL RBC 5.74 (4.7-6.1) M/uL Hgb 18.4 H (14.0-18.0) g/dL Hct 52.5 H (42-52) % MCV 91.5 (80-100) fL MCH 32.1 (25-34) pg MCHC 35.0 (32-36) g/dL RDW Std Deviation 42.1 (36.4-46.3) fL RDW Coeff of Guerrero 12.6 (11.5-14.5) % Plt Count 196 (130-400) K/uL MPV 10.0 (7.4-10.4) fL Immature Gran % (Auto) 0.1 % Neut % (Auto) 67.4 % Lymph % (Auto) 22.2 % [place] % (Auto) 6.6 % Eos % (Auto) 3.4 % Baso % (Auto) 0.3 % Neut # (Auto) 5.22 (1.4-6.5) K/uL Lymph # (Auto) 1.72 (1.2-3.4) K/uL [place] # (Auto) 0.51 (0.11-0.59) K/uL Eos # (Auto) 0.26 (0-0.5) K/uL Baso # (Auto) 0.02 (0-0.2) K/uL Immature Gran # (Auto) 0.01 (0.00-0.02) K/uL Sodium 141 (136-145) mmol/L Potassium 4.0 (3.5-5.1) mmol/L Chloride 109 H (98-107) mmol/L Carbon Dioxide 19 L (21-32) mmol/L Anion Gap 13.0 H (3-11) BUN 10 (7-18) mg/dl Creatinine 0.90 (0.6-1.4) mg/dl Est Cr Clr Drug Dosing 145.9 ml/min Est GFR ( Amer) 137.1 Est GFR (Non-Af Amer) 118.3 BUN/Creatinine Ratio 11.3 (10-20) Glucose 91 (70-99) mg/dl Calcium 8.4 L (8.5-10.1) mg/dl Total Bilirubin 0.4 (0.2-1) mg/dl AST 41 H (15-37) U/L ALT 46 (12-78) U/L Alkaline Phosphatase 82 (45-117) U/L Troponin I < 0.015 (0-0.045) ng/ml Total Protein 7.8 (6.4-8.2) gm/dl Albumin 3.6 (3.4-5.0) gm/dl Globulin 4.2 H (2.5-4.0) gm/dl Albumin/Globulin Ratio 0.9 (0.9-2) Ethyl Alcohol mg/dL 72.0 H (0-3) mg/dl ECG Data Attestation: I personally reviewed and interpreted this ECG as follows: Indication: + tachycardia Rate (beats per minute): 125 Rhythm: + sinus tachycardia ECG Intervals/blocks: + Normal QRS ECG ST segments: + Nonspecific ST abnormalities ECG Findings: + Other (baseline artifact) Change: no significant change Blood Pressure Blood Pressure Findings: Elevated blood pressure Blood Pressure Disposition: further management by hospitalist VERONICA Narrative The patient is a 24-year-old male who presents today complaining of anxiety/worsening symptoms of alcohol withdrawal. Patient is shaky and vomiting. He has been unable to keep anything down. He is tachycardic and hypertensive. Labs revealed no leukocytosis or anemia. Medical alcohol is 72. Patient with an anion gap of 13, chloride 109 and CO2 of 19. Patient was given IV fluids, Ativan and Zofran with symptomatic improvement. Given patient's worsening symptoms, I do feel he would benefit from inpatient treatment. Patient is agreeable with this. The case was discussed with the [facility], who agreed to evaluate the patient for further care. Impression & Plan Alcohol withdrawal Discharge Plan Visit Data Chief Complaint: Anxiety Stated Complaint: ANXIETY ED Provider: Chely Krueger ED Midlevel Provider: Thuy Orellana Discharge Problem: Alcohol withdrawal Forms Stand Alone Forms: My [facility], Suicide Prevention Resources Prescriptions Prescriptions: No Action montelukast 10 mg tablet 10 mg PO QAM Qty: 90 RF: 3 trazodone 150 mg tablet 150 mg PO HS Qty: 90 RF: 1 albuterol sulfate 90 mcg/actuation HFA aerosol inhaler 2 puff INHALATION Q6H PRN (Reason: Shortness Of Breath Or Wheezing) Qty: 8 RF: 5 naltrexone 50 mg tablet 50 mg PO DAILY Qty: 30 RF: 3 cetirizine [Zyrtec] 10 mg Tablet 10 mg PO HS RF: 0 epinephrine [EpiPen] 0.3 mg/0.3 mL Auto-Injector 0.3 mg IM DIRECTED PRN (Reason: Anaphylaxis) RF: 0 Discharge Problem: Alcohol withdrawal Qualifiers: Complication of substance-induced condition: uncomplicated Qualified Code(s): F10.230 - Alcohol dependence with withdrawal, uncomplicated
[2020-06-05 04:49] LABS: Basophils # (auto) 0.02 K/uL (0-0.2); Basophils % (auto) 0.3 %; Eosinophils # (auto) 0.26 K/uL (0-0.5); Eosinophils % (auto) 3.4 %; Hematocrit (blood only) 52.5 % (42-52); Hemoglobin 18.4 g/dL (14.0-18.0); Immature Granulocytes # (auto) 0.01 K/uL (0.00-0.02); Immature Granulocytes % (auto) 0.1 %; Lymphocytes # (auto) 1.72 K/uL (1.2-3.4); Lymphocytes % (auto) 22.2 %; Mean Corpuscular Hemoglobin 32.1 pg (25-34); Mean Corpuscular Volume 91.5 fL (80-100); Monocytes # (auto) 0.51 K/uL (0.11-0.59); Monocytes % (auto) 6.6 %; Neutrophils # (auto) 5.22 K/uL (1.4-6.5); Neutrophils % (auto) 67.4 %; Platelet Count 196 K/uL (130-400); RDW Coefficient of Variation 12.6 % (11.5-14.5); RDW Standard Deviation 42.1 fL (36.4-46.3); Red Blood Count 5.74 M/uL (4.7-6.1); White Blood Count 7.74 K/uL (4.8-10.8)
[2020-06-05 05:06] LABS: Alanine Aminotransferase 46 U/L (12-78); Albumin Level 3.6 gm/dl (3.4-5.0); Aspartate Aminotransferase 41 U/L (15-37); BUN Creatinine Ratio 11.3 (10-20); Blood Urea Nitrogen 10 mg/dl (7-18); Calcium 8.4 mg/dl (8.5-10.1); Carbon Dioxide 19 mmol/L (21-32); Chloride 109 mmol/L (98-107); Creatinine Clr Calc Pharmacy 145.9 ml/min; Est GFR (African American) 137.1; Est GFR (Non-African American) 118.3; Glucose 91 mg/dl (70-99); Sodium 141 mmol/L (136-145)
[2020-06-05 05:11] LABS: Albumin Globulin Ratio 0.9 (0.9-2); Alkaline Phosphatase 82 U/L (45-117); Bilirubin,Total 0.4 mg/dl (0.2-1); Globulin 4.2 gm/dl (2.5-4.0); Total Protein 7.8 gm/dl (6.4-8.2); Troponin I < 0.015 ng/ml (0-0.045)
--- NOTE | 2020-06-05 06:00 | History & Physical Report ---
Date of Service June 05, 2020 Assessment & Plan (1) Alcohol abuse: 24yo C male with history of EtOH abuse presents in acute EtOH withdrawal. Patient tachycardic, hypertensive on arrival, tremulous. He drinks approximately 15 alcoholic drinks per day. Last drink appx 24 hours ago. Patient feels improved after Ativan 2mg IV and Zofran. He is involved with AA and attends meetings occasionally. He is planning on enrolling in intense outpatient alcohol rehabilitation after he returns home. -Admit to medical floor -Check B12, Folate -Banana bag x 500mL -Thiamine 100mg po daily -Folate po daily -Valium 20mg po x 1 dose -Continuous pulse oximetry -AWSS - Active protocol with IV Ativan -Continue Naltrexone 50mg po daily Present on Admission?: Yes (2) Anxiety: Patient with poorly controlled anxiety. Reports being on Zoloft in the past and did not like how he felt on it. Also was on PRN Lorazepam in the past. Presently only on Trazodone 150mg po qHS. May consider Hydroxyzine as needed on discharge to help with anxiety. -Continue Trazodone F/E/N - Banana bag followed by LR x 1 L, monitor electrolyes and replete as needed, regular diet as tolerated Ppx - low risk for DVT Code - Full Dispo - Admit to medical floor Admission and Anticipated Discharge Date Admission Date: 06/05/20 Anticipated date of discharge: 06/06/20 History of Present Illness Chief Complaint: EtOH withdrawal Primary Care Provider: Allan Edwards MD Hosea Castro is a 24yo C male with history of EtOH abuse, anxiety, and juvenile polyposis. He presents to the ER today in EtOH withdrawal. Patient reports drinking approximately 12-15 beers and a few shots of liquor daily. His last drink was appx 24 hours ago. He has been shaking and anxious, unable to sleep for the last 2-3 days. He has had mild withdrawal symptoms before; no history of seizure. Patient also endorses increased stress and anxiety lately. ER Course: Ativan 2mg IV, Zofran, NSS Allergies Allergy/AdvReac Type Severity Reaction Status Date / Time nut - unspecified Allergy Severe Anaphylaxis Verified 06/05/20 04:11 peanut Allergy Severe Anaphylaxis Verified 06/05/20 04:11 No Known Drug Allergies Allergy Unknown NONE Verified 06/05/20 04:11 Home Medications Home Medications Medication Instructions Recorded Confirmed Type cetirizine [Zyrtec] 10 mg PO HS 03/05/19 06/05/20 History montelukast 10 mg tablet 10 mg PO QAM #90 tab 08/27/19 06/05/20 Rx trazodone 150 mg tablet 150 mg PO HS #90 tab 02/27/20 06/05/20 Rx epinephrine [EpiPen] 0.3 mg IM DIRECTED PRN 04/14/20 06/05/20 History albuterol sulfate 90 mcg/actuation 2 puff INHALATION Q6H PRN #8 gm 05/01/20 06/05/20 Rx aerosol inhaler naltrexone 50 mg tablet 50 mg PO DAILY #30 tab 05/01/20 06/05/20 Rx Past Med/Surg History Social History Smoking Status: Current every day smoker Tobacco Type: Cigarettes Cigarettes Per Day: 10; Second Hand Exposure: Yes; Hx Alcohol Use: Yes Alcohol type: wine Hx Substance Use: Yes Substance Use Type Other:: occasionally Preferred Language: Barbadian Communication Ability: Effective Visual Impairment: No Limitations Hearing Ability: Normal Clinical Product Specialist Required: Yes Beliefs That Will Affect Care: None marital status: Single Current Living Situation: Parent current occupational status: employed Feels Safe at Home: Yes Childhood Exposure to Second-Hand Smoke: Yes Dental Care, Regularly: Yes Physical Activity Frequency: 1-2 Times per Week Seatbelt Use: always Review of Systems Review of Systems: All systems reviewed & are unremarkable except as noted in HPI & below +Nausea +Vomiting +Tremors +PO intolerance Patient denies fevers/chills/CP/SOB/abdominal pain Physical Exam Physical Exam: General: patient resting comfortably, NAD, non-toxic in appearance, AA&O x 4, tremulous Skin: warm, dry, intact, no rashes or lesions HEENT: NC/AT, PERRL, EOMI, anicteric sclera, conjunctiva without injection, external ear normal to inspection and nontender, nares patent, moist mucus membranes, dentition intact, no oropharyngeal lesions, neck supple, trachea midline, no LAD, no thyromegaly, no JVD Heart: +S1/S2, regular, tachycardic, no m/r/g Lungs: equal air entry bilaterally, no rales/rhonchi/wheezes Abd: +BS, soft, NT/ND, no masses/organomegaly/ascites Ext: warm, 2+ pulses in UE/LE bilaterally, no clubbing/cyanosis or edema Neuro: nonfocal, patient AA&O x 4, speech intact, no facial droop, moving all extremities on command with equal strength 5/5 Results & Data Results & Data ([facility]) Vital Signs (Past 12 Hours) Vital Signs Temp Pulse Pulse Resp BP BP Pulse Ox 06/05/20 05:25 100 H 16 153/97 H 98 06/05/20 04:25 36.6 C 137 H 18 146/78 H 98 Laboratory Results Lab Results 06/05/20 06/05/20 06/05/20 Range/Units 04:31 04:31 04:31 WBC 7.74 (4.8-10.8) K/uL RBC 5.74 (4.7-6.1) M/uL Hgb 18.4 H (14.0-18.0) g/dL Hct 52.5 H (42-52) % MCV 91.5 (80-100) fL MCH 32.1 (25-34) pg MCHC 35.0 (32-36) g/dL RDW Std Deviation 42.1 (36.4-46.3) fL RDW Coeff of Guerrero 12.6 (11.5-14.5) % Plt Count 196 (130-400) K/uL MPV 10.0 (7.4-10.4) fL Immature Gran % (Auto) 0.1 % Neut % (Auto) 67.4 % Lymph % (Auto) 22.2 % [place] % (Auto) 6.6 % Eos % (Auto) 3.4 % Baso % (Auto) 0.3 % Neut # (Auto) 5.22 (1.4-6.5) K/uL Lymph # (Auto) 1.72 (1.2-3.4) K/uL [place] # (Auto) 0.51 (0.11-0.59) K/uL Eos # (Auto) 0.26 (0-0.5) K/uL Baso # (Auto) 0.02 (0-0.2) K/uL Immature Gran # (Auto) 0.01 (0.00-0.02) K/uL Sodium 141 (136-145) mmol/L Potassium 4.0 (3.5-5.1) mmol/L Chloride 109 H (98-107) mmol/L Carbon Dioxide 19 L (21-32) mmol/L Anion Gap 13.0 H (3-11) BUN 10 (7-18) mg/dl Creatinine 0.90 (0.6-1.4) mg/dl Est Cr Clr Drug Dosing 145.9 ml/min Est GFR ( Amer) 137.1 Est GFR (Non-Af Amer) 118.3 BUN/Creatinine Ratio 11.3 (10-20) Glucose 91 (70-99) mg/dl Calcium 8.4 L (8.5-10.1) mg/dl Total Bilirubin 0.4 (0.2-1) mg/dl AST 41 H (15-37) U/L ALT 46 (12-78) U/L Alkaline Phosphatase 82 (45-117) U/L Troponin I < 0.015 (0-0.045) ng/ml Total Protein 7.8 (6.4-8.2) gm/dl Albumin 3.6 (3.4-5.0) gm/dl Globulin 4.2 H (2.5-4.0) gm/dl Albumin/Globulin Ratio 0.9 (0.9-2) Ethyl Alcohol mg/dL 72.0 H (0-3) mg/dl Code Status & VTE Plan Code Status Full PG Care Time/CCT Total # of Minutes Spent Total Time Spent with Patient: Total time spent is greater than 50% in coordination of care (as documented) at patient's floor/unit and/or counseling patient: Coding Level of Care Code 18404 Initial Inpt Care Lvl 2 Diagnoses Alcohol abuse F10.10 Anxiety F41.9
[2020-06-05 06:16] LABS: Appearance Urine Clear (Clear); Bacteria Urine Automated Negative (Negative); Bilirubin Urine Negative (Negative); Blood Urine Negative (Negative); Color Urine Yellow; Glucose Urine UA Negative (Negative); Ketones Urine 1+ (Negative); Leukocyte Esterase Urine Negative (Negative); Nitrite Urine Negative (Negative); Protein Urine Trace (Negative); RBC Urine Automated 0-4 /hpf (0-4); Specific Gravity Urine 1.024 (1.000-1.030); Urobilinogen Urine Negative (Negative); pH Urine 5.5 (4.5-7.5)
[2020-06-05] MEDS ORDERED: ACETAMINOPHEN 325 MG TAB PO PRN (06:32)
[2020-06-05] MEDS ORDERED: LORazepam 2 MG/4 ML VIAL IV PRN (06:32)
[2020-06-05] MEDS ORDERED: ALBUTEROL HFA 8 GM INHALER INH PRN (06:32)
[2020-06-05] MEDS ORDERED: LACTATED RINGER'S 1,000 ML IV SCH (06:32)
[2020-06-05] MEDS ORDERED: diazePAM 5 MG TABLET PO ONE (06:32)
[2020-06-05] MEDS ORDERED: LORazepam 3 MG/6 ML VIAL IV PRN (06:32)
[2020-06-05] MEDS ORDERED: ATIVAN IV ALCOHOL WITHDRAWL IV PRN (06:32)
[2020-06-05] MEDS ORDERED: ONDANSETRON INJ 2 MG/ML 2 ML VIAL IV PRN (06:32)
[2020-06-05] MEDS ORDERED: MULTI-VITAMIN INFUSION 10 ML, THIAMINE HCL 100 MG, FOLIC ACID 1 MG in SODIUM CHLORIDE 0... IV ONE (07:00)
[2020-06-05] MEDS: LORazepam 1 MG/2 ML VIAL IV PRN ×2 (08:19→14:23)
--- NOTE | 2020-06-05 08:59 | Electrocardiogram Report ---
Test Reason : Blood Pressure : / mmHG Vent. Rate : 125 BPM Atrial Rate : 125 BPM P-R Int : 124 ms QRS Dur : 074 ms QT Int : 310 ms P-R-T Axes : 074 062 -06 degrees QTc Int : 447 ms Sinus tachycardia Minor Nonspecific T wave abnormality Inferior leads Abnormal ECG When compared with ECG of 03-JUN-2020 21:34, No significant change was found Confirmed by Juan Denis ([id number]) on 06/05/2020 8:58:56 AM Referred By: REFERRED SELF Confirmed By:Juan Denis
[2020-06-05] MEDS: FOLIC ACID 1 MG TAB PO SCH (09:14)
[2020-06-05] MEDS: NALTREXONE HCL 50 MG TAB PO SCH (09:14)
[2020-06-05] MEDS: THIAMINE HCL 100 MG TAB PO SCH (09:14)
[2020-06-05] MEDS: MONTELUKAST SODIUM 10 MG TABLET PO SCH (09:14)
[2020-06-05] MEDS ORDERED: CETIRIZINE HCL 10 MG TABLET PO SCH (21:00)
[2020-06-05] MEDS ORDERED: TRAZODONE HCL 50 MG TAB PO SCH (21:00)
[2020-06-06] MEDS ORDERED: LORazepam 0.5 MG/1 ML VIAL IV ONE (01:15)
[2020-06-06 07:12] LABS: Basophils # (auto) 0.02 K/uL (0-0.2); Basophils % (auto) 0.3 %; Eosinophils # (auto) 0.21 K/uL (0-0.5); Eosinophils % (auto) 3.5 %; Hematocrit (blood only) 47.1 % (42-52); Hemoglobin 16.2 g/dL (14.0-18.0); Immature Granulocytes # (auto) 0.01 K/uL (0.00-0.02); Immature Granulocytes % (auto) 0.2 %; Lymphocytes # (auto) 2.14 K/uL (1.2-3.4); Lymphocytes % (auto) 35.3 %; Mean Corpuscular Hemoglobin 31.4 pg (25-34); Mean Corpuscular Hgb Conc 34.4 g/dL (32-36); Mean Corpuscular Volume 91.3 fL (80-100); Mean Platelet Volume 10.2 fL (7.4-10.4); Monocytes # (auto) 0.56 K/uL (0.11-0.59); Monocytes % (auto) 9.2 %; Neutrophils # (auto) 3.12 K/uL (1.4-6.5); Neutrophils % (auto) 51.5 %; Platelet Count 149 K/uL (130-400); RDW Coefficient of Variation 12.3 % (11.5-14.5); RDW Standard Deviation 41.2 fL (36.4-46.3); Red Blood Count 5.16 M/uL (4.7-6.1); White Blood Count 6.06 K/uL (4.8-10.8)
[2020-06-06 07:40] LABS: BUN Creatinine Ratio 8.8 (10-20); Calcium 8.4 mg/dl (8.5-10.1); Creatinine Clr Calc Pharmacy 149.2 ml/min; Est GFR (African American) 138.4; Est GFR (Non-African American) 119.4; Magnesium 2.1 mg/dl (1.8-2.4); Potassium 3.6 mmol/L (3.5-5.1)
[2020-06-06] MEDS: THIAMINE HCL 100 MG TAB PO SCH (08:46)
[2020-06-06] MEDS: FOLIC ACID 1 MG TAB PO SCH (08:46)
[2020-06-06] MEDS: NALTREXONE HCL 50 MG TAB PO SCH (08:46)
[2020-06-06] MEDS: MONTELUKAST SODIUM 10 MG TABLET PO SCH (08:46)
--- NOTE | 2020-06-13 08:13 | Discharge Summary ---
Date of Service June 06, 2020 Admission HPI Per Admitting Provider Hosea Castro is a 24yo C male with history of EtOH abuse, anxiety, and juvenile polyposis. He presents to the ER today in EtOH withdrawal. Patient reports drinking approximately 12-15 beers and a few shots of liquor daily. His last drink was appx 24 hours ago. He has been shaking and anxious, unable to sleep for the last 2-3 days. He has had mild withdrawal symptoms before; no history of seizure. Patient also endorses increased stress and anxiety lately. ER Course: Ativan 2mg IV, Zofran, NSS Principal Diagnosis Alcohol abuse Discharge Exam General: patient resting comfortably, NAD, non-toxic in appearance, AA&O x 4 Skin: warm, dry, intact, no rashes or lesions HEENT: NC/AT, PERRL, EOMI, anicteric sclera, conjunctiva without injection, external ear normal to inspection and nontender, nares patent, moist mucus membranes, dentition intact, no oropharyngeal lesions, neck supple, trachea midline, no LAD, no thyromegaly, no JVD Heart: +S1/S2, regular, tachycardic, no m/r/g Lungs: equal air entry bilaterally, no rales/rhonchi/wheezes Abd: +BS, soft, NT/ND, no masses/organomegaly/ascites Ext: warm, 2+ pulses in UE/LE bilaterally, no clubbing/cyanosis or edema Neuro: nonfocal, patient AA&O x 4, speech intact, no facial droop, moving all extremities on command with equal strength 5/5 Discharge Data Allergies Allergy/AdvReac Type Severity Reaction Status Date / Time nut - unspecified Allergy Severe Anaphylaxis Verified 06/05/20 04:11 peanut Allergy Severe Anaphylaxis Verified 06/05/20 04:11 No Known Drug Allergies Allergy Unknown NONE Verified 06/05/20 04:11 Consultations 06/05/20 05:11 ED Decision to Admit Stat Hospital Course (1) Alcohol abuse: 24yo C male with history of EtOH abuse presents in acute EtOH withdrawal. Patient tachycardic, hypertensive on arrival, tremulous. He drinks approximately 15 alcoholic drinks per day. Last drink appx 24 hours ago. Patient feels improved after Ativan 2mg IV and Zofran. He is involved with AA and attends meetings occasionally. He is planning on enrolling in intense outpatient alcohol rehabilitation after he returns home. -Admit to medical floor -Check B12, Folate -Banana bag x 500mL -Thiamine 100mg po daily -Folate po daily -Valium 20mg po x 1 dose -Continuous pulse oximetry -AWSS - Active protocol with IV Ativan -Continue Naltrexone 50mg po daily On day 2, patient reports feeling better. He does not want to go to rehab at this time. No longer showing signs of tremors. Explained if patient is feeling worse, he can return to the hospital. 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 Patient showed understanding. (2) Anxiety: Patient with poorly controlled anxiety. Reports being on Zoloft in the past and did not like how he felt on it. Also was on PRN Lorazepam in the past. Presently only on Trazodone 150mg po qHS. May consider Hydroxyzine as needed on discharge to help with anxiety. -Continue Trazodone Total Time Total Time Spent Total Time Spent (In Minutes): 32 Discharge Plan Discharge Items Patient Disposition: Home - Self-Care Reason For Visit: ETOH WITHDRAWAL Discharge Diagnosis: ETOH withdrawal. Activity: Resume your previous activity Non-emergency contact: Primary Care Provider Call non-emergency contact if: you have any medication questions Follow-up/Referrals: Allan Barahona MD [Primary Care Provider] - Diet: Regular Addtl Attending Provider Instructions: Youw ere admitted for alcohol withdrawal. Will reccommend alcohol rehab. Information was given to you. Pending Studies at Discharge: No Stand-Alone Forms: My [facility], Smoking Cessation, Suicide Prevention Resources Medications and DC Order Prescriptions: New thiamine HCl (vitamin B1) [Vitamin B-1] 100 mg Tablet 100 mg PO QAM Qty: 30 RF: 0 folic acid 1 mg Tablet 1 mg PO QAM Qty: 30 RF: 0 Continued montelukast 10 mg tablet 10 mg PO QAM Qty: 90 RF: 3 trazodone 150 mg tablet 150 mg PO HS Qty: 90 RF: 1 albuterol sulfate 90 mcg/actuation HFA aerosol inhaler 2 puff INHALATION Q6H PRN (Reason: Shortness Of Breath Or Wheezing) Qty: 8 RF: 5 naltrexone 50 mg tablet 50 mg PO DAILY Qty: 30 RF: 3 cetirizine [Zyrtec] 10 mg Tablet 10 mg PO HS RF: 0 epinephrine [EpiPen] 0.3 mg/0.3 mL Auto-Injector 0.3 mg IM DIRECTED PRN (Reason: Anaphylaxis) RF: 0 Discharge Orders: Discharge Order (Routine); Ordered 06/06/20 Ordered By: Yaakov Garza Admission Data Admit Date/Time: 06/05/20 05:48 Attending Provider: Yaakov Garza Admit Provider: Lauren Mar Primary Care Provider: Allan Barahona V. Other Providers: Lauren Mar Other Interventions: Discharge Summary Assessment (RN) Last Done: 06/06/20 12:41 DC Date/Time DO NOT enter until pt leaves facility: 06/06/20 13:17 Coding Level of Care Code 89521 OBS Care - Discharge Diagnoses Alcohol abuse F10.10 Anxiety F41.9
== END 2020-06-06 13:17 | disposition home or self-care (01) ==
LOC: ED 04:07 → SUATTDRO 05:48 → 3E 05:48 → INTOOBSV 05:48 → 3E 06:19
DX: F41.9 Anxiety disorder, unspecified; F17.210 Nicotine dependence, cigarettes, uncomplicated; I10 Essential (primary) hypertension; F10.239 Alcohol dependence with withdrawal, unspecified; Z91.010 Allergy to peanuts

== ENCOUNTER 2020-09-16 16:37 | Observation (INO) ==
[2020-09-16] MEDS ORDERED: MULTI-VITAMIN INFUSION 10 ML, THIAMINE HCL 100 MG, FOLIC ACID 1 MG in SODIUM CHLORIDE 0... IV ONE (16:52)
[2020-09-16] MEDS ORDERED: ONDANSETRON INJ 2 MG/ML 2 ML VIAL IV STA (16:52)
[2020-09-16] MEDS ORDERED: SODIUM CHLORIDE 0.9% 1000ML 1,000 ML IV SCH (17:00)
--- NOTE | 2020-09-16 17:07 | Emergency Department Note ---
Impression & Plan Alcohol abuse, Alcohol withdrawal, Depression with suicidal ideation ED Provider Note NAME: DONOVAN BALL AGE: 24 SEX: M : 1995 ARRIVES VIA: Walk-In INFORMANT: Patient, ED PROVIDER(S): Anival Mora DO CHIEF COMPLAINT: Alcohol withdrawal HPI: The patient is a 24-year-old male who presented to the emergency department for fears of alcohol withdrawal. The patient does have a history of alcohol abuse. He was seen in our facility last May for similar complaints and at that time required outpatient treatment for alcohol withdrawal. He states that he started drinking again recently currently is on a 9-day episode of consecutive drinking alcohol. He has been drinking vodka. He states his last drink was at midnight last night. The patient denies having any recent falls. He does complain of headache nausea and vomiting. He denies having any fever. He said no coughing. He denies having any weakness. The patient has been experiencing depression as well as anxiety. He feels that his anxiety is out of control. He does not feel that he is being treated appropriately with his medications. When he moved from [place] he was taking medication for ADHD which she could not get once he moved to [place]. The patient denies having any rectal bleeding. He was not seen by his primary care physician prior to coming to the emergency department. The patient is also noticed significant depression. He has suicidal ideation but no specific plan at this time. ROS: See above HPI for pertinent positives & negatives. A total of 10 systems reviewed and were otherwise negative. PAST MEDICAL HISTORY: See Below PAST SURGICAL HISTORY: See Below FAMILY HISTORY: See Below SOCIAL HISTORY: See Below HOME MEDICATIONS: See Below ALLERGIES: See Below VITALS: See Below PHYSICAL EXAMINATION: GENERAL: The patient is awake and alert. He is very anxious and tearful. EYES: The conjunctivae are injected bilaterally. Pupils are round and reactive to light bilaterally. EARS, NOSE, MOUTH AND THROAT: The nose is without any evidence of any deformity. NECK: The neck is nontender and supple. RESPIRATORY: Normal respiratory effort is noted there is no evidence of wheezing rhonchi or rales CARDIOVASCULAR: Tachycardic rate with regular rhythm was noted. There was no definite murmur. GASTROINTESTINAL: The abdomen is soft. Abdomen is nontender. MUSCULOSKELETAL/EXTREMITIES: There is no evidence of gross deformity full range of motion is noted in the hips and shoulders. SKIN: Skin is warm and dry. There is no specific pedal edema. NEUROLOGIC: Patient is awake alert and oriented x3 strength is symmetric patellar reflexes are 2+ bilaterally PSYCH: The patient is tearful and very anxious. He makes good eye contact for most the evaluation. He still admitting to suicidal ideation but again has no specific plan. MEDICAL DECISION MAKING: The patient is a 24-year-old male who has a history of alcoholism who presented to the emergency department with very significant depression suicidal ideation alcohol abuse. The patient started having early signs of alcohol withdrawal and was treated with benzodiazepine as well as IV fluids and a banana bag. The patient was reevaluated multiple times. He was feeling much better on subsequent reevaluation. Because the degree of the patient's symptomatology I did discuss this case with the on-call [facility] hospitalist. The patient was agreeable to evaluation for inpatient management. They have agreed to evaluate the patient in the emergency department for further management and disposition. Triage Nursing notes reviewed. Prior medical records reviewed Vital Signs: reviewed and remarkable for tachycardia Differential diagnosis: Mood disorder, infection, hypoglycemia, electrolyte abnormalities, cardiac sources, intracerebral event, toxicologic, trauma, neurologic, as well as other pathologies. ER treatment provided: See below Diagnostics interpreted by me: ECG: EKG was obtained in the emergency department. My interpretation is sinus tachycardia 118 bpm. There is no ectopy. There was no acute ST segment abnormalities noted. This was compared to a tracing from June 052019. No significant changes were noted. Cardiac Monitoring: An order was placed for continuous cardiac monitoring. The monitor shows a rate of 115 bpm with sinus tachycardia rhythm. Laboratory studies: As stated above and show below. Imaging studies: See below Consultation(s): [id number]: I discussed this case with Dr. Tse Past Med/Surg History Medical History (Updated 09/16/20 @ 23:03 by Anival Mora DO) Alcohol abuse Anemia Anxiety Asthma Colon polyps Congenital absence of one kidney Depression Hemorrhage of gastrointestinal tract Inguinal hernia repair by ramjoselyn Intestinal polyposis Juvenile polyposis syndrome Juvenile polyposis syndrome Surgical History History of endoscopy S/P inguinal hernia repair Family History Father Anxiety Essential hypertension Alcohol abuse Family/Other Colorectal cancer Grandmother (Paternal) Breast cancer Grandmother (Maternal) Myocardial infarction Brother Depression Mother Alcohol abuse Uncle Throat cancer Grandmother Dementia Denies family history of Ovarian cancer Prostate cancer Lung cancer Social History Smoking Status: Current every day smoker Tobacco Type: Cigarettes Cigarettes Per Day: 6-8 cigarettes per day; Second Hand Exposure: No; Do You Dip or Chew Tobacco: No; Tobacco Cessation Education Requested by Patient: No Hx Alcohol Use: Yes Alcohol type: beer, wine and hard liquor Hx Substance Use: Yes Last Used Substance: Just Prior to Arrival Last Used Substance Other:: early am Substance Use Type Other:: occasionally Preferred Language: Lithuanian Communication Ability: Effective Visual Impairment: No Limitations Hearing Ability: Normal Humane Officer Required: No Beliefs That Will Affect Care: None marital status: Single Current Living Situation: Alone current occupational status: employed Other Information That Helps Us Care for You: No Feels Safe at Home: Yes Safety Concerns: Feels Safe At This Time Childhood Exposure to Second-Hand Smoke: Yes Dental Care, Regularly: Yes Physical Activity Frequency: 1-2 Times per Week Seatbelt Use: always Assistive Devices: None Allergies Allergies Allergy/AdvReac Type Severity Reaction Status Date / Time peanut Allergy Severe Anaphylaxis Verified 09/16/20 21:01 Home Meds Home Medications Medication Instructions Recorded Confirmed epinephrine [EpiPen] 0.3 mg IM DIRECTED PRN 04/14/20 09/16/20 cetirizine [Zyrtec] 10 mg PO DAILY PRN 09/16/20 09/16/20 venlafaxine 37.5 mg PO QAM 09/16/20 09/16/20 Previous Rx's Medication Instructions Recorded montelukast 10 mg tablet 10 mg PO QAM #90 tab 08/27/19 albuterol sulfate 90 mcg/actuation 2 puff INHALATION Q6H PRN #8 gm 09/08/20 aerosol inhaler trazodone 300 mg tablet 300 mg PO HS #30 tab 09/08/20 Results & Data (ED) Vital Signs Vital Signs - 24 hr 09/16/20 16:42 09/16/20 17:09 09/16/20 17:28 Temperature 36.8 C Temperature Source Oral Pulse Rate 137 H Pulse Rate [Apical] 108 H Respiratory Rate 24 18 Respiratory Depth Shallow Respiratory Pattern Tachypnea Blood Pressure 138/100 Blood Pressure [Left Arm] 143/102 H Blood Pressure Mean 112 Blood Pressure Mean [Left Arm] 115 Pulse Oximetry 97 99 Oxygen Delivery Method Room Air Room Air Room Air Sepsis Recent Fever Within 48 Hours No Sepsis New/Unexplained Change in Mental Status No Sepsis Action Taken by Nursing No Action Required 09/16/20 17:29 09/16/20 18:41 Temperature Temperature Source Pulse Rate Pulse Rate [Apical] 112 H Respiratory Rate 16 Respiratory Depth Respiratory Pattern Blood Pressure Blood Pressure [Left Arm] 137/99 Blood Pressure Mean Blood Pressure Mean [Left Arm] 111 Pulse Oximetry 98 Oxygen Delivery Method Room Air Room Air Sepsis Recent Fever Within 48 Hours Sepsis New/Unexplained Change in Mental Status Sepsis Action Taken by Halfway Medications Current Medication List: was personally reviewed by me Laboratory Data Attestation: I reviewed the patient's lab results. Result diagrams: 09/16/20 17:15 09/16/20 18:38 Lab Results 09/16/20 09/16/20 09/16/20 Range/Units 17:15 17:15 17:15 WBC 7.70 (4.8-10.8) K/uL RBC 5.92 (4.7-6.1) M/uL Hgb 18.7 H (14.0-18.0) g/dL Hct 53.7 H (42-52) % MCV 90.7 (80-100) fL MCH 31.6 (25-34) pg MCHC 34.8 (32-36) g/dL RDW Std Deviation 42.5 (36.4-46.3) fL RDW Coeff of Guerrero 12.9 (11.5-14.5) % Plt Count 244 (130-400) K/uL MPV 9.9 (7.4-10.4) fL Immature Gran % (Auto) 0.1 % Neut % (Auto) 56.5 % Lymph % (Auto) 37.9 % [place] % (Auto) 4.2 % Eos % (Auto) 0.9 % Baso % (Auto) 0.4 % Neut # (Auto) 4.35 (1.4-6.5) K/uL Lymph # (Auto) 2.92 (1.2-3.4) K/uL [place] # (Auto) 0.32 (0.11-0.59) K/uL Eos # (Auto) 0.07 (0-0.5) K/uL Baso # (Auto) 0.03 (0-0.2) K/uL Immature Gran # (Auto) 0.01 (0.00-0.02) K/uL PT 12.1 H (9.0-12.0) Seconds INR 1.2 H (0.9-1.1) APTT 27.9 (21.0-31.0) Seconds PTT Ratio 1.0 Sodium 138 (136-145) mmol/L Potassium (3.5-5.1) mmol/L Chloride 106 (98-107) mmol/L Carbon Dioxide 23 (21-32) mmol/L Anion Gap 9.0 (3-11) BUN 16 (7-18) mg/dl Creatinine 0.96 (0.6-1.4) mg/dl Est Cr Clr Drug Dosing 136.8 ml/min Est GFR ( Amer) 126.8 Est GFR (Non-Af Amer) 109.4 BUN/Creatinine Ratio 16.2 (10-20) Glucose 105 H (70-99) mg/dl Lactate (0.4-2.0) mmol/L Calcium 8.5 (8.5-10.1) mg/dl Magnesium (1.8-2.4) mg/dl Total Bilirubin 0.5 (0.2-1) mg/dl AST (15-37) U/L ALT 72 (12-78) U/L Alkaline Phosphatase 79 (45-117) U/L Total Creatine Kinase TNP Troponin I < 0.015 (0-0.045) ng/ml Total Protein 8.3 H (6.4-8.2) gm/dl Albumin 3.7 (3.4-5.0) gm/dl Globulin 4.6 H (2.5-4.0) gm/dl Albumin/Globulin Ratio 0.8 L (0.9-2) Lipase 230 (73-393) U/L Salicylates Acetaminophen Ethyl Alcohol mg/dL (0-3) mg/dl 09/16/20 09/16/20 09/16/20 Range/Units 17:15 18:38 18:38 WBC (4.8-10.8) K/uL RBC (4.7-6.1) M/uL Hgb (14.0-18.0) g/dL Hct (42-52) % MCV (80-100) fL MCH (25-34) pg MCHC (32-36) g/dL RDW Std Deviation (36.4-46.3) fL RDW Coeff of Guerrero (11.5-14.5) % Plt Count (130-400) K/uL MPV (7.4-10.4) fL Immature Gran % (Auto) % Neut % (Auto) % Lymph % (Auto) % [place] % (Auto) % Eos % (Auto) % Baso % (Auto) % Neut # (Auto) (1.4-6.5) K/uL Lymph # (Auto) (1.2-3.4) K/uL [place] # (Auto) (0.11-0.59) K/uL Eos # (Auto) (0-0.5) K/uL Baso # (Auto) (0-0.2) K/uL Immature Gran # (Auto) (0.00-0.02) K/uL PT (9.0-12.0) Seconds INR (0.9-1.1) APTT (21.0-31.0) Seconds PTT Ratio Sodium (136-145) mmol/L Potassium (3.5-5.1) mmol/L Chloride (98-107) mmol/L Carbon Dioxide (21-32) mmol/L Anion Gap (3-11) BUN (7-18) mg/dl Creatinine (0.6-1.4) mg/dl Est Cr Clr Drug Dosing ml/min Est GFR ( Amer) Est GFR (Non-Af Amer) BUN/Creatinine Ratio (10-20) Glucose (70-99) mg/dl Lactate 3.9 H* (0.4-2.0) mmol/L Calcium (8.5-10.1) mg/dl Magnesium (1.8-2.4) mg/dl Total Bilirubin (0.2-1) mg/dl AST (15-37) U/L ALT (12-78) U/L Alkaline Phosphatase (45-117) U/L Total Creatine Kinase Troponin I (0-0.045) ng/ml Total Protein (6.4-8.2) gm/dl Albumin (3.4-5.0) gm/dl Globulin (2.5-4.0) gm/dl Albumin/Globulin Ratio (0.9-2) Lipase (73-393) U/L Salicylates Cancelled Acetaminophen Cancelled Ethyl Alcohol mg/dL 323.2 H (0-3) mg/dl 09/16/20 09/16/20 Range/Units 18:38 18:38 WBC (4.8-10.8) K/uL RBC (4.7-6.1) M/uL Hgb (14.0-18.0) g/dL Hct (42-52) % MCV (80-100) fL MCH (25-34) pg MCHC (32-36) g/dL RDW Std Deviation (36.4-46.3) fL RDW Coeff of Guerrero (11.5-14.5) % Plt Count (130-400) K/uL MPV (7.4-10.4) fL Immature Gran % (Auto) % Neut % (Auto) % Lymph % (Auto) % [place] % (Auto) % Eos % (Auto) % Baso % (Auto) % Neut # (Auto) (1.4-6.5) K/uL Lymph # (Auto) (1.2-3.4) K/uL [place] # (Auto) (0.11-0.59) K/uL Eos # (Auto) (0-0.5) K/uL Baso # (Auto) (0-0.2) K/uL Immature Gran # (Auto) (0.00-0.02) K/uL PT (9.0-12.0) Seconds INR (0.9-1.1) APTT (21.0-31.0) Seconds PTT Ratio Sodium (136-145) mmol/L Potassium 3.7 (3.5-5.1) mmol/L Chloride (98-107) mmol/L Carbon Dioxide (21-32) mmol/L Anion Gap (3-11) BUN (7-18) mg/dl Creatinine (0.6-1.4) mg/dl Est Cr Clr Drug Dosing ml/min Est GFR ( Amer) Est GFR (Non-Af Amer) BUN/Creatinine Ratio (10-20) Glucose (70-99) mg/dl Lactate (0.4-2.0) mmol/L Calcium (8.5-10.1) mg/dl Magnesium 2.2 (1.8-2.4) mg/dl Total Bilirubin (0.2-1) mg/dl AST 50 H (15-37) U/L ALT (12-78) U/L Alkaline Phosphatase (45-117) U/L Total Creatine Kinase Troponin I (0-0.045) ng/ml Total Protein (6.4-8.2) gm/dl Albumin (3.4-5.0) gm/dl Globulin (2.5-4.0) gm/dl Albumin/Globulin Ratio (0.9-2) Lipase (73-393) U/L Salicylates < 1.7 L Acetaminophen < 2 L Ethyl Alcohol mg/dL (0-3) mg/dl Administered Medications Discontinued Medications Sodium Chloride (Nss 1000ml) 1,000 mls @ 999 mls/hr IV .Q1H1M SHONDA Stop: 09/16/20 18:00 Last Infusion: 09/16/20 20:26 Dose: 0 mls/hr Documented by: [id number] Admin: 09/16/20 17:18 Dose: 999 mls/hr Documented by: [id number] Multivitamins 10 ml/ Thiamine HCl 100 mg/ Folic Acid 1 mg/Sodium Chloride 1,011.2 mls @ 1,011.2 mls/hr IV .Q1H ONE Stop: 09/16/20 17:51 Last Infusion: 09/16/20 19:54 Dose: 0 mls/hr Documented by: [id number] Admin: 09/16/20 17:26 Dose: 1,011.2 mls/hr Documented by: [id number] Lorazepam (Ativan) 1 mg in 2 mls @ 2 mls/min IV NOW STA Stop: 09/16/20 17:36 Last Admin: 09/16/20 18:03 Dose: 2 mls/min Documented by: [id number] Lorazepam (Ativan) 1 mg in 2 mls @ 2 mls/min IV NOW STA Stop: 09/16/20 19:49 Last Admin: 09/16/20 20:00 Dose: 2 mls/min Documented by: [id number] Ondansetron HCl (Ondansetron Inj 2 Mg/Ml 2 Ml Vial) 4 mg IV NOW STA Stop: 09/16/20 16:53 Last Admin: 09/16/20 17:18 Dose: 4 mg Documented by: [id number] Imaging Data Radiologist's Impression: Patient: DONOVAN BALL AAdmit Date: 09/16/20MR#: [id number]: 1625 UDAY LOAIZAAcct ID:[id number]: [facility]: 1995[facility] [place], [place] [address]Age: 24Location: EDSex: MRoom/Bed:Att Phy:Diagnosis: mental health eval, alcohol detoxPri Phy: RV. Joshua, MDService Date: 09/16/20Fam Phy:Interpreting Phy: Jhonathan Alicea MDAdmit Phy: Ordering Phy: Anival Mora DO cc: ~ XR chest 1V portable CLINICAL HISTORY: Detox admission COMPARISON STUDY: 07/07/2017 FINDINGS: The cardiac and mediastinal contours are normal. There is no evidence of focal pulmonary consolidation. There is no evidence of failure. No pleural effusions are visualized.[ IMPRESSION: No active disease in the chest. ACT 112: Negative or not required by law. Electronically signed by: Jhonathan Alicea M.D. 09/16/2020 5:48 PM Dictated: 09/16/201746Transcribed: 09/16/201746 Blood Pressure Blood Pressure Findings: Normal blood pressure Discharge Plan Visit Data Chief Complaint: Detox Request Stated Complaint: mental health eval, alcohol detox ED Provider: Anival Mora Discharge Problem: Alcohol abuse, Alcohol withdrawal, Depression with suicidal ideation Patient Disposition: Admitted As Inpatient Condition: Good Discharge Instructions Interventions: ED Discharge Assessment Last Done: 09/16/20 21:15
[2020-09-16 17:26] LABS: Basophils # (auto) 0.03 K/uL (0-0.2); Basophils % (auto) 0.4 %; Eosinophils # (auto) 0.07 K/uL (0-0.5); Eosinophils % (auto) 0.9 %; Hematocrit (blood only) 53.7 % (42-52); Hemoglobin 18.7 g/dL (14.0-18.0); Immature Granulocytes # (auto) 0.01 K/uL (0.00-0.02); Immature Granulocytes % (auto) 0.1 %; Lymphocytes # (auto) 2.92 K/uL (1.2-3.4); Lymphocytes % (auto) 37.9 %; Mean Corpuscular Hemoglobin 31.6 pg (25-34); Mean Corpuscular Hgb Conc 34.8 g/dL (32-36); Mean Corpuscular Volume 90.7 fL (80-100); Mean Platelet Volume 9.9 fL (7.4-10.4); Monocytes # (auto) 0.32 K/uL (0.11-0.59); Monocytes % (auto) 4.2 %; Neutrophils # (auto) 4.35 K/uL (1.4-6.5); Neutrophils % (auto) 56.5 %; Platelet Count 244 K/uL (130-400); RDW Coefficient of Variation 12.9 % (11.5-14.5); RDW Standard Deviation 42.5 fL (36.4-46.3); Red Blood Count 5.92 M/uL (4.7-6.1)
[2020-09-16] MEDS ORDERED: LORazepam 1 MG/2 ML VIAL IV STA ×2 (17:35→19:48)
[2020-09-16 17:41] LABS: INR 1.2 (0.9-1.1); Partial Thromboplastin Time 27.9 Seconds (21.0-31.0); Prothrombin Time 12.1 Seconds (9.0-12.0)
[2020-09-16 17:48] LABS: Alanine Aminotransferase 72 U/L (12-78); Albumin Level 3.7 gm/dl (3.4-5.0); BUN Creatinine Ratio 16.2 (10-20); Blood Urea Nitrogen 16 mg/dl (7-18); Calcium 8.5 mg/dl (8.5-10.1); Carbon Dioxide 23 mmol/L (21-32); Chloride 106 mmol/L (98-107); Creatinine Clr Calc Pharmacy 136.8 ml/min; Est GFR (African American) 126.8; Est GFR (Non-African American) 109.4; Glucose 105 mg/dl (70-99); Lipase 230 U/L (73-393); Sodium 138 mmol/L (136-145)
--- NOTE | 2020-09-16 17:49 | XRay Report ---
XR chest 1V portable CLINICAL HISTORY: Detox admission COMPARISON STUDY: 07/07/2017 FINDINGS: The cardiac and mediastinal contours are normal. There is no evidence of focal pulmonary co nsolidation. There is no evidence of failure. No pleural effusions are visualized.[ IMPRESSION: No active disease in the chest. ACT 112: Negative or not required by law. Electronically signed by: Jhonathan Alicea M.D. 09/16/2020 5:48 PM
[2020-09-16 17:52] LABS: Albumin Globulin Ratio 0.8 (0.9-2); Alkaline Phosphatase 79 U/L (45-117); Bilirubin,Total 0.5 mg/dl (0.2-1); Globulin 4.6 gm/dl (2.5-4.0); Total Protein 8.3 gm/dl (6.4-8.2); Troponin I < 0.015 ng/ml (0-0.045)
[2020-09-16 19:07] LABS: Potassium 3.7 mmol/L (3.5-5.1)
[2020-09-16 19:12] LABS: Magnesium 2.2 mg/dl (1.8-2.4)
[2020-09-16 19:21] LABS: Acetaminophen < 2 ug/ml (10-30); Salicylate < 1.7 mg/dl (2.8-20)
--- NOTE | 2020-09-16 20:35 | History & Physical Report ---
Date of Service September 16, 2020 Assessment & Plan (1) Alcohol withdrawal: Alcohol withdrawal/anxiety with depression/ADHD- Admit to monitored bed. AWSS protocol with oral Ativan. NSS plus KCl 20 mEq at 150 mils per hour. Thiamine 1 2 mg p.o. every morning. Folic acid 1 mg p.o. every morning Nephrocaps 1 p.o. every morning Continue trazodone 300 mg at bedtime and venlafaxine 37.5 mg every morning. Consult psychiatry Present on Admission?: Yes (2) Anxiety with depression: See above Present on Admission?: Yes (3) Asthma: Continue montelukast 10 mg p.o. every morning Present on Admission?: Yes History of Present Illness Chief Complaint: The patient presents to the emergency department with concerns regarding alcohol withdrawal. Primary Care Provider: Allan Edwards MD The patient is a 24-year-old male with a past medical history including alcohol abuse, anxiety, depression, ADHD, juvenile polyposis syndrome, GI bleed, asthma and congenital absence of 1 kidney. He reports that he drinks to treat himself for symptoms of anxiety, depression and ADHD. He feels that he needs to see a psychiatrist. He also feels like he is going through alcohol withdrawal, and is feeling uncontrolled anxiety at this time Allergies Allergy/AdvReac Type Severity Reaction Status Date / Time peanut Allergy Severe Anaphylaxis Verified 09/16/20 21:01 Home Medications Home Medications Medication Instructions Recorded Confirmed Type montelukast 10 mg tablet 10 mg PO QAM #90 tab 08/27/19 09/16/20 Rx epinephrine [EpiPen] 0.3 mg IM DIRECTED PRN 04/14/20 09/16/20 History albuterol sulfate 90 mcg/actuation 2 puff INHALATION Q6H PRN #8 gm 09/08/20 09/16/20 Rx aerosol inhaler trazodone 300 mg tablet 300 mg PO HS #30 tab 09/08/20 09/16/20 Rx cetirizine [Zyrtec] 10 mg PO DAILY PRN 09/16/20 09/16/20 History venlafaxine 37.5 mg PO QAM 09/16/20 09/16/20 History Past Med/Surg History Medical History (Updated 09/17/20 @ 04:02 by Chang iWnter MD) Alcohol abuse Anemia Anxiety Anxiety with depression Asthma Colon polyps Congenital absence of one kidney Depression Hemorrhage of gastrointestinal tract Inguinal hernia repair by aubree Intestinal polyposis Juvenile polyposis syndrome Juvenile polyposis syndrome Surgical History History of endoscopy S/P inguinal hernia repair Family History Father Anxiety Essential hypertension Alcohol abuse Family/Other Colorectal cancer Grandmother (Paternal) Breast cancer Grandmother (Maternal) Myocardial infarction Brother Depression Mother Alcohol abuse Uncle Throat cancer Grandmother Dementia Denies family history of Ovarian cancer Prostate cancer Lung cancer Social History Smoking Status: Current every day smoker Tobacco Type: Cigarettes Cigarettes Per Day: 6-8 cigarettes per day; Second Hand Exposure: No; Do You Dip or Chew Tobacco: No; Tobacco Cessation Education Requested by Patient: No Hx Alcohol Use: Yes Alcohol type: beer, wine and hard liquor Hx Substance Use: Yes Last Used Substance: Just Prior to Arrival Last Used Substance Other:: early am Substance Use Type Other:: occasionally Preferred Language: Bulgarian Communication Ability: Effective Visual Impairment: No Limitations Hearing Ability: Normal Printer Operator Required: No Beliefs That Will Affect Care: None marital status: Single Current Living Situation: Alone current occupational status: employed Other Information That Helps Us Care for You: No Feels Safe at Home: Yes Safety Concerns: Feels Safe At This Time Childhood Exposure to Second-Hand Smoke: Yes Dental Care, Regularly: Yes Physical Activity Frequency: 1-2 Times per Week Seatbelt Use: always Assistive Devices: None Review of Systems Review of Systems: The patient denies chest pain, palpitations, shortness of breath, dyspnea on exertion, cough, lower extremity swelling, sore throat, fevers, chills, sweats, vomiting, diarrhea , constipation, abdominal pain, pelvic pain, blood in urine or stool, dysuria, urinary frequency or urgency, memory loss, loss of consciousness, rash, abnormal bruising or bleeding, imbalance, focal or generalized weakness, numbness or tingling in arms or legs, generalized arthralgias or myalgias, back or neck pain, or night sweats. The review of systems is otherwise negative other than for that already noted above, and at least 10 systems have been reviewed. Physical Exam Physical Exam: The patient is awake, alert and oriented 3, normocephalic and atraumatic, lying in bed, appears anxious, and in otherwise no acute distress. HEENT--PERRL, EOMI, mucous membranes and oropharynx dry. Neck--supple. No JVD. No bruits. Thyroid normal, trachea midline, no adenopathy. Heart--normal S1 and S2. No murmurs, rubs or gallops. Lungs--clear bilaterally, no respiratory distress, no accessory muscle use. Abdomen--normal bowel sounds and soft. Nontender. Nondistended. Extremities--no cyanosis or clubbing. No edema. Dermatologic--normal skin turgor, normal color, no abnormal lymph nodes, no rash. Neurologic--cranial nerves II through XII grossly intact. Rheumatologic--normal range of motion. Psychiatric--anxious Results & Data Results & Data ([facility]) Vital Signs (Past 12 Hours) Vital Signs Temp Pulse Pulse Resp BP BP Pulse Ox 09/16/20 18:41 112 H 16 137/99 98 09/16/20 17:28 108 H 18 143/102 H 99 09/16/20 16:42 98.2 F 137 H 24 138/100 97 Laboratory Results Laboratory Results WBC 7.70 K/uL (4.8-10.8) 09/16/20 17:15 RBC 5.92 M/uL (4.7-6.1) 09/16/20 17:15 Hgb 18.7 g/dL (14.0-18.0) H 09/16/20 17:15 Hct 53.7 % (42-52) H 09/16/20 17:15 MCV 90.7 fL (80-100) 09/16/20 17:15 MCH 31.6 pg (25-34) 09/16/20 17:15 MCHC 34.8 g/dL (32-36) 09/16/20 17:15 RDW Std Deviation 42.5 fL (36.4-46.3) 09/16/20 17:15 RDW Coeff of Guerrero 12.9 % (11.5-14.5) 09/16/20 17:15 Plt Count 244 K/uL (130-400) 09/16/20 17:15 MPV 9.9 fL (7.4-10.4) 09/16/20 17:15 Immature Gran % (Auto) 0.1 % 09/16/20 17:15 Neut % (Auto) 56.5 % 09/16/20 17:15 Lymph % (Auto) 37.9 % 09/16/20 17:15 Titus % (Auto) 4.2 % 09/16/20 17:15 Eos % (Auto) 0.9 % 09/16/20 17:15 Baso % (Auto) 0.4 % 09/16/20 17:15 Neut # (Auto) 4.35 K/uL (1.4-6.5) 09/16/20 17:15 Lymph # (Auto) 2.92 K/uL (1.2-3.4) 09/16/20 17:15 Titus # (Auto) 0.32 K/uL (0.11-0.59) 09/16/20 17:15 Eos # (Auto) 0.07 K/uL (0-0.5) 09/16/20 17:15 Baso # (Auto) 0.03 K/uL (0-0.2) 09/16/20 17:15 Immature Gran # (Auto) 0.01 K/uL (0.00-0.02) 09/16/20 17:15 PT 12.1 Seconds (9.0-12.0) H 09/16/20 17:15 INR 1.2 (0.9-1.1) H 09/16/20 17:15 APTT 27.9 Seconds (21.0-31.0) 09/16/20 17:15 PTT Ratio 1.0 09/16/20 17:15 Sodium 138 mmol/L (136-145) 09/16/20 17:15 Potassium 3.7 mmol/L (3.5-5.1) 09/16/20 18:38 Chloride 106 mmol/L (98-107) 09/16/20 17:15 Carbon Dioxide 23 mmol/L (21-32) 09/16/20 17:15 Anion Gap 9.0 (3-11) 09/16/20 17:15 BUN 16 mg/dl (7-18) 09/16/20 17:15 Creatinine 0.96 mg/dl (0.6-1.4) 09/16/20 17:15 Est Cr Clr Drug Dosing 136.8 ml/min 09/16/20 17:15 Est GFR ( Amer) 126.8 09/16/20 17:15 Est GFR (Non-Af Amer) 109.4 09/16/20 17:15 BUN/Creatinine Ratio 16.2 (10-20) 09/16/20 17:15 Glucose 105 mg/dl (70-99) H 09/16/20 17:15 Lactate 3.9 mmol/L (0.4-2.0) H* 09/16/20 18:38 Calcium 8.5 mg/dl (8.5-10.1) 09/16/20 17:15 Magnesium 2.2 mg/dl (1.8-2.4) 09/16/20 18:38 Total Bilirubin 0.5 mg/dl (0.2-1) 09/16/20 17:15 AST 50 U/L (15-37) H 09/16/20 18:38 ALT 72 U/L (12-78) 09/16/20 17:15 Alkaline Phosphatase 79 U/L (45-117) 09/16/20 17:15 Total Creatine Kinase TNP 09/16/20 17:15 Troponin I < 0.015 ng/ml (0-0.045) 09/16/20 17:15 Total Protein 8.3 gm/dl (6.4-8.2) H 09/16/20 17:15 Albumin 3.7 gm/dl (3.4-5.0) 09/16/20 17:15 Globulin 4.6 gm/dl (2.5-4.0) H 09/16/20 17:15 Albumin/Globulin Ratio 0.8 (0.9-2) L 09/16/20 17:15 Lipase 230 U/L (73-393) 09/16/20 17:15 Urine Color Yellow 09/16/20 21:00 Urine Appearance Clear (Clear) 09/16/20 21:00 Urine pH 6.5 (4.5-7.5) 09/16/20 21:00 Ur Specific [place] 1.020 (1.000-1.030) 09/16/20 21:00 Urine Protein Negative (Negative) 09/16/20 21:00 Urine Glucose (UA) Negative (Negative) 09/16/20 21:00 Urine Ketones Negative (Negative) 09/16/20 21:00 Urine Blood Negative (Negative) 09/16/20 21:00 Urine Nitrite Negative (Negative) 09/16/20 21:00 Urine Bilirubin Negative (Negative) 09/16/20 21:00 Urine Urobilinogen Negative (Negative) 09/16/20 21:00 Ur Leukocyte Esterase Negative (Negative) 09/16/20 21:00 Salicylates < 1.7 mg/dl (2.8-20) L 09/16/20 18:38 Urine Opiates Screen Neg (Neg) 09/16/20 21:00 Ur Methadone, Qual Neg (Neg) 09/16/20 21:00 Acetaminophen < 2 ug/ml (10-30) L 09/16/20 18:38 Urine Barbiturates Neg (Neg) 09/16/20 21:00 Ur Phencyclidine (PCP) Neg (Neg) 09/16/20 21:00 U Amphetamin/Meth Scrn Neg (Neg) 09/16/20 21:00 MDMA (Ecstasy) Screen Neg (Neg) 09/16/20 21:00 U Benzodiazepines Scrn Neg (Neg) 09/16/20 21:00 Ur Cocaine Metabolite Neg (Neg) 09/16/20 21:00 U Marijuana (THC) Screen Pos (Neg) H 09/16/20 21:00 Ethyl Alcohol mg/dL 323.2 mg/dl (0-3) H 09/16/20 18:38 Diagnostic Findings [facility], [id number] XRay Report Patient: DONOVAN BALL AAdmit Date: 09/16/20MR#: [id number]: 1625 UDAY DRAcct ID:[id number]: Date: 1995[facility] Zip: [place], [place] [address]Kmd: 24Location: EDSex: MRoom/Bed:Att Phy:Diagnosis: mental health eval, alcohol detoxPri Phy: RV. Joshua, MDService Date: 09/16/20Fam Phy:Interpreting Phy: Jhonathan Alicea MDAdmit Phy: Ordering Phy: Anival Mora DO cc: ~ XR chest 1V portable CLINICAL HISTORY: Detox admission COMPARISON STUDY: 07/07/2017 FINDINGS: The cardiac and mediastinal contours are normal. There is no evidence of focal pulmonary consolidation. There is no evidence of failure. No pleural effusions are visualized.[ IMPRESSION: No active disease in the chest. ACT 112: Negative or not required by law. Electronically signed by: Jhonathan Alicea M.D. 09/16/2020 5:48 PM Dictated: 09/16/201746Transcribed: 09/16/201746 Code Status & VTE Plan Code Status Full code VTE Prophylaxis Plan VTE Prophylaxis will be ordered: Yes PG Care Time/CCT Total # of Minutes Spent Total Time Spent with Patient: Total time spent is greater than 50% in coor dination of care (as documented) at patient's floor/unit and/or counseling patient: Coding Level of Care Code 10636 Initial Inpt Care Lvl 2 Diagnoses Alcohol withdrawal F10.230 Complication of substance-induced condition: uncomplicated Anxiety with depression F41.8 Asthma J45.909 (1) Alcohol withdrawal Complication of substance-induced condition: uncomplicated Qualified Code(s): F10.230 - Alcohol dependence with withdrawal, uncomplicated
[2020-09-16 21:37] LABS: Amphetamines+Metham, Urine Neg (Neg); Barbiturates, Urine Neg (Neg); Benzodiazepine, Urine Neg (Neg); Cocaine, Urine Neg (Neg); MDMA (Ecstacy), Urine Neg (Neg); Methadone, Urine Neg (Neg); Opiate, Urine Neg (Neg); Phencyclidine, Urine Neg (Neg)
[2020-09-16 21:43] LABS: Appearance Urine Clear (Clear); Bilirubin Urine Negative (Negative); Blood Urine Negative (Negative); Color Urine Yellow; Glucose Urine UA Negative (Negative); Ketones Urine Negative (Negative); Leukocyte Esterase Urine Negative (Negative); Nitrite Urine Negative (Negative); Protein Urine Negative (Negative); Urobilinogen Urine Negative (Negative); pH Urine 6.5 (4.5-7.5)
[2020-09-16] MEDS ORDERED: ONDANSETRON INJ 2 MG/ML 2 ML VIAL IV PRN (21:53)
[2020-09-16] MEDS: ENOXAPARIN INJ 40 MG/0.4 ML SYR SQ SCH ×2 (23:04→23:07)
[2020-09-16] MEDS: FOLIC ACID 1 MG TAB PO SCH (23:05)
[2020-09-16] MEDS: NSS + 20MEQ KCL 20 MEQ/1,000 ML BAG IV SCH (23:05)
[2020-09-16] MEDS: traZODone HCL 100 MG TAB PO SCH (23:05)
[2020-09-16] MEDS: THIAMINE HCL 100 MG TAB PO SCH (23:05)
[2020-09-16] MEDS ORDERED: ATIVAN IV ALCOHOL WITHDRAWL IV PRN (23:49)
[2020-09-16] MEDS ORDERED: LORazepam 3 MG/6 ML VIAL IV PRN (23:49)
[2020-09-17] MEDS: LORazepam 1 MG/2 ML VIAL IV PRN ×6 (00:04→21:46)
[2020-09-17] MEDS: NSS + 20MEQ KCL 20 MEQ/1,000 ML BAG IV SCH ×3 (06:40→20:21)
--- NOTE | 2020-09-17 07:35 | Hospitalist Progress Note ---
Date of Service September 17, 2020 Assessment & Plan (1) Alcohol withdrawal: Patient is a 24 year old male with PMHx Alcohol abuse, anxiety w/ depression, asthma, juvenile polyposis syndrome, congenital absence of one kidney who presented for concerns of alcohol withdrawal after drinking for the previous 9 days. Alcohol Withdrawal -ETOH level 323 on admission and THC + -AWSS protocol with oral Ativan -Thiamine 100mg QD -Folate 1mg QD -Nephrocaps 1 capsule QD -NSS+ 20meq KCl @ 150ml/hr -Discussed with patient about rehab, notes he had been in the past, but that he does well with AA. Anxiety with Depression -Worsening the past 4 years, patient notes he has been self-treating with alcohol -Continue Trazodone 300mg qHS -Was started on Venlafaxine, but currently titrating off -Will continue Venlafaxine 37.5mg for 4 more days and allow to fall off for 2 week off titration -Psychiatry consulted, appreciate recs Asthma -Albuterol PRN -Continue Singulair 10mg qAM ADHD -Per patient was on Adderall and Ritalin 4 years ago while in [place] -Notes he has had difficulty getting since coming to [place] -States he uses alcohol to cope and that it also contributes to his Anxiety/Depression Dispo: M/S Telemetry FEN: Regular diet, NSS+ 20meq KCl @150ml/hr DVT: Lovenox Code: Full (2) Anxiety with depression: Admission and Anticipated Discharge Date Admission Date: September 16, 2020 Supervising Physician Co-Signing Physician Notes I personally examined the patient and verified all shields points of history and exam, discussed case, and agree with decision making with Dr Le. feeling better than before, less shaky. vitals noted nad heent nc at mmm breathing unlabored no accessory muscles good effort skin no rashes no pallor or icterus EtOH withdrawal, anxiety - doing better. continue current care. appreciate psych input. otherwise as above Subjective Patient examined at the bedside this morning. He noted that over all he was feeling better, but still had some anxiety and a slight headache. He notes that his nausea and vomiting had subsided overnight. When discussing his alcohol intake, he stated that the past week has been bad and he would have roughly 10- 12 beers and 6 shots of vodka daily. He was also using marijuana overnight which he states he gets from someone who gets "from a dispensary so it's not synthetic." He says that he started drinking the way he does since roughly 4 years ago when he moved here from [place] and was unable to get prescriptions for his ADHD medications, he used to take Adderall and Ritalin. He states his PCP had been trying to treat his anxiety, with the most recent being Venlafaxine, but they had been working on titrating him off of this since he has not been doing well on it. He was supposed to complete the titration off in the next couple of days. Denies any current SI or HI. Review of Systems Constitutional: no fever and no chills Eyes: no worsening vision Respiratory: no cough, no dyspnea and no pain on inspiration Cardiovascular: no chest pain, no dyspnea on exertion and no palpitations Gastrointestinal: no abdominal pain, no nausea, no vomiting, no constipation and no diarrhea/loose stools Genitourinary: no dysuria Neurologic: + headache(s); no dizziness Physical Exam Constitutional: WD/WN, vitals as above Respiratory: normal respiratory effort, lungs clear to auscultation Cardiovascular: Rate/Rhythm: regular rhythm and + tachycardic Heart Sounds: no murmur Gastrointestinal (Abdomen): normal bowel sounds, soft, nontender, no hepatosplenomegaly Musculoskeletal: no cyanosis or clubbing, extremities motor strength 5/5 Skin: no rashes, warm and dry Neurologic: PERRL, EOMI, accommodation nl, no face palsy, no dysarthria Psychiatric: A+Ox3, euthymic affect Results & Data Results & Data ([facility]) Vital Signs (Past 12 Hours) Vital Signs Temp Pulse Pulse Pulse Resp BP Pulse Ox 09/17/20 07:24 36.8 C 114 H 18 127/82 95 09/17/20 05:05 119 H 09/17/20 02:52 37.2 C 147 H 18 106/68 94 09/16/20 23:54 36.7 C 114 H 18 130/83 96 09/16/20 22:33 114 H 09/16/20 21:58 36.7 C 118 H 19 137/98 96 09/16/20 21:09 115 H 18 138/95 98 Resident Activity Tracking Resident Involvement: Resident Care Provided Care Provided: Adult Hospital Medicine (1) Alcohol withdrawal Complication of substance-induced condition: uncomplicated Qualified Code(s): F10.230 - Alcohol dependence with withdrawal, uncomplicated
[2020-09-17] MEDS: THIAMINE HCL 100 MG TAB PO SCH (07:54)
[2020-09-17] MEDS: VENLAFAXINE HCL 37.5 MG TAB PO SCH (07:54)
[2020-09-17] MEDS: FOLIC ACID 1 MG TAB PO SCH (07:54)
[2020-09-17] MEDS: LORazepam 2 MG/4 ML VIAL IV PRN ×2 (07:54→09:21)
[2020-09-17] MEDS: MONTELUKAST SODIUM 10 MG TABLET PO SCH (07:55)
[2020-09-17] MEDS: NEPHROCAPS PO SCH (07:55)
[2020-09-17] MEDS ORDERED: ALBUTEROL HFA 8 GM INHALER INH PRN (08:42)
--- NOTE | 2020-09-17 13:29 | Psychiatric Consultation ---
Date of Consultation September 17, 2020 Impression / Recommendations Impression Dr. Nisha Herbert was directly involved in review and discussion of the patient's case and participated in medical decision making regarding treatment recommendations. RECOMMENDATIONS: 09/17 - Psychiatric consultation requested to evaluate patient for depression, patient admitted medically for alcohol withdrawal. Symptoms of alcohol withdrawal to be managed by primary team. - Pt does admit to worsening mood since starting venlafaxine. This was communicated to his PCP who has already initiated taper and titrated trazodone to target sleep within the last week. Pt is interested in outpatient psychiatric treatment and is already referred to the [facility] for therapy and medication management. Would not advise initiation of any additional agents in the acute phase of alcohol withdrawal, given risk of withdrawal seizures. - Once through acute phase of alcohol withdrawal, we would be willing to follow-up with the patient further to determine if he is interested in pursing an alternative antidepressant medication until he can be seen as an outpatient. [facility] could also be considered for outpatient therapy if patient is willing, as this would be dual diagnosis treatment. - Outpatient follow-up seems appropriate and we can attempt to reach out to the office to secure appointments. Pt denies SI and acute mood concerns. No indication for inpatient psychiatric treatment. Pt is declining inpatient D&A rehab at this time. Please reach out to our service with any additional questions or updates. Psych History Identifying Data 24-year-old male admitted medically on 09/16/2020 after presenting to the ED with concern for alcohol withdrawal. Pt admitted to mental health concerns and psychiatric consultation was ordered by hospitalist team to evaluate patient for depression. Chief Complaint "Um, so, I started Effexor a little bit ago and it just made everything worse." History of Present Illness Hosea Castor is a 24-year-old male admitted medically on 09/16/2020 after presenting to the ED with concern for alcohol withdrawal. Pt had reported worsening mood and anxiety. Psychiatric consultation was requested to evaluate patient for depression. Pt is cooperative with psychiatric assessment. He states he felt his mood worsened after he was started on venlafaxine and has been working with his PCP to make dose adjustments to wean off of the medication. Pt states he was seen last week and was recommended to cut his venlafaxine dose in half and trazodone was "doubled" to help with sleep. Pt reports he is hopeful to discontinue the venlafaxine altogether. Pt reports he has already been referred to the [facility] for medication management and therapy. Pt was placed on a wait-list, but believes he will be scheduled for an appointment within the next month. Pt states he has struggled with depression and anxiety since high school, but noticed worsening of symptoms after he moved to [place] from [place] ~4 years ago. Pt admits his alcohol use has become more of an issue recently, stating he has been combating "feeling bad on the Effexor" with increased alcohol use. Pt recognizes this is an issue, but is unwilling to consider inpatient D&A rehab for treatment. He feels these other outpatient appointments will be sufficient. Pt denies SI and other acute mood concerns. He is understanding of recommendation that changes to antidepressant medications not be made at this time, as these medications can reduce seizure threshold. Pt is agreeable with plan for outpatient follow-up. Past Psychiatric History Outpatient Services: Medications managed by PCP - pt states he was referred to the [facility] for medication management and therapy. Placed on wait-list, but believes he will be given an appointment within the next month. Previous Psych Admissions: Denied History of Previous Suicide Attempt: No Past Medication Trials: Per patient report: 1. Wellbutrin - emotional blunting, but was able to quit smoking 2. Prozac 3. Zoloft 4. Celexa 5. Effexor - worsened depression 6. Trazodone Allergies Allergy/AdvReac Type Severity Reaction Status Date / Time peanut Allergy Severe Anaphylaxis Verified 09/16/20 21:01 Home Medications Home Medications Medication Instructions Recorded Confirmed Type montelukast 10 mg tablet 10 mg PO QAM #90 tab 08/27/19 09/16/20 Rx epinephrine [EpiPen] 0.3 mg IM DIRECTED PRN 04/14/20 09/16/20 History albuterol sulfate 90 mcg/actuation 2 puff INHALATION Q6H PRN #8 gm 09/08/20 09/16/20 Rx aerosol inhaler trazodone 300 mg tablet 300 mg PO HS #30 tab 09/08/20 09/16/20 Rx cetirizine [Zyrtec] 10 mg PO DAILY PRN 09/16/20 09/16/20 History venlafaxine 37.5 mg PO QAM 09/16/20 09/16/20 History Family History Reports brother with depression and father with anxiety. Mother has history of alcohol abuse. Substance Abuse History Pt admits to increased alcohol consumption recently, but rather consistent alcohol use for the past 2-3 years. Pt informed our liaison that he had been drinking vodka daily for the past 9 days - informed this provider that he has "3 IPAs every other day." Pt did attend inpatient D&A rehab in 2018 at [facility], followed by intensive outpatient treatment. He denies other substance abuse concerns. UDS positive for marijuana. Personal History Living Arrangements: Home Highest Grade Completed: College (Associates Degree in Business) Employment Status: Food Product Inspector Employed ([employer] [place] ) Marital Status: Single Number Of Children: None Beliefs That Will Affect Care: [employer] History of Legal Problems: Denies Psychological Trauma History Comment: Denies Patient History Medical History Alcohol abuse Anemia Anxiety Anxiety with depression Asthma Colon polyps Congenital absence of one kidney Depression Hemorrhage of gastrointestinal tract Inguinal hernia repair by aubree Intestinal polyposis Juvenile polyposis syndrome Juvenile polyposis syndrome Surgical History History of endoscopy S/P inguinal hernia repair Family History Father Anxiety Essential hypertension Alcohol abuse Family/Other Colorectal cancer Grandmother (Paternal) Breast cancer Grandmother (Maternal) Myocardial infarction Brother Depression Mother Alcohol abuse Uncle Throat cancer Grandmother Dementia Denies family history of Ovarian cancer Prostate cancer Lung cancer Social History Smoking Status: Current every day smoker Tobacco Type: Cigarettes Cigarettes Per Day: 6-8 cigarettes per day; Second Hand Exposure: No; Do You Dip or Chew Tobacco: No; Tobacco Cessation Education Requested by Patient: No Hx Alcohol Use: Yes Alcohol type: beer, wine and hard liquor Hx Substance Use: Yes Last Used Substance: Just Prior to Arrival Last Used Substance Other:: early am Substance Use Type Other:: occasionally Preferred Language: Lithuanian Communication Ability: Effective Visual Impairment: No Limitations Hearing Ability: Normal Turkey Cleaner Required: No Beliefs That Will Affect Care: [employer] marital status: Single Current Living Situation: Alone current occupational status: employed Other Information That Helps Us Care for You: No Feels Safe at Home: Yes Safety Concerns: Feels Safe At This Time Childhood Exposure to Second-Hand Smoke: Yes Dental Care, Regularly: Yes Physical Activity Frequency: 1-2 Times per Week Seatbelt Use: always Assistive Devices: Glasses Physical Exam Psychiatric: Orientation: alert, oriented x 3 and cooperative Apperance: appropriately dressed, + disheveled and appeared stated age Eye Contact: good eye contact Motor Behavior: no abnormal motor movements (observed while laying in bed) Speech: normal rate/rhythm/volume of speech Affect: + blunted affect Mood: + depressed mood and + anxious mood Thought Process: goal directed thought process and clear/coherent thought process Thought Content: reality based without delusions; no hopelessness and no worthlessness Suicidal Thoughts: denies suicidal thoughts, denies suicidal plan and denies suicidal intent Homicidal Thoughts: denies homicidal thoughts Hallucinations: no auditory hallucinations and no visual hallucinations Cognition: attention grossly intact and language grossly intact Estimated Intelligence: consistent with education level Insight: + fair insight Judgement: + fair judgement Vital Signs (Past 24 Hours): Last Vital Signs Temp 36.6 C 09/17/20 11:27 Pulse 110 H 09/17/20 11:27 Resp 18 09/17/20 11:27 BP 139/99 09/17/20 11:27 Pulse Ox 97 09/17/20 11:27 Review of Systems Constitutional: reports fatigue and headache Cardiovascular: denied Respiratory: denied Gastrointestinal: denied Neurological: denied Psychiatric: denies symptoms other than stated above Total of at least 10 systems reviewed, pertinent positives as above and in HPI. Results & Data (PSY) Medications Administered Albuterol (Albuterol Hfa 8 Gm Inhaler) 2 puffs INH Q6H PRN PRN Reason: Wheezing Stop: 10/17/20 08:44 Last Admin: 09/17/20 09:16 Dose: 2 puffs Documented by: [id number] Enoxaparin Sodium (Enoxaparin Inj 40 Mg/0.4 Ml Syr) 40 mg SQ Q24H [facility] Stop: 10/16/20 21:59 Last Admin: 09/16/20 23:07 Dose: Not Given Documented by: [id number] Folic Acid (Folic Acid 1 Mg Tab) 1 mg PO QAM SHONDA Stop: 10/16/20 21:52 Last Admin: 09/17/20 07:54 Dose: 1 mg Documented by: [id number] Admin: 09/16/20 23:05 Dose: 1 mg Documented by: [id number] Potassium Chloride/Sodium Chloride (Normal Saline W/20 Meq Kcl) 20 meq in 1,000 mls @ 150 mls/hr IV .Q6H40M SHONDA Stop: 10/16/20 21:52 Last Admin: 09/17/20 13:13 Dose: 150 mls/hr Documented by: [id number] Infusion: 09/17/20 13:13 Dose: 150 mls/hr Documented by: [id number] Admin: 09/17/20 06:40 Dose: 150 mls/hr Documented by: [id number] Infusion: 09/17/20 05:46 Dose: 150 mls/hr Documented by: [id number] Admin: 09/16/20 23:05 Dose: 150 mls/hr Documented by: [id number] Lorazepam (Ativan) 1 mg in 2 mls @ 2 mls/min IV UD PRN; Protocol PRN Reason: EtOH Withdrawl AWSS Score 6,7 Stop: 10/16/20 23:48 Last Admin: 09/17/20 12:02 Dose: 2 mls/min Documented by: [id number] Admin: 09/17/20 03:02 Dose: 2 mls/min Documented by: [id number] Admin: 09/17/20 00:04 Dose: 2 mls/min Documented by: [id number] Lorazepam (Ativan) 2 mg in 4 mls @ 4 mls/min IV UD PRN; Protocol PRN Reason: EtOH Withdrawl AWSS Score 8,9 Stop: 10/16/20 23:48 Last Admin: 09/17/20 09:21 Dose: 4 mls/min Documented by: [id number] Admin: 09/17/20 07:54 Dose: 4 mls/min Documented by: [id number] Montelukast Sodium (Montelukast Sodium 10 Mg Tablet) [facility] Stop: 10/17/20 08:59 Last Admin: 09/17/20 07:55 Dose: 10 mg Documented by: [id number] Thiamine HCl (Thiamine Hcl 100 Mg Tab) [facility] Stop: 10/16/20 21:52 Last Admin: 09/17/20 07:54 Dose: 100 mg Documented by: [id number] Admin: 09/16/20 23:05 Dose: 100 mg Documented by: [id number] Trazodone HCl (Trazodone Hcl 100 Mg Tab) 300 mg PO HS SHONDA Stop: 10/16/20 21:52 Last Admin: 09/16/20 23:05 Dose: 300 mg Documented by: [id number] Venlafaxine HCl (Venlafaxine Hcl 37.5 Mg Tab) 37.5 mg PO DAILY SHONDA Stop: 10/17/20 08:59 Last Admin: 09/17/20 07:54 Dose: 37.5 mg Documented by: [id number] Vitamin B Complex/Folic Acid (Nephrocaps) 1 cap PO QAM SHONDA Stop: 10/17/20 08:59 Last Admin: 09/17/20 07:55 Dose: 1 cap Documented by: [id number] Coding Level of Care Code 93028 U Intl Hosp Care Lvl 2
--- NOTE | 2020-09-17 15:57 | Electrocardiogram Report ---
Test Reason : Blood Pressure : / mmHG Vent. Rate : 118 BPM Atrial Rate : 118 BPM P-R Int : 116 ms QRS Dur : 086 ms QT Int : 346 ms P-R-T Axes : 056 060 043 degrees QTc Int : 484 ms Sinus tachycardia Otherwise normal ECG When compared with ECG of 05-JUN-2020 04:10, T wave inversion no longer evident in Inferior leads Confirmed by Teddy Dallas ([id number]) on 09/17/2020 3:56:26 PM Referred By: REFERRED SELF Confirmed By:Teddy Dallas
--- NOTE | 2020-09-17 17:53 | Billing Data ---
Date of Service September 17, 2020 Coding Level of Care Code 07703 Subseq Hosp Care Lvl 3
[2020-09-17] MEDS: traZODone HCL 100 MG TAB PO SCH (21:31)
[2020-09-17] MEDS: ENOXAPARIN INJ 40 MG/0.4 ML SYR SQ SCH (21:31)
[2020-09-18] MEDS: NSS + 20MEQ KCL 20 MEQ/1,000 ML BAG IV SCH ×2 (03:29→10:29)
[2020-09-18 06:29] LABS: Basophils # (auto) 0.02 K/uL (0-0.2); Basophils % (auto) 0.4 %; Eosinophils # (auto) 0.25 K/uL (0-0.5); Eosinophils % (auto) 5.3 %; Hematocrit (blood only) 43.7 % (42-52); Hemoglobin 14.5 g/dL (14.0-18.0); Lymphocytes # (auto) 1.73 K/uL (1.2-3.4); Mean Corpuscular Hemoglobin 30.8 pg (25-34); Mean Corpuscular Hgb Conc 33.2 g/dL (32-36); Mean Corpuscular Volume 92.8 fL (80-100); Mean Platelet Volume 10.8 fL (7.4-10.4); Monocytes # (auto) 0.46 K/uL (0.11-0.59); Monocytes % (auto) 9.8 %; Neutrophils # (auto) 2.22 K/uL (1.4-6.5); Neutrophils % (auto) 47.5 %; Platelet Count 179 K/uL (130-400); RDW Coefficient of Variation 12.5 % (11.5-14.5); RDW Standard Deviation 42.9 fL (36.4-46.3); Red Blood Count 4.71 M/uL (4.7-6.1); White Blood Count 4.68 K/uL (4.8-10.8)
[2020-09-18 06:46] LABS: BUN Creatinine Ratio 8.2 (10-20); Calcium 7.8 mg/dl (8.5-10.1); Creatinine Clr Calc Pharmacy 166.2 ml/min; Est GFR (African American) 144.7; Est GFR (Non-African American) 124.8; Potassium 3.9 mmol/L (3.5-5.1)
--- NOTE | 2020-09-18 07:05 | Hospitalist Progress Note ---
Date of Service September 18, 2020 Assessment & Plan (1) Alcohol withdrawal: Patient is a 24 year old male with PMHx Alcohol abuse, anxiety w/ depression, asthma, juvenile polyposis syndrome, congenital absence of one kidney who presented for concerns of alcohol withdrawal after drinking for the previous 9 days. Alcohol Withdrawal -ETOH level 323 on admission and THC + -AWSS protocol with oral Ativan -Thiamine 100mg QD -Folate 1mg QD -Nephrocaps 1 capsule QD -NSS+ 20meq KCl @ 150ml/hr -Discussed with patient about rehab, notes he had been in the past, but that he does well with AA. -Increasing time between doses of Ativan, will monitor for another day with plans for possible discharge tomorrow. Anxiety with Depression -Worsening the past 4 years, patient notes he has been self-treating with alcohol -Continue Trazodone 300mg qHS -Was started on Venlafaxine, but currently titrating off -Will continue Venlafaxine 37.5mg for 4 more days and allow to fall off for 2 week off titration -Psychiatry consulted, appreciate recs -Psych attempting to reach out for outpatient follow up, patient agreeable. Asthma -Albuterol PRN -Continue Singulair 10mg qAM ADHD -Per patient was on Adderall and Ritalin 4 years ago while in [place] -Notes he has had difficulty getting since coming to [place] -States he uses alcohol to cope and that it also contributes to his Anxiety/Depression Dispo: M/S Telemetry FEN: Regular diet, Discontinue IVF DVT: Lovenox Code: Full (2) Anxiety with depression: Admission and Anticipated Discharge Date Admission Date: September 16, 2020 Supervising Physician Co-Signing Physician Notes I personally examined the patient and verified all shields points of history and exam, discussed case, and agree with decision making with Dr Le. feeling better but still fairly shaky vitals noted nad heent nc at mmm breathing unlabored no accessory muscles good effort skin no rashes no pallor or icterus EtOH withdrawal, anxiety - showing improvement but less than 72hr from last drink and still shaky - keep inpt till at least tomorrow otherwise as above Subjective Patient evaluated at the bedside this AM. Patient's mother present. He states that he is feeling better over all, but still has some anxiety. Notes it had been close to 12 hours since he last needed Ativan, but that he felt as though he may need it soon. He had spoken with Psych yesterday and feels good about set up in regards to outpatient management. Review of Systems Constitutional: no fever and no chills Eyes: no worsening vision Respiratory: no cough, no dyspnea and no pain on inspiration Cardiovascular: no chest pain, no dyspnea on exertion and no palpitations Gastrointestinal: no abdominal pain, no nausea, no vomiting, no constipation and no diarrhea/loose stools Genitourinary: no dysuria Neurologic: no dizziness and no headache(s) Psychiatric: + anxiety Physical Exam Constitutional: WD/WN, vitals as above Respiratory: normal respiratory effort, lungs clear to auscultation Cardiovascular: RRR, no murmur, no edema Gastrointestinal (Abdomen): normal bowel sounds, soft, nontender, no hepatosplenomegaly Musculoskeletal: no cyanosis or clubbing, extremities motor strength 5/5 Skin: no rashes, warm and dry Neurologic: PERRL, EOMI, accommodation nl, no face palsy, no dysarthria Psychiatric: A+Ox3, euthymic affect Results & Data Results & Data ([facility]) Vital Signs (Past 12 Hours) Vital Signs Temp Pulse Pulse Resp BP BP Pulse Ox 09/18/20 04:20 36.7 C 78 16 132/87 98 09/18/20 01:31 99 H 09/17/20 23:44 36.5 C 99 H 18 127/82 95 09/17/20 21:38 36.6 C 107 H 20 150/104 H 97 09/17/20 19:30 36.6 C 116 H 22 151/110 H 163/100 H 97 Resident Activity Tracking Resident Involvement: Resident Care Provided Care Provided: Adult Hospital Medicine (1) Alcohol withdrawal Complication of substance-induced condition: uncomplicated Qualified Code(s): F10.230 - Alcohol dependence with withdrawal, uncomplicated
[2020-09-18] MEDS: THIAMINE HCL 100 MG TAB PO SCH (07:53)
[2020-09-18] MEDS: MONTELUKAST SODIUM 10 MG TABLET PO SCH (07:54)
[2020-09-18] MEDS: NEPHROCAPS PO SCH (07:54)
[2020-09-18] MEDS: VENLAFAXINE HCL 37.5 MG TAB PO SCH (07:54)
[2020-09-18] MEDS: FOLIC ACID 1 MG TAB PO SCH (07:54)
[2020-09-18] MEDS: LORazepam 1 MG TAB PO PRN ×3 (10:31→20:06)
--- NOTE | 2020-09-18 18:55 | Billing Data ---
Date of Service September 18, 2020 Coding Level of Care Code 02413 Subseq Hosp Care Lvl 2
[2020-09-18 20:41] LABS: Marijuana Quant, GCMS Urine 610 ng/mL (<5)
[2020-09-18] MEDS: ENOXAPARIN INJ 40 MG/0.4 ML SYR SQ SCH (21:03)
[2020-09-18] MEDS: traZODone HCL 100 MG TAB PO SCH (21:03)
--- NOTE | 2020-09-19 06:23 | Hospitalist Progress Note ---
Date of Service September 19, 2020 Assessment & Plan Admission and Anticipated Discharge Date Admission Date: September 16, 2020 Results & Data Results & Data ([facility]) Vital Signs (Past 12 Hours) Vital Signs Temp Pulse Pulse Resp BP Pulse Ox 09/19/20 03:33 36.6 C 90 20 118/76 96 09/18/20 23:56 92 H 09/18/20 23:16 36.8 C 84 20 149/96 H 96 09/18/20 19:26 36.8 C 111 H 20 155/107 H 96
[2020-09-19 06:53] LABS: Basophils # (auto) 0.02 K/uL (0-0.2); Basophils % (auto) 0.4 %; Eosinophils # (auto) 0.17 K/uL (0-0.5); Eosinophils % (auto) 3.1 %; Hematocrit (blood only) 51.1 % (42-52); Hemoglobin 17.1 g/dL (14.0-18.0); Immature Granulocytes # (auto) 0.01 K/uL (0.00-0.02); Immature Granulocytes % (auto) 0.2 %; Lymphocytes # (auto) 2.13 K/uL (1.2-3.4); Lymphocytes % (auto) 38.5 %; Mean Corpuscular Hemoglobin 30.9 pg (25-34); Mean Corpuscular Hgb Conc 33.5 g/dL (32-36); Mean Corpuscular Volume 92.2 fL (80-100); Mean Platelet Volume 10.5 fL (7.4-10.4); Neutrophils % (auto) 48.8 %; Platelet Count 190 K/uL (130-400); RDW Coefficient of Variation 12.7 % (11.5-14.5); RDW Standard Deviation 42.8 fL (36.4-46.3); Red Blood Count 5.54 M/uL (4.7-6.1); White Blood Count 5.53 K/uL (4.8-10.8)
[2020-09-19 07:14] LABS: BUN Creatinine Ratio 11.3 (10-20); Calcium 8.7 mg/dl (8.5-10.1); Creatinine Clr Calc Pharmacy 155.9 ml/min; Est GFR (Non-African American) 121.7; Potassium 3.5 mmol/L (3.5-5.1)
[2020-09-19] MEDS: LORazepam 1 MG/2 ML VIAL IV PRN (07:29)
[2020-09-19] MEDS: THIAMINE HCL 100 MG TAB PO SCH (08:05)
[2020-09-19] MEDS: MONTELUKAST SODIUM 10 MG TABLET PO SCH (08:05)
[2020-09-19] MEDS: NEPHROCAPS PO SCH (08:05)
[2020-09-19] MEDS: VENLAFAXINE HCL 37.5 MG TAB PO SCH (08:05)
[2020-09-19] MEDS: FOLIC ACID 1 MG TAB PO SCH (08:05)
--- NOTE | 2020-09-19 15:16 | Discharge Summary ---
Date of Service September 19, 2020 Admission HPI Per Admitting Provider The patient is a 24-year-old male with a past medical history including alcohol abuse, anxiety, depression, ADHD, juvenile polyposis syndrome, GI bleed, asthma and congenital absence of 1 kidney. He reports that he drinks to treat himself for symptoms of anxiety, depression and ADHD. He feels that he needs to see a psychiatrist. He also feels like he is going through alcohol withdrawal, and is feeling uncontrolled anxiety at this time Admission Exam Per Admitting Provider The patient is awake, alert and oriented 3, normocephalic and atraumatic, lying in bed, appears anxious, and in otherwise no acute distress. HEENT--PERRL, EOMI, mucous membranes and oropharynx dry. Neck--supple. No JVD. No bruits. Thyroid normal, trachea midline, no adenopathy. Heart--normal S1 and S2. No murmurs, rubs or gallops. Lungs--clear bilaterally, no respiratory distress, no accessory muscle use. Abdomen--normal bowel sounds and soft. Nontender. Nondistended. Extremities--no cyanosis or clubbing. No edema. Dermatologic--normal skin turgor, normal color, no abnormal lymph nodes, no rash. Neurologic--cranial nerves II through XII grossly intact. Rheumatologic--normal range of motion. Psychiatric--anxious Principal Diagnosis Alcohol Withdrawal Discharge Exam Constitutional WD/WN, vitals as above Eyes PERRL, conjunctivae normal, anicteric sclerae ENMT external ear and nose normal, oropharynx normal Neck trachea midline, no thyromegaly Respiratory normal respiratory effort, lungs clear to auscultation Cardiovascular RRR, no murmur, no edema Rate/Rhythm: regular rhythm and + tachycardic Heart Sounds: no murmur Gastrointestinal (Abdomen) normal bowel sounds, soft, nontender, no hepatosplenomegaly Musculoskeletal no cyanosis or clubbing, extremities motor strength 5/5 Skin no rashes, warm and dry Neurologic PERRL, EOMI, accommodation nl, no face palsy, no dysarthria Psychiatric A+Ox3, euthymic affect Discharge Data Allergies Allergy/AdvReac Type Severity Reaction Status Date / Time peanut Allergy Severe Anaphylaxis Verified 09/16/20 21:01 Consultations 09/16/20 19:47 ED Decision to Admit Stat 09/16/20 21:53 Consult Case Management - Discharge Planning Routine Consult Psychiatry Routine Hospital Course (1) Alcohol withdrawal: Patient is a 24 year old male with PMHx Alcohol abuse, anxiety w/ depression, asthma, juvenile polyposis syndrome, congenital absence of one kidney who presented for concerns of alcohol withdrawal after drinking for the previous 9 days. Alcohol Withdrawal -ETOH level 323 on admission and THC + -AWSS protocol with oral Ativan -Thiamine 100mg QD -Folate 1mg QD -Nephrocaps 1 capsule QD -NSS+ 20meq KCl @ 150ml/hr while inpatient, was discontinued prior to discharge. -Discussed with patient about rehab, notes he had been in the past, but that he does well with AA. -Patients AWSS 2 prior to discharge, feeling well and doing well -Recommend close follow up with PCP after discharge Anxiety with Depression -Worsening the past 4 years, patient notes he has been self-treating with alcohol -Continued Trazodone 300mg qHS -Was started on Venlafaxine, but currently titrating off -Continued venlafaxine until discharge, then discontinued after. -Psychiatry consulted while in hospital stay. -Patient was assisted in getting an appointment for outpatient psych Asthma -Albuterol PRN -Continued Singulair 10mg qAM ADHD -Per patient was on Adderall and Ritalin 4 years ago while in [place] -Notes he has had difficulty getting since coming to [place] -States he uses alcohol to cope and that it also contributes to his Anxiety/Depression -Follow up with outpatient psychiatry (2) Anxiety with depression: Total Time Total Time Spent Total Time Spent (In Minutes): <30 Discharge Plan Discharge Items Patient Disposition: Home - Self-Care Reason For Visit: Alcohol Withdrawal Discharge Diagnosis: Alcohol Withdrawal, Anxiety Condition on Discharge: Good Activity: Per Instructions section Non-emergency contact: Primary Care Provider and Psychiatrist Call non-emergency contact if: your symptoms worsen Follow-up/Referrals: Allan Barahona MD [Primary Care Provider] - 09/23/20 1:30 pm (Your appointment is with the physician assistant professor nurse education, Rodna Carbajal. If you need to change this appointment, please call [phone].) Diet: Regular Addtl Attending Provider Instructions: Mr. Castro, It was our pleasure caring for you at [facility] from 09/16/20 - 09/19/20 for your alcohol withdrawal and anxiety. Please see below for a s ummary of your care and future instructions. Alcohol Withdrawal -You had noted a significant amount of alcohol use days prior to your admission -While inpatient, we gave you medications to help prevent you from going into full alcohol withdrawal -You were also given Thiamine, Folate, and Nephrocaps and IV Fluids -We would recommend that you resume Alcoholics Anonymous meetings for assistance in alcohol cessation Anxiety with Depression -You were seen by our Psychiatrists who felt that your symptoms could be best managed in the outpatient setting -Please follow up with outpatient psych in regards to therapy and medication management -Please stop taking your Effexor (Venlafaxine) -Please continue your Trazodone Please continue to take your Asthma related medications as prescribed Recommend that you follow up with your Primary Care Provider or Family Doctor in the next week Pending Studies at Discharge: No Stand-Alone Forms: [facility] #[email or web address], Smoking Cessation Medications and DC Order Prescriptions: Continued montelukast 10 mg tablet 10 mg PO QAM Qty: 90 RF: 3 trazodone 300 mg tablet 300 mg PO HS Qty: 30 RF: 5 albuterol sulfate 90 mcg/actuation HFA aerosol inhaler 2 puff INHALATION Q6H PRN (Reason: Shortness Of Breath Or Wheezing) Qty: 8 RF: 5 epinephrine [EpiPen] 0.3 mg/0.3 mL Auto-Injector 0.3 mg IM DIRECTED PRN (Reason: Anaphylaxis) RF: 0 cetirizine [Zyrtec] 10 mg Tablet 10 mg PO DAILY PRN (Reason: Allergy Symptoms) RF: 0 Discontinued venlafaxine 37.5 mg tablet 37.5 mg PO QAM RF: 0 Discharge Orders: Discharge Order (Routine); Ordered 09/19/20 Ordered By: Mando Le Admission Data Admit Date/Time: 09/16/20 20:31 Attending Provider: Ashish Purcell Admit Provider: Chang Winter Primary Care Provider: Allan Barahona V. Other Providers: Chang Winter ; Nisha Herbert Other Interventions: Discharge Summary Assessment (RN) Last Done: 09/19/20 15:18 PSY Interdisciplinary Discharge Planning Last Done: 09/19/20 14:09 Supervising Physician Co-Signing Physician Notes I personally examined the patient and verified all shields points of history and exam, discussed case, and agree with decision making with Dr Le. feeling better and calmer and feels like he's up to going home. outpt appt scheduled vitals noted nad heent nc at mmm breathing unlabored no accessory muscles good effort skin no rashes no pallor or icterus EtOH withdrawal, anxiety - improved, stable for home otherwise as above Resident Activity Tracking Resident Involvement: Resident Care Provided Care Provided: Adult Hospital Medicine
--- NOTE | 2020-09-19 17:44 | Billing Data ---
Date of Service September 19, 2020 Coding Level of Care Code D/C Day Management <30 mins
== END 2020-09-19 15:29 | disposition home or self-care (01) ==
LOC: ED 16:37 → INTOOBSV 20:31 → SUATTDRO 20:31 → 2N 20:31

== ENCOUNTER 2021-06-08 20:36 | Observation (INO) ==
[2021-06-08 22:14] LABS: Basophils # (auto) 0.03 K/uL (0-0.2); Basophils % (auto) 0.5 %; Eosinophils # (auto) 0.24 K/uL (0-0.5); Eosinophils % (auto) 3.6 %; Hematocrit (blood only) 52.8 % (42-52); Hemoglobin 18.6 g/dL (14.0-18.0); Lymphocytes # (auto) 2.59 K/uL (1.2-3.4); Lymphocytes % (auto) 39.3 %; Mean Corpuscular Hemoglobin 31.7 pg (25-34); Mean Corpuscular Hgb Conc 35.2 g/dL (32-36); Mean Corpuscular Volume 89.9 fL (80-100); Mean Platelet Volume 9.9 fL (7.4-10.4); Monocytes # (auto) 0.32 K/uL (0.11-0.59); Monocytes % (auto) 4.9 %; Neutrophils # (auto) 3.41 K/uL (1.4-6.5); Neutrophils % (auto) 51.7 %; Platelet Count 268 K/uL (130-400); RDW Coefficient of Variation 12.7 % (11.5-14.5); RDW Standard Deviation 41.7 fL (36.4-46.3); Red Blood Count 5.87 M/uL (4.7-6.1); White Blood Count 6.59 K/uL (4.8-10.8)
[2021-06-08] MEDS ORDERED: LORazepam 2 MG/4 ML VIAL IV STA ×2 (22:24→23:41)
[2021-06-08] MEDS ORDERED: SODIUM CHLORIDE 0.9% 1000ML 1,000 ML IV ONE (22:24)
[2021-06-08] MEDS ORDERED: MULTI-VITAMIN INFUSION 10 ML, THIAMINE HCL 100 MG, FOLIC ACID 1 MG in SODIUM CHLORIDE 0... IV ONE (22:24)
--- NOTE | 2021-06-08 22:26 | Emergency Department Note ---
Impression & Plan Alcohol abuse, Tachycardia, Alcohol withdrawal ED Provider Note Provider: Arpit Allen MD DATE OF SERVICE: 06/08/2021 CHIEF COMPLAINT: Anxiety, withdrawal HISTORY OF PRESENT ILLNESS: Patient is a 25-year-old gentleman history of bipolar disorder, alcohol abuse, and alcohol withdrawal presenting here today complaining of relapsing having heavy drinking over the past approximately 2 and half days. States he came for significant stress on Tuesday due to work and did not have any as needed lorazepam. Given this uses hydroxyzine at home which did help and then turned to alcohol. Is been drinking Dayne Valdez he reports as well as IPAs. States his last drink was around noon and now feels quite anxious. Patient relates that he has a history when he went through alcohol withdrawal before of passing out on the floor for 4 hours and then waking up later. Patient denies significant chest pain at this time or abdominal pain. States he did notice a little blood when he wiped on the toilet paper earlier but denies other significant bleeding in the toilet or stool. Denies any sign ificant trauma. Patient denies any HI or SI but states he wants help and believes he may need alcohol rehab again. Patient has been not taking his methylphenidate for the last several days. REVIEW OF SYSTEMS: A total of 10 review of systems was obtained and negative except as stated above in the HPI. PAST MEDICAL HISTORY: As noted above MEDICATIONS: Reviewed home medication list SOCIAL HISTORY: History of alcohol abuse, smoker, denies drugs beyond marijuana PHYSICAL EXAM: GENERAL: alert and oriented appears somewhat anxious in the bed Head: normocephalic and atraumatic EYES: No discharge or icterus. Mild bilateral injection and 5 mm bilateral dilated pupils. NECK: Trachea midline. Supple. ENT: Mucous membranes pink and moist. LUNGS: Airway patent. No retractions. Breath sounds clear HEART: Regular tachycardic rate and rhythm. No chest wall tenderness ABDOMEN: Soft and non-tender, without guarding or rebound. SKIN: Acyanotic, warm, mildly diaphoretic EXTREMITIES: Without swelling, tenderness or deformity NEUROLOGICAL: No focal deficits. No aphasia. No facial droop or slurred speech. Normal strength and tone in the extremities. Sensation to gross touch normal. EK beats were in sinus tachycardia. No PVC or PAC. No acute ST segment elevation or depression with some inferior T wave inversions noted. QTc 443. CONTINUOUS CARDIAC MONITORING: was ordered and showed a heart rate of 100s-140s bpm in sinus tachycardia Patient's laboratory studies and imaging reviewed. Differential includes Alcohol intoxication, toxicologic, infection, hypoglycemia, electrolyte abnormalities, cardiac sources, intracerebral event, neurologic, trauma, as well as other pathologies. IMPRESSION/MEDICAL DECISION MAKING: Patient peers quite tender list and anxious on exam. Concerning history in the distant past of questionable syncope versus seizure and alcohol withdrawal before but denies hallucinations. Tremulous and tachycardic here. Hypertensive here. No acute neurological deficits noted. Alcohol level still elevated. Given several dose of Ativan here. Given IV fluid and banana bag. Electrolytes not seriously deranged. EKG without evidence of SVT. Not significantly hypoxic or short of breath and lower suspicion at this time for acute PE or acute cardiac injury. Significant concern for possible alcohol withdrawal given the patient's tachycardia hypertension and tremulous state. Hospitalist contacted. Patient in agreement. DIAGNOSIS: Alcohol withdrawal, anxiety DISPOSITION: Hospitalist will evaluate Patient was agreeable with this plan. Past Med/Surg History Medical History Alcohol abuse Anemia Anxiety Anxiety with depression Asthma Colon polyps Congenital absence of one kidney Depression Hemorrhage of gastrointestinal tract Inguinal hernia repair by aubree Intestinal polyposis Juvenile polyposis syndrome Juvenile polyposis syndrome Surgical History History of endoscopy S/P inguinal hernia repair Family History Father Anxiety Essential hypertension Alcohol abuse Family/Other Colorectal cancer Grandmother (Paternal) Breast cancer Grandmother (Maternal) Myocardial infarction Brother Depression Mother Alcohol abuse Uncle Throat cancer Grandmother Dementia Denies family history of Ovarian cancer Prostate cancer Lung cancer Social History Smoking Status: Current every day smoker Tobacco Type: Cigarettes Cigarettes Per Day: 2; Second Hand Exposure: No; Hx Alcohol Use: Yes Alcohol type: beer and hard liquor Hx Substance Use: Yes Last Used Substance: Days (ago) Last Used Substance Other:: early am Substance Use Type Other:: occasionally Preferred Language: Russian Communication Ability: Effective Visual Impairment: No Limitations Hearing Ability: Normal 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 Beliefs That Will Affect Care: None marital status: Single Current Living Situation: Other Current Living Situation Comment: with 2 roommates current occupational status: employed Feels Safe at Home: Yes Childhood Exposure to Second-Hand Smoke: Yes Dental Care, Regularly: Yes Physical Activity Frequency: 1-2 Times per Week Seatbelt Use: always Assistive Devices: None Allergies Allergies Allergy/AdvReac Type Severity Reaction Status Date / Time peanut Allergy Severe Anaphylaxis Verified 06/09/21 00:11 POLLEN Allergy Intermediate ITCHY Uncoded 06/09/21 00:11 EYES, SNEEZING, CONGESTION Home Meds Home Medications Medication Instructions Recorded Confirmed epinephrine 0.3 mg/0.3 mL 0.3 mg IM DIRECTED PRN 04/14/20 06/09/21 injection, auto-injector (EpiPen) fluvoxamine 25 mg tablet 25 mg PO HS 01/19/21 06/09/21 lamotrigine 25 mg tablet 25 mg PO BID 01/19/21 06/09/21 trazodone 300 mg tablet 300 mg PO HS 01/19/21 06/09/21 cetirizine 10 mg tablet (Zyrtec) 10 mg PO DAILY 04/02/21 06/09/21 lorazepam 1 mg tablet 0.5 - 1 mg PO TID PRN 04/02/21 06/09/21 Previous Rx's Medication Instructions Recorded albuterol sulfate 90 mcg/actuation 2 puff INHALATION Q6H PRN #8 gm 09/08/20 aerosol inhaler montelukast 10 mg tablet 10 mg PO QAM #90 tab 09/19/20 Results & Data (ED) Vital Signs Vital Signs - 24 hr 06/08/21 21:20 06/08/21 21:38 06/08/21 21:58 Temperature 37.1 C Temperature Source Temporal Artery Scan Pulse Rate 139 H 132 H Pulse Rate from SpO2 Sensor 129 H Respiratory Rate 18 23 Respiratory Depth Normal Blood Pressure 136/81 159/102 H Blood Pressure Mean 99 121 Pulse Oximetry 96 95 96 Oxygen Delivery Method Room Air Room Air Sepsis Recent Fever Within 48 Hours No Sepsis New/Unexplained Change in Mental Status N/A Sepsis Action Taken by Nursing No Action Required 06/08/21 22:00 06/08/21 23:00 Temperature Temperature Source Pulse Rate 125 H 125 H Pulse Rate from SpO2 Sensor 125 H 123 H Respiratory Rate 16 15 Respiratory Depth Blood Pressure 140/113 H 143/112 H Blood Pressure Mean 122 122 Pulse Oximetry 95 94 Oxygen Delivery Method Sepsis Recent Fever Within 48 Hours Sepsis New/Unexplained Change in Mental Status Sepsis Action Taken by Nursing Laboratory Data Result diagrams: 06/08/21 21:54 06/08/21 21:54 Lab Results 06/08/21 06/08/21 06/08/21 Range/Units 21:30 21:30 21:54 WBC 6.59 (4.8-10.8) K/uL RBC 5.87 (4.7-6.1) M/uL Hgb 18.6 H (14.0-18.0) g/dL Hct 52.8 H (42-52) % MCV 89.9 (80-100) fL MCH 31.7 (25-34) pg MCHC 35.2 (32-36) g/dL RDW Std Deviation 41.7 (36.4-46.3) fL RDW Coeff of Guerrero 12.7 (11.5-14.5) % Plt Count 268 (130-400) K/uL MPV 9.9 (7.4-10.4) fL Immature Gran % (Auto) 0.0 % Neut % (Auto) 51.7 % Lymph % (Auto) 39.3 % Gray % (Auto) 4.9 % Eos % (Auto) 3.6 % Baso % (Auto) 0.5 % Neut # (Auto) 3.41 (1.4-6.5) K/uL Lymph # (Auto) 2.59 (1.2-3.4) K/uL Gray # (Auto) 0.32 (0.11-0.59) K/uL Eos # (Auto) 0.24 (0-0.5) K/uL Baso # (Auto) 0.03 (0-0.2) K/uL Immature Gran # (Auto) 0.00 (0.00-0.02) K/uL Sodium (136-145) mmol/L Potassium (3.5-5.1) mmol/L Chloride (98-107) mmol/L Carbon Dioxide (21-32) mmol/L Anion Gap (3-11) BUN (7-18) mg/dl Creatinine (0.6-1.4) mg/dl Est Cr Clr Drug Dosing ml/min Est GFR ( Amer) ml/min Est GFR (Non-Af Amer) ml/min BUN/Creatinine Ratio (10-20) Glucose (70-99) mg/dl Calcium (8.5-10.1) mg/dl Magnesium (1.8-2.4) mg/dl Total Bilirubin (0.2-1) mg/dl AST (15-37) U/L ALT (12-78) U/L Alkaline Phosphatase (45-117) U/L Troponin I (0-0.045) ng/ml Total Protein (6.4-8.2) gm/dl Albumin (3.4-5.0) gm/dl Globulin (2.5-4.0) gm/dl Albumin/Globulin Ratio (0.9-2) TSH (0.300-4.500) uIu/ml Specimen Hemolysis Urine Color Dark Yellow Urine Appearance Clear (Clear) Urine pH 5.5 (4.5-7.5) Ur Specific [place] 1.024 (1.000-1.030) Urine Protein 2+ H (Negative) Urine Glucose (UA) Negative (Negative) Urine Ketones 2+ H (Negative) Urine Blood Trace H (Negative) Urine Nitrite Negative (Negative) Urine Bilirubin Negative (Negative) Urine Urobilinogen Negative (Negative) Ur Leukocyte Esterase Negative (Negative) Urine WBC (Auto) 1-5 (0-5) /hpf Urine RBC (Auto) 0-4 (0-4) /hpf U Hyaline Cast (Auto) 5-10 H (0-5) /lpf U Epithel Cells (Auto) 20-30 H (0-5) /lpf Urine Bacteria (Auto) Negative (Negative) Granular Casts 5-10 H (0) /lpf Salicylates (2.8-20) mg/dl Urine Opiates Screen Neg (Neg) Ur Methadone, Qual Neg (Neg) Acetaminophen (10-30) ug/ml Urine Barbiturates Neg (Neg) Ur Phencyclidine (PCP) Neg (Neg) U Amphetamin/Meth Scrn Neg (Neg) MDMA (Ecstasy) Screen Neg (Neg) U Benzodiazepines Scrn Neg (Neg) Ur Cocaine Metabolite Neg (Neg) U Marijuana (THC) Screen Pos H (Neg) Ethyl Alcohol mg/dL (0-3) mg/dl COVID-19 Eval Order SARS-CoV-2 (PCR) (Negative) 06/08/21 06/08/21 06/08/21 Range/Units 21:54 21:54 21:54 WBC (4.8-10.8) K/uL RBC (4.7-6.1) M/uL Hgb (14.0-18.0) g/dL Hct (42-52) % MCV (80-100) fL MCH (25-34) pg MCHC (32-36) g/dL RDW Std Deviation (36.4-46.3) fL RDW Coeff of Guerrero (11.5-14.5) % Plt Count (130-400) K/uL MPV (7.4-10.4) fL Immature Gran % (Auto) % Neut % (Auto) % Lymph % (Auto) % Gray % (Auto) % Eos % (Auto) % Baso % (Auto) % Neut # (Auto) (1.4-6.5) K/uL Lymph # (Auto) (1.2-3.4) K/uL Gray # (Auto) (0.11-0.59) K/uL Eos # (Auto) (0-0.5) K/uL Baso # (Auto) (0-0.2) K/uL Immature Gran # (Auto) (0.00-0.02) K/uL Sodium 139 (136-145) mmol/L Potassium 3.7 (3.5-5.1) mmol/L Chloride 105 (98-107) mmol/L Carbon Dioxide 22 (21-32) mmol/L Anion Gap 12 H (3-11) BUN 6 L (7-18) mg/dl Creatinine 0.95 (0.6-1.4) mg/dl Est Cr Clr Drug Dosing 137.0 ml/min Est GFR ( Amer) 127.5 ml/min Est GFR (Non-Af Amer) 110.0 ml/min BUN/Creatinine Ratio 6.3 L (10-20) Glucose 86 (70-99) mg/dl Calcium 9.0 (8.5-10.1) mg/dl Magnesium 2.0 (1.8-2.4) mg/dl Total Bilirubin 0.3 (0.2-1) mg/dl AST 40 H (15-37) U/L ALT 38 (12-78) U/L Alkaline Phosphatase 94 (45-117) U/L Troponin I < 0.015 (0-0.045) ng/ml Total Protein 8.7 H (6.4-8.2) gm/dl Albumin 4.1 (3.4-5.0) gm/dl Globulin 4.6 H (2.5-4.0) gm/dl Albumin/Globulin Ratio 0.9 (0.9-2) TSH 0.880 (0.300-4.500) uIu/ml Specimen Hemolysis Urine Color Urine Appearance (Clear) Urine pH (4.5-7.5) Ur Specific [place] (1.000-1.030) Urine Protein (Negative) Urine Glucose (UA) (Negative) Urine Ketones (Negative) Urine Blood (Negative) Urine Nitrite (Negative) Urine Bilirubin (Negative) Urine Urobilinogen (Negative) Ur Leukocyte Esterase (Negative) Urine WBC (Auto) (0-5) /hpf Urine RBC (Auto) (0-4) /hpf U Hyaline Cast (Auto) (0-5) /lpf U Epithel Cells (Auto) (0-5) /lpf Urine Bacteria (Auto) (Negative) Granular Casts (0) /lpf Salicylates < 1.7 L (2.8-20) mg/dl Urine Opiates Screen (Neg) Ur Methadone, Qual (Neg) Acetaminophen < 2 L (10-30) ug/ml Urine Barbiturates (Neg) Ur Phencyclidine (PCP) (Neg) U Amphetamin/Meth Scrn (Neg) MDMA (Ecstasy) Screen (Neg) U Benzodiazepines Scrn (Neg) Ur Cocaine Metabolite (Neg) U Marijuana (THC) Screen (Neg) Ethyl Alcohol mg/dL 275.3 H (0-3) mg/dl COVID-19 Eval Order SARS-CoV-2 (PCR) (Negative) 06/08/21 06/08/21 Range/Units 23:15 23:15 WBC (4.8-10.8) K/uL RBC (4.7-6.1) M/uL Hgb (14.0-18.0) g/dL Hct (42-52) % MCV (80-100) fL MCH (25-34) pg MCHC (32-36) g/dL RDW Std Deviation (36.4-46.3) fL RDW Coeff of Guerrero (11.5-14.5) % Plt Count (130-400) K/uL MPV (7.4-10.4) fL Immature Gran % (Auto) % Neut % (Auto) % Lymph % (Auto) % Gray % (Auto) % Eos % (Auto) % Baso % (Auto) % Neut # (Auto) (1.4-6.5) K/uL Lymph # (Auto) (1.2-3.4) K/uL Gray # (Auto) (0.11-0.59) K/uL Eos # (Auto) (0-0.5) K/uL Baso # (Auto) (0-0.2) K/uL Immature Gran # (Auto) (0.00-0.02) K/uL Sodium (136-145) mmol/L Potassium (3.5-5.1) mmol/L Chloride (98-107) mmol/L Carbon Dioxide (21-32) mmol/L Anion Gap (3-11) BUN (7-18) mg/dl Creatinine (0.6-1.4) mg/dl Est Cr Clr Drug Dosing ml/min Est GFR ( Amer) ml/min Est GFR (Non-Af Amer) ml/min BUN/Creatinine Ratio (10-20) Glucose (70-99) mg/dl Calcium (8.5-10.1) mg/dl Magnesium (1.8-2.4) mg/dl Total Bilirubin (0.2-1) mg/dl AST (15-37) U/L ALT (12-78) U/L Alkaline Phosphatase (45-117) U/L Troponin I (0-0.045) ng/ml Total Protein (6.4-8.2) gm/dl Albumin (3.4-5.0) gm/dl Globulin (2.5-4.0) gm/dl Albumin/Globulin Ratio (0.9-2) TSH (0.300-4.500) uIu/ml Specimen Hemolysis Urine Color Urine Appearance (Clear) Urine pH (4.5-7.5) Ur Specific [place] (1.000-1.030) Urine Protein (Negative) Urine Glucose (UA) (Negative) Urine Ketones (Negative) Urine Blood (Negative) Urine Nitrite (Negative) Urine Bilirubin (Negative) Urine Urobilinogen (Negative) Ur Leukocyte Esterase (Negative) Urine WBC (Auto) (0-5) /hpf Urine RBC (Auto) (0-4) /hpf U Hyaline Cast (Auto) (0-5) /lpf U Epithel Cells (Auto) (0-5) /lpf Urine Bacteria (Auto) (Negative) Granular Casts (0) /lpf Salicylates (2.8-20) mg/dl Urine Opiates Screen (Neg) Ur Methadone, Qual (Neg) Acetaminophen (10-30) ug/ml Urine Barbiturates (Neg) Ur Phencyclidine (PCP) (Neg) U Amphetamin/Meth Scrn (Neg) MDMA (Ecstasy) Screen (Neg) U Benzodiazepines Scrn (Neg) Ur Cocaine Metabolite (Neg) U Marijuana (THC) Screen (Neg) Ethyl Alcohol mg/dL (0-3) mg/dl COVID-19 Eval Order Covid19 at [facility] SARS-CoV-2 (PCR) NEGATIVE (Negative) Administered Medications Discontinued Medications Lorazepam (Ativan) 2 mg in 4 mls @ 4 mls/min IV NOW STA Stop: 06/08/21 22:25 Last Admin: 06/08/21 22:30 Dose: 4 mls/min Documented by: [id number] Multivitamins 10 ml/ Thiamine HCl 100 mg/ Folic Acid 1 mg/Sodium Chloride 1,011.2 mls @ 1,011.2 mls/hr IV .Q1H ONE Stop: 06/08/21 23:23 Last Admin: 06/08/21 23:05 Dose: 1,011.2 mls/hr Documented by: [id number] Sodium Chloride (Nss 1000ml) 1,000 mls @ 999 mls/hr IV .Q1H1M ONE Stop: 06/08/21 23:24 Last Admin: 06/08/21 22:30 Dose: 999 mls/hr Documented by: [id number] Lorazepam (Ativan) 2 mg in 4 mls @ 4 mls/min IV NOW STA Stop: 06/08/21 23:42 Last Admin: 06/08/21 23:51 Dose: 4 mls/min Documented by: [id number] Discharge Plan Visit Data Chief Complaint: Anxiety Stated Complaint: ANXIETY ED Provider: Arpit Allen Discharge Problem: Alcohol abuse, Tachycardia, Alcohol withdrawal Patient Disposition: Being Evaluated by Hospitalist Forms Stand Alone Forms: My [facility], Suicide Prevention Resources Prescriptions Prescriptions: No Action montelukast 10 mg tablet 10 mg PO QAM Qty: 90 RF: 3 albuterol sulfate 90 mcg/actuation HFA aerosol inhaler 2 puff INHALATION Q6H PRN (Reason: Shortness Of Breath Or Wheezing) Qty: 8 RF: 5 epinephrine [EpiPen] 0.3 mg/0.3 mL Auto-Injector 0.3 mg IM DIRECTED PRN (Reason: Anaphylaxis) RF: 0 lamotrigine 25 mg tablet 25 mg PO BID RF: 0 fluvoxamine 25 mg tablet 25 mg PO HS RF: 0 trazodone 300 mg tablet 300 mg PO HS RF: 0 cetirizine [Zyrtec] 10 mg Tablet 10 mg PO DAILY RF: 0 lorazepam 1 mg tablet 0.5 - 1 mg PO TID PRN (Reason: Anxiety) RF: 0 Referrals Referrals: Denisha Bertrand MD [Primary Care Provider] -
[2021-06-08 22:28] LABS: Appearance Urine Clear (Clear); Bacteria Urine Automated Negative (Negative); Bilirubin Urine Negative (Negative); Blood Urine Trace (Negative); Color Urine Dark Yellow; Epithelial Cell Urine Auto 20-30 /lpf (0-5); Glucose Urine UA Negative (Negative); Ketones Urine 2+ (Negative); Leukocyte Esterase Urine Negative (Negative); Nitrite Urine Negative (Negative); Protein Urine 2+ (Negative); RBC Urine Automated 0-4 /hpf (0-4); Specific Gravity Urine 1.024 (1.000-1.030); Urobilinogen Urine Negative (Negative); pH Urine 5.5 (4.5-7.5)
[2021-06-08 22:41] LABS: Salicylate < 1.7 mg/dl (2.8-20)
[2021-06-08 22:42] LABS: Acetaminophen < 2 ug/ml (10-30)
[2021-06-08 22:50] LABS: Alanine Aminotransferase 38 U/L (12-78); Albumin Globulin Ratio 0.9 (0.9-2); Albumin Level 4.1 gm/dl (3.4-5.0); Alkaline Phosphatase 94 U/L (45-117); Aspartate Aminotransferase 40 U/L (15-37); Bilirubin,Total 0.3 mg/dl (0.2-1); Blood Urea Nitrogen 6 mg/dl (7-18); Carbon Dioxide 22 mmol/L (21-32); Chloride 105 mmol/L (98-107); Est GFR (African American) 127.5 ml/min; Globulin 4.6 gm/dl (2.5-4.0); Glucose 86 mg/dl (70-99); Potassium 3.7 mmol/L (3.5-5.1); Sodium 139 mmol/L (136-145); Total Protein 8.7 gm/dl (6.4-8.2)
[2021-06-08 23:09] LABS: Amphetamines+Metham, Urine Neg (Neg); Barbiturates, Urine Neg (Neg); Benzodiazepine, Urine Neg (Neg); Cocaine, Urine Neg (Neg); MDMA (Ecstacy), Urine Neg (Neg); Methadone, Urine Neg (Neg); Opiate, Urine Neg (Neg); Phencyclidine, Urine Neg (Neg)
[2021-06-08 23:32] LABS: Anion Gap 12 (3-11); BUN Creatinine Ratio 6.3 (10-20)
[2021-06-09 00:45] LABS: Troponin I < 0.015 ng/ml (0-0.045)
[2021-06-09] MEDS ORDERED: GABAPENTIN 1200MG ALCOHOL WITHDRAWAL LOAD PO STA ×2 (00:52→09:27)
--- NOTE | 2021-06-09 00:55 | History & Physical Report ---
Date of Service June 09, 2021 Assessment & Plan (1) Alcohol withdrawal: Plan: Hosae is a 25 yo M with a PMHx of alcohol use disorder who presents for management of anxiety after an episode of binge drinking. - given Ativan 2mg x 2 and Banana bag x 1 in ED - AWSS protocol with oral ativan and gabapentin taper (per review of records from previous admission, patient improved when gabapentin was added to his regimen) - Thiamine 100 mg p.o. every morning. - Folic acid 1 mg p.o. every morning - continue home naltrexone (2) Alcohol intoxication: Plan: - Etoh level 275 on admission - IVF as above (3) Tachycardia: Plan: - likely secondary to acute etoh withdrawal - other possibilities include a PE (although patient lacks risk factors) and septic response (although he does not meet SIRS criteria) - continue color television console monitor (4) Anxiety: Plan: - chronic - continue home trazadone and fluvoxamine. Ativan prn per SS protol - currently enrolled in counseling (5) Allergic asthma: Plan: - continue home singulair - albuterol prn Dvt ppx: low risk, ambulatory Diet: Regular, peanut allergy noted Dispo: Med/surg w tele Code: Full History of Present Illness Primary Care Provider: Denisha Bertrand MD Hosea is a 25 yo M with a PMHx of alcohol use disorder who presented for evaluation of new onset anxiety after an episode of binge drinking. Of note, he has been admitted to [facility] in the past for Etoh withdrawal, mostly recently in 01/2021. He states that he was sober for the past 3-4 months -however due to a work stressor, he began to drink heavily over the past 2 days. During this time, he consumed 24 IPA beers along with "some" [employer] whiskey. His last drink was 10-12 hours prior to admission. He does have underlying KALIN for which he takes hydroxyzine and Ativan prn. He finds himself typically using only 1-2 ativan tablets per week. He missed an appointment with his PCP recently - the purpose of which was to get a refill of his ativan. He is currently enrolled in counseling at [facility], however he would [facility] to [facility] which is located closer to where he lives. In the ED, he was afebrile, tachycardic at 125bpm with normal BP and breathing. His CBC was normal. TSH normal at 0.88. Electrolytes and kidney function WNL. AST was mildly elevated to 40. Trop was undetectable. UA showed no evidence of infection. UDS positive for THC. COVID 19 neg. ETOH level was 275. He was given 2mg ativan x 2 and banana bag x 1. Allergies Allergy/AdvReac Type Severity Reaction Status Date / Time peanut Allergy Severe Anaphylaxis Verified 06/09/21 00:11 POLLEN Allergy Intermediate ITCHY Uncoded 06/09/21 00:11 EYES, SNEEZING, CONGESTION Home Medications Medication Instructions Recorded Confirmed Type epinephrine 0.3 mg/0.3 mL 0.3 mg IM DIRECTED PRN 04/14/20 06/09/21 History injection, auto-injector (EpiPen) albuterol sulfate 90 mcg/actuation 2 puff INHALATION Q6H PRN #8 gm 09/08/20 06/09/21 Rx aerosol inhaler montelukast 10 mg tablet 10 mg PO QAM #90 tab 09/19/20 06/09/21 Rx fluvoxamine 25 mg tablet 25 mg PO HS 01/19/21 06/09/21 History lamotrigine 25 mg tablet 25 mg PO BID 01/19/21 06/09/21 History trazodone 300 mg tablet 300 mg PO HS 01/19/21 06/09/21 History cetirizine 10 mg tablet (Zyrtec) 10 mg PO DAILY 04/02/21 06/09/21 History lorazepam 1 mg tablet 0.5 - 1 mg PO TID PRN 04/02/21 06/09/21 History Past Med/Surg History Medical History Alcohol abuse Anemia Anxiety Anxiety with depression Asthma Colon polyps Congenital absence of one kidney Depression Hemorrhage of gastrointestinal tract Inguinal hernia repair by aubree Intestinal polyposis Juvenile polyposis syndrome Juvenile polyposis syndrome Surgical History History of endoscopy S/P inguinal hernia repair Family History Father Anxiety Essential hypertension Alcohol abuse Family/Other Colorectal cancer Grandmother (Paternal) Breast cancer Grandmother (Maternal) Myocardial infarction Brother Depression Mother Alcohol abuse Uncle Throat cancer Grandmother Dementia Denies family history of Ovarian cancer Prostate cancer Lung cancer Social History Smoking Status: Current every day smoker Tobacco Type: Cigarettes Cigarettes Per Day: 2; Second Hand Exposure: No; Do You Dip or Chew Tobacco: No; Tobacco Cessation Education Requested by Patient: No Hx Alcohol Use: Yes Alcohol type: beer and hard liquor Hx Substance Use: Yes Last Used Substance: Days (ago) Last Used Substance Other:: early am Substance Use Type Other:: occasionally Preferred Language: Singaporean Communication Ability: Effective Visual Impairment: No Limitations Hearing Ability: Normal Deputy Commissioner Required: No Beliefs That Will Affect Care: None marital status: Single Current Living Situation: Other Current Living Situation Comment: with 2 roommates current occupational status: employed Other Information That Helps Us Care for You: No Feels Safe at Home: Yes Childhood Exposure to Second-Hand Smoke: Yes Dental Care, Regularly: Yes Physical Activity Frequency: 1-2 Times per Week Seatbelt Use: always Assistive Devices: None Review of Systems Gastrointestinal: no nausea and no vomiting Psychiatric: + anxiety Physical Exam Constitutional: WD/WN, vitals as above cooperative and + diaphoretic; no acute distress Eyes: + anicteric sclerae ENMT: external ear and nose normal, oropharynx normal Neck: trachea midline Respiratory: normal respiratory effort, lungs clear to auscultation no cough Cardiovascular: Rate/Rhythm: regular rhythm and + tachycardic Heart Sounds: normal S1 and normal S2; no murmur Extremities: no pedal edema Gastrointestinal (Abdomen): normal bowel sounds, soft, nontender, no hepatosplenomegaly Musculoskeletal: Head/Neck/Chest: normocephalic and head atraumatic Skin: no rashes, warm and dry Psychiatric: A+Ox3, euthymic affect Results & Data Results & Data ([facility]) Vital Signs (Past 12 Hours) Vital Signs Temp Pulse Resp BP Pulse Ox 06/08/21 23:00 125 H 15 143/112 H 94 06/08/21 22:00 125 H 16 140/113 H 95 06/08/21 21:58 96 06/08/21 21:38 132 H 23 159/102 H 95 06/08/21 21:20 37.1 C 139 H 18 136/81 96 Supervising Physician Co-Signing Physician Notes Attending addendum: I have physically seen this patient, have supervised the medical residents activities, and agree with the H&P unless as otherwise noted. Assessment and Plan: Alcohol withdrawal- Alcohol level 275.3 upon admission Urine drug screen also positive for marijuana AWSS protocol with oral Ativan and gabapentin Thiamine 100 mg p.o. daily Folic acid 1 mg p.o. daily Nephrocaps 1 p.o. daily Continue home naltrexone IV fluids Cessation counseling Remaining orders and notations as noted Resident Activity Tracking Resident Involvement: Resident Care Provided Care Provided: Adult Hospital Medicine (1) Alcohol withdrawal Complication of substance-induced condition: uncomplicated Qualified Code(s): F10.230 - Alcohol dependence with withdrawal, uncomplicated (2) Alcohol intoxication Complication of substance-induced condition: uncomplicated Qualified Code(s): F10.920 - Alcohol use, unspecified with intoxication, uncomplicated
[2021-06-09] MEDS ORDERED: GABAPENTIN 600 MG TAB PO STA (01:14)
[2021-06-09] MEDS ORDERED: LORazepam 1 MG TAB PO PRN (04:57)
[2021-06-09] MEDS ORDERED: ONDANSETRON INJ 2 MG/ML 2 ML VIAL IV PRN (04:57)
[2021-06-09] MEDS ORDERED: GABAPENTIN 600 MG TAB PO ONE ×2 (04:57→09:27)
[2021-06-09] MEDS: THIAMINE HCL 100 MG TAB PO SCH ×2 (06:16→06:17)
[2021-06-09] MEDS ORDERED: THIAMINE HCL 100 MG TAB PO SCH (09:00)
[2021-06-09] MEDS: GABAPENTIN 600 MG TAB PO SCH ×3 (09:16→19:55)
[2021-06-09] MEDS: lamoTRIgine 25 MG TAB PO SCH ×2 (09:17→19:55)
[2021-06-09] MEDS: MONTELUKAST SODIUM 10 MG TABLET PO SCH (09:17)
[2021-06-09] MEDS: FOLIC ACID 1 MG TAB PO SCH (09:17)
[2021-06-09] MEDS: CETIRIZINE HCL 10 MG TABLET PO SCH (09:17)
[2021-06-09] MEDS: LORazepam 1 MG TAB PO PRN ×6 (09:47→18:03)
--- NOTE | 2021-06-09 13:13 | History & Physical Bridge Note ---
Date of Service June 09, 2021 History & Physical Bridge Note I have examined the patient, reviewed the History & Physical and in the interval since the performance of the History & Physical I have noted the following changes of clinical significance: patient says he is feeling better, the Ativan helps a lot, hoping to be out of the hospital tomorrow says he got really stressed, was out of Ativan at home, had failed to get a refill, usually takes it 1-2 times per week he is eating well, minimal tremors right now, he had been sober for 2 years until this bernardino reviewed labs and chart
[2021-06-09] MEDS ORDERED: GABAPENTIN 600 MG TAB PO SCH (15:30)
[2021-06-09] MEDS: NICOTINE 14 MG/24 HR PATCH TD SCH (17:57)
[2021-06-09] MEDS ORDERED: traZODone HCL 100 MG TAB PO SCH (21:00)
[2021-06-09] MEDS ORDERED: fluvoxaMINE MALEATE 50 MG TAB PO SCH (21:00)
--- NOTE | 2021-06-10 01:58 | Billing Data ---
Date of Service June 10, 2021 Coding Level of Care Code 68863 Initial Inpt Care Lvl 2
[2021-06-10] MEDS: GABAPENTIN 600 MG TAB PO SCH (04:57)
[2021-06-10] MEDS ORDERED: GABAPENTIN 600 MG TAB PO SCH (05:30)
[2021-06-10] MEDS: NICOTINE 14 MG/24 HR PATCH TD SCH (09:09)
[2021-06-10] MEDS ORDERED: Nursing to Pharmacy Communication SCH (10:45)
[2021-06-10] MEDS ORDERED: METHYLPHENIDATE HCL 10 MG TABLET PO SCH (11:00)
--- NOTE | 2021-06-10 11:00 | Discharge Summary ---
Date of Service June 10, 2021 Admission HPI Per Admitting Provider Hosea is a 25 yo M with a PMHx of alcohol use disorder who presented for evaluation of new onset anxiety after an episode of binge drinking. Of note, he has been admitted to [facility] in the past for Etoh withdrawal, mostly recently in 01/2021. He states that he was sober for the past 3-4 months -however due to a work stressor, he began to drink heavily over the past 2 days. During this time, he consumed 24 IPA beers along with "some" Dayne Valdez whiskey. His last drink was 10-12 hours prior to admission. He does have underlying KALIN for which he takes hydroxyzine and Ativan prn. He finds himself typically using only 1-2 ativan tablets per week. He missed an appointment with his PCP recently - the purpose of which was to get a refill of his ativan. He is currently enrolled in counseling at [facility], however he would like to transfer to "[facility] which is located closer to where he lives. In the ED, he was afebrile, tachycardic at 125bpm with normal BP and breathing. His CBC was normal. TSH normal at 0.88. Electrolytes and kidney function WNL. AST was mildly elevated to 40. Trop was undetectable. UA showed no evidence of infection. UDS positive for THC. COVID 19 neg. ETOH level was 275. He was given 2mg ativan x 2 and banana bag x 1. Principal Diagnosis Acute alcohol intoxication, withdrawal, anxiety Discharge Exam Constitutional well developed, well nourished, + well hydrated, well groomed and comfortable; no acute distress Neck trachea midline, no thyromegaly Respiratory normal respiratory effort, lungs clear to auscultation Cardiovascular Rate/Rhythm: regular rhythm and + tachycardic Heart Sounds: normal S1 and normal S2; no murmur Extremities: normal capillary refill; no edema Gastrointestinal (Abdomen) normal bowel sounds, soft, nontender, no hepatosplenomegaly Musculoskeletal no cyanosis or clubbing, extremities motor strength 5/5 Skin no rashes, warm and dry Neurologic normal touch/pain/proprioception, CN's II-XI intact bilaterally, moves all extremities and awake; no focal motor deficits and not confused Motor/Sensory: no tremor Psychiatric Orientation: alert and oriented x 3 Apperance: appropriately dressed and appropriately groomed Affect: + anxious affect Discharge Data Allergies Allergy/AdvReac Type Severity Reaction Status Date / Time peanut Allergy Severe Anaphylaxis Verified 06/09/21 00:11 Consultations 06/08/21 23:57 ED Decision to Admit Stat Hospital Course (1) Alcohol withdrawal: Hosea is a 25 yo M with a PMHx of alcohol use disorder who presents for management of anxiety after an episode of binge drinking. patient had been sober for months, ran out of Ativan had a lot of stress, went on binge drinking episode a few days prior admitted for abuse and withdrawal managed with Gabapentin taper and Ativan PRN eating well, drinking fluids no tremors, withdrawal score is very low, he would like to be discharged he feels he will be okay now that he has his Ativan refilled (2) Alcohol intoxication: - Etoh level 275 on admission - aggressive IV fluids and supportive care slept a lot, eating and drinking well no longer intoxicated (3) Tachycardia: - likely secondary to acute etoh withdrawal - other possibilities include a PE (although patient lacks risk factors) and septic response (although he does not meet SIRS criteria) - HR in low 100's, not concerned as he is still anxious, wants to go due to landlord needing to show his apartment (4) Anxiety: - chronic - continue home trazadone and fluvoxamine. - currently enrolled in counseling, follows with his PCP prescribed him 2 weeks of Ativan that he was previously taking advised him to follow up with PCP soon for further management and refill at the appropriate time (5) Allergic asthma: - continue home singulair - albuterol prn lungs clear, no distress Total Time Total Time Spent Total Time Spent (In Minutes): 31 Discharge Plan Discharge Items Patient Disposition: Home - Self-Care Reason For Visit: ALCOHOL WITHDRAWAL Discharge Diagnosis: Acute alcohol binge Anxiety disorder Condition on Discharge: Good Goals: stay sober, continue on Naltrexone use Ativan as needed for anxiety follow up with Dr. Bertrand Activity: Resume your previous activity Driving/Machine Use: No limitations Weightbearing: Full weightbearing Non-emergency contact: Primary Care Provider Call non-emergency contact if: you have any medication questions Follow-up/Referrals: Denisha Bertrand MD [Primary Care Provider] - (5-7 days) Diet: Regular Addtl Attending Provider Instructions: Medications: - LORAZEPAM: use as prescribed, 0.5 - 1 mg three times a day as needed for anxiety, do not take more than prescribed Alcohol binge episode, alcohol abuse, anxiety continue to take Naltrexone to help prevent drinking use services as needed such as counseling, [facility] drug and alcohol services as needed, if you need them your number is and ask to speak with a [facility]ist. anxiety: refilled prescription for lorazepam, gave you 14 day supply, please follow up with Dr. Bertrand soon as she takes care of your prescriptions Pending Studies at Discharge: No Stand-Alone Forms: My [facility], Smoking Cessation Medications and DC Order Prescriptions: New methylphenidate HCl 10 mg Tablet 30 mg PO QAM 30 Days Qty: 90 RF: 0 Continued montelukast 10 mg tablet 10 mg PO QAM Qty: 90 RF: 3 albuterol sulfate 90 mcg/actuation HFA aerosol inhaler 2 puff INHALATION Q6H PRN (Reason: Shortness Of Breath Or Wheezing) Qty: 8 RF: 5 epinephrine [EpiPen] 0.3 mg/0.3 mL Auto-Injector 0.3 mg IM DIRECTED PRN (Reason: Anaphylaxis) RF: 0 lamotrigine 25 mg tablet 25 mg PO BID RF: 0 fluvoxamine 25 mg tablet 25 mg PO HS RF: 0 trazodone 300 mg tablet 300 mg PO HS RF: 0 lorazepam 1 mg tablet 0.5 - 1 mg PO TID PRN (Reason: Anxiety) 14 Days Qty: 42 RF: 0 cetirizine [Zyrtec] 10 mg Tablet 10 mg PO DAILY RF: 0 Discharge Orders: Discharge Order (Routine); Ordered 06/10/21 Ordered By: Joselo Gilmore Admission Data Admit Date/Time: 06/09/21 00:43 Attending Provider: Joselo Gilmore Admit Provider: Rosy Jones Primary Care Provider: Denisha Bertrand Other Providers: Chang Winter Other Interventions: Discharge Summary Assessment (RN) Last Done: 06/10/21 11:53 Coding Level of Care Code D/C DAY MANAGEMENT >30 MINS Diagnoses Alcohol withdrawal F10.230 Complication of substance-induced condition: uncomplicated Alcohol intoxication F10.920 Complication of substance-induced condition: uncomplicated Tachycardia R00.0 Anxiety F41.9 Allergic asthma J45.909
[2021-06-10] MEDS: lamoTRIgine 25 MG TAB PO SCH (11:08)
[2021-06-10] MEDS: THIAMINE HCL 100 MG TAB PO SCH (11:08)
[2021-06-10] MEDS: MONTELUKAST SODIUM 10 MG TABLET PO SCH (11:09)
[2021-06-10] MEDS: FOLIC ACID 1 MG TAB PO SCH (11:10)
[2021-06-10] MEDS: CETIRIZINE HCL 10 MG TABLET PO SCH (11:11)
[2021-06-11] MEDS ORDERED: GABAPENTIN 600 MG TAB PO SCH ×2 (02:00→09:30)
--- NOTE | 2021-06-11 05:51 | Electrocardiogram Report ---
Test Reason : Blood Pressure : / mmHG Vent. Rate : 128 BPM Atrial Rate : 128 BPM P-R Int : 122 ms QRS Dur : 082 ms QT Int : 304 ms P-R-T Axes : 063 035 008 degrees QTc Int : 443 ms Sinus tachycardia Nonspecific T wave abnormality Abnormal ECG When compared with ECG of 19-JAN-2021 10:01, Nonspecific T wave abnormality no longer evident in Anterior leads Confirmed by Eladio Pratt ([id number]) on 06/11/2021 5:51:14 AM Referred By: REFERRED SELF Confirmed By:Eladio Pratt
[2021-06-11 08:37] LABS: Marijuana Quant, GCMS Urine 1012 ng/mL (<5)
[2021-06-11] MEDS ORDERED: METHYLPHENIDATE HCL 10 MG TABLET PO SCH (09:00)
[2021-06-12] MEDS ORDERED: GABAPENTIN 600 MG TAB PO SCH ×2 (14:00→21:30)
== END 2021-06-10 13:02 | disposition home or self-care (01) ==
LOC: ED 20:36 → SUATTDRO 06-09 00:43 → INTOOBSV 06-09 00:43 → 2N 06-09 00:43
DX: T51.0X1A Toxic effect of ethanol, accidental (unintentional), initial encounter; R00.0 Tachycardia, unspecified; J45.998 Other asthma; F17.210 Nicotine dependence, cigarettes, uncomplicated; Z79.51 Long term (current) use of inhaled steroids; F41.8 Other specified anxiety disorders; F10.239 Alcohol dependence with withdrawal, unspecified; Y90.8 Blood alcohol level of 240 mg/100 ml or more; Z79.899 Other long term (current) drug therapy; F10.229 Alcohol dependence with intoxication, unspecified

== ENCOUNTER 2021-06-27 14:33 | Observation (INO) ==
[2021-06-27] MEDS ORDERED: LORazepam 2 MG/4 ML VIAL IV STA (16:07)
[2021-06-27] MEDS ORDERED: MULTI-VITAMIN INFUSION 10 ML, THIAMINE HCL 100 MG, FOLIC ACID 1 MG in SODIUM CHLORIDE 0... IV ONE (16:07)
[2021-06-27] MEDS ORDERED: THIAMINE HCL 200 MG in SODIUM CHLORIDE 0.9% 50 ML IV STA (16:07)
[2021-06-27] MEDS ORDERED: THIAMINE HCL 100 MG/ML 2 ML VIAL ONE (16:11)
[2021-06-27 16:19] LABS: Basophils # (auto) 0.04 K/uL (0-0.2); Basophils % (auto) 0.6 %; Eosinophils # (auto) 0.14 K/uL (0-0.5); Eosinophils % (auto) 2.1 %; Hematocrit (blood only) 53.2 % (42-52); Hemoglobin 18.7 g/dL (14.0-18.0); Immature Granulocytes # (auto) 0.01 K/uL (0.00-0.02); Immature Granulocytes % (auto) 0.1 %; Lymphocytes # (auto) 3.17 K/uL (1.2-3.4); Mean Corpuscular Hemoglobin 31.9 pg (25-34); Mean Corpuscular Hgb Conc 35.2 g/dL (32-36); Mean Corpuscular Volume 90.6 fL (80-100); Mean Platelet Volume 10.1 fL (7.4-10.4); Monocytes # (auto) 0.29 K/uL (0.11-0.59); Monocytes % (auto) 4.3 %; Neutrophils % (auto) 45.9 %; Platelet Count 299 K/uL (130-400); RDW Coefficient of Variation 13.3 % (11.5-14.5); RDW Standard Deviation 43.5 fL (36.4-46.3); Red Blood Count 5.87 M/uL (4.7-6.1); White Blood Count 6.75 K/uL (4.8-10.8)
[2021-06-27 16:28] LABS: BUN Creatinine Ratio 5.9 (10-20); Creatinine Clr Calc Pharmacy 134.2 ml/min; Est GFR (African American) 124.4 ml/min; Est GFR (Non-African American) 107.3 ml/min; Magnesium 1.9 mg/dl (1.8-2.4); Potassium 3.5 mmol/L (3.5-5.1)
[2021-06-27 16:33] LABS: Partial Thromboplastin Ratio 1.1; Partial Thromboplastin Time 28.2 Seconds (21.0-31.0); Prothrombin Time 10.5 Seconds (9.0-12.0)
[2021-06-27 16:37] LABS: Albumin Globulin Ratio 0.9 (0.9-2); Bilirubin Direct 0.1 mg/dl (0-0.2); Bilirubin,Total 0.4 mg/dl (0.2-1); Globulin 4.7 gm/dl (2.5-4.0); Thyroid Stimulating Hormone 1.31 uIu/ml (0.300-4.500); Total Protein 8.7 gm/dl (6.4-8.2)
[2021-06-27 16:52] LABS: Appearance Urine Clear (Clear); Bilirubin Urine Negative (Negative); Blood Urine Negative (Negative); Color Urine Yellow; Glucose Urine UA Negative (Negative); Ketones Urine Negative (Negative); Leukocyte Esterase Urine Negative (Negative); Nitrite Urine Negative (Negative); Protein Urine Negative (Negative); Specific Gravity Urine 1.004 (1.000-1.030); Urobilinogen Urine Negative (Negative)
[2021-06-27 17:09] LABS: Amphetamines+Metham, Urine Neg (Neg); Barbiturates, Urine Neg (Neg); Benzodiazepine, Urine Neg (Neg); Cocaine, Urine Neg (Neg); MDMA (Ecstacy), Urine Neg (Neg); Methadone, Urine Neg (Neg); Opiate, Urine Neg (Neg); Phencyclidine, Urine Neg (Neg)
--- NOTE | 2021-06-27 18:57 | History & Physical Report ---
Date of Service June 27, 2021 Assessment & Plan (1) Alcohol withdrawal: Plan: 25 yo M with hx bipolar 2, alcohol dependence and withdrawal, admitted for alcohol withdrawal management. Alcohol withdrawal - etoh 326 on arrival, urine tox + for THC - has done well with gabapentin previously for management. Gabapentin load + ativan PRN withdrawal protocol - seizure precautions - safe tray for hx SI - folate and b12 levels ordered, daily folate and B12 IV - NS 125 - normal transaminases, hepatic synthetic function intact. Isolated Polycythemia - hg 18.7, hct 53.2% - noted since 05/26 as high as 19.0 before - peripheral smear Bipolar 2 - continue lamictal 25 mg BID, may need to increase dose after alcohol withdrawal - cont fluvoxamine - methphenidate held insomnia - cont trazodone 300 HS DVT ppx: low risk, walk ad susie in room FEN/GI: regular diet, PO famotidine Code Status: full code Dispo: med/tele, would benefit from case management assistance with appointment with [facility] for outpatient rehab, as well as other support services. Will need close follow up at discharge with either Dr. Denisha Bertrand or Dr. Johnny Horn at [facility]. (2) Alcohol abuse: (3) Depression: (4) Anxiety: (5) Bipolar 2 disorder, major depressive episode: History of Present Illness Primary Care Provider: Denisha Bertrand MD Hosea is a 25 yo M with a PMHx of alcohol use disorder who presents for worsening anxiety after 3 days of binge drinking. Of note, he has been admitted to [facility] in the past for Etoh withdrawal, mostly recently in 06/09/2021. He previously was doing well with gabapentin and lamictal outpatient for mood control and addiction management, however has undergone multiple life stressors recently including new roommates, financial stress and lack of support.He reports drinking mostly 24 IPA beers in a day plus a handful of huang whiskey shots or "whatever's in reach". He does have underlying KALIN for which he takes hydroxyzine and Ativan prn. He finds himself typically using only 1-2 ativan tablets per month. He recently saw Dr. Horn with [facility] and said he was doing better but still struggling with his life stressors. He is currently enrolled in counseling at [facility], however he would like to transfer to [facility] for outpatient drug rehab which is located closer to where he lives. In the ED, he was afebrile, tachycardic at 116bpm with normal BP and breathing. His CBC had an elevated Hg/hct but was otherwise normal. TSH normal at 1.31. Electrolytes and kidney function WNL. No hepatic dysfunction. Trop was undetectable. UA showed no evidence of infection. Mildly low phosphorous at 2.0. UDS positive for THC. COVID 19 pending. ETOH level was 326. He was given at total of 3mg IV Ativan and banana bag x 1. EKG showing sinus tach with inverted Twaves in inferolateral leads. Allergies Allergy/AdvReac Type Severity Reaction Status Date / Time peanut Allergy Severe Anaphylaxis Verified 06/09/21 00:11 Home Medications Medication Instructions Recorded Confirmed Type epinephrine 0.3 mg/0.3 mL 0.3 mg IM DIRECTED PRN 04/14/20 06/27/21 History injection, auto-injector (EpiPen) albuterol sulfate 90 mcg/actuation 2 puff INHALATION Q6H PRN #8 gm 09/08/20 06/27/21 Rx aerosol inhaler montelukast 10 mg tablet 10 mg PO QAM #90 tab 09/19/20 06/27/21 Rx fluvoxamine 25 mg tablet 25 mg PO HS 01/19/21 06/27/21 History lamotrigine 25 mg tablet 25 mg PO BID 01/19/21 06/27/21 History trazodone 300 mg tablet 300 mg PO HS 01/19/21 06/27/21 History cetirizine 10 mg tablet (Zyrtec) 10 mg PO DAILY 04/02/21 06/27/21 History lorazepam 1 mg tablet 0.5 - 1 mg PO TID PRN 14 Days #42 06/10/21 06/27/21 Rx tab methylphenidate HCl 10 mg tablet 30 mg PO QAM 30 Days #90 tab 06/10/21 06/27/21 Rx naltrexone 50 mg tablet 50 mg PO DAILY 90 Days #90 tab 06/30/21 Rx Past Med/Surg History Medical History Alcohol abuse Alcohol intoxication Alcohol withdrawal Anemia Intestinal polyposis Juvenile polyposis syndrome Tachycardia Surgical History History of endoscopy S/P inguinal hernia repair Family History Father Anxiety Essential hypertension Alcohol abuse Family/Other Colorectal cancer Grandmother (Paternal) Breast cancer Grandmother (Maternal) Myocardial infarction Brother Depression Mother Alcohol abuse Uncle Throat cancer Grandmother Dementia Denies family history of Ovarian cancer Prostate cancer Lung cancer Social History Smoking Status: Current every day smoker Tobacco Type: Cigarettes Cigarettes Per Day: 2; Second Hand Exposure: No; Hx Alcohol Use: Yes Alcohol type: beer and hard liquor Hx Substance Use: Yes Last Used Substance: Hours (ago) Last Used Substance Other:: early am Substance Use Type Other:: occasionally Preferred Language: Tristanian Communication Ability: Effective Visual Impairment: No Limitations Hearing Ability: Normal Ice House Supervisor Required: No Beliefs That Will Affect Care: None marital status: Single Current Living Situation: Other Current Living Situation Comment: roommates current occupational status: employed How many Children do You have: 0 Feels Safe at Home: Yes Childhood Exposure to Second-Hand Smoke: Yes Dental Care, Regularly: Yes Physical Activity Frequency: 1-2 Times per Week Seatbelt Use: always Assistive Devices: None Review of Systems Constitutional: no fever, no chills, no sweats and no fatigue Eyes: no blind spots and no discharge Ear, Nose, Mouth, Throat: no hearing loss and no nasal congestion Respiratory: no cough and no dyspnea pleuritic chest pain; feels like a panic attack Cardiovascular: no chest pain, no dyspnea on exertion and no edema Gastrointestinal: no abdominal pain, no nausea, no vomiting, no constipation, no diarrhea/loose stools and no blood in stools Musculoskeletal: no joint pain and no myalgia Neurologic: no tingling, no numbness and no headache(s) Psychiatric: + depression, + anxiety, + auditory hallucinations, + tactile hallucinations (reports electrical tingling sensation over whole body) and + substance abuse; no suicidal ideation, no homicidal ideation and no hallucinations Endocrine: no fatigue Physical Exam Physical Exam: Constitutional: diaphoretic, pale and unwell appearing Eyes: EOMI, pupils equal and reactive bilaterally, no scleral icterus Cardiac: tachycardic regular rhythm, no murmurs, gallops or rubs. Normal S1, S2 Pulm: CTA BL, no wheezes, rhonchi, crackles or rubs, moving air well throughout both lungs Abd: soft, nontender, nondistended, normal bowel sounds, no rebound or guarding Extremities: 2+ peripheral pulses, no edema, tremulous when holding arms out Neuro: no focal deficits, moving all 4 limbs, A&Ox3 Results & Data Results & Data ([facility]) Vital Signs (Past 12 Hours) Vital Signs Temp Pulse Resp BP Pulse Ox 06/27/21 17:59 114 H 19 141/114 H 06/27/21 16:30 104 H 18 140/109 H 06/27/21 14:37 36.8 C 130 H 18 145/99 H 98 Laboratory Results Laboratory Results WBC 6.75 K/uL (4.8-10.8) 06/27/21 15:12 RBC 5.87 M/uL (4.7-6.1) 06/27/21 15:12 Hgb 18.7 g/dL (14.0-18.0) H 06/27/21 15:12 Hct 53.2 % (42-52) H 06/27/21 15:12 MCV 90.6 fL (80-100) 06/27/21 15:12 MCH 31.9 pg (25-34) 06/27/21 15:12 MCHC 35.2 g/dL (32-36) 06/27/21 15:12 RDW Std Deviation 43.5 fL (36.4-46.3) 06/27/21 15:12 RDW Coeff of Guerrero 13.3 % (11.5-14.5) 06/27/21 15:12 Plt Count 299 K/uL (130-400) 06/27/21 15:12 MPV 10.1 fL (7.4-10.4) 06/27/21 15:12 Immature Gran % (Auto) 0.1 % 06/27/21 15:12 Neut % (Auto) 45.9 % 06/27/21 15:12 Lymph % (Auto) 47.0 % 06/27/21 15:12 [place]ing % (Auto) 4.3 % 06/27/21 15:12 Eos % (Auto) 2.1 % 06/27/21 15:12 Baso % (Auto) 0.6 % 06/27/21 15:12 Neut # (Auto) 3.10 K/uL (1.4-6.5) 06/27/21 15:12 Lymph # (Auto) 3.17 K/uL (1.2-3.4) 06/27/21 15:12 Gooding # (Auto) 0.29 K/uL (0.11-0.59) 06/27/21 15:12 Eos # (Auto) 0.14 K/uL (0-0.5) 06/27/21 15:12 Baso # (Auto) 0.04 K/uL (0-0.2) 06/27/21 15:12 Immature Gran # (Auto) 0.01 K/uL (0.00-0.02) 06/27/21 15:12 PT 10.5 Seconds (9.0-12.0) 06/27/21 15:12 INR 1.0 (0.9-1.1) 06/27/21 15:12 APTT 28.2 Seconds (21.0-31.0) 06/27/21 15:12 PTT Ratio 1.1 06/27/21 15:12 Sodium 141 mmol/L (136-145) 06/27/21 15:12 Potassium 3.5 mmol/L (3.5-5.1) 06/27/21 15:12 Chloride 107 mmol/L (98-107) 06/27/21 15:12 Carbon Dioxide 24 mmol/L (21-32) 06/27/21 15:12 Anion Gap 10.0 (3-11) 06/27/21 15:12 BUN 6 mg/dl (7-18) L 06/27/21 15:12 Creatinine 0.97 mg/dl (0.6-1.4) 06/27/21 15:12 Est Cr Clr Drug Dosing 134.2 ml/min 06/27/21 15:12 Est GFR ( Amer) 124.4 ml/min 06/27/21 15:12 Est GFR (Non-Af Amer) 107.3 ml/min 06/27/21 15:12 BUN/Creatinine Ratio 5.9 (10-20) L 06/27/21 15:12 Glucose 93 mg/dl (70-99) 06/27/21 15:12 Calcium 9.0 mg/dl (8.5-10.1) 06/27/21 15:12 Phosphorus 2.0 mg/dl (2.5-4.9) L 06/27/21 15:12 Magnesium 1.9 mg/dl (1.8-2.4) 06/27/21 15:12 Total Bilirubin 0.4 mg/dl (0.2-1) 06/27/21 15:12 Direct Bilirubin 0.1 mg/dl (0-0.2) 06/27/21 15:12 AST 33 U/L (15-37) 06/27/21 15:12 ALT 44 U/L (12-78) 06/27/21 15:12 Alkaline Phosphatase 94 U/L (45-117) 06/27/21 15:12 Total Protein 8.7 gm/dl (6.4-8.2) H 06/27/21 15:12 Albumin 4.0 gm/dl (3.4-5.0) 06/27/21 15:12 Globulin 4.7 gm/dl (2.5-4.0) H 06/27/21 15:12 Albumin/Globulin Ratio 0.9 (0.9-2) 06/27/21 15:12 Lipase 154 U/L (73-393) 06/27/21 15:12 TSH 1.310 uIu/ml (0.300-4.500) 06/27/21 15:12 Urine Color Yellow 06/27/21 14:59 Urine Appearance Clear (Clear) 06/27/21 14:59 Urine pH 7.0 (4.5-7.5) 06/27/21 14:59 Ur Specific [place] 1.004 (1.000-1.030) 06/27/21 14:59 Urine Protein Negative (Negative) 06/27/21 14:59 Urine Glucose (UA) Negative (Negative) 06/27/21 14:59 Urine Ketones Negative (Negative) 06/27/21 14:59 Urine Blood Negative (Negative) 06/27/21 14:59 Urine Nitrite Negative (Negative) 06/27/21 14:59 Urine Bilirubin Negative (Negative) 06/27/21 14:59 Urine Urobilinogen Negative (Negative) 06/27/21 14:59 Ur Leukocyte Esterase Negative (Negative) 06/27/21 14:59 Urine Opiates Screen Neg (Neg) 06/27/21 14:59 Ur Methadone, Qual Neg (Neg) 06/27/21 14:59 Urine Barbiturates Neg (Neg) 06/27/21 14:59 Ur Phencyclidine (PCP) Neg (Neg) 06/27/21 14:59 U Amphetamin/Meth Scrn Neg (Neg) 06/27/21 14:59 MDMA (Ecstasy) Screen Neg (Neg) 06/27/21 14:59 U Benzodiazepines Scrn Neg (Neg) 06/27/21 14:59 Ur Cocaine Metabolite Neg (Neg) 06/27/21 14:59 U Marijuana (THC) Screen Pos (Neg) H 06/27/21 14:59 Ethyl Alcohol mg/dL 326.0 mg/dl (0-3) H 06/27/21 15:12 COVID-19 Eval Order Covid19 at [facility] 06/27/21 19:09 Medications Administered Discontinued Medications Multivitamins 10 ml/ Thiamine HCl 100 mg/ Folic Acid 1 mg/Sodium Chloride 1,011.2 mls @ 1,011.2 mls/hr IV .Q1H ONE Stop: 06/27/21 17:06 Last Infusion: 06/27/21 18:00 Dose: 0 mls/hr Documented by: [id number] Admin: 06/27/21 16:52 Dose: 1,011.2 mls/hr Documented by: [id number] Thiamine HCl 200 mg/ Sodium (Chloride) 52 mls @ 208 mls/hr IV NOW STA Stop: 06/27/21 16:21 Last Infusion: 06/27/21 17:07 Dose: 0 mls/hr Documented by: [id number] Admin: 06/27/21 16:52 Dose: 208 mls/hr Documented by: [id number] Lorazepam (Ativan) 2 mg in 4 mls @ 4 mls/min IV NOW STA Stop: 06/27/21 16:08 Last Admin: 06/27/21 16:26 Dose: 4 mls/min Documented by: [id number] Lorazepam (Ativan) 1 mg in 2 mls @ 2 mls/min IV NOW STA Stop: 06/27/21 19:21 Last Admin: 06/27/21 19:34 Dose: 2 mls/min Documented by: [id number] Thiamine HCl (Thiamine Hcl 100 Mg/Ml 2 Ml Vial) Confirm Administered Dose 200 mg .ROUTE .STK-MED ONE Stop: 06/27/21 16:12 Last Admin: 06/27/21 16:51 Dose: Not Given Documented by: [id number] Supervising Physician Co-Signing Physician Notes Attending addendum: I have physically seen this patient, have supervised the medical residents teresa pearce, and agree with the H&P unless as otherwise noted. Assessment and Plan: Alcohol withdrawal- Alcohol level 326 upon admission. UDS positive for THC AWSS protocol with gabapentin and as needed Ativan Seizure precautions Thiamine 100 mg p.o. daily Folic acid 1 mg p.o. daily Counseling Remaining orders and notations as noted Resident Activity Tracking Resident Involvement: Resident Care Provided Care Provided: Adult Hospital Medicine (1) Alcohol withdrawal Complication of substance-induced condition: uncomplicated Qualified Code(s): F10.230 - Alcohol dependence with withdrawal, uncomplicated (2) Depression Depression Type: unspecified Qualified Code(s): F32.9 - Major depressive disorder, single episode, unspecified
[2021-06-27] MEDS ORDERED: LORazepam 1 MG/2 ML VIAL IV STA (19:20)
[2021-06-27] MEDS ORDERED: GABAPENTIN 1200MG ALCOHOL WITHDRAWAL LOAD PO STA (19:27)
[2021-06-27] MEDS ORDERED: POTASSIUM PHOS 3 MMOL/1 ML INFUSION IV STA (20:01)
--- NOTE | 2021-06-27 20:06 | Emergency Department Note ---
Impression & Plan Alcohol withdrawal, Alcohol dependence, Dehydration ED Provider Note NAME: DONOVAN BALL AGE: 25 SEX: M ARRIVES VIA: Walk-In INFORMANT: Patient, ED PROVIDER(S): Leoncio Millan MD CHIEF COMPLAINT: Alcohol withdrawal, anxiety. PLAN: Disposition: Admit MEDICAL DECISION MAKING: The patient is a 25-year-old gentleman with a past medical history of alcohol dependence/withdrawal, bipolar disorder who presents to the emergency department for evaluation of symptoms of alcohol withdrawal and what he reports is anxiety. The patient reports his last alcohol use was last night. He reports he feels anxious but does not want inpatient psychiatric treatment. He further adds that he is interested in acute treatment for his alcohol withdrawal in the hospital but would not want to be discharged to a rehab facility and would prefer to follow-up with an outpatient detox program. He denies SI/HI. He denies fevers, chills, cough, congestion, abdominal pain, diarrhea. On arrival, the patient is uncomfortable, moderately tremulous but no acute distress, afebrile with heart rate in the 130s and vital signs otherwise stable. He appears clinically dry. He exhibits bilateral upper extremity tremors. Cerebellar function intact with intact [id number]. WBC and platelets within normal limits. H/H 18.7/53.2 similar to prior range of values and consistent with the patient's clinical dry appearance. Electrolytes and LFTs without significant abnormality. Lipase not elevated. TSH within normal limits. UA without convincing evidence of infection. Drug screen positive for marijuana. Blood alcohol was 326, given the patient's symptoms of alcohol withdrawal, is consistent with history of alcohol dependence. He is in agreement with plan for admission. Case was discussed with Dr. Ospina, [facility] hospitalist, who will evaluate the patient for admission. Triage Nursing notes reviewed and agree them. Prior medical records reviewed Vital Signs: reviewed and remarkable for no significant abnormalities Differential diagnosis: Infection, dehydration, metabolic abnormality, hypo/hyperglycemia, electrolyte disturbance, anemia, hypoxia, cardiac sources, intracerebral event, toxicologic, neurologic, as well as other pathologies. ER treatment provided: See below. Diagnostics interpreted by me: ECG: Sinus tachycardia, 108 bpm, no ectopy, nonspecific ST abnormality, no overt ST elevation or depression. Cardiac Monitoring: An order for continuous cardiac monitoring was placed and demonstrated sinus tachycardia, 108 bpm, no ectopy. Laboratory studies: See below Imaging studies: See below Consultation(s): Case was discussed with Dr. Ospina, [facility] hospitalist, who will evaluate the patient for admission. HPI: The patient is a 25-year-old gentleman with a past medical history of alcohol dependence/withdrawal, bipolar disorder who presents to the emergency department for evaluation of symptoms of alcohol withdrawal and what he reports is anxiety. The patient reports his last alcohol use was last night. He reports he feels anxious but does not want inpatient psychiatric treatment. He further adds that he is interested in acute treatment for his alcohol withdrawal in the hospital but would not want to be discharged to a rehab facility and would prefer to follow-up with an outpatient detox program. He denies SI/HI. He denies fevers, chills, cough, congestion, abdominal pain, diarrhea. ROS: See above HPI for pertinent positives & negatives. A total of 10 systems reviewed and were otherwise negative. PAST MEDICAL HISTORY:See Below PAST SURGICAL HISTORY:See Below FAMILY HISTORY:See Below SOCIAL HISTORY:See Below HOME MEDICATIONS:See Below ALLERGIES:See Below VITALS:See Below PHYSICAL EXAMINATION: GENERAL: Awake, alert, anxious-appearing, in no distress HENT: Normocephalic, atraumatic. Oropharynx with dry mucous membranes and otherwise unremarkable. EYES: Normal conjunctiva. Sclera non-icteric. EOMI. No nystamgus. PEARRL. NECK: Supple. No nuchal rigidity. FROM. No JVD. RESPIRATORY: Clear to auscultation. CARDIAC: Tachycardic rate, normal rhythm. Extremities warm and well perfused. Pulses equal. ABDOMEN: Soft, non-distended. No tenderness to palpation. No rebound or guarding. No masses. RECTAL: Deferred. MUSCULOSKELETAL: Chest examination reveals no tenderness. The back is symmetrical on inspection without obvious abnormality. There is no CVA tenderness to palpation. No joint edema. LOWER EXTREMITIES: Calves are equal size bilaterally and non-tender. No edema. No discoloration. NEURO: No focal sensory or motor deficits noted. Tremulous. 5/5 strength and SILT x 4 extremities. Intact finger to nose. SKIN: No rash or jaundice noted. Leoncio Millan MD Past Med/Surg History Medical History Alcohol abuse Alcohol intoxication Alcohol withdrawal Anemia Intestinal polyposis Juvenile polyposis syndrome Tachycardia Surgical History History of endoscopy S/P inguinal hernia repair Family History Father Anxiety Essential hypertension Alcohol abuse Family/Other Colorectal cancer Grandmother (Paternal) Breast cancer Grandmother (Maternal) Myocardial infarction Brother Depression Mother Alcohol abuse Uncle Throat cancer Grandmother Dementia Denies family history of Ovarian cancer Prostate cancer Lung cancer Social History Smoking Status: Current every day smoker Tobacco Type: Cigarettes Cigarettes Per Day: 2; Second Hand Exposure: No; Hx Alcohol Use: Yes Alcohol type: beer and hard liquor Hx Substance Use: Yes Last Used Substance: Hours (ago) Last Used Substance Other:: early am Substance Use Type Other:: occasionally Preferred Language: Portuguese Communication Ability: Effective Visual Impairment: No Limitations Hearing Ability: 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 Beliefs That Will Affect Care: None marital status: Single Current Living Situation: Other Current Living Situation Comment: roommates current occupational status: employed Feels Safe at Home: Yes Safety Concerns: Feels Safe At This Time Childhood Exposure to Second-Hand Smoke: Yes Dental Care, Regularly: Yes Physical Activity Frequency: 1-2 Times per Week Seatbelt Use: always Assistive Devices: None Allergies Allergies Allergy/AdvReac Type Severity Reaction Status Date / Time peanut Allergy Severe Anaphylaxis Verified 06/09/21 00:11 Home Meds Home Medications Medication Instructions Recorded Confirmed epinephrine 0.3 mg/0.3 mL 0.3 mg IM DIRECTED PRN 04/14/20 06/27/21 injection, auto-injector (EpiPen) fluvoxamine 25 mg tablet 25 mg PO HS 01/19/21 06/27/21 lamotrigine 25 mg tablet 25 mg PO BID 01/19/21 06/27/21 trazodone 300 mg tablet 300 mg PO HS 01/19/21 06/27/21 cetirizine 10 mg tablet (Zyrtec) 10 mg PO DAILY 04/02/21 06/27/21 Previous Rx's Medication Instructions Recorded albuterol sulfate 90 mcg/actuation 2 puff INHALATION Q6H PRN #8 gm 09/08/20 aerosol inhaler montelukast 10 mg tablet 10 mg PO QAM #90 tab 09/19/20 lorazepam 1 mg tablet 0.5 - 1 mg PO TID PRN 14 Days #42 06/10/21 tab methylphenidate HCl 10 mg tablet 30 mg PO QAM 30 Days #90 tab 06/10/21 Results & Data (ED) Vital Signs Vital Signs - 24 hr 06/27/21 14:37 06/27/21 16:00 06/27/21 16:30 Temperature 36.8 C Temperature Source Temporal Artery Scan Oral Pulse Rate 130 H 104 H Respiratory Rate 18 18 Blood Pressure 145/99 H 140/109 H Blood Pressure Mean 114 119 Pulse Oximetry 98 Oxygen Delivery Method Room Air Room Air Sepsis Recent Fever Within 48 Hours No Sepsis New/Unexplained Change in Mental Status No Sepsis Action Taken by Nursing No Action Required 06/27/21 16:35 06/27/21 17:59 06/27/21 18:31 Temperature Temperature Source Pulse Rate 114 H 116 H Respiratory Rate 19 22 Blood Pressure 141/114 H Blood Pressure Mean 123 Pulse Oximetry Oxygen Delivery Method Room Air Sepsis Recent Fever Within 48 Hours Sepsis New/Unexplained Change in Mental Status Sepsis Action Taken by Nursing Laboratory Data Attestation: I reviewed the patient's lab results. Result diagrams: 06/27/21 15:12 06/27/21 15:12 Lab Results 06/27/21 06/27/21 06/27/21 Range/Units 14:59 14:59 15:12 WBC 6.75 (4.8-10.8) K/uL RBC 5.87 (4.7-6.1) M/uL Hgb 18.7 H (14.0-18.0) g/dL Hct 53.2 H (42-52) % MCV 90.6 (80-100) fL MCH 31.9 (25-34) pg MCHC 35.2 (32-36) g/dL RDW Std Deviation 43.5 (36.4-46.3) fL RDW Coeff of Guerrero 13.3 (11.5-14.5) % Plt Count 299 (130-400) K/uL MPV 10.1 (7.4-10.4) fL Immature Gran % (Auto) 0.1 % Neut % (Auto) 45.9 % Lymph % (Auto) 47.0 % Bryan % (Auto) 4.3 % Eos % (Auto) 2.1 % Baso % (Auto) 0.6 % Neut # (Auto) 3.10 (1.4-6.5) K/uL Lymph # (Auto) 3.17 (1.2-3.4) K/uL Bryan # (Auto) 0.29 (0.11-0.59) K/uL Eos # (Auto) 0.14 (0-0.5) K/uL Baso # (Auto) 0.04 (0-0.2) K/uL Immature Gran # (Auto) 0.01 (0.00-0.02) K/uL Absolute Nucleated RBC 0.00 (0-0) K/uL Nucleated RBC % (auto) 0.0 % RBC Morphology Unremarkable PT (9.0-12.0) Seconds INR (0.9-1.1) APTT (21.0-31.0) Seconds PTT Ratio Sodium (136-145) mmol/L Potassium (3.5-5.1) mmol/L Chloride (98-107) mmol/L Carbon Dioxide (21-32) mmol/L Anion Gap (3-11) BUN (7-18) mg/dl Creatinine (0.6-1.4) mg/dl Est Cr Clr Drug Dosing ml/min Est GFR ( Amer) ml/min Est GFR (Non-Af Amer) ml/min BUN/Creatinine Ratio (10-20) Glucose (70-99) mg/dl Calcium (8.5-10.1) mg/dl Phosphorus (2.5-4.9) mg/dl Magnesium (1.8-2.4) mg/dl Total Bilirubin (0.2-1) mg/dl Direct Bilirubin (0-0.2) mg/dl AST (15-37) U/L ALT (12-78) U/L Alkaline Phosphatase (45-117) U/L Total Protein (6.4-8.2) gm/dl Albumin (3.4-5.0) gm/dl Globulin (2.5-4.0) gm/dl Albumin/Globulin Ratio (0.9-2) Lipase (73-393) U/L TSH (0.300-4.500) uIu/ml Urine Color Yellow Urine Appearance Clear (Clear) Urine pH 7.0 (4.5-7.5) Ur Specific [place] 1.004 (1.000-1.030) Urine Protein Negative (Negative) Urine Glucose (UA) Negative (Negative) Urine Ketones Negative (Negative) Urine Blood Negative (Negative) Urine Nitrite Negative (Negative) Urine Bilirubin Negative (Negative) Urine Urobilinogen Negative (Negative) Ur Leukocyte Esterase Negative (Negative) Urine Opiates Screen Neg (Neg) Ur Methadone, Qual Neg (Neg) Urine Barbiturates Neg (Neg) Ur Phencyclidine (PCP) Neg (Neg) U Amphetamin/Meth Scrn Neg (Neg) MDMA (Ecstasy) Screen Neg (Neg) U Benzodiazepines Scrn Neg (Neg) Ur Cocaine Metabolite Neg (Neg) U Marijuana (THC) Screen Pos H (Neg) Ethyl Alcohol mg/dL (0-3) mg/dl COVID-19 Eval Order SARS-CoV-2 (PCR) (Negative) 06/27/21 06/27/21 06/27/21 Range/Units 15:12 15:12 15:12 WBC (4.8-10.8) K/uL RBC (4.7-6.1) M/uL Hgb (14.0-18.0) g/dL Hct (42-52) % MCV (80-100) fL MCH (25-34) pg MCHC (32-36) g/dL RDW Std Deviation (36.4-46.3) fL RDW Coeff of Guerrero (11.5-14.5) % Plt Count (130-400) K/uL MPV (7.4-10.4) fL Immature Gran % (Auto) % Neut % (Auto) % Lymph % (Auto) % Bryan % (Auto) % Eos % (Auto) % Baso % (Auto) % Neut # (Auto) (1.4-6.5) K/uL Lymph # (Auto) (1.2-3.4) K/uL Bryan # (Auto) (0.11-0.59) K/uL Eos # (Auto) (0-0.5) K/uL Baso # (Auto) (0-0.2) K/uL Immature Gran # (Auto) (0.00-0.02) K/uL Absolute Nucleated RBC (0-0) K/uL Nucleated RBC % (auto) % RBC Morphology PT 10.5 (9.0-12.0) Seconds INR 1.0 (0.9-1.1) APTT 28.2 (21.0-31.0) Seconds PTT Ratio 1.1 Sodium 141 (136-145) mmol/L Potassium 3.5 (3.5-5.1) mmol/L Chloride 107 (98-107) mmol/L Carbon Dioxide 24 (21-32) mmol/L Anion Gap 10.0 (3-11) BUN 6 L (7-18) mg/dl Creatinine 0.97 (0.6-1.4) mg/dl Est Cr Clr Drug Dosing 134.2 ml/min Est GFR ( Amer) 124.4 ml/min Est GFR (Non-Af Amer) 107.3 ml/min BUN/Creatinine Ratio 5.9 L (10-20) Glucose 93 (70-99) mg/dl Calcium 9.0 (8.5-10.1) mg/dl Phosphorus 2.0 L (2.5-4.9) mg/dl Magnesium 1.9 (1.8-2.4) mg/dl Total Bilirubin 0.4 (0.2-1) mg/dl Direct Bilirubin 0.1 (0-0.2) mg/dl AST 33 (15-37) U/L ALT 44 (12-78) U/L Alkaline Phosphatase 94 (45-117) U/L Total Protein 8.7 H (6.4-8.2) gm/dl Albumin 4.0 (3.4-5.0) gm/dl Globulin 4.7 H (2.5-4.0) gm/dl Albumin/Globulin Ratio 0.9 (0.9-2) Lipase 154 (73-393) U/L TSH 1.310 (0.300-4.500) uIu/ml Urine Color Urine Appearance (Clear) Urine pH (4.5-7.5) Ur Specific [place] (1.000-1.030) Urine Protein (Negative) Urine Glucose (UA) (Negative) Urine Ketones (Negative) Urine Blood (Negative) Urine Nitrite (Negative) Urine Bilirubin (Negative) Urine Urobilinogen (Negative) Ur Leukocyte Esterase (Negative) Urine Opiates Screen (Neg) Ur Methadone, Qual (Neg) Urine Barbiturates (Neg) Ur Phencyclidine (PCP) (Neg) U Amphetamin/Meth Scrn (Neg) MDMA (Ecstasy) Screen (Neg) U Benzodiazepines Scrn (Neg) Ur Cocaine Metabolite (Neg) U Marijuana (THC) Screen (Neg) Ethyl Alcohol mg/dL 326.0 H (0-3) mg/dl COVID-19 Eval Order SARS-CoV-2 (PCR) (Negative) 06/27/21 06/27/21 Range/Units 19:09 19:09 WBC (4.8-10.8) K/uL RBC (4.7-6.1) M/uL Hgb (14.0-18.0) g/dL Hct (42-52) % MCV (80-100) fL MCH (25-34) pg MCHC (32-36) g/dL RDW Std Deviation (36.4-46.3) fL RDW Coeff of Guerrero (11.5-14.5) % Plt Count (130-400) K/uL MPV (7.4-10.4) fL Immature Gran % (Auto) % Neut % (Auto) % Lymph % (Auto) % Bryan % (Auto) % Eos % (Auto) % Baso % (Auto) % Neut # (Auto) (1.4-6.5) K/uL Lymph # (Auto) (1.2-3.4) K/uL Bryan # (Auto) (0.11-0.59) K/uL Eos # (Auto) (0-0.5) K/uL Baso # (Auto) (0-0.2) K/uL Immature Gran # (Auto) (0.00-0.02) K/uL Absolute Nucleated RBC (0-0) K/uL Nucleated RBC % (auto) % RBC Morphology PT (9.0-12.0) Seconds INR (0.9-1.1) APTT (21.0-31.0) Seconds PTT Ratio Sodium (136-145) mmol/L Potassium (3.5-5.1) mmol/L Chloride (98-107) mmol/L Carbon Dioxide (21-32) mmol/L Anion Gap (3-11) BUN (7-18) mg/dl Creatinine (0.6-1.4) mg/dl Est Cr Clr Drug Dosing ml/min Est GFR ( Amer) ml/min Est GFR (Non-Af Amer) ml/min BUN/Creatinine Ratio (10-20) Glucose (70-99) mg/dl Calcium (8.5-10.1) mg/dl Phosphorus (2.5-4.9) mg/dl Magnesium (1.8-2.4) mg/dl Total Bilirubin (0.2-1) mg/dl Direct Bilirubin (0-0.2) mg/dl AST (15-37) U/L ALT (12-78) U/L Alkaline Phosphatase (45-117) U/L Total Protein (6.4-8.2) gm/dl Albumin (3.4-5.0) gm/dl Globulin (2.5-4.0) gm/dl Albumin/Globulin Ratio (0.9-2) Lipase (73-393) U/L TSH (0.300-4.500) uIu/ml Urine Color Urine Appearance (Clear) Urine pH (4.5-7.5) Ur Specific [place] (1.000-1.030) Urine Protein (Negative) Urine Glucose (UA) (Negative) Urine Ketones (Negative) Urine Blood (Negative) Urine Nitrite (Negative) Urine Bilirubin (Negative) Urine Urobilinogen (Negative) Ur Leukocyte Esterase (Negative) Urine Opiates Screen (Neg) Ur Methadone, Qual (Neg) Urine Barbiturates (Neg) Ur Phencyclidine (PCP) (Neg) U Amphetamin/Meth Scrn (Neg) MDMA (Ecstasy) Screen (Neg) U Benzodiazepines Scrn (Neg) Ur Cocaine Metabolite (Neg) U Marijuana (THC) Screen (Neg) Ethyl Alcohol mg/dL (0-3) mg/dl COVID-19 Eval Order Covid19 at [facility] SARS-CoV-2 (PCR) NEGATIVE (Negative) Administered Medications Fluvoxamine Maleate (Fluvoxamine Maleate 50 Mg Tab) 25 mg PO HS SHONDA Stop: 07/27/21 21:45 Last Admin: 06/27/21 23:05 Dose: 25 mg Documented by: [id number] Potassium Phosphate 21 mmol/ (Sodium Chloride) 507 mls @ 88 mls/hr IV ONE ONE Stop: 06/28/21 03:30 Last Admin: 06/27/21 23:04 Dose: 88 mls/hr Documented by: [id number] Sodium Chloride (Nss 1000ml) 1,000 mls @ 125 mls/hr IV .Q8H SHONDA Stop: 06/28/21 13:45 Last Admin: 06/27/21 23:03 Dose: 125 mls/hr Documented by: [id number] Thiamine HCl 100 mg/ Syringe 10 mls @ 2 mls/min IV QAM SHONDA; Protocol Stop: 07/27/21 22:59 Last Admin: 06/27/21 23:06 Dose: 2 mls/min Documented by: [id number] Folic Acid 1 mg/ Syringe 10 mls @ 5 mls/min IV QAM SHONDA Stop: 07/27/21 22:59 Last Admin: 06/27/21 23:06 Dose: 5 mls/min Documented by: [id number] Lorazepam (Ativan) 1 mg in 2 mls @ 2 mls/min IV UD PRN; Protocol PRN Reason: EtOH Withdrawl AWSS Score 6,7 Stop: 07/27/21 21:45 Last Admin: 06/27/21 23:29 Dose: 2 mls/min Documented by: [id number] Lorazepam (Ativan) 2 mg in 4 mls @ 4 mls/min IV UD PRN; Protocol PRN Reason: EtOH Withdrawl AWSS Score 8,9 Stop: 07/27/21 21:45 Last Admin: 06/27/21 22:18 Dose: 4 mls/min Documented by: [id number] Lamotrigine (Lamotrigine 25 Mg Tab) 25 mg PO BID [facility] Stop: 07/27/21 21:45 Last Admin: 06/27/21 23:05 Dose: 25 mg Documented by: [id number] Trazodone HCl (Trazodone Hcl 100 Mg Tab) 300 mg PO HS [facility] Stop: 07/27/21 21:45 Last Admin: 06/27/21 23:06 Dose: 300 mg Documented by: [id number] Discontinued Medications Gabapentin (Gabapentin 1200mg Alcohol Withdrawal Load) 1 ea PO NOW STA; Protocol Stop: 06/27/21 19:28 Last Admin: 06/27/21 23:35 Dose: Not Given Documented by: [id number] Gabapentin (Gabapentin 600 Mg Tab) 1,200 mg PO NOW ONE Stop: 06/27/21 22:01 Last Admin: 06/27/21 23:04 Dose: 1,200 mg Documented by: [id number] Multivitamins 10 ml/ Thiamine HCl 100 mg/ Folic Acid 1 mg/Sodium Chloride 1,011.2 mls @ 1,011.2 mls/hr IV .Q1H ONE Stop: 06/27/21 17:06 Last Infusion: 06/27/21 18:00 Dose: 0 mls/hr Documented by: [id number] Admin: 06/27/21 16:52 Dose: 1,011.2 mls/hr Documented by: [id number] Thiamine HCl 200 mg/ Sodium (Chloride) 52 mls @ 208 mls/hr IV NOW STA Stop: 06/27/21 16:21 Last Infusion: 06/27/21 17:07 Dose: 0 mls/hr Documented by: [id number] Admin: 06/27/21 16:52 Dose: 208 mls/hr Documented by: [id number] Lorazepam (Ativan) 2 mg in 4 mls @ 4 mls/min IV NOW STA Stop: 06/27/21 16:08 Last Admin: 06/27/21 16:26 Dose: 4 mls/min Documented by: [id number] Lorazepam (Ativan) 1 mg in 2 mls @ 2 mls/min IV NOW STA Stop: 06/27/21 19:21 Last Admin: 06/27/21 19:34 Dose: 2 mls/min Documented by: [id number] Thiamine HCl (Thiamine Hcl 100 Mg/Ml 2 Ml Vial) Confirm Administered Dose 200 mg .ROUTE .STK-MED ONE Stop: 06/27/21 16:12 Last Admin: 06/27/21 16:51 Dose: Not Given Documented by: [id number] Discharge Plan Visit Data Chief Complaint: Anxiety Stated Complaint: ANXIETY,ALCOHOL WITHDRAWL,ADDICTION ED Provider: Leoncio Millan Discharge Problem: Alcohol withdrawal, Alcohol dependence, Dehydration Patient Disposition: Admitted As Inpatient Discharge Instructions Interventions: ED Discharge Assessment Last Done: 06/27/21 21:30 Discharge Problem: Alcohol withdrawal Qualifiers: Complication of substance-induced condition: with unspecified complication Qualified Code(s): F10.239 - Alcohol dependence with withdrawal, unspecified Alcohol dependence Qualifiers: Substance use status: in withdrawal Complication of substance-induced condition: with unspecified complication Qualified Code(s): F10.239 - Alcohol dependence with withdrawal, unspecified
[2021-06-27] MEDS ORDERED: POTASSIUM PHOSPHATE 21 MMOL in SODIUM CHLORIDE 0.9% 500 ML IV ONE (21:45)
[2021-06-27] MEDS ORDERED: MELATONIN 3 MG TAB PO PRN (21:46)
[2021-06-27] MEDS ORDERED: LORazepam 3 MG/6 ML VIAL IV PRN (21:46)
[2021-06-27] MEDS ORDERED: ONDANSETRON INJ 2 MG/ML 2 ML VIAL IV PRN (21:46)
[2021-06-27] MEDS ORDERED: MAGNESIUM HYDROXIDE SUSP 30 ML UDC PO PRN (21:46)
[2021-06-27] MEDS ORDERED: ACETAMINOPHEN 325 MG TAB PO PRN (21:46)
[2021-06-27] MEDS ORDERED: ATIVAN IV ALCOHOL WITHDRAWL IV PRN (21:46)
[2021-06-27] MEDS ORDERED: GABAPENTIN 600 MG TAB PO ONE (22:00)
[2021-06-27] MEDS: LORazepam 2 MG/4 ML VIAL IV PRN (22:18)
[2021-06-27] MEDS: SODIUM CHLORIDE 0.9% 1000ML 1,000 ML IV SCH (23:03)
[2021-06-27 23:04] LABS: RBC Morphology Unremarkable
[2021-06-27] MEDS: lamoTRIgine 25 MG TAB PO SCH (23:05)
[2021-06-27] MEDS: fluvoxaMINE MALEATE 50 MG TAB PO SCH (23:05)
[2021-06-27] MEDS: FOLIC ACID 1 MG in SYRINGE 9.8 ML IV SCH (23:06)
[2021-06-27] MEDS: traZODone HCL 100 MG TAB PO SCH (23:06)
[2021-06-27] MEDS: THIAMINE HCL 100 MG in SYRINGE 9 ML IV SCH (23:06)
[2021-06-27] MEDS: LORazepam 1 MG/2 ML VIAL IV PRN (23:29)
[2021-06-27] MEDS ORDERED: diazePAM 5 MG TABLET PO ONE (23:43)
[2021-06-28] MEDS: GABAPENTIN 600 MG TAB PO SCH ×2 (02:21→08:20)
--- NOTE | 2021-06-28 07:01 | Hospitalist Progress Note ---
Date of Service June 28, 2021 Assessment & Plan (1) Alcohol withdrawal: Plan: 25 yo M with hx bipolar 2, alcohol dependence and withdrawal, admitted for alcohol withdrawal management. Alcohol withdrawal - etoh 326 on arrival, urine tox + for THC - s/p gabapentin load and was started on gabapentin withdrawal protocol at admission, since discontinued - seizure precautions - normal transaminases, hepatic synthetic function intact. - daily folate and B12 IV - safety tray discontinued as he denies SI/HI plan: ativan PRN AMENA withdrawal protocol. thus far has received 3 doses of 2mg IV Ativan and 2 doses of 1mg in span of 18 hours. AWSS scales mostly 7-8 Isolated Polycythemia - hg 18.7, hct 53.2% - noted since 05/26 as high as 19.0 before - peripheral smear pending Hypokalemia - repleted Bipolar 2 - continue lamictal 25 mg BID, may need to increase dose after alcohol withdrawal - cont fluvoxamine - methphenidate held Anxiety, chronic - has outpatient therapy - considered whether anxiety symptoms were presenting as similar to etoh withdrawal symptoms. - other parts of symptoms such as sensation of bugs crawling are consistent w/ etoh withdrawal - continue AMENA protocol as above insomnia - cont trazodone 300 HS DVT ppx: low risk, SCDs FEN/GI: regular diet, no IV fluids Code Status: full code Dispo: med/tele, would benefit from case management assistance with appointment with [facility] for outpatient rehab, as well as other support services. Upon dispo, f/u w/ [facility] PCP Dr. Denisha Bertrand or Dr. Johnny Horn (2) Alcohol abuse: (3) Depression: (4) Anxiety: (5) Bipolar 2 disorder, major depressive episode: Admission and Anticipated Discharge Date Admission Date: June 27, 2021 Supervising Physician Co-Signing Physician Notes I personally examined the patient and verified all shields points of history and exam, discussed case, and agree with decision making with Dr Jackson. Saw patient twicesleeping comfortably both times. Case discussed with Dr. Jackson extensively throughout the day. Vitals noted, in general he is sleeping comfortably no distress. HEENT normocephalic atraumatic. Breathing unlabored with no accessory muscle use good effort. No focal neuro deficits at rest. Anxiety, alcohol addiction/intoxication/withdrawalsupportive care, AMENA as triggered benzodiazepines. Ongoing outpatient management for anxiety. Polycythemia as above. Subjective He is feeling slightly anxious this morning, but better than when he came in (severe anxiety, paresthesias), tachycardia, sob). + bug crawling sensation last night and sweats, none this morning. Denies hallucinations. He drinks 6 pack of 9-10% daily + leydi pagan (8oz). His last drink was 8pm 2 nights ago. He last took naltrexone 5-6 days ago and went on binge. He sometimes forgets to take the naltrexone. Hx of inpt rehab in past, 2 yrs ago. For this admission, his plan is to get better to go home and do outpt rehab. He feels the severity of this admission is worse than previous time. He feels like his balance is slightly off as well. Quit tobacco 2 wks ago. + marijuana occasionally. Denies SI/HI. 840AM: Nursing staff requested clarification regarding safety food tray because in ED, patient reportedly reported thoughts of self harm (but that he would never proceed w/ such and no plan). Patient states that he said that while drunk and that he currently denies any SI/HI. I have removed the order for safety food tray and reordered regular diet. Review of Systems Review of Systems: All systems reviewed & are unremarkable except as noted in HPI & below Physical Exam Physical Exam: General: Grossly A&O. NAD. Cooperative. HEENT: Atraumatic, normocephalic. EOMI. No scleral icterus. Pulm: CTAB. -wheezes, -rales, -rhonchi. Symmetrical chest rise. No respiratory distress. Cardiac: RRR, -mrg. Abdominal: Nontender, nondistended, soft. Neuro: Mild-moderate tremor. Psych: Denies SI/HI. Results & Data Results & Data ([facility]) Vital Signs (Past 12 Hours) Vital Signs HR 100s-110s. BPs several 140s/100s. Good sats on room air. Temp Pulse Pulse Resp BP BP Pulse Ox 06/28/21 03:42 36.4 C L 120 H 18 131/77 97 06/27/21 23:05 98 H 06/27/21 23:03 36.7 C 104 H 22 147/96 H 97 06/27/21 21:46 36.6 C 24 147/107 H 92 06/27/21 21:19 127/85 97 06/27/21 19:37 18 136/83 98 Laboratory Results No leukocytosis. K 3.3. Ca 7.9, 8.5 corrected Ca. Normal folate, B12. 06/27/21 15:12 06/28/21 08:15 ECG Additional Comments: Sinus tach 108. Normal axis. QTc 482 Resident Activity Tracking Resident Involvement: Resident Care Provided Care Provided: Adult Hospital Medicine (1) Alcohol withdrawal Complication of substance-induced condition: uncomplicated Qualified Code(s): F10.230 - Alcohol dependence with withdrawal, uncomplicated (2) Depression Depression Type: unspecified Qualified Code(s): F32.9 - Major depressive disorder, single episode, unspecified
[2021-06-28] MEDS: LORazepam 2 MG/4 ML VIAL IV PRN ×3 (07:56→17:03)
[2021-06-28] MEDS: FOLIC ACID 1 MG in SYRINGE 9.8 ML IV SCH (08:19)
[2021-06-28] MEDS: THIAMINE HCL 100 MG in SYRINGE 9 ML IV SCH (08:19)
[2021-06-28] MEDS: MONTELUKAST SODIUM 10 MG TABLET PO SCH (08:20)
[2021-06-28] MEDS: lamoTRIgine 25 MG TAB PO SCH ×2 (08:20→20:58)
[2021-06-28] MEDS: CETIRIZINE HCL 10 MG TABLET PO SCH (08:20)
[2021-06-28] MEDS: SODIUM CHLORIDE 0.9% 1000ML 1,000 ML IV SCH (08:22)
[2021-06-28 09:00] LABS: Albumin Level 3.2 gm/dl (3.4-5.0); BUN Creatinine Ratio 7.5 (10-20); Calcium 7.9 mg/dl (8.5-10.1); Creatinine Clr Calc Pharmacy 173.5 ml/min; Est GFR (African American) 146.7 ml/min; Est GFR (Non-African American) 126.6 ml/min; Potassium 3.3 mmol/L (3.5-5.1)
[2021-06-28 09:03] LABS: Albumin Globulin Ratio 0.9 (0.9-2); Bilirubin,Total 0.8 mg/dl (0.2-1); Globulin 3.7 gm/dl (2.5-4.0); Total Protein 6.9 gm/dl (6.4-8.2)
[2021-06-28 09:10] LABS: Folate (Folic Acid) > 20.00 ng/ml (>5.38); Vitamin B12 402 pg/ml (193-986)
[2021-06-28] MEDS: LORazepam 1 MG/2 ML VIAL IV PRN ×3 (09:23→21:41)
[2021-06-28] MEDS ORDERED: GABAPENTIN 600 MG TAB PO SCH (16:00)
[2021-06-28] MEDS ORDERED: POTASSIUM CHLORIDE PWD 20 MEQ PACK PO ONE (17:00)
--- NOTE | 2021-06-28 19:10 | Billing Data ---
Date of Service June 28, 2021 Coding Level of Care Code 59499 Subseq Hosp Care Lvl 3
[2021-06-28] MEDS: traZODone HCL 100 MG TAB PO SCH (20:57)
[2021-06-28] MEDS: fluvoxaMINE MALEATE 50 MG TAB PO SCH (20:58)
[2021-06-29] MEDS: LORazepam 1 MG/2 ML VIAL IV PRN ×4 (05:48→22:51)
--- NOTE | 2021-06-29 07:07 | Hospitalist Progress Note ---
Date of Service June 29, 2021 Assessment & Plan (1) Alcohol withdrawal: Plan: 25yo male with a history of alcohol use disorder (prior admissions for withdrawal) on chronic naltrexone therapy as well as bipolar II who presented to [facility] for alcohol withdrawal management. Alcohol withdrawal EtOH 326 on arrival AWSS protocol with ativan (continues to score 6-8) Normal transaminases, hepatic synthetic function intact Continue daily folate, B12 IV Seizure precautions Alcohol Use ds -resume naltrexone on discharge -planning to have IM Vivitrol to assist with compliance. Isolated polycythemia Hgb 18.7, Hct 53.2% Elevated on previous admissions as well Peripheral smear pending. further work up as outpatient. Hypokalemia Continue KCl 20mEq bid Bipolar II Continue lamictal 25mg bid (may need to increase dose after withdrawal) Increased fluvoxamine to 50mg (patient's home dose) Methylphenidate held Anxiety At the moment, treating as per AWSS protocol above Insomnia Continue trazodone FEN: regular diet Code status: full code DVT ppx: SCDs Held home meds: methylphenidate Case management: following Dispo: med/surg (2) Alcohol abuse: (3) Depression: (4) Anxiety: (5) Bipolar 2 disorder, major depressive episode: Admission and Anticipated Discharge Date Admission Date: June 27, 2021 Supervising Physician Co-Signing Physician Notes Resident Physician Supervision Note: I independently interviewed and examined the patient and verified the shields history and physical, reviewed labs and image studies and agree with resident Dr. Horn findings and care plan. Subjective Patient seen and evaluated at bedside this morning. No acute events overnight. Still scoring on the AWSS protocol, but feeling much better compared to yesterday. Endorses mild/moderate anxiety, tremor, and occasional nausea. Denies CP, SOB, vomiting, AVH, and SI/HI. Review of Systems Review of Systems: See HPI Physical Exam Physical Exam: Constitutional: tired-appearing, no acute distress HEENT: NCAT, no conjunctival injection CV: borderline tachycardia, no murmur appreciated, extremities well-perfused, no LE edema Resp: CTABL, no wheezes/rales/rhonchi appreciated, no increased work of breathing Neuro: AOx4, no focal neurological deficits appreciated, mild tremor of both hands Psych: cooperative, pleasant, appropriate rate/volume/quantity of speech Appearance: well-groomed, wearing hospital gown Behavior: calm, cooperative, eye contact good Mood: "okay" Affect: pleasant, affect congruent with mood Speech: appropriate rate/quantity/volume Thought process: linear, coherent Thought content: appropriate to topic of discussion, denies SI/HI Cognition: alert, focused, short- and long-term memory grossly intact, abstraction intact Results & Data Results & Data ([facility]) Vital Signs (Past 12 Hours) Vital Signs Temp Pulse Pulse Resp BP BP Pulse Ox 06/29/21 05:03 36.2 C L 91 H 16 94/56 L 91 06/29/21 00:28 61 06/28/21 23:10 36.4 C L 68 16 121/78 96 06/28/21 20:07 36.6 C 80 16 123/84 96 Resident Activity Tracking Resident Involvement: Resident Care Provided Care Provided: Adult Hospital Medicine (1) Alcohol withdrawal Complication of substance-induced condition: uncomplicated Qualified Code(s): F10.230 - Alcohol dependence with withdrawal, uncomplicated (2) Depression Depression Type: unspecified Qualified Code(s): F32.9 - Major depressive disorder, single episode, unspecified
[2021-06-29] MEDS: THIAMINE HCL 100 MG in SYRINGE 9 ML IV SCH (07:59)
[2021-06-29] MEDS: FOLIC ACID 1 MG in SYRINGE 9.8 ML IV SCH (07:59)
[2021-06-29] MEDS: lamoTRIgine 25 MG TAB PO SCH ×2 (08:03→19:59)
[2021-06-29] MEDS: CETIRIZINE HCL 10 MG TABLET PO SCH (08:03)
[2021-06-29] MEDS: MONTELUKAST SODIUM 10 MG TABLET PO SCH (08:03)
[2021-06-29] MEDS: POTASSIUM CHLORIDE CRTAB 20 MEQ TABCR PO SCH ×2 (10:17→20:00)
[2021-06-29] MEDS: LORazepam 2 MG/4 ML VIAL IV PRN ×5 (12:12→16:33)
[2021-06-29] MEDS: NALTREXONE HCL 50 MG TAB PO SCH (12:30)
--- NOTE | 2021-06-29 15:54 | Electrocardiogram Report ---
Test Reason : Blood Pressure : / mmHG Vent. Rate : 098 BPM Atrial Rate : 098 BPM P-R Int : 112 ms QRS Dur : 080 ms QT Int : 338 ms P-R-T Axes : 080 081 -75 degrees QTc Int : 431 ms Normal sinus rhythm T wave abnormality, consider inferior ischemia Abnormal ECG When compared with ECG of 27-JUN-2021 16:30, (unconfirmed) T wave inversion more evident in Inferior leads QT has shortened Confirmed by Teddy Dallas ([id number]) on 06/29/2021 3:53:44 PM Referred By: REFERRED SELF Confirmed By:Teddy Dallas
[2021-06-29] MEDS: NICOTINE 14 MG/24 HR PATCH TD SCH (17:57)
[2021-06-29] MEDS: NICOTINE POLACRILEX 2 MG GUM MT PRN ×2 (17:58→19:57)
[2021-06-29] MEDS ORDERED: diazePAM 5 MG TABLET PO ONE (18:41)
[2021-06-29] MEDS ORDERED: GABAPENTIN 600 MG TAB PO SCH (20:00)
[2021-06-29] MEDS: traZODone HCL 100 MG TAB PO SCH (20:00)
[2021-06-29] MEDS ORDERED: fluvoxaMINE MALEATE 50 MG TAB PO SCH (21:00)
--- NOTE | 2021-06-30 06:34 | Hospitalist Progress Note ---
Date of Service June 30, 2021 Assessment & Plan (1) Alcohol withdrawal: Plan: 25yo male with a history of alcohol use disorder (prior admissions for withdrawal) on chronic naltrexone therapy as well as bipolar II who presented to [facility] for alcohol withdrawal management. Alcohol withdrawal EtOH 326 on arrival AWSS protocol with ativan (continues to score 6-8) Normal transaminases, hepatic synthetic function intact Continue daily folate, B12 IV Seizure precautions Consider restarting Isolated polycythemia Hgb 18.7, Hct 53.2% Elevated on previous admissions as well Peripheral smear pending Hypokalemia Continue KCl 20mEq bid Bipolar II Continue lamictal 25mg bid (may need to increase dose after withdrawal) Increased fluvoxamine to 50mg (patient's home dose) Methylphenidate held Anxiety At the moment, treating as per AWSS protocol above Insomnia Continue trazodone FEN: regular diet Code status: full code DVT ppx: SCDs Held home meds: methylphenidate Case management: following Dispo: med/surg (2) Alcohol abuse: (3) Depression: (4) Anxiety: (5) Bipolar 2 disorder, major depressive episode: Admission and Anticipated Discharge Date Admission Date: June 27, 2021 Results & Data Results & Data ([facility]) Vital Signs (Past 12 Hours) Vital Signs Temp Pulse Pulse Pulse Resp BP Pulse Ox 06/30/21 04:37 36.4 C L 69 18 117/81 96 06/30/21 00:33 80 06/29/21 23:40 36.9 C 69 16 123/84 97 06/29/21 19:53 36.5 C 99 H 18 144/97 H 97 (1) Alcohol withdrawal Complication of substance-induced condition: uncomplicated Qualified Code(s): F10.230 - Alcohol dependence with withdrawal, uncomplicated (2) Depression Depression Type: unspecified Qualified Code(s): F32.9 - Major depressive disorder, single episode, unspecified
[2021-06-30] MEDS: THIAMINE HCL 100 MG in SYRINGE 9 ML IV SCH (08:05)
[2021-06-30] MEDS: MONTELUKAST SODIUM 10 MG TABLET PO SCH (08:06)
[2021-06-30] MEDS: POTASSIUM CHLORIDE CRTAB 20 MEQ TABCR PO SCH (08:06)
[2021-06-30] MEDS: lamoTRIgine 25 MG TAB PO SCH (08:06)
[2021-06-30] MEDS: NALTREXONE HCL 50 MG TAB PO SCH (08:06)
[2021-06-30] MEDS: NICOTINE 14 MG/24 HR PATCH TD SCH (08:06)
[2021-06-30] MEDS: FOLIC ACID 1 MG in SYRINGE 9.8 ML IV SCH (08:07)
[2021-06-30] MEDS: CETIRIZINE HCL 10 MG TABLET PO SCH (08:07)
--- NOTE | 2021-06-30 11:40 | Discharge Summary ---
Date of Service June 30, 2021 Admission HPI Per Admitting Provider Hosea is a 25 yo M with a PMHx of alcohol use disorder who presents for worsening anxiety after 3 days of binge drinking. Of note, [facility], mostly recently in 06/09/2021. He previously was doing well with gabapentin and lamictal outpatient for mood control and addiction management, however has undergone multiple life stressors recently including new roommates, financial stress and lack of support.He reports drinking mostly 24 IPA beers in a day plus a handful of huang whiskey shots or "whatever's in reach". He does have underlying KALIN for which he takes hydroxyzine and Ativan prn. He finds himself typically using only 1-2 ativan tablets per month. He recently saw Dr. Horn with [facility] and said he was doing better but still struggling with his life stressors. He is currently enrolled in counseling at [facility], however he would like to transfer to [facility] for outpatient drug rehab which is located closer to where he lives. In the ED, he was afebrile, tachycardic at 116bpm with normal BP and breathing. His CBC had an elevated Hg/hct but was otherwise normal. TSH normal at 1.31. Electrolytes and kidney function WNL. No hepatic dysfunction. Trop was undetectable. UA showed no evidence of infection. Mildly low phosphorous at 2.0. UDS positive for THC. COVID 19 pending. ETOH level was 326. He was given at total of 3mg IV Ativan and banana bag x 1. EKG showing sinus tach with inverted Twaves in inferolateral leads. Admission Exam Per Admitting Provider Constitutional: diaphoretic, pale and unwell appearing Eyes: EOMI, pupils equal and reactive bilaterally, no scleral icterus Cardiac: tachycardic regular rhythm, no murmurs, gallops or rubs. Normal S1, S2 Pulm: CTA BL, no wheezes, rhonchi, crackles or rubs, moving air well throughout both lungs Abd: soft, nontender, nondistended, normal bowel sounds, no rebound or guarding Extremities: 2+ peripheral pulses, no edema, tremulous when holding arms out Neuro: no focal deficits, moving all 4 limbs, A&Ox3 Principal Diagnosis Alcohol withdrawal Discharge Exam Constitutional: well-appearing, no acute distress HEENT: NCAT, no scleral icterus CV: regular rhythm, no murmur appreciated, extremities well-perfused, no LE edema Resp: CTABL, no wheezes/rales/rhonchi appreciated, no increased work of breathing Skin: warm, dry, no rash appreciated Neuro: AOx4, no focal neurological deficits appreciated, no tremor appreciated Appearance: well-groomed, wearing hospital gown Behavior: calm, cooperative, eye contact good Mood: "great today" Affect: pleasant, affect congruent with mood Speech: appropriate rate/quantity/volume Thought process: linear, coherent Thought content: appropriate to topic of discussion, denies SI/HI Cognition: alert, focused, short- and long-term memory grossly intact, abstraction intact Insight: good Judgment: good Discharge Data Allergies Allergy/AdvReac Type Severity Reaction Status Date / Time peanut Allergy Severe Anaphylaxis Verified 06/09/21 00:11 Consultations 06/27/21 18:33 ED Decision to Admit Stat Hospital Course (1) Alcohol withdrawal: Alcohol withdrawal, alcohol use disorder To medically manage patient's alcohol withdrawal, patient was placed on the AWSS protocol with ativan, along with folate, thiamine, and B12. He was noted with normal transaminases and hepatic synthetic function. Patient was noted with intermittent tachycardia that resolved by hospital day three. Patient's naltrexone was restarted one day prior to discharge. By hospital day four, patient's 12-hour ativan requirement had fallen to 0mg, and patient was felt ready for discharge. Of note, patient notes his ability to abstain from alcohol would be greatly improved if he were able to receive the depot injection form of naltrexone (Vivitrol) instead of patient's current daily oral naltrexone regimen. Patient notes he occasionally forgets a day or two worth of naltrexone, and believes this has been a significant factor leading to this and past relapses. The team worked with case management to locate clinics in the area that administer vivitrol. found out [facility] carries and administers this; however, vivitrol injections are limited to patients currently receiving counseling through [facility]. Discussed with patient, who was interested in establishing care with them in the meantime while Dr. Horn and Dr. Bertrand work on supplying vivitrol injections at the [facility]. Isolated polycythemia Patient was noted on admission to have a Hgb elevated to 18.7 with a Hct of 53.2%, which represented chronic elevations that had been noted on prior admissions. Peripheral smear was unremarkable. Outpatient follow-up was recommended, with potential consideration of workup for hemochromatosis. Bipolar II Patient's lamictal and fluvoxamine were continued during his hospitalization. PCP follow-up was recommended, with potential consideration of increasing patient's lamotrigine, if it is felt that inadequately-controlled bipolar II disorder contributed to the relapse that led to patient's admission. Insomnia Patient's home dose trazodone was continued during this hospitalization. (2) Alcohol abuse: (3) Depression: (4) Anxiety: (5) Bipolar 2 disorder, major depressive episode: Total Time Total Time Spent Total Time Spent (In Minutes): see attending documentation Discharge Plan Discharge Items Patient Disposition: Home - Self-Care Reason For Visit: ALCOHOL ABUSE/WITHDRAWAL Discharge Diagnosis: Alcohol withdrawal Activity: Resume your previous activity Non-emergency contact: Primary Care Provider Call non-emergency contact if: you have any medication questions and your symptoms worsen Follow-up/Referrals: Denisha Bertrand MD [Primary Care Provider] - (Dr. Denisha Bertrand is unavailable.) Johnny Horn MD [Resident] - (Dr. Horn is unavailable.) Kavon Bertrand DO [Resident] - 07/06/21 10:50 am (Dr. Denisha Bertrand and Dr. Horn is unavailable. Please follow up with Dr. Kavon Bertrand on Tuesday07/06/21 at 10:50 am. Please arrive to the office at 10:35 am for your appointment. If you are unable to keep this appointment, please call the office to reschedule at [phone].) Diet: Regular Addtl Attending Provider Instructions: You were admitted to the hospital for alcohol withdrawal. You were treated with medicine and IV fluids, and we feel it is safe for you to return home. A discharge summary will be sent to your primary care physician to ensure continuity of care. Please bring this discharge summary with you to your next office appointment so that your provider can review it at that time. L Follow-up appointments: We have requested a follow-up appointment with either Dr. Horn or Dr. Bertrand within one week of discharge. If you do not hear from them within 2-3 days, please call their office at . Keep all your follow-up appointments as already scheduled. If you cannot make an appointment, notify your provider. Medications: Your medication list has been reviewed and reconciled upon discharge to ensure accuracy and continuity of care. An updated list of all your medications is included with your hospital discharge paperwork. Take your medications as instructed; do not skip a dose of your medicines. Make sure all of your doctors know every medicine you are taking (including yvgo-fdd-mmfyvyw medicines, vitamins, and supplements). Call your primary care provider before taking any new medicines (including ndul-bev-mcagakw medicines, vitamins, and supplements), because some of these may interact with your current medications, or may make your symptoms worse. Tell your primary care provider if you cannot afford your medications. CONTACT YOUR PRIMARY CARE PROVIDER if you experience any of the following: Worsening alcohol cravings Worsening anxiety Hallucinations Difficulty following your treatment plan, or difficulty taking medications CALL 911 OR GO TO THE EMERGENCY DEPARTMENT if you experience any of the following: Sudden, severe abdominal pain or nausea/vomiting Severe chest pain, or chest pain that radiates (moves) to your jaw or arm Sudden, severe shortness of breath or difficulty breathing Thank you for allowing us to participate in your care. Pending Studies at Discharge: No Stand-Alone Forms: My [facility] yoone, Smoking Cessation Medications and DC Order Prescriptions: New naltrexone 50 mg Tablet 50 mg PO DAILY 90 Days Qty: 90 RF: 1 Continued montelukast 10 mg tablet 10 mg PO QAM Qty: 90 RF: 3 albuterol sulfate 90 mcg/actuation HFA aerosol inhaler 2 puff INHALATION Q6H PRN (Reason: Shortness Of Breath Or Wheezing) Qty: 8 RF: 5 epinephrine [EpiPen] 0.3 mg/0.3 mL Auto-Injector 0.3 mg IM DIRECTED PRN (Reason: Anaphylaxis) RF: 0 lamotrigine 25 mg tablet 25 mg PO BID RF: 0 fluvoxamine 25 mg tablet 25 mg PO HS RF: 0 trazodone 300 mg tablet 300 mg PO HS RF: 0 methylphenidate HCl 10 mg Tablet 30 mg PO QAM 30 Days Qty: 90 RF: 0 lorazepam 1 mg tablet 0.5 - 1 mg PO TID PRN (Reason: Anxiety) 14 Days Qty: 42 RF: 0 cetirizine [Zyrtec] 10 mg Tablet 10 mg PO DAILY RF: 0 Discharge Orders: Discharge Order (Routine); Ordered 06/30/21 Ordered By: Johnny Horn Admission Data Admit Date/Time: 06/27/21 19:21 Attending Provider: Jackie Perez Admit Provider: Denisha Bertrand Primary Care Provider: Denisha Bertrand Other Providers: Joe Ospina ; Chang Winter ; Ashish Purcell Other Interventions: Discharge Summary Assessment (RN) Last Done: 06/30/21 11:06 Supervising Physician Co-Signing Physician Notes Resident Physician Supervision Note: I independently interviewed and examined the patient and verified the shields history and physical, reviewed labs and image studies and agree with resident Dr. Horn findings and care plan. Resident Activity Tracking Resident Involvement: Resident Care Provided Care Provided: Adult Hospital Medicine
[2021-06-30 18:11] LABS: Marijuana Quant, GCMS Urine 214 ng/mL (<5)
[2021-07-01] MEDS ORDERED: GABAPENTIN 600 MG TAB PO SCH (08:00)
--- NOTE | 2021-07-01 09:17 | Electrocardiogram Report ---
Test Reason : Blood Pressure : / mmHG Vent. Rate : 108 BPM Atrial Rate : 108 BPM P-R Int : 130 ms QRS Dur : 092 ms QT Int : 360 ms P-R-T Axes : 054 028 -69 degrees QTc Int : 482 ms Sinus tachycardia Nonspecific T wave abnormality Abnormal ECG When compared with ECG of 08-JUN-2021 21:33, No significant change was found Confirmed by Teddy Dallas ([id number]) on 07/01/2021 9:17:14 AM Referred By: REFERRED SELF Confirmed By:Teddy Dallas
--- NOTE | 2021-07-04 05:04 | Billing Data ---
Date of Service July 04, 2021 Coding Level of Care Code 94155 Initial Inpt Care Lvl 2
== END 2021-06-30 11:42 | disposition home or self-care (01) ==
LOC: ED 14:33 → INTOOBSV 19:21 → SUATTDRO 19:21 → 2N 19:21 → 2S 23:04

== ENCOUNTER 2021-07-05 17:51 | Observation (INO) ==
[2021-07-05] MEDS ORDERED: PROMETHAZINE 12.5 MG/50.5 ML BAG IV STA (18:15)
[2021-07-05] MEDS ORDERED: chlordiazePOXIDE HCl 25 MG CAP PO ONE (18:15)
[2021-07-05] MEDS ORDERED: ONDANSETRON INJ 2 MG/ML 2 ML VIAL IV STA (18:15)
[2021-07-05] MEDS ORDERED: MULTI-VITAMIN INFUSION 10 ML, THIAMINE HCL 100 MG, FOLIC ACID 1 MG in SODIUM CHLORIDE 0... IV ONE (18:15)
[2021-07-05] MEDS ORDERED: SODIUM CHLORIDE 0.9% 1000ML 500 ML IV ONE (18:15)
--- NOTE | 2021-07-05 18:25 | Emergency Department Note ---
Impression & Plan Alcohol withdrawal, Depressed, Vomiting, Alcohol abuse, Benzodiazepine withdrawal, Tachycardia ED Provider Note NAME: DONOVAN BALL AGE: 25 SEX: M : 1995 ARRIVES VIA: Walk-In INFORMANT: [Patient][family] ED PROVIDER(S): [Caleb Jeong MD] CHIEF COMPLAINT: Alcohol withdrawal, anxiety HISTORY OF PRESENT ILLNESS: The patient is a 25-year-old male who left our hospital on the 24th, 5 days ago. He had been admitted for alcohol withdrawal. He was doing well up until about 3 days ago when he began to feel poorly. He started drinking. He has made some suicidal comments although, he denies actually wanting to harm himself. He just is so upset with everything he has been through. He has no actual plan to harm himself. The patient last drank alcohol about 10 hours ago. He states he feels like he is going through withdrawal now. He did vomit earlier. He has concerns because he has had seizures from withdrawal before. The patient did not use of all of his Ativan. He ran out as of last evening. He had 2 mg last evening. He states he is concerned he actually may be withdrawing from benzos as well. The patient states that he is taking his psychiatric medications. He last took them yesterday evening, he did not take any medications today. The patient is asking for a hospitalization to help with his withdrawal, he would like to see psychiatry, he would want to be discharged from our facility straight to an inpatient rehab facility as he cannot function on his own when he leaves the hospital. His mother is at the bedside and is confirming his story. REVIEW OF SYSTEMS: See HPI for pertinent positives and negatives. A total of ten systems were reviewed and were otherwise negative. PMHx/PSHx: See Below SOCIAL HISTORY: See Below. PHYSICAL EXAM: GENERAL: Patient is in moderate distress, anxious, tearful. HEENT: No acute trauma, normocephalic atraumatic, mucous membranes moist, no nasal congestion, no scleral icterus. NECK: No stridor, no adenopathy, no meningismus, trachea is midline. LUNGS: Clear to auscultation bilaterally, no wheeze, no rhonchi, breath sounds equal. HEART: Tachycardic, regular rhythm, no murmurs. ABDOMEN: Soft, nontender, bowel sounds positive, no hernias, no peritonitis. EXTREMITIES: No cyanosis or edema, full range of motion of all the joints without pain or difficulty, no signs for acute trauma. NEUROLOGIC: Oriented x 3, no acute motor or sensory deficits, no focal weakness. No speech slur. SKIN: No rash, no jaundice, no diaphoresis. Psychiatric: Cooperative, voluntary, denies suicidal thoughts or plan. DIFFERENTIAL DIAGNOSIS: Suicidality, alcohol withdrawal, benzodiazepine withdrawal, electrolyte imbalance, dehydration, dysrhythmia, overdose, failed outpatient management, among others. EMERGENCY DEPARTMENT COURSE/PROCEDURES: ECG: Indication was tachycardia and withdrawal. The ECG shows a sinus tachycardia with a rate of 106. There is some baseline artifact. No ST elevation, no PVCs. The QTc is 494. Continuous Cardiac Monitoring: An order was placed for continuous cardiac monitoring. The monitor shows a rate of 122 with sinus tachycardia. Critical Care Note: I have personally spent 43 minutes of critical care time in the direct management of this patient. This includes bedside care, interpretation of diagnostic studies, and testing, discussion with consultants, patient, and family members, and other required patient management activities. This 43 minutes is in excess of all separately billable procedures. MEDICAL DECISION MAKING: There is no leukocytosis or concerning anemia. There is a normal platelet count. There is no significant electrolyte abnormality or kidney failure. No worrisome liver enzyme elevation. The patient appears to be in a euthyroid state. No evidence for pancreatitis. Aspirin and Tylenol levels were undetectable. Alcohol level was around 300, consistent with his alcohol abuse history. Covid testing was negative. Urine tox is currently pending. ECG showed a sinus tachycardia, no acute ischemic change. The patient was given IV saline, 500 cc. He was given IV saline with m ultivitamins, thiamine and folate. He received IV Zofran, IV Phenergan and IV Valium. A second dose of IV Valium was given. He was given 25 mg of oral Librium. The patient's vital signs have improved. He seems to be more comfortable. He presents with alcohol and benzodiazepine withdrawal. He admits to some depression. He has failed outpatient treatment and is asking to go directly from our hospital to an inpatient rehab center for better care and control of his issues. I did contact case management. I did speak with the patient and his mother. I spoke with the on-call hospitalist. Hospitalization is warranted. Past Med/Surg History Medical History Alcohol abuse Alcohol intoxication Alcohol withdrawal Anemia Intestinal polyposis Juvenile polyposis syndrome Tachycardia Surgical History History of endoscopy S/P inguinal hernia repair Family History Father Anxiety Essential hypertension Alcohol abuse Family/Other Colorectal cancer Grandmother (Paternal) Breast cancer Grandmother (Maternal) Myocardial infarction Brother Depression Mother Alcohol abuse Uncle Throat cancer Grandmother Dementia Denies family history of Ovarian cancer Prostate cancer Lung cancer Social History Smoking Status: Current every day smoker Tobacco Type: Cigarettes Cigarettes Per Day: 2; Second Hand Exposure: No; Hx Alcohol Use: Yes Alcohol type: beer and hard liquor Hx Substance Use: Yes Last Used Substance: Hours (ago) Last Used Substance Other:: early am Substance Use Type Other:: occasionally Preferred Language: [place] Communication Ability: Effective Visual Impairment: No Limitations Hearing Ability: Normal Digital Media Specialist Required: No Beliefs That Will Affect Care: None marital status: Single Current Living Situation: Other Current Living Situation Comment: roommates current occupational status: employed How many Children do You have: 0 Feels Safe at Home: Yes Childhood Exposure to Second-Hand Smoke: Yes Dental Care, Regularly: Yes Physical Activity Frequency: 1-2 Times per Week Seatbelt Use: always Assistive Devices: None Allergies Allergies Allergy/AdvReac Type Severity Reaction Status Date / Time peanut Allergy Severe Anaphylaxis Verified 07/05/21 18:43 Home Meds Home Medications Medication Instructions Recorded Confirmed epinephrine 0.3 mg/0.3 mL 0.3 mg IM DIRECTED PRN 04/14/20 07/05/21 injection, auto-injector (EpiPen) lamotrigine 25 mg tablet 25 mg PO BID 01/19/21 07/05/21 trazodone 300 mg tablet 300 mg PO HS 01/19/21 07/05/21 cetirizine 10 mg tablet (Zyrtec) 10 mg PO DAILY 04/02/21 07/05/21 ascorbic acid 1,000 1 ea PO DAILY 07/05/21 07/05/21 zo-ldlqroyvvley-ufootpak powder effervescent pack (Emergen-C) esomeprazole magnesium 40 mg 40 mg PO DAILY 07/05/21 07/05/21 capsule,delayed release fluvoxamine 50 mg tablet 50 mg PO HS 07/05/21 07/05/21 hydroxyzine HCl 25 mg tablet 25 mg PO DAILY PRN 07/05/21 07/05/21 methylphenidate HCl 10 mg tablet 10 mg PO QAM 07/05/21 07/05/21 methylphenidate HCl 20 mg 20 mg PO QAM 07/05/21 07/05/21 tablet,extended release multivitamin 1 tab PO DAILY 07/05/21 07/05/21 quetiapine 50 mg tablet (Seroquel) 50 mg PO HS 07/05/21 07/05/21 Previous Rx's Medication Instructions Recorded albuterol sulfate 90 mcg/actuation 2 puff INHALATION Q6H PRN #8 gm 09/08/20 aerosol inhaler montelukast 10 mg tablet 10 mg PO QAM #90 tab 09/19/20 lorazepam 1 mg tablet 0.5 - 1 mg PO TID PRN 14 Days #42 06/10/21 tab naltrexone 50 mg tablet 50 mg PO DAILY 90 Days #90 tab 06/30/21 Results & Data (ED) Vital Signs Vital Signs - 24 hr 07/05/21 17:55 07/05/21 19:47 07/05/21 19:53 Temperature 36.9 C Temperature Source Oral Pulse Rate 125 H 107 H Respiratory Rate 20 16 Respiratory Effort / Characteristics Non-Labored Respiratory Depth Normal Blood Pressure 156/107 H 141/98 H Blood Pressure Mean 123 112 Pulse Oximetry 96 94 Oxygen Delivery Method Room Air Sepsis Recent Fever Within 48 Hours No Sepsis New/Unexplained Change in Mental Status N/A Sepsis Action Taken by Nursing No Action Required Home Medications Current Medication List: was personally reviewed by me Laboratory Data Attestation: I reviewed the patient's lab results. Result diagrams: 07/05/21 18:31 07/05/21 18:31 Lab Results 07/05/21 07/05/21 07/05/21 Range/Units 18:31 18:31 18:31 WBC 5.88 (4.8-10.8) K/uL RBC 5.32 (4.7-6.1) M/uL Hgb 16.9 (14.0-18.0) g/dL Hct 48.4 (42-52) % MCV 91.0 (80-100) fL MCH 31.8 (25-34) pg MCHC 34.9 (32-36) g/dL RDW Std Deviation 42.9 (36.4-46.3) fL RDW Coeff of [place]erre[place] 12.9 (11.5-14.5) % Plt Count 202 (130-400) K/uL MPV 9.9 (7.4-10.4) fL Immature Gran % (Auto) 0.2 % Neut % (Auto) 52.5 % Lymph % (Auto) 33.8 % [place] % (Auto) 5.1 % Eos % (Auto) 7.7 % Baso % (Auto) 0.7 % Neut # (Auto) 3.09 (1.4-6.5) K/uL Lymph # (Auto) 1.99 (1.2-3.4) K/uL [place] # (Auto) 0.30 (0.11-0.59) K/uL Eos # (Auto) 0.45 (0-0.5) K/uL Baso # (Auto) 0.04 (0-0.2) K/uL Immature Gran # (Auto) 0.01 (0.00-0.02) K/uL Sodium 140 (136-145) mmol/L Potassium 3.5 (3.5-5.1) mmol/L Chloride 108 H (98-107) mmol/L Carbon Dioxide 26 (21-32) mmol/L Anion Gap 6.0 (3-11) BUN 7 (7-18) mg/dl Creatinine 0.85 (0.6-1.4) mg/dl Est Cr Clr Drug Dosing 153.1 ml/min Est GFR ( Amer) 139.4 ml/min Est GFR (Non-Af Amer) 120.3 ml/min BUN/Creatinine Ratio 7.8 L (10-20) Glucose 93 (70-99) mg/dl Calcium 8.5 (8.5-10.1) mg/dl Phosphorus 2.6 (2.5-4.9) mg/dl Magnesium 2.1 (1.8-2.4) mg/dl Total Bilirubin 0.3 (0.2-1) mg/dl AST 40 H (15-37) U/L ALT 46 (12-78) U/L Alkaline Phosphatase 85 (45-117) U/L Total Protein 8.1 (6.4-8.2) gm/dl Albumin 3.7 (3.4-5.0) gm/dl Globulin 4.4 H (2.5-4.0) gm/dl Albumin/Globulin Ratio 0.8 L (0.9-2) Lipase 151 (73-393) U/L TSH 2.030 (0.300-4.500) uIu/ml Salicylates < 1.7 L (2.8-20) mg/dl Acetaminophen < 2 L (10-30) ug/ml Ethyl Alcohol mg/dL (0-3) mg/dl COVID-19 Eval Order SARS-CoV-2 (PCR) (Negative) 07/05/21 07/05/21 07/05/21 Range/Units 18:31 Unknown Unknown WBC (4.8-10.8) K/uL RBC (4.7-6.1) M/uL Hgb (14.0-18.0) g/dL Hct (42-52) % MCV (80-100) fL MCH (25-34) pg MCHC (32-36) g/dL RDW Std Deviation (36.4-46.3) fL RDW Coeff of Guerrero (11.5-14.5) % Plt Count (130-400) K/uL MPV (7.4-10.4) fL Immature Gran % (Auto) % Neut % (Auto) % Lymph % (Auto) % [place] % (Auto) % Eos % (Auto) % Baso % (Auto) % Neut # (Auto) (1.4-6.5) K/uL Lymph # (Auto) (1.2-3.4) K/uL [place] # (Auto) (0.11-0.59) K/uL Eos # (Auto) (0-0.5) K/uL Baso # (Auto) (0-0.2) K/uL Immature Gran # (Auto) (0.00-0.02) K/uL Sodium (136-145) mmol/L Potassium (3.5-5.1) mmol/L Chloride (98-107) mmol/L Carbon Dioxide (21-32) mmol/L Anion Gap (3-11) BUN (7-18) mg/dl Creatinine (0.6-1.4) mg/dl Est Cr Clr Drug Dosing ml/min Est GFR ( Amer) ml/min Est GFR (Non-Af Amer) ml/min BUN/Creatinine Ratio (10-20) Glucose (70-99) mg/dl Calcium (8.5-10.1) mg/dl Phosphorus (2.5-4.9) mg/dl Magnesium (1.8-2.4) mg/dl Total Bilirubin (0.2-1) mg/dl AST (15-37) U/L ALT (12-78) U/L Alkaline Phosphatase (45-117) U/L Total Protein (6.4-8.2) gm/dl Albumin (3.4-5.0) gm/dl Globulin (2.5-4.0) gm/dl Albumin/Globulin Ratio (0.9-2) Lipase (73-393) U/L TSH (0.300-4.500) uIu/ml Salicylates (2.8-20) mg/dl Acetaminophen (10-30) ug/ml Ethyl Alcohol mg/dL 301.0 H (0-3) mg/dl COVID-19 Eval Order Covid19 at [facility] SARS-CoV-2 (PCR) NEGATIVE (Negative) Administered Medications Discontinued Medications Chlordiazepoxide HCl (Chlordiazepoxide Hcl 25 Mg Cap) 25 mg PO NOW ONE Stop: 07/05/21 18:16 Last Admin: 07/05/21 18:33 Dose: 25 mg Documented by: [id number] Diazepam (Diazepam 5 Mg/Ml Inj 10ml Vial) 5 mg IV NOW STA Stop: 07/05/21 18:16 Last Admin: 07/05/21 18:33 Dose: 5 mg Documented by: [id number] Diazepam (Diazepam 5 Mg/Ml Inj 10ml Vial) 5 mg IV NOW STA Stop: 07/05/21 18:55 Last Admin: 07/05/21 18:59 Dose: 5 mg Documented by: [id number] Sodium Chloride (Nss 1000ml) 500 mls @ 999 mls/hr IV .Q31M ONE Stop: 07/05/21 18:45 Last Infusion: 08/29/21 19:21 Dose: 0 mls/hr Documented by: [id number] Admin: 07/05/21 18:36 Dose: 999 mls/hr Documented by: [id number] Promethazine HCl (Phenergan) 12.5 mg in 50.5 mls @ 202 mls/hr IV NOW STA Stop: 07/05/21 18:29 Last Infusion: 07/05/21 18:49 Dose: 0 mls/hr Documented by: [id number] Admin: 07/05/21 18:33 Dose: 202 mls/hr Documented by: [id number] Ondansetron HCl (Ondansetron Inj 2 Mg/Ml 2 Ml Vial) 4 mg IV NOW STA Stop: 07/05/21 18:16 Last Admin: 07/05/21 18:33 Dose: 4 mg Documented by: [id number] Discharge Plan Visit Data Chief Complaint: Alcohol Withdrawal Stated Complaint: ALCOHOL W/D ED Provider: Caleb Jeong Discharge Problem: Alcohol withdrawal, Depressed, Vomiting, Alcohol abuse, Benzodiazepine withdrawal, Tachycardia Patient Disposition: Admitted As Inpatient Condition: Fair Forms Stand Alone Forms: [facility], Suicide Prevention Resources Prescriptions Prescriptions: No Action montelukast 10 mg tablet 10 mg PO QAM Qty: 90 RF: 3 albuterol sulfate 90 mcg/actuation HFA aerosol inhaler 2 puff INHALATION Q6H PRN (Reason: Shortness Of Breath Or Wheezing) Qty: 8 RF: 5 epinephrine [EpiPen] 0.3 mg/0.3 mL Auto-Injector 0.3 mg IM DIRECTED PRN (Reason: Anaphylaxis) RF: 0 lamotrigine 25 mg tablet 25 mg PO BID RF: 0 trazodone 300 mg tablet 300 mg PO HS RF: 0 lorazepam 1 mg tablet 0.5 - 1 mg PO TID PRN (Reason: Anxiety) 14 Days Qty: 42 RF: 0 naltrexone 50 mg Tablet 50 mg PO DAILY 90 Days Qty: 90 RF: 1 cetirizine [Zyrtec] 10 mg Tablet 10 mg PO DAILY RF: 0 multivitamin Tablet 1 tab PO DAILY RF: 0 esomeprazole magnesium 40 mg capsule,delayed release(DR/EC) 40 mg PO DAILY RF: 0 methylphenidate HCl 20 mg tablet extended release 20 mg PO QAM RF: 0 hydroxyzine HCl 25 mg tablet 25 mg PO DAILY PRN (Reason: Anxiety) RF: 0 fluvoxamine 50 mg tablet 50 mg PO HS RF: 0 quetiapine [Seroquel] 50 mg Tablet 50 mg PO HS RF: 0 Emergen-C 1,000 mg Powder Effervescent In Packet 1 ea PO DAILY RF: 0 methylphenidate HCl 10 mg tablet 10 mg PO QAM RF: 0 Referrals Referrals: Denisha Bertrand MD [Primary Care Provider] -
[2021-07-05 18:42] LABS: Basophils # (auto) 0.04 K/uL (0-0.2); Basophils % (auto) 0.7 %; Eosinophils # (auto) 0.45 K/uL (0-0.5); Eosinophils % (auto) 7.7 %; Hematocrit (blood only) 48.4 % (42-52); Hemoglobin 16.9 g/dL (14.0-18.0); Immature Granulocytes # (auto) 0.01 K/uL (0.00-0.02); Immature Granulocytes % (auto) 0.2 %; Lymphocytes # (auto) 1.99 K/uL (1.2-3.4); Lymphocytes % (auto) 33.8 %; Mean Corpuscular Hemoglobin 31.8 pg (25-34); Mean Corpuscular Hgb Conc 34.9 g/dL (32-36); Mean Platelet Volume 9.9 fL (7.4-10.4); Monocytes % (auto) 5.1 %; Neutrophils # (auto) 3.09 K/uL (1.4-6.5); Neutrophils % (auto) 52.5 %; Platelet Count 202 K/uL (130-400); RDW Coefficient of Variation 12.9 % (11.5-14.5); RDW Standard Deviation 42.9 fL (36.4-46.3); Red Blood Count 5.32 M/uL (4.7-6.1); White Blood Count 5.88 K/uL (4.8-10.8)
[2021-07-05 19:00] LABS: Albumin Level 3.7 gm/dl (3.4-5.0); BUN Creatinine Ratio 7.8 (10-20); Calcium 8.5 mg/dl (8.5-10.1); Creatinine Clr Calc Pharmacy 153.1 ml/min; Est GFR (African American) 139.4 ml/min; Est GFR (Non-African American) 120.3 ml/min; Magnesium 2.1 mg/dl (1.8-2.4); Potassium 3.5 mmol/L (3.5-5.1)
[2021-07-05 19:11] LABS: Albumin Globulin Ratio 0.8 (0.9-2); Bilirubin,Total 0.3 mg/dl (0.2-1); Globulin 4.4 gm/dl (2.5-4.0); Phosphorus 2.6 mg/dl (2.5-4.9); Thyroid Stimulating Hormone 2.03 uIu/ml (0.300-4.500); Total Protein 8.1 gm/dl (6.4-8.2)
[2021-07-05 19:30] LABS: Acetaminophen < 2 ug/ml (10-30); Salicylate < 1.7 mg/dl (2.8-20)
--- NOTE | 2021-07-05 19:50 | History & Physical Report ---
Date of Service July 05, 2021 Assessment & Plan (1) Alcohol abuse: Plan: Patient is a 25 year old male with PMHx Alcohol use disorder, Bipolar II, Anxiety, Insomnia, Asthma, that presents with concerns of being in alcohol withdrawal and exhibiting significant anxiety. Patient was recently admitted for alcohol withdrawal from 06/09-06/10/21 and again from 06/27-06/30/21 for the same complaint. Alcohol Use Disorder and Alcohol Withdrawal -Patient with alcohol level 301 on admission -In addition urine drug screen showing positivity for Marijuana -Given Valium 5mg x2, 1L nss, 25mg Librium, 4mg Zofrna, 12.5mg Promethazine -Will give 2mg Ativan now for symptoms and anxiety -AWSS protocol with gabapentin load and Ativan pushes PRN -Patient requesting rehab at [facility] in [place] after discharge, Case management consulted for assistance -LR 125ml/hr x2L -Daily Folic Acid and Thiamine -Zofran PRN nausea -Hold Naltrexone at this time, may benefit from Vivitrol injections as patient is forgetful to take his naltrexone BP II -Continue home Lamictal -Continue home Seroquel -Continue home Fluvoxamine -Continue home Hydroxyzine GERD -Continue home Esomeprazole Asthma -Continue home Singulair -Albuterol PRN Insomnia -Continue home Trazodone ADHD -Hold methylphenidate at this time Dispo: Med/Surg Telemetry to monitor for alcohol withdrawal - would benefit to directly attending rehab from the hospital FEN: Regular diet, LR 125ml/hr x2L DVT: SCDs Code: Full (2) Alcohol withdrawal: History of Present Illness Chief Complaint: Alcohol withdrawal Primary Care Provider: Denisha Bertrand MD Patient is a 25 year old male with PMHx Alcohol use disorder, Bipolar II, Anxiety, Insomnia, Asthma, that presents with concerns of being in alcohol withdrawal and exhibiting significant anxiety. Patient was recently admitted for alcohol withdrawal from 06/09-06/10/21 and again from 06/27-06/30/21 for the same complaint. Patient notes that upon discharge last week he went home and took the last 3-4 of his ativan. He notes he then forgot to take his Naltrexone and fell back into drinking again. He feels that this time it was bit worse as he had been drinking 12 bottles of 9% IPA in addition to a fifth of Dayne Valdez daily. He notes increased anxiety and depression with the loss of his job 2 days ago. His last drink was 8AM this morning. He notes currently that he is very anxious, has 5/10 abdominal pain that feels like "pins and needles" and is fairly c oncerned about having a seizure. He notes that he needs help and wants to go straight from here to [facility] in [place] for inpatient rehab. He denies any SI or HI. He currently denies any fever, chills, SOB, chest pain, dysuria, hematuria, diarrhea, headache. Allergies Allergy/AdvReac Type Severity Reaction Status Date / Time peanut Allergy Severe Anaphylaxis Verified 07/05/21 18:43 Home Medications Medication Instructions Recorded Confirmed Type epinephrine 0.3 mg/0.3 mL 0.3 mg IM DIRECTED PRN 04/14/20 07/05/21 History injection, auto-injector (EpiPen) albuterol sulfate 90 mcg/actuation 2 puff INHALATION Q6H PRN #8 gm 09/08/20 07/05/21 Rx aerosol inhaler montelukast 10 mg tablet 10 mg PO QAM #90 tab 09/19/20 07/05/21 Rx lamotrigine 25 mg tablet 25 mg PO BID 01/19/21 07/05/21 History trazodone 300 mg tablet 300 mg PO HS 01/19/21 07/05/21 History cetirizine 10 mg tablet (Zyrtec) 10 mg PO DAILY 04/02/21 07/05/21 History lorazepam 1 mg tablet 0.5 - 1 mg PO TID PRN 14 Days #42 06/10/21 07/05/21 Rx tab naltrexone 50 mg tablet 50 mg PO DAILY 90 Days #90 tab 06/30/21 07/05/21 Rx ascorbic acid 1,000 1 ea PO DAILY 07/05/21 07/05/21 History ak-[id number]-gwnfdvbh powder effervescent pack (Emergen-C) esomeprazole magnesium 40 mg 40 mg PO DAILY 07/05/21 07/05/21 History capsule,delayed release fluvoxamine 50 mg tablet 50 mg PO HS 07/05/21 07/05/21 History hydroxyzine HCl 25 mg tablet 25 mg PO DAILY PRN 07/05/21 07/05/21 History methylphenidate HCl 10 mg tablet 10 mg PO QAM 07/05/21 07/05/21 History methylphenidate HCl 20 mg 20 mg PO QAM 07/05/21 07/05/21 History tablet,extended release multivitamin 1 tab PO DAILY 07/05/21 07/05/21 History quetiapine 50 mg tablet (Seroquel) 50 mg PO HS 07/05/21 07/05/21 History Past Med/Surg History Medical History Alcohol abuse Alcohol intoxication Alcohol withdrawal Anemia Intestinal polyposis Juvenile polyposis syndrome Tachycardia Surgical History History of endoscopy S/P inguinal hernia repair Family History Father Anxiety Essential hypertension Alcohol abuse Family/Other Colorectal cancer Grandmother (Paternal) Breast cancer Grandmother (Maternal) Myocardial infarction Brother Depression Mother Alcohol abuse Uncle Throat cancer Grandmother Dementia Denies family history of Ovarian cancer Prostate cancer Lung cancer Social History Smoking Status: Former smoker Tobacco Type: Cigarettes Cigarettes Per Day: 25; Smoking End Date: 06/30/21; Second Hand Exposure: Yes; Do You Dip or Chew Tobacco: No; Tobacco Cessation Education Requested by Patient: No Hx Alcohol Use: Yes Alcohol type: beer and hard liquor Hx Substance Use: Yes Last Used Substance: Days (ago) Last Used Substance Other:: unknown by pt= could not remember. Substance Use Type Other:: occasionally Preferred Language: Urdu Communication Ability: Effective Visual Impairment: No Limitations Hearing Ability: Normal Showroom Consultant Required: No Beliefs That Will Affect Care: None marital status: Single Current Living Situation: Parent Current Living Situation Comment: lives with parent- pt wants to go to REHAB post-discharge. CM F/U current occupational status: employed How many Children do You have: 0 Other Information That Helps Us Care for You: No Feels Safe at Home: Yes Safety Concerns: Feels Safe At This Time Childhood Exposure to Second-Hand Smoke: Yes Dental Care, Regularly: Yes Physical Activity Frequency: 1-2 Times per Week Seatbelt Use: always Assistive Devices: None Review of Systems Review of Systems: ROS as above Physical Exam Constitutional: well developed, well nourished, + intoxicated appearing and cooperative; no acute distress Eyes: PERRL, conjunctivae normal, anicteric sclerae ENMT: external ear and nose normal, oropharynx normal Neck: trachea midline, no thyromegaly Respiratory: normal respiratory effort; no cough Auscultation: lungs clear to auscultation bilaterally; no diminished lung sounds, no crackles, no rales and no wheezes Cardiovascular: Rate/Rhythm: regular rate and regular rhythm Heart Sounds: normal S1 and normal S2; no murmur and no cardiac rub Vessels: no JVD Extremities: no calf tenderness and no edema Gastrointestinal (Abdomen): Inspection/Auscultation: abdomen normal to inspection and normal bowel sounds; abdomen not distended Percussion/Palpation: + abdomen tender (slight TTP epigastric) and abdomen soft; no guarding and abdomen not rigid Musculoskeletal: no cyanosis or clubbing, extremities motor strength 5/5 Head/Neck/Chest: normocephalic and head atraumatic Skin: no rashes, warm and dry Psychiatric: Orientation: alert and oriented x 3 Eye Contact: + fair eye contact Speech: normal rate/rhythm/volume of speech Affect: + anxious affect Mood: + anxious mood Suicidal Thoughts: denies suicidal intent Homicidal Thoughts: denies homicidal intent Results & Data Results & Data ([facility]) Vital Signs (Past 12 Hours) Vital Signs Temp Pulse Resp BP Pulse Ox 07/05/21 17:55 36.9 C 125 H 20 156/107 H 96 Laboratory Results Laboratory Results - last 24 hr 07/05/21 07/05/21 07/05/21 18:31 18:31 18:31 WBC 5.88 RBC 5.32 Hgb 16.9 Hct 48.4 MCV 91.0 MCH 31.8 MCHC 34.9 RDW Std Deviation 42.9 RDW Coeff of Guerrero 12.9 Plt Count 202 MPV 9.9 Immature Gran % (Auto) 0.2 Neut % (Auto) 52.5 Lymph % (Auto) 33.8 Kenton % (Auto) 5.1 Eos % (Auto) 7.7 Baso % (Auto) 0.7 Neut # (Auto) 3.09 Lymph # (Auto) 1.99 Kenton # (Auto) 0.30 Eos # (Auto) 0.45 Baso # (Auto) 0.04 Immature Gran # (Auto) 0.01 Sodium 140 Potassium 3.5 Chloride 108 H Carbon Dioxide 26 Anion Gap 6.0 BUN 7 Creatinine 0.85 Est Cr Clr Drug Dosing 153.1 Est GFR ( Amer) 139.4 Est GFR (Non-Af Amer) 120.3 BUN/Creatinine Ratio 7.8 L Glucose 93 Calcium 8.5 Phosphorus 2.6 Magnesium 2.1 Total Bilirubin 0.3 AST 40 H ALT 46 Alkaline Phosphatase 85 Total Protein 8.1 Albumin 3.7 Globulin 4.4 H Albumin/Globulin Ratio 0.8 L Lipase 151 TSH 2.030 Salicylates < 1.7 L Urine Opiates Screen Ur Methadone, Qual Acetaminophen < 2 L Urine Barbiturates Ur Phencyclidine (PCP) U Amphetamin/Meth Scrn MDMA (Ecstasy) Screen U Benzodiazepines Scrn Ur Cocaine Metabolite U Marijuana (THC) Screen U Marijuana THC Carboxy Drug Screen Comment Ethyl Alcohol mg/dL COVID-19 Eval Order SARS-CoV-2 (PCR) 07/05/21 07/05/21 07/05/21 18:31 19:51 19:51 WBC RBC Hgb Hct MCV MCH MCHC RDW Std Deviation RDW Coeff of Guerrero Plt Count MPV Immature Gran % (Auto) Neut % (Auto) Lymph % (Auto) Kenton % (Auto) Eos % (Auto) Baso % (Auto) Neut # (Auto) Lymph # (Auto) Kenton # (Auto) Eos # (Auto) Baso # (Auto) Immature Gran # (Auto) Sodium Potassium Chloride Carbon Dioxide Anion Gap BUN Creatinine Est Cr Clr Drug Dosing Est GFR ( Amer) Est GFR (Non-Af Amer) BUN/Creatinine Ratio Glucose Calcium Phosphorus Magnesium Total Bilirubin AST ALT Alkaline Phosphatase Total Protein Albumin Globulin Albumin/Globulin Ratio Lipase TSH Salicylates Urine Opiates Screen Neg Ur Methadone, Qual Neg Acetaminophen Urine Barbiturates Neg Ur Phencyclidine (PCP) Neg U Amphetamin/Meth Scrn Neg MDMA (Ecstasy) Screen Neg U Benzodiazepines Scrn Neg Ur Cocaine Metabolite Neg U Marijuana (THC) Screen Pos H U Marijuana THC Carboxy Pending Drug Screen Comment Pending Ethyl Alcohol mg/dL 301.0 H COVID-19 Eval Order SARS-CoV-2 (PCR) 07/05/21 07/05/21 Unknown Unknown WBC RBC Hgb Hct MCV MCH MCHC RDW Std Deviation RDW Coeff of Guerrero Plt Count MPV Immature Gran % (Auto) Neut % (Auto) Lymph % (Auto) Kenton % (Auto) Eos % (Auto) Baso % (Auto) Neut # (Auto) Lymph # (Auto) Kenton # (Auto) Eos # (Auto) Baso # (Auto) Immature Gran # (Auto) Sodium Potassium Chloride Carbon Dioxide Anion Gap BUN Creatinine Est Cr Clr Drug Dosing Est GFR ( Amer) Est GFR (Non-Af Amer) BUN/Creatinine Ratio Glucose Calcium Phosphorus Magnesium Total Bilirubin AST ALT Alkaline Phosphatase Total Protein Albumin Globulin Albumin/Globulin Ratio Lipase TSH Salicylates Urine Opiates Screen Ur Methadone, Qual Acetaminophen Urine Barbiturates Ur Phencyclidine (PCP) U Amphetamin/Meth Scrn MDMA (Ecstasy) Screen U Benzodiazepines Scrn Ur Cocaine Metabolite U Marijuana (THC) Screen U Marijuana THC Carboxy Drug Screen Comment Ethyl Alcohol mg/dL COVID-19 Eval Order Covid19 at [facility] SARS-CoV-2 (PCR) NEGATIVE Supervising Physician Co-Signing Physician Notes Attending addendum: I have physically seen this patient, have supervised the medical residents activities, and agree with the H&P unless as otherwise noted. Assessment and Plan: Alcohol abuse/withdrawal- AMENA S protocol with IV Ativan Folic acid 1 mg daily Thiamine 100 mg daily Zofran 4 mg IV every 6 hours as needed Counseling Patient requesting inpatient rehab at [facility] in [place] after discharge. 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
[2021-07-05] MEDS ORDERED: LORazepam 2 MG/4 ML VIAL IV STA (20:08)
[2021-07-05] MEDS ORDERED: GABAPENTIN 800MG ALCOHOL WITHDRAWAL LOAD PO STA (20:16)
[2021-07-05 20:21] LABS: Amphetamines+Metham, Urine Neg (Neg); Barbiturates, Urine Neg (Neg); Benzodiazepine, Urine Neg (Neg); Cocaine, Urine Neg (Neg); MDMA (Ecstacy), Urine Neg (Neg); Methadone, Urine Neg (Neg); Opiate, Urine Neg (Neg); Phencyclidine, Urine Neg (Neg)
[2021-07-05] MEDS ORDERED: LORazepam 2 MG/4 ML VIAL IV PRN (21:28)
[2021-07-05] MEDS ORDERED: QUEtiapine FUMARATE 25 MG TABLET PO SCH (21:28)
[2021-07-05] MEDS ORDERED: ONDANSETRON INJ 2 MG/ML 2 ML VIAL IV PRN (21:28)
[2021-07-05] MEDS ORDERED: LORazepam 3 MG/6 ML VIAL IV PRN (21:28)
[2021-07-05] MEDS ORDERED: ATIVAN IV ALCOHOL WITHDRAWL IV PRN (21:28)
[2021-07-05] MEDS ORDERED: hydrOXYzine HCl 25 MG TAB PO PRN (21:28)
[2021-07-05] MEDS ORDERED: GABAPENTIN 400 MG CAP PO ONE (21:45)
[2021-07-05] MEDS: LORazepam 1 MG/2 ML VIAL IV PRN (22:43)
[2021-07-05] MEDS: traZODone HCL 100 MG TAB PO SCH (22:44)
[2021-07-05] MEDS: THIAMINE HCL 100 MG in SYRINGE 9 ML IV SCH (22:44)
[2021-07-05] MEDS: FOLIC ACID 1 MG in SYRINGE 9.8 ML IV SCH (22:44)
[2021-07-05] MEDS: lamoTRIgine 25 MG TAB PO SCH (22:44)
[2021-07-05] MEDS: fluvoxaMINE MALEATE 50 MG TAB PO SCH (22:44)
[2021-07-05] MEDS: LACTATED RINGER'S 1,000 ML IV SCH (22:57)
[2021-07-06] MEDS: GABAPENTIN 400 MG CAP PO SCH ×3 (03:51→17:35)
[2021-07-06 06:31] LABS: Basophils # (auto) 0.04 K/uL (0-0.2); Basophils % (auto) 0.7 %; Eosinophils # (auto) 0.59 K/uL (0-0.5); Hematocrit (blood only) 46.8 % (42-52); Hemoglobin 15.8 g/dL (14.0-18.0); Immature Granulocytes # (auto) 0.01 K/uL (0.00-0.02); Immature Granulocytes % (auto) 0.2 %; Lymphocytes # (auto) 1.99 K/uL (1.2-3.4); Lymphocytes % (auto) 33.8 %; Mean Corpuscular Hemoglobin 31.5 pg (25-34); Mean Corpuscular Hgb Conc 33.8 g/dL (32-36); Mean Corpuscular Volume 93.2 fL (80-100); Mean Platelet Volume 10.1 fL (7.4-10.4); Monocytes % (auto) 6.8 %; Neutrophils # (auto) 2.86 K/uL (1.4-6.5); Neutrophils % (auto) 48.5 %; Platelet Count 183 K/uL (130-400); RDW Standard Deviation 44.4 fL (36.4-46.3); Red Blood Count 5.02 M/uL (4.7-6.1); White Blood Count 5.89 K/uL (4.8-10.8)
[2021-07-06 06:39] LABS: INR 1.1 (0.9-1.1); Prothrombin Time 10.8 Seconds (9.0-12.0)
[2021-07-06] MEDS: LACTATED RINGER'S 1,000 ML IV SCH (06:42)
[2021-07-06 07:05] LABS: Albumin Globulin Ratio 0.8 (0.9-2); BUN Creatinine Ratio 9.8 (10-20); Bilirubin,Total 0.4 mg/dl (0.2-1); Calcium 8.1 mg/dl (8.5-10.1); Creatinine Clr Calc Pharmacy 156.8 ml/min; Est GFR (African American) 140.7 ml/min; Est GFR (Non-African American) 121.4 ml/min; Globulin 3.6 gm/dl (2.5-4.0); Potassium 4.1 mmol/L (3.5-5.1); Total Protein 6.6 gm/dl (6.4-8.2)
[2021-07-06] MEDS: FOLIC ACID 1 MG in SYRINGE 9.8 ML IV SCH ×2 (09:27→13:12)
[2021-07-06] MEDS: THIAMINE HCL 100 MG in SYRINGE 9 ML IV SCH ×2 (09:28→13:12)
[2021-07-06] MEDS: MONTELUKAST SODIUM 10 MG TABLET PO SCH (09:28)
[2021-07-06] MEDS: lamoTRIgine 25 MG TAB PO SCH ×2 (09:28→20:31)
[2021-07-06] MEDS: PANTOprazole 40 MG TAB PO SCH (09:28)
[2021-07-06] MEDS: LORazepam 1 MG/2 ML VIAL IV PRN (09:39)
--- NOTE | 2021-07-06 10:05 | Hospitalist Progress Note ---
Date of Service July 06, 2021 Assessment & Plan (1) Alcohol abuse: Plan: Patient is a 25 year old male with PMHx Alcohol use disorder, Bipolar II, Anxiety, Insomnia, Asthma, that presents with concerns of being in alcohol withdrawal and exhibiting significant anxiety. Patient was recently admitted for alcohol withdrawal from 06/09-06/10/21 and again from 06/27-06/30/21 for the same complaint. Alcohol withdrawal EtOH 301 on admission, UDS positive for cannabis but otherwise negative In ED, received valium 5mg (x2), librium 25mg, zofran 4mg, promethazine 12.5mg, 1L NSS AWSS protocol; has received 7mg ativan since admission 07/06: switching from ativan to librium LR 125mL/hr x2L Continue folic acid, thiamine Alcohol use disorder Naltrexone restarted, would benefit from vivitriol injections, will continue to attempt to acquire this at [facility] (patient's PCP) Patient interested in inpatient rehab ([facility] in [place]) upon discharge, CM consulted for assistance Prolonged QTc 494 on admission, increased to 514 on 07/06 In the setting of administration of zofran, promethazine, seroquel, etc Promethazine discontinued, holding zofran at this time Repeat EKG in AM Bipolar type II, anxiety Continue home lamictal, fluvoxamine, hydroxyzine, seroquel Consider treatment escalation on an outpatient basis Nicotine dependence Added nicotine gum as-needed Insomnia Continue home trazodone, seroquel GERD Continue home esomeprazole Asthma Continue home singulair, albuterol PRN ADHD Holding home methylphenidate FEN: regular diet, LR@125mL/hr Code status: full code DVT ppx: SCDs Held home meds: methylphenidate Isolation: none Consults: none PT/OT: not indicated Case management: consulted Dispo: med/surg (2) Alcohol withdrawal: Admission and Anticipated Discharge Date Admission Date: July 05, 2021 Supervising Physician Co-Signing Physician Notes I personally examined the patient and verified all shields points of history and exam, discussed case, and agree with decision making with Dr Horn. Doing okay overall, less tremulous than before. Still anxious. Would very much like to go straight from here to a rehab facilityCase management helping to facilitate this. Vitals noted, in general he is awake and alert appears somewhat anxious, no distress. HEENT normocephalic atraumatic mucous membranes moist. Breathing unlabored no accessory muscle use good effort. Skin shows no rashes no pallor or icterus. No focal neuro deficits. Alcohol abuse/withdrawal/anxiety/bipolarcontinue med management. Work on rehab placement. Overall appears stable, may be somewhat improvedobviously I did not see him yesterday, but having seen him in the past he looks relatively well for what he has been through before. Otherwise as above. Subjective Patient seen and evaluated at bedside this morning. No acute events overnight. Patient feels very anxious this morning but this is an improvement from yesterday. Abdominal pain is minimal. Endorses some visual and auditory hallucinations overnight. Tremor continues. Patient denies CP, SOB, lightheadedness, dizziness, and diarrhea. Review of Systems Review of Systems: See HPI Physical Exam Physical Exam: Constitutional: anxious-appearing, no acute distress, sweating CV: tachycardic, extremities well-perfused Resp: no increased work of breathing Neuro: AOx4, no focal neurological deficits appreciated Appearance: laying in bed wearing hospital gown Behavior: cooperative, eye contact good Mood: "anxious" Affect: pleasant but very anxious, affect congruent with mood Speech: appropriate rate/quantity/volume Thought process: linear, coherent Thought content: appropriate to topic of discussion, denies SI/HI Cognition: alert, focused, short- and long-term memory grossly intact, abstraction intact Insight: good Judgment: fair Results & Data Results & Data ([facility]) Vital Signs (Past 12 Hours) Vital Signs Temp Pulse Pulse Resp BP Pulse Ox 07/06/21 07:36 36.7 C 100 H 20 128/93 97 07/06/21 03:57 37.2 C 111 H 16 116/78 95 07/06/21 01:30 36.8 C 104 H 16 104/70 93 07/05/21 23:30 36.6 C 110 H 14 114/77 95 07/05/21 22:50 36.6 C 110 H 16 135/102 H 97 07/05/21 22:19 112 H 07/05/21 22:15 36.9 C 114 H 18 131/89 94 Resident Activity Tracking Resident Involvement: Resident Care Provided Care Provided: Adult Hospital Medicine (1) Alcohol withdrawal Complication of substance-induced condition: with unspecified complication Qualified Code(s): F10.239 - Alcohol dependence with withdrawal, unspecified
--- NOTE | 2021-07-06 12:33 | Electrocardiogram Report ---
Test Reason : Blood Pressure : / mmHG Vent. Rate : 106 BPM Atrial Rate : 106 BPM P-R Int : 120 ms QRS Dur : 090 ms QT Int : 372 ms P-R-T Axes : 053 042 044 degrees QTc Int : 494 ms Sinus tachycardia Prolonged QT When compared with ECG of 29-JUN-2021 13:46, T wave inversion no longer evident in Inferior leads T wave inversion no longer evident in Anterior leads QT has lengthened Confirmed by Eladio Pratt ([id number]) on 07/06/2021 12:32:54 PM Referred By: REFERRED SELF Confirmed By:Eladio Pratt
[2021-07-06] MEDS ORDERED: chlordiazePOXIDE ALCOHOL WITHDRAWL 50MG PO STA (12:51)
[2021-07-06] MEDS: chlordiazePOXIDE HCl 25 MG CAP PO SCH ×2 (13:20→18:26)
[2021-07-06] MEDS: NALTREXONE HCL 50 MG TAB PO SCH (13:20)
[2021-07-06] MEDS: NICOTINE POLACRILEX 2 MG GUM MT PRN (13:21)
--- NOTE | 2021-07-06 14:36 | Electrocardiogram Report ---
Test Reason : Blood Pressure : / mmHG Vent. Rate : 089 BPM Atrial Rate : 089 BPM P-R Int : 124 ms QRS Dur : 092 ms QT Int : 422 ms P-R-T Axes : 052 056 000 degrees QTc Int : 513 ms Normal sinus rhythm with sinus arrhythmia Prolonged QT Nonspecific T wave abnormality Abnormal ECG When compared with ECG of 05-JUL-2021 18:39, Nonspecific T wave abnormality now evident in Inferior leads Confirmed by Eladio Pratt ([id number]) on 07/06/2021 2:36:22 PM Referred By: REFERRED SELF Confirmed By:Eladio Pratt
[2021-07-06] MEDS: ALBUTEROL HFA 8 GM INHALER INH PRN (15:39)
--- NOTE | 2021-07-06 17:24 | Billing Data ---
Date of Service July 06, 2021 Coding Level of Care Code 85353 Subseq Hosp Care Lvl 3
--- NOTE | 2021-07-06 19:14 | Billing Data ---
Date of Service July 06, 2021 Coding Level of Care Code 77426 Initial Inpt Care Lvl 2
[2021-07-06] MEDS: QUEtiapine FUMARATE 25 MG TABLET PO SCH (20:31)
[2021-07-06] MEDS: fluvoxaMINE MALEATE 50 MG TAB PO SCH (20:31)
[2021-07-06] MEDS: traZODone HCL 100 MG TAB PO SCH (20:32)
[2021-07-07] MEDS: chlordiazePOXIDE HCl 25 MG CAP PO SCH ×4 (02:07→20:56)
[2021-07-07] MEDS: GABAPENTIN 400 MG CAP PO SCH ×3 (02:07→20:58)
--- NOTE | 2021-07-07 06:52 | Hospitalist Progress Note ---
Date of Service July 07, 2021 Assessment & Plan (1) Alcohol abuse: Plan: Patient is a 25 year old male with PMHx Alcohol use disorder, Bipolar II, Anxiety, Insomnia, Asthma, that presents with concerns of being in alcohol withdrawal and exhibiting significant anxiety. Patient was recently admitted for alcohol withdrawal from 06/09-06/10/21 and again from 06/27-06/30/21 for the same complaint. Alcohol withdrawal EtOH 301 on admission, UDS positive for cannabis but otherwise negative In ED, received valium 5mg (x2), librium 25mg, zofran 4mg, promethazine 12.5mg, 1L NSS AWSS protocol; has received 7mg ativan since admission 07/06: switching from ativan to librium LR 125mL/hr x2L Continue folic acid, thiamine Alcohol use disorder Naltrexone restarted, would benefit from vivitriol injections, will continue to attempt to acquire this at [facility] (patient's PCP) Patient interested in inpatient rehab ([facility] in [place]) upon discharge, CM consulted for assistance Prolonged QTc 494 on admission, increased to 514 on 07/06 In the setting of administration of zofran, promethazine, seroquel, etc Promethazine discontinued, holding zofran at this time Repeat EKG in AM Bipolar type II, anxiety Continue home lamictal, fluvoxamine, hydroxyzine, seroquel Consider treatment escalation on an outpatient basis Nicotine dependence Added nicotine gum as-needed Insomnia Continue home trazodone, seroquel GERD Continue home esomeprazole Asthma Continue home singulair, albuterol PRN ADHD Holding home methylphenidate FEN: regular diet, LR@125mL/hr Code status: full code DVT ppx: SCDs Held home meds: methylphenidate Isolation: none Consults: none PT/OT: not indicated Case management: consulted Dispo: med/surg (2) Alcohol withdrawal: Admission and Anticipated Discharge Date Admission Date: July 06, 2021 Review of Systems Review of Systems: See HPI Physical Exam Physical Exam: Constitutional: anxious-appearing, no acute distress, sweating CV: tachycardic, extremities well-perfused Resp: no increased work of breathing Neuro: AOx4, no focal neurological deficits appreciated Appearance: laying in bed wearing hospital gown Behavior: cooperative, eye contact good Mood: "anxious" Affect: pleasant but very anxious, affect congruent with mood Speech: appropriate rate/quantity/volume Thought process: linear, coherent Thought content: appropriate to topic of discussion, denies SI/HI Cognition: alert, focused, short- and long-term memory grossly intact, abstraction intact Insight: good Judgment: fair Results & Data Results & Data ([facility]) Vital Signs (Past 12 Hours) Vital Signs Temp Pulse Pulse Resp BP Pulse Ox 07/07/21 03:09 36.5 C 72 16 109/75 96 07/06/21 23:00 36.6 C 90 20 125/87 96 07/06/21 22:20 79 07/06/21 19:36 36.7 C 93 H 16 142/96 H 97 (1) Alcohol withdrawal Complication of substance-induced condition: with unspecified complication Qualified Code(s): F10.239 - Alcohol dependence with withdrawal, unspecified
[2021-07-07 07:08] LABS: BUN Creatinine Ratio 8.1 (10-20); Calcium 8.8 mg/dl (8.5-10.1); Creatinine Clr Calc Pharmacy 151.3 ml/min; Est GFR (African American) 138.7 ml/min; Est GFR (Non-African American) 119.7 ml/min; Potassium 3.6 mmol/L (3.5-5.1)
[2021-07-07] MEDS: NALTREXONE HCL 50 MG TAB PO SCH (09:12)
[2021-07-07] MEDS: MONTELUKAST SODIUM 10 MG TABLET PO SCH (09:12)
[2021-07-07] MEDS: lamoTRIgine 25 MG TAB PO SCH ×2 (09:12→20:59)
[2021-07-07] MEDS: FOLIC ACID 1 MG in SYRINGE 9.8 ML IV SCH (09:12)
[2021-07-07] MEDS: PANTOprazole 40 MG TAB PO SCH (09:12)
[2021-07-07] MEDS: THIAMINE HCL 100 MG in SYRINGE 9 ML IV SCH (09:12)
[2021-07-07] MEDS ORDERED: LORazepam 1 MG TAB PO PRN (09:13)
[2021-07-07] MEDS ORDERED: POLYETHYLENE (MIRALAX) 17 GM PACK PO PRN (12:16)
[2021-07-07] MEDS ORDERED: LORazepam 1 MG/2 ML VIAL IV STA (14:04)
--- NOTE | 2021-07-07 14:55 | Hospitalist Progress Note ---
Date of Service July 07, 2021 Assessment & Plan (1) Alcohol withdrawal: Plan: (1) Alcohol abuse: Plan: Patient is a 25 year old male with PMHx Alcohol use disorder, Bipolar II, Anxiety, Insomnia, Asthma, who was admitted 07/04 for management of alcohol withdrawal. Alcohol withdrawal EtOH 301 on admission AWSS protocol; has received 7mg Ativan since admission 07/06: switching from Ativan to Librium 07/07: Ativan prn doses for breakthrough anxiety in addition to 6-hour Librium IV fluids discontinued, patient with improving PO intake Continue folic acid, thiamine Alcohol use disorder Naltrexone restarted, would benefit from vivitriol injections, will continue to attempt to acquire this at [facility] (patient's PCP) Patient plans to attend inpatient rehab ([facility] in [place]) upon discharge, CM consulted for assistance. Prolonged QTc 494 on admission, increased to 516 on 07/07 Likely secondary to psychoactive home medications (Seroquel, Fluvoxamine, etc) Hold further anti-emetics at this time Repeat EKG in AM Bipolar type II, anxiety Continue home lamictal, fluvoxamine, hydroxyzine, seroquel Consider treatment escalation on an outpatient basis Nicotine dependence Added nicotine gum as-needed Insomnia Continue home trazodone, seroquel GERD Continue home esomeprazole Asthma Continue home singulair, albuterol PRN ADHD Holding home methylphenidate FEN: regular diet Code status: full code DVT ppx: SCDs Isolation: none Consults: none PT/OT: not indicated Case management: consulted Dispo: med/surg with tele Admission and Anticipated Discharge Date Admission Date: July 06, 2021 Supervising Physician Co-Signing Physician Notes I personally examined the patient and verified all shields points of history and exam, discussed case, and agree with decision making with Royer Warner MS2 Much less tremulous, anxiety doing a bit better. Vitals noted, in general he is awake and alert appears mildly anxious, no distress. HEENT normocephalic atraumatic mucous membranes moist. Breathing unlabored no accessory muscle use good effort. Skin shows no rashes no pallor or icterus. No focal neuro deficits. Alcohol abuse/withdrawal/anxiety/bipolarcontinue med management. Work on rehab placement. Definitely appears to be improving. Hopefully to rehab tomorrow. Otherwise as above. Subjective HPI: Hosea is doing better today and states that his anxiety is a 6/10 down from an 8/10 yesterday. Similarly, his tremors have become less pronounced and persistent. He says that he did not sleep well. No longer experiencing any visual or auditory hallucinations. He reiterated his desire to go straight [place] [facility] [place] and plans to call today. Review of Systems Constitutional: (-) fevers, chills, (+) night sweats Eyes: (-) headache, change in vision Ear, Nose, Mouth, Throat: (-) congestion, cough Respiratory: (-) sob Cardiovascular: Additional Comments: (-) chest pain, (-) palpitations, dizziness, lightheadedness Gastrointestinal: (-) abd pain, (-) diarrhea, vomiting, dysuria, (+) constipation Neurologic: (-) vertigo, syncope, pins and needles, numbness Psychiatric: (+) anxiety Physical Exam Constitutional: WN/WD, sitting comfortably, appears anxious Eyes: NC/AT, PERRLA, sclera non-icteric ENMT: oral and pharyngeal mucosa moist Respiratory: breath sounds quiet but CTA bilaterally in 6 lung varela Cardiovascular: regular rate and rhythm, no m/r/g Gastrointestinal (Abdomen): bowel sounds normal, abdomen soft and nontender Neurologic: CN II-XII intact, I not tested. Motor strength (5/5) in biceps, triceps, deltoids. Coordination on [id number] intact. Slight postural/action tremor in both hands. Results & Data Results & Data ([facility]) Vital Signs (Past 12 Hours) Vital Signs Temp Pulse Pulse Resp BP Pulse Ox 07/07/21 11:35 37.1 C 85 18 126/81 97 07/07/21 07:57 36.6 C 82 18 119/82 95 07/07/21 07:00 71 07/07/21 03:09 36.5 C 72 16 109/75 96 (1) Alcohol withdrawal Complication of substance-induced condition: with unspecified complication Qualified Code(s): F10.239 - Alcohol dependence with withdrawal, unspecified
[2021-07-07] MEDS: NICOTINE POLACRILEX 2 MG GUM MT PRN (17:12)
[2021-07-07] MEDS ORDERED: POTASSIUM CHLORIDE 20 MEQ/15 ML UDC PO ONE (17:15)
--- NOTE | 2021-07-07 18:29 | Billing Data ---
Date of Service July 07, 2021 Coding Level of Care Code 05237 Subseq Hosp Care Lvl 2
[2021-07-07] MEDS: NICOTINE 14 MG/24 HR PATCH TD SCH (20:58)
[2021-07-07] MEDS: MELATONIN 3 MG TAB PO PRN (20:58)
[2021-07-07] MEDS: traZODone HCL 100 MG TAB PO SCH (20:58)
[2021-07-07] MEDS: fluvoxaMINE MALEATE 50 MG TAB PO SCH (20:59)
[2021-07-07] MEDS: MAGNESIUM OXIDE 400 MG TAB PO SCH (20:59)
[2021-07-07] MEDS: POTASSIUM CHLORIDE 20 MEQ/15 ML UDC PO SCH (20:59)
[2021-07-07] MEDS: QUEtiapine FUMARATE 25 MG TABLET PO SCH (20:59)
[2021-07-08] MEDS: chlordiazePOXIDE HCl 25 MG CAP PO SCH ×3 (05:35→21:40)
--- NOTE | 2021-07-08 05:36 | Electrocardiogram Report ---
Test Reason : Blood Pressure : / mmHG Vent. Rate : 070 BPM Atrial Rate : 070 BPM P-R Int : 136 ms QRS Dur : 094 ms QT Int : 478 ms P-R-T Axes : 061 055 030 degrees QTc Int : 516 ms Poor data quality, interpretation may be adversely affected Normal sinus rhythm Prolonged QT Abnormal ECG When compared with ECG of 06-JUL-2021 06:40, Nonspecific T wave abnormality no longer evident in Anterior leads Confirmed by Eladio Pratt ([id number]) on 07/08/2021 5:36:13 AM Referred By: REFERRED SELF Confirmed By:Eladio Pratt
[2021-07-08 07:01] LABS: Basophils # (auto) 0.03 K/uL (0-0.2); Basophils % (auto) 0.6 %; Eosinophils # (auto) 0.49 K/uL (0-0.5); Eosinophils % (auto) 9.3 %; Hematocrit (blood only) 47.8 % (42-52); Hemoglobin 16.2 g/dL (14.0-18.0); Immature Granulocytes # (auto) 0.01 K/uL (0.00-0.02); Immature Granulocytes % (auto) 0.2 %; Lymphocytes # (auto) 1.67 K/uL (1.2-3.4); Lymphocytes % (auto) 31.8 %; Mean Corpuscular Hemoglobin 31.2 pg (25-34); Mean Corpuscular Hgb Conc 33.9 g/dL (32-36); Mean Corpuscular Volume 91.9 fL (80-100); Mean Platelet Volume 10.2 fL (7.4-10.4); Monocytes # (auto) 0.47 K/uL (0.11-0.59); Neutrophils # (auto) 2.58 K/uL (1.4-6.5); Neutrophils % (auto) 49.1 %; Platelet Count 172 K/uL (130-400); RDW Coefficient of Variation 12.7 % (11.5-14.5); RDW Standard Deviation 42.6 fL (36.4-46.3); White Blood Count 5.25 K/uL (4.8-10.8)
[2021-07-08 07:25] LABS: BUN Creatinine Ratio 7.9 (10-20); Calcium 8.7 mg/dl (8.5-10.1); Creatinine Clr Calc Pharmacy 127.6 ml/min; Potassium 3.8 mmol/L (3.5-5.1)
[2021-07-08] MEDS ORDERED: POTASSIUM CHLORIDE 20 MEQ/15 ML UDC PO ONE (08:30)
[2021-07-08] MEDS: NICOTINE 14 MG/24 HR PATCH TD SCH (09:09)
[2021-07-08] MEDS: NALTREXONE HCL 50 MG TAB PO SCH (09:10)
[2021-07-08] MEDS: PANTOprazole 40 MG TAB PO SCH (09:10)
[2021-07-08] MEDS: lamoTRIgine 25 MG TAB PO SCH ×2 (09:10→21:41)
[2021-07-08] MEDS: THIAMINE HCL 100 MG in SYRINGE 9 ML IV SCH (09:10)
[2021-07-08] MEDS: MONTELUKAST SODIUM 10 MG TABLET PO SCH (09:10)
[2021-07-08] MEDS: FOLIC ACID 1 MG in SYRINGE 9.8 ML IV SCH (09:11)
[2021-07-08] MEDS: GABAPENTIN 400 MG CAP PO SCH (09:20)
[2021-07-08] MEDS ORDERED: LORazepam 1 MG/2 ML VIAL IV STA (09:45)
[2021-07-08] MEDS: POLYETHYLENE (MIRALAX) 17 GM PACK PO SCH (10:12)
[2021-07-08 11:21] LABS: Marijuana Quant, GCMS Urine 152 ng/mL (<5)
[2021-07-08] MEDS ORDERED: ACETAMINOPHEN 325 MG TAB PO PRN (12:28)
[2021-07-08] MEDS: ALBUTEROL HFA 8 GM INHALER INH PRN (14:57)
[2021-07-08] MEDS ORDERED: chlordiazePOXIDE HCl 25 MG CAP PO ONE (16:13)
--- NOTE | 2021-07-08 16:57 | Hospitalist Progress Note ---
Date of Service July 08, 2021 Assessment & Plan (1) Alcohol withdrawal: Plan: Patient is a 25 year old male with PMHx Alcohol use disorder, Bipolar II, Anxiety, Insomnia, Asthma, who was admitted 07/04 for management of alcohol withdrawal. Alcohol withdrawal EtOH 301 on admission AWSS protocol with librium with ativan as-needed for breakthrough anxiety AWSS scores continue to improve IV fluids discontinued, patient with improving PO intake Continue folic acid, thiamine Alcohol use disorder Naltrexone restarted, would benefit from vivitriol injections, will continue to attempt to acquire this at [facility] (patient's PCP) Patient plans to attend inpatient rehab ([facility] in [place]) upon discharge, CM consulted for assistance. Prolonged QTc 494 on admission, increased to 516 on 07/07, 07/08 improved QTc to 473 Likely secondary to psychoactive home medications (Seroquel, Fluvoxamine, etc) Given normal QTc this morning and stable vitals, taken off of telemetry Bipolar type II, anxiety Continue home lamictal, fluvoxamine, hydroxyzine, seroquel Consider treatment escalation on an outpatient basis Nicotine dependence Added nicotine gum as-needed 07/07: Added 14 mg nicotine patch; Hosea mentioned smoking 1-1.5 packs per day Insomnia Continue home trazodone, seroquel GERD Continue home esomeprazole Asthma Continue home singulair, albuterol PRN ADHD Holding home methylphenidate FEN: regular diet Code status: full code DVT ppx: SCDs Isolation: none Consults: none PT/OT: not indicated Case management: consulted Dispo: med/surg Admission and Anticipated Discharge Date Admission Date: July 06, 2021 Supervising Physician Co-Signing Physician Notes I personally examined the patient and verified all shields points of history and exam, discussed case, and agree with decision making with Royer HUANG Feeling better from an alcohol withdrawal standpoint. Anxiety fairly bad today. Vitals noted, in general he is awake and alert appears mildly anxious and upset, no distress. HEENT normocephalic atraumatic mucous membranes moist. Breathing unlabored no accessory muscle use good effort. Skin shows no rashes no pallor or icterus. No focal neuro deficits. Alcohol abuse/withdrawal/anxiety/bipolarcontinue med management. For rehab tomorrow. Appears stable for this to be the case. Offered reassurance and support for anxiety. Continue current med management for now. Otherwise as above. Subjective HPI: Hosea is doing well and states that his anxiety has gotten better. He no longer has any tremors in his hands and says he was not shaky last night. No longer experiencing any visual or auditory hallucinations. He had a pre- screening visit with [facility] this afternoon for rehab. Review of Systems Constitutional: (-) fevers, chills, night sweats Eyes: (-) change in vision Ear, Nose, Mouth, Throat: (-) headache, congestion, cough Respiratory: (-) sob Cardiovascular: Additional Comments: (-) chest pain, palpitations, dizziness, lightheadedness Gastrointestinal: (-) abd pain, diarrhea, vomiting, dysuria, (+) constipation Neurologic: (-) vertigo, syncope, pins and needles, numbness. Psychiatric: (+) anxiety Physical Exam Physical Exam: PE: Gen: WN/WD, sitting comfortably, appears anxious HEENT: NC/AT, PERRLA, sclera non-icteric, oral and pharyngeal mucosa moist Pulm: breath sounds quiet but CTA bilaterally in 6 lung varela CV: regular rate and rhythm, no m/r/g GI: bowel sounds normal, abdomen soft and nontender Neuro: CN II-XII intact, I not tested. Motor strength (5/5) in biceps, triceps, deltoids. Coordination on vysbxe-jg-qnaf intact. No tremor in either hand Results & Data Results & Data ([facility]) Vital Signs (Past 12 Hours) Vital Signs Temp Pulse Pulse Resp BP Pulse Ox 07/08/21 15:38 37.0 C 77 18 122/82 97 07/08/21 14:57 98 H 15 98 07/08/21 11:38 37.0 C 63 20 116/70 98 07/08/21 08:08 91 H 07/08/21 07:48 36.5 C 78 18 132/93 97 Resident Activity Tracking Resident Involvement: Resident Care Provided Care Provided: Adult Hospital Medicine (1) Alcohol withdrawal Complication of substance-induced condition: with unspecified complication Qualified Code(s): F10.239 - Alcohol dependence with withdrawal, unspecified
--- NOTE | 2021-07-08 18:41 | Billing Data ---
Date of Service July 08, 2021 Coding Level of Care Code 51788 Subseq Hosp Care Lvl 2
[2021-07-08] MEDS: POTASSIUM CHLORIDE 20 MEQ/15 ML UDC PO SCH (21:40)
[2021-07-08] MEDS: MELATONIN 3 MG TAB PO PRN (21:40)
[2021-07-08] MEDS: traZODone HCL 100 MG TAB PO SCH (21:41)
[2021-07-08] MEDS: fluvoxaMINE MALEATE 50 MG TAB PO SCH (21:41)
[2021-07-08] MEDS: QUEtiapine FUMARATE 25 MG TABLET PO SCH (21:42)
[2021-07-08] MEDS: MAGNESIUM OXIDE 400 MG TAB PO SCH (21:42)
[2021-07-08] MEDS ORDERED: KETOROLAC TROMETHAMINE 15 MG/ML VIAL IV ONE (22:34)
--- NOTE | 2021-07-09 05:44 | Electrocardiogram Report ---
Test Reason : Blood Pressure : / mmHG Vent. Rate : 067 BPM Atrial Rate : 067 BPM P-R Int : 126 ms QRS Dur : 094 ms QT Int : 448 ms P-R-T Axes : 064 067 052 degrees QTc Int : 473 ms Normal sinus rhythm with sinus arrhythmia Normal ECG When compared with ECG of 07-JUL-2021 06:27, No significant change was found Confirmed by Eladio Pratt ([id number]) on 07/09/2021 5:43:42 AM Referred By: REFERRED SELF Confirmed By:Eladio Pratt
[2021-07-09] MEDS: chlordiazePOXIDE HCl 25 MG CAP PO SCH (05:56)
[2021-07-09 08:03] LABS: BUN Creatinine Ratio 11.6 (10-20); Calcium 8.7 mg/dl (8.5-10.1); Creatinine Clr Calc Pharmacy 127.6 ml/min
[2021-07-09] MEDS: MONTELUKAST SODIUM 10 MG TABLET PO SCH (08:39)
[2021-07-09] MEDS: NALTREXONE HCL 50 MG TAB PO SCH (08:39)
[2021-07-09] MEDS: lamoTRIgine 25 MG TAB PO SCH (08:39)
[2021-07-09] MEDS: THIAMINE HCL 100 MG in SYRINGE 9 ML IV SCH (08:39)
[2021-07-09] MEDS: FOLIC ACID 1 MG in SYRINGE 9.8 ML IV SCH (08:40)
[2021-07-09] MEDS: PANTOprazole 40 MG TAB PO SCH (08:40)
[2021-07-09] MEDS: POLYETHYLENE (MIRALAX) 17 GM PACK PO SCH (08:41)
[2021-07-09] MEDS ORDERED: METHYLPHENIDATE HCL 10 MG TABLET PO STA (09:16)
[2021-07-09] MEDS: NICOTINE 14 MG/24 HR PATCH TD SCH (09:35)
[2021-07-09] MEDS ORDERED: GABAPENTIN 400 MG CAP PO SCH (10:00)
[2021-07-09] MEDS ORDERED: chlordiazePOXIDE HCl 25 MG CAP PO ONE (11:00)
--- NOTE | 2021-07-09 13:48 | Discharge Summary ---
Date of Service July 09, 2021 Admission HPI Per Admitting Provider Patient is a 25 year old male with PMHx Alcohol use disorder, Bipolar II, Anxiety, Insomnia, Asthma, that presents with concerns of being in alcohol withdrawal and exhibiting significant anxiety. Patient was recently admitted for alcohol withdrawal from 06/09-06/10/21 and again from 06/27-06/30/21 for the same complaint. Patient notes that upon discharge last week he went home and took the last 3-4 of his ativan. He notes he then forgot to take his Naltrexone and fell back into drinking again. He feels that this time it was bit worse as he had been drinking 12 bottles of 9% IPA in addition to a fifth of Dayne José Miguel daily. He notes increased anxiety and depression with the loss of his job 2 days ago. His last drink was 8AM this morning. He notes currently that he is very anxious, has 5/10 abdominal pain that feels like "pins and needles" and is fairly concerned about having a seizure. He notes that he needs help and wants to go straight from here to [facility] in [place] for inpatient rehab. He denies any SI or HI. He currently denies any fever, chills, SOB, chest pain, dysuria, hematuria, diarrhea, headache. Admission Exam Per Admitting Provider Constitutional: well developed, well nourished, + intoxicated appearing and cooperative; no acute distress Eyes: PERRL, conjunctivae normal, anicteric sclerae ENMT: external ear and nose normal, oropharynx normal Neck: trachea midline, no thyromegaly Respiratory: normal respiratory effort; no cough Auscultation: lungs clear to auscultation bilaterally; no diminished lung sounds, no crackles, no rales and no wheezes Cardiovascular: Rate/Rhythm: regular rate and regular rhythm Heart Sounds: normal S1 and normal S2; no murmur and no cardiac rub Vessels: no JVD Extremities: no calf tenderness and no edema Gastrointestinal (Abdomen): Inspection/Auscultation: abdomen normal to inspection and normal bowel sounds; abdomen not distended Percussion/Palpation: + abdomen tender (slight TTP epigastric) and abdomen soft; no guarding and abdomen not rigid Musculoskeletal: no cyanosis or clubbing, extremities motor strength 5/5 Head/Neck/Chest: normocephalic and head atraumatic Skin: no rashes, warm and dry Psychiatric: Orientation: alert and oriented x 3 Eye Contact: + fair eye contact Speech: normal rate/rhythm/volume of speech Affect: + anxious affect Mood: + anxious mood Suicidal Thoughts: denies suicidal intent Homicidal Thoughts: denies homicidal intent Principal Diagnosis Alcohol Withdrawal Discharge Exam Constitutional (-) fevers, chills, (-) night sweats Eyes (-) headache, change in vision Neck Respiratory (-) sob Cardiovascular (-) chest pain, (-) palpitations, dizziness Gastrointestinal (Abdomen) (-) abd pain, (-) diarrhea, vomiting Neurologic (-) headache, vertigo, tremors Psychiatric (+) anxiety Discharge Data Allergies Allergy/AdvReac Type Severity Reaction Status Date / Time peanut Allergy Severe Anaphylaxis Verified 07/05/21 18:43 Consultations 07/05/21 19:34 ED Decision to Admit Stat Hospital Course (1) Alcohol withdrawal: Alcohol withdrawal Patient's alcohol withdrawal was managed with the AWSS protocol with Librium. Patient was treated with IVF, thiamine, B-12, and antiemetics. Breakthrough anxiety was managed with Ativan. AWSS score peaked on Day 2 and began to improve by Day 3. By hospital day 4, patient was no longer scoring for anything other than mild anxiety. Patient remained in the hospital while placement for inpatient rehab was found (see below). Patient was discharged on hospital day 5 in stable condition. Patient was hemodynamically stable for the entirety of this hospitalization. Alcohol use disorder Patient was previously on naltrexone, which was restarted in the hospital. Patient discussed interest in Vivitriol injections and plans to discuss with his PCP at [facility]. He was very interested and motivated to do inpatient rehab following discharge and worked with case management to be discharged directly to [facility]. Patient will be in inpatient rehab for 3 weeks. Patient also discussed interest in community support groups such as Alcoholics Anonymous. Prolonged QTc On admission, patient's QTc was 494. This peaked to 516 but improved to 473 by discharge. This was likely secondary to psychoactive home medications (Seroquel, Fluvoxamine, etc) and in the context of withdrawal. Bipolar type II, Anxiety Patient's home regimen (Seroquel, Lamictal, Fluvoxamine, Hydoxyzine) was continued during this hospitalization. Nicotine dependence 14 mg nicotine patch and nicotine gum were given during this hospitalization. Continue tobacco cessation counseling as an outpatient. Insomnia Patient's home regimen (Trazadone) was continued during this hospitalization. GERD Patient's home regimen (Esomeprazole) was continued during this hospitalization. Asthma Patient's home regimen (Albuterol) was continued during this hospitalization. ADHD Patient's home methylphenidate was held on admission. Patient was given a dose prior to discharge after he requested it. Total Time Total Time Spent Total Time Spent (In Minutes): <30 Discharge Plan Discharge Items Patient Disposition: Drug & Alcohol Rehab Reason For Visit: ALCOHOL WITHDRAWAL Discharge Diagnosis: Alcohol withdrawal Condition on Discharge: Good Activity: Resume your previous activity Non-emergency contact: Primary Care Provider Call non-emergency contact if: you have any medication questions and your symptoms worsen Follow-up/Referrals: Denisha Bertrand MD [Primary Care Provider] - Diet: Regular Addtl Attending Provider Instructions: You were admitted to the hospital for alcohol withdrawal. You were treated with IV fluids, benzodiazepines, and anti-nausea medication. You have improved clinically, and we feel it is safe for you to be discharged from the hospital. We wish you the best with rehab, and Dr. Horn will see you in clinic once rehab is done in order to ensure continuity of care. A discharge summary will be sent to your primary care physician to ensure continuity of care. Please bring this discharge summary with you to your next office appointment so that your provider can review it at that time. Follow-up appointments: You have an appointment with Dr. Horn on August 07 at 3:30pm. If you are unable to make this appointment, or have any other questions, their office can be reached at . Keep all your follow-up appointments as already scheduled. If you cannot make an appointment, notify your provider. Medications: Your medication list has been reviewed and reconciled upon discharge to ensure accuracy and continuity of care. An updated list of all your medications is included with your hospital discharge paperwork. Please review this list closely. We did not make any changes to your home medication regimen during this hospitalization. Make sure all of your doctors know every medicine you are taking (including doxw-gud-otqtsdq medicines, vitamins, and supplements). Call your primary care provider before taking any new medicines (including txyg-gfi-onzupms medicines, vitamins, and supplements), because some of these may interact with your current medications, or may make your symptoms worse. Tell your primary care provider if you cannot afford your medications. CONTACT YOUR PRIMARY CARE PROVIDER if you experience any of the following: Worsening alcohol cravings Tremor, nausea, sweats Difficulty following your treatment plan, or difficulty taking medications CALL 911 OR GO TO THE EMERGENCY DEPARTMENT if you experience any of the following: Sudden, severe abdominal pain or nausea/vomiting Severe chest pain, or chest pain that radiates (moves) to your jaw or arm Sudden, severe shortness of breath or difficulty breathing Thank you for allowing us to participate in your care. Pending Studies at Discharge: No Stand-Alone Forms: [facility] Sk[facility] Items Patient informed of condition?: Yes DNR: No Discharge Level of Care: Other Communicable Disease: No Discharge Prognosis: Stable Lines: None Urinary Catheter: No Medications and DC Order Prescriptions: Continued montelukast 10 mg tablet 10 mg PO QAM Qty: 90 RF: 3 albuterol sulfate 90 mcg/actuation HFA aerosol inhaler 2 puff INHALATION Q6H PRN (Reason: Shortness Of Breath Or Wheezing) Qty: 8 RF: 5 epinephrine [EpiPen] 0.3 mg/0.3 mL Auto-Injector 0.3 mg IM DIRECTED PRN (Reason: Anaphylaxis) RF: 0 lamotrigine 25 mg tablet 25 mg PO BID RF: 0 trazodone 300 mg tablet 300 mg PO HS RF: 0 lorazepam 1 mg tablet 0.5 - 1 mg PO TID PRN (Reason: Anxiety) 14 Days Qty: 42 RF: 0 naltrexone 50 mg Tablet 50 mg PO DAILY 90 Days Qty: 90 RF: 1 cetirizine [Zyrtec] 10 mg Tablet 10 mg PO DAILY RF: 0 multivitamin Tablet 1 tab PO DAILY RF: 0 esomeprazole magnesium 40 mg capsule,delayed release(DR/EC) 40 mg PO DAILY RF: 0 methylphenidate HCl 20 mg tablet extended release 20 mg PO QAM RF: 0 hydroxyzine HCl 25 mg tablet 25 mg PO DAILY PRN (Reason: Anxiety) RF: 0 fluvoxamine 50 mg tablet 50 mg PO HS RF: 0 quetiapine [Seroquel] 50 mg Tablet 50 mg PO HS RF: 0 Emergen-C 1,000 mg Powder Effervescent In Packet 1 ea PO DAILY RF: 0 methylphenidate HCl 10 mg tablet 10 mg PO QAM RF: 0 Discharge Orders: Discharge Order (Routine); Ordered 07/09/21 Ordered By: Johnny Horn Admission Data Admit Date/Time: 07/06/21 12:41 Attending Provider: Ashish Purcell Admit Provider: Mando Le Primary Care Provider: Denisha Bertrand Other Providers: Chang Winter Other Interventions: Discharge Summary Assessment (RN) Last Done: 07/09/21 11:06 Supervising Physician Co-Signing Physician Notes I personally examined the patient and verified all shields points of history and exam, discussed case, and agree with decision making with Royer Warner MS2 Anxious about going to rehab, but overall feels good about where he is at, and where he is going with his life. Vitals noted, in general he is awake and alert pleasant no distress. HEENT normocephalic atraumatic mucous membranes moist. Breathing unlabored no accessory muscle use good effort. Skin shows no rashes no pallor or icterus. No focal neuro deficits. Alcohol abuse/withdrawal/anxiety/bipolarstable for alcohol rehab, going there today. Outpatient follow-up. Otherwise as above. Resident Activity Tracking Resident Involvement: Resident Care Provided Care Provided: Adult Hospital Medicine
--- NOTE | 2021-07-09 19:52 | Billing Data ---
Date of Service July 09, 2021 Coding Level of Care Code D/C DAY MANAGEMENT <30 MINS
== END 2021-07-09 13:51 | disposition alcohol treatment (31) ==
LOC: 2N 17:51 → ED 17:51 → SUATTDRO 20:16 → 2N 21:26

== ENCOUNTER 2021-11-14 16:25 | Observation (INO) ==
[2021-11-14] MEDS ORDERED: MULTI-VITAMIN INFUSION 10 ML, THIAMINE HCL 100 MG, FOLIC ACID 1 MG in SODIUM CHLORIDE 0... IV ONE (16:51)
[2021-11-14] MEDS ORDERED: SODIUM CHLORIDE 0.9% 1000ML 1,000 ML IV ONE (16:51)
[2021-11-14] MEDS ORDERED: LORazepam 2 MG/4 ML VIAL IV STA ×2 (16:51→18:06)
--- NOTE | 2021-11-14 16:56 | Emergency Department Note ---
Impression & Plan Alcohol withdrawal, Acute alcoholic hepatitis ED Provider Note Name: DONOVAN BALL Age: 26 Sex: M Arrives Via: Walk-In Informant: Patient ED Provider: Ad Pillai MD Chief Complaint: Alcoholism Impression: As per impression as above Medical Decision Makin-year-old male well known to me from his visit about 10 days ago when he was diagnosed with COVID but was also quite intoxicated at that time. He arrives again today due to worsening intoxication status and severe depression. Patient is here stating he wishes to be admitted to rehab as he is unable to stop drinking on his own. He does admit what sounds like a seizure-like activity 3 to 4 days ago when he tried stopping his alcohol. He does not have headache nor neck pain or any significant neurologic deficits at this time and thus I do not feel neuroimaging is indicated at this time. He is quite tremulous tachycardic and anxious. He appears to be actively beginning to withdraw. This is somewhat remarkable given the fact that his alcohol is actually already 300 though he is quite adamant that he has not had anything since this morning. He was given 2 mg IV Ativan and did seem to improve somewhat along with 2 L saline of which 1 was a banana bag. While later he was given further Ativan due to some worsening of the tremors. He did not have any seizures while here and he does not appear to be having hallucinations or acute delirium. Labs reveal that his LFTs have continued to go up slightly and this is consistent with his heavy alcohol use over the last week and a half. Patient is adamant he is not suicidal nor does have a plan to harm himself though he is quite depressed due to the recent of his friend. He had COVID diagnosed about 10 days ago but had been sick for several days prior to that. His current COVID testing is negative he has no fevers and he denies any current coughing or shortness of breath. Prior Medical Record and Triage/Nursing Notes reviewed by Me Additional history obtained from chart Differentials:Alcohol intoxication, toxicologic, infection, hypoglycemia, electrolyte abnormalities, cardiac sources, intracerebral event, neurologic, trauma, as well as other pathologies. Vital Signs: reviewed and remarkable for tachycardia Interventions: Ativan 2 mg IV x2, 1 L normal saline, 1 L banana bag IV Labs:Reviewed and remarkable for elevated LFTs, elevated alcohol level EKG:Per My Interpretation: Indication Tachycardia: Sinus Tach 120 bpm, qtc 494. No Ectopy. No Ischemia. Compared to EKG 11/02/21, no significant changes. Cardiac/Tele Monitoring: Cardiac Monitoring: An Order was placed for continuous cardiac monitoring. The monitor shows a rate of 130 with a sinus tach rhythm. Consults:Dr Jazzy PARRA Hospitalists Plan: Disposition:Hospitalization. Condition: Good History of Present Illness:26-year-old gentleman arrives for evaluation of alcohol intoxication. Patient notes he has been dealing with COVID for the last 10 days and was at home so he was drinking more. This was complicated by the fact that about 6 days ago his friend shot himself and this is very much upset the patient. He notes he is drinking 15+ beers a day trying to cope with his sadness. He notes he is very depressed but he denies any suicidal/homicidal ideation or hallucinations. He states a few days ago he tried stopping drinking but he then had a seizure-like episode and woke up on the floor sweating. He started drinking again and this made his shake slightly better. His last alcohol intake was around 6 AM this morning about 11 hours prior to arrival. He states he is starting to get tremulous and shaking. He feels like there is electricity shooting through his entire body at the moment. States this is similar to how he felt prior to his seizure-like activity a few days ago. He denies any difficulty with eating food or vomiting. He has had no further blood in his stool that he had noticed about 2 weeks ago. He denies any specific chest pain, shortness of breath, back pain, abdominal pain, urinary/bowel symptoms, leg swelling, bruising, headaches, neck pain, focal neurologic deficits nor other symptoms. He denies taking any medications prior to arrival. He does note a long history of alcohol issues and both his parents are as he puts it "functional alcoholics". ROS: See above HPI for pertinent positives & negatives. A total of 10 systems reviewed and were otherwise negative. Past Medical History:See Below Past Surgical History:See Below Family History:See Below Social History:See Below Home Medications:See Below Allergies:Peanuts Vitals:Blood Pressure: 105/75, Pulse 153, RR 20, T 36.8C, O2 97% on RA Physical Exam: GENERAL: Patient is anxious appearing and in moderate distress. Tremulous EYES: No scleral icterus, unremarkable pupils. ENT: Mucous membranes dry, no nasal congestion. NECK: No masses appreciated, nomeningismus, trachea is midline. RESPIRATORY: No dyspnea. Clear to auscultation and equal bilaterally. No wheeze, no rhonchi. CARDIOVASCULAR: Tachy.No murmurs, rubs, gallops appreciated. GASTROINTESTINAL: Abdomen soft, non-tender, no peritonitis.Bowel sounds positive.No masses appreciated. BACK: No midline tenderness, no CVA tenderness EXTREMITIES: Normal motion all extremities, no cyanosis, no edema. NEUROLOGIC: Quite tremulous, Alert and oriented, no acute motor or sensory deficits, no focal weakness, cranial nerves grossly intact. SKIN: No rash, no jaundice, no diaphoresis. PSYCH: Appropriate GCS: 15 ED Course: Times/Reassessments: Multiple reevaluations and patient gradually improving. He did require a second round of Ativan due to withdrawal symptoms though did not have any seizure nor delirium during his time here Critical Care: I have personally spent 40 minutes of critical care time in the direct management of this patient. Acute alcohol withdrawal requiring multiple rounds of benzodiazepines and fluid resuscitation. This was a life/limb threatening event. This 40 minutes is in excess of all separately billable procedures. Ad Pillai MD Past Med/Surg History Medical History Alcohol abuse Alcohol intoxication Alcohol withdrawal Anemia Intestinal polyposis Juvenile polyposis syndrome Tachycardia Surgical History History of endoscopy S/P inguinal hernia repair Family History Father Anxiety Essential hypertension Alcohol abuse Family/Other Colorectal cancer Grandmother (Paternal) Breast cancer Grandmother (Maternal) Myocardial infarction Brother Depression Mother Alcohol abuse Uncle Throat cancer Grandmother Dementia Denies family history of Ovarian cancer Prostate cancer Lung cancer Social History Smoking Status: Current every day smoker Tobacco Type: Cigarettes Cigarettes Per Day: 25; Second Hand Exposure: Yes; Hx Alcohol Use: Yes Alcohol type: beer and hard liquor Hx Substance Use: Yes Last Used Substance: Days (ago) Last Used Substance Other:: unknown by pt= could not remember. Substance Use Type Other:: occasionally Preferred Language: [place] Communication Ability: Effective Visual Impairment: No Limitations Hearing Ability: Normal Sound Editor Required: No Beliefs That Will Affect Care: None marital status: Single Current Living Situation: Parent Current Living Situation Comment: lives with parent- pt wants to go to REHAB post-discharge. CM F/U current occupational status: employed How many Children do You have: 0 Feels Safe at Home: Yes Childhood Exposure to Second-Hand Smoke: Yes Dental Care, Regularly: Yes Physical Activity Frequency: 1-2 Times per Week Seatbelt Use: always Assistive Devices: None Allergies Allergies Allergy/AdvReac Type Severity Reaction Status Date / Time peanut Allergy Severe Anaphylaxis Verified 11/14/21 17:59 Home Meds Home Medications Medication Instructions Recorded Confirmed epinephrine 0.3 mg/0.3 mL 0.3 mg IM DIRECTED PRN 04/14/20 11/14/21 injection, auto-injector (EpiPen) lamotrigine 25 mg tablet 25 mg PO BID 01/19/21 11/14/21 trazodone 300 mg tablet 300 mg PO HS 01/19/21 11/14/21 cetirizine 10 mg tablet (Zyrtec) 10 mg PO DAILY 04/02/21 11/14/21 ascorbic acid 1,000 1 ea PO DAILY 07/05/21 11/14/21 st-[id number]-[id number] powder effervescent pack (Emergen-C) esomeprazole magnesium 40 mg 40 mg PO DAILY 07/05/21 11/14/21 capsule,delayed release fluvoxamine 50 mg tablet 50 mg PO HS 07/05/21 11/14/21 hydroxyzine HCl 25 mg tablet 25 mg PO DAILY PRN 07/05/21 11/14/21 methylphenidate HCl 10 mg tablet 10 mg PO QAM 07/05/21 11/14/21 methylphenidate HCl 20 mg 20 mg PO QAM 07/05/21 11/14/21 tablet,extended release multivitamin 1 tab PO DAILY 07/05/21 11/14/21 quetiapine 50 mg tablet (Seroquel) 50 mg PO HS 07/05/21 11/14/21 naltrexone microspheres 380 mg 0 mg IM MONTHLY 11/14/21 11/14/21 intramuscular suspension,extended release (Vivitrol) Previous Rx's Medication Instructions Recorded albuterol sulfate 90 mcg/actuation 2 puff INHALATION Q6H PRN #8 gm 09/08/20 aerosol inhaler montelukast 10 mg tablet 10 mg PO QAM #90 tab 09/19/20 lorazepam 1 mg tablet 0.5 - 1 mg PO TID PRN 14 Days #42 06/10/21 tab Results & Data (ED) Vital Signs Vital Signs - 24 hr 11/14/21 16:32 11/14/21 19:21 Temperature 36.8 C 37.0 C Temperature Source Temporal Artery Scan Oral Pulse Rate 153 H Pulse Rate [Right Finger] 116 H Pulse Rhythm Regular Pulse Rhythm [Right Finger] Regular Pulse Strength Normal Pulse Strength [Right Finger] Normal Respiratory Rate 20 18 Respiratory Effort / Characteristics Non-Labored Spontaneous Non-Labored Spontaneous Respiratory Depth Normal Normal Respiratory Pattern Regular Regular Blood Pressure 105/75 Blood Pressure [Right Arm] 140/106 H Blood Pressure Mean 85 Blood Pressure Mean [Right Arm] 117 Blood Pressure Position Sitting Blood Pressure Position [Right Arm] Lying Pulse Oximetry 97 100 Oxygen Delivery Method Room Air Room Air Sepsis Recent Fever Within 48 Hours No Sepsis New/Unexplained Change in Mental Status N/A Sepsis Action Taken by Nursing No Action Required Laboratory Data Result diagrams: 11/14/21 17:07 11/14/21 17:07 Lab Results 11/14/21 11/14/21 11/14/21 Range/Units 17:07 17:07 17:07 WBC 3.65 L (4.8-10.8) K/uL RBC 5.51 (4.7-6.1) M/uL Hgb 17.4 (14.0-18.0) g/dL Hct 50.2 (42-52) % MCV 91.1 (80-100) fL MCH 31.6 (25-34) pg MCHC 34.7 (32-36) g/dL RDW Std Deviation 47.8 H (36.4-46.3) fL RDW Coeff of Guerrero 14.2 (11.5-14.5) % Plt Count 172 (130-400) K/uL MPV 10.3 (7.4-10.4) fL Immature Gran % (Auto) 0.3 % Neut % (Auto) 43.8 % Lymph % (Auto) 40.3 % Gem % (Auto) 8.2 % Eos % (Auto) 6.3 % Baso % (Auto) 1.1 % Neut # (Auto) 1.60 (1.4-6.5) K/uL Lymph # (Auto) 1.47 (1.2-3.4) K/uL Gem # (Auto) 0.30 (0.11-0.59) K/uL Eos # (Auto) 0.23 (0-0.5) K/uL Baso # (Auto) 0.04 (0-0.2) K/uL Immature Gran # (Auto) 0.01 (0.00-0.02) K/uL PT (9.0-12.0) Seconds INR (0.9-1.1) APTT (21.0-31.0) Seconds PTT Ratio Sodium 139 (136-145) mmol/L Potassium 4.2 (3.5-5.1) mmol/L Chloride 105 (98-107) mmol/L Carbon Dioxide 26 (21-32) mmol/L Anion Gap 8.0 (3-11) BUN 6 L (7-18) mg/dl Creatinine 0.83 (0.6-1.4) mg/dl Est Cr Clr Drug Dosing 155.4 ml/min Est GFR ( Amer) 139.8 ml/min Est GFR (Non-Af Amer) 120.6 ml/min BUN/Creatinine Ratio 7.1 L (10-20) Glucose 114 H (70-99) mg/dl Lactate (0.4-2.0) mmol/L Calcium 8.5 (8.5-10.1) mg/dl Magnesium 2.2 (1.8-2.4) mg/dl Total Bilirubin 0.4 (0.2-1) mg/dl AST 653 H (15-37) U/L ALT 533 H (12-78) Alkaline Phosphatase 115 (45-117) U/L Total Protein 8.2 (6.4-8.2) gm/dl Albumin 3.8 (3.4-5.0) gm/dl Globulin 4.4 H (2.5-4.0) gm/dl Albumin/Globulin Ratio 0.9 (0.9-2) TSH 1.340 (0.300-4.500) uIu/ml Urine Color Urine Appearance (Clear) Urine pH (4.5-7.5) Ur Specific B[place] (1.000-1.030) Urine Protein (Negative) Urine Glucose (UA) (Negative) Urine Ketones (Negative) Urine Blood (Negative) Urine Nitrite (Negative) Urine Bilirubin (Negative) Urine Urobilinogen (Negative) Ur Leukocyte Esterase (Negative) Urine WBC (Auto) (0-5) /hpf Urine RBC (Auto) (0-4) /hpf U Hyaline Cast (Auto) (0-5) /lpf U Epithel Cells (Auto) (0-5) /lpf Urine Bacteria (Auto) (Negative) Salicylates < 1.7 L (2.8-20) mg/dl Urine Opiates Screen (Neg) Ur Methadone, Qual (Neg) Acetaminophen < 2 L (10-30) ug/ml Urine Barbiturates (Neg) Ur Phencyclidine (PCP) (Neg) U Amphetamin/Meth Scrn (Neg) MDMA (Ecstasy) Screen (Neg) U Benzodiazepines Scrn (Neg) Ur Cocaine Metabolite (Neg) U Marijuana (THC) Screen (Neg) Ethyl Alcohol mg/dL (0-3) mg/dl SARS-CoV-2, RNA, NAAT (NEGATIVE) 11/14/21 11/14/21 11/14/21 Range/Units 17:07 17:07 17:08 WBC (4.8-10.8) K/uL RBC (4.7-6.1) M/uL Hgb (14.0-18.0) g/dL Hct (42-52) % MCV (80-100) fL MCH (25-34) pg MCHC (32-36) g/dL RDW Std Deviation (36.4-46.3) fL RDW Coeff of Guerrero (11.5-14.5) % Plt Count (130-400) K/uL MPV (7.4-10.4) fL Immature Gran % (Auto) % Neut % (Auto) % Lymph % (Auto) % Gem % (Auto) % Eos % (Auto) % Baso % (Auto) % Neut # (Auto) (1.4-6.5) K/uL Lymph # (Auto) (1.2-3.4) K/uL Gem # (Auto) (0.11-0.59) K/uL Eos # (Auto) (0-0.5) K/uL Baso # (Auto) (0-0.2) K/uL Immature Gran # (Auto) (0.00-0.02) K/uL PT 10.3 (9.0-12.0) Seconds INR 1.0 (0.9-1.1) APTT 24.3 (21.0-31.0) Seconds PTT Ratio 0.9 Sodium (136-145) mmol/L Potassium (3.5-5.1) mmol/L Chloride (98-107) mmol/L Carbon Dioxide (21-32) mmol/L Anion Gap (3-11) BUN (7-18) mg/dl Creatinine (0.6-1.4) mg/dl Est Cr Clr Drug Dosing ml/min Est GFR ( Amer) ml/min Est GFR (Non-Af Amer) ml/min BUN/Creatinine Ratio (10-20) Glucose (70-99) mg/dl Lactate (0.4-2.0) mmol/L Calcium (8.5-10.1) mg/dl Magnesium (1.8-2.4) mg/dl Total Bilirubin (0.2-1) mg/dl AST (15-37) U/L ALT (12-78) Alkaline Phosphatase (45-117) U/L Total Protein (6.4-8.2) gm/dl Albumin (3.4-5.0) gm/dl Globulin (2.5-4.0) gm/dl Albumin/Globulin Ratio (0.9-2) TSH (0.300-4.500) uIu/ml Urine Color Urine Appearance (Clear) Urine pH (4.5-7.5) Ur Specific [place] (1.000-1.030) Urine Protein (Negative) Urine Glucose (UA) (Negative) Urine Ketones (Negative) Urine Blood (Negative) Urine Nitrite (Negative) Urine Bilirubin (Negative) Urine Urobilinogen (Negative) Ur Leukocyte Esterase (Negative) Urine WBC (Auto) (0-5) /hpf Urine RBC (Auto) (0-4) /hpf U Hyaline Cast (Auto) (0-5) /lpf U Epithel Cells (Auto) (0-5) /lpf Urine Bacteria (Auto) (Negative) Salicylates (2.8-20) mg/dl Urine Opiates Screen (Neg) Ur Methadone, Qual (Neg) Acetaminophen (10-30) ug/ml Urine Barbiturates (Neg) Ur Phencyclidine (PCP) (Neg) U Amphetamin/Meth Scrn (Neg) MDMA (Ecstasy) Screen (Neg) U Benzodiazepines Scrn (Neg) Ur Cocaine Metabolite (Neg) U Marijuana (THC) Screen (Neg) Ethyl Alcohol mg/dL 323.2 H (0-3) mg/dl SARS-CoV-2, RNA, NAAT (NEGATIVE) 11/14/21 11/14/21 11/14/21 Range/Units 17:15 19:10 19:10 WBC (4.8-10.8) K/uL RBC (4.7-6.1) M/uL Hgb (14.0-18.0) g/dL Hct (42-52) % MCV (80-100) fL MCH (25-34) pg MCHC (32-36) g/dL RDW Std Deviation (36.4-46.3) fL RDW Coeff of Guerrero (11.5-14.5) % Plt Count (130-400) K/uL MPV (7.4-10.4) fL Immature Gran % (Auto) % Neut % (Auto) % Lymph % (Auto) % Gem % (Auto) % Eos % (Auto) % Baso % (Auto) % Neut # (Auto) (1.4-6.5) K/uL Lymph # (Auto) (1.2-3.4) K/uL Gem # (Auto) (0.11-0.59) K/uL Eos # (Auto) (0-0.5) K/uL Baso # (Auto) (0-0.2) K/uL Immature Gran # (Auto) (0.00-0.02) K/uL PT (9.0-12.0) Seconds INR (0.9-1.1) APTT (21.0-31.0) Seconds PTT Ratio Sodium (136-145) mmol/L Potassium (3.5-5.1) mmol/L Chloride (98-107) mmol/L Carbon Dioxide (21-32) mmol/L Anion Gap (3-11) BUN (7-18) mg/dl Creatinine (0.6-1.4) mg/dl Est Cr Clr Drug Dosing ml/min Est GFR ( Amer) ml/min Est GFR (Non-Af Amer) ml/min BUN/Creatinine Ratio (10-20) Glucose (70-99) mg/dl Lactate (0.4-2.0) mmol/L Calcium (8.5-10.1) mg/dl Magnesium (1.8-2.4) mg/dl Total Bilirubin (0.2-1) mg/dl AST (15-37) U/L ALT (12-78) Alkaline Phosphatase (45-117) U/L Total Protein (6.4-8.2) gm/dl Albumin (3.4-5.0) gm/dl Globulin (2.5-4.0) gm/dl Albumin/Globulin Ratio (0.9-2) TSH (0.300-4.500) uIu/ml Urine Color Yellow Urine Appearance Clear (Clear) Urine pH 7.5 (4.5-7.5) Ur Specific [place] 1.014 (1.000-1.030) Urine Protein 1+ H (Negative) Urine Glucose (UA) Negative (Negative) Urine Ketones Negative (Negative) Urine Blood Negative (Negative) Urine Nitrite Negative (Negative) Urine Bilirubin Negative (Negative) Urine Urobilinogen Negative (Negative) Ur Leukocyte Esterase Negative (Negative) Urine WBC (Auto) 0 (0-5) /hpf Urine RBC (Auto) 0-4 (0-4) /hpf U Hyaline Cast (Auto) 1-5 (0-5) /lpf U Epithel Cells (Auto) 5-10 H (0-5) /lpf Urine Bacteria (Auto) Negative (Negative) Salicylates (2.8-20) mg/dl Urine Opiates Screen Neg (Neg) Ur Methadone, Qual Neg (Neg) Acetaminophen (10-30) ug/ml Urine Barbiturates Neg (Neg) Ur Phencyclidine (PCP) Neg (Neg) U Amphetamin/Meth Scrn Neg (Neg) MDMA (Ecstasy) Screen Neg (Neg) U Benzodiazepines Scrn Neg (Neg) Ur Cocaine Metabolite Neg (Neg) U Marijuana (THC) Screen Pos H (Neg) Ethyl Alcohol mg/dL (0-3) mg/dl SARS-CoV-2, RNA, NAAT NEGATIVE (NEGATIVE) Administered Medications Discontinued Medications Sodium Chloride (Nss 1000ml) 1,000 mls @ 999 mls/hr IV .Q1H1M ONE Stop: 11/14/21 17:51 Last Infusion: 11/14/21 18:33 Dose: 0 mls/hr Documented by: [id number] Admin: 11/14/21 17:09 Dose: 999 mls/hr Documented by: [id number] Multivitamins 10 ml/ Thiamine HCl 100 mg/ Folic Acid 1 mg/Sodium Chloride 1,011.2 mls @ 1,011.2 mls/hr IV .Q1H ONE Stop: 11/14/21 17:50 Last Infusion: 11/14/21 19:26 Dose: 0 mls/hr Documented by: [id number] Admin: 11/14/21 17:39 Dose: 1,011.2 mls/hr Documented by: [id number] Lorazepam (Ativan) 2 mg in 4 mls @ 4 mls/min IV NOW STA Stop: 11/14/21 16:52 Last Admin: 11/14/21 17:13 Dose: 4 mls/min Documented by: [id number] Lorazepam (Ativan) 2 mg in 4 mls @ 4 mls/min IV NOW STA Stop: 11/14/21 18:07 Last Admin: 11/14/21 18:30 Dose: 4 mls/min Documented by: [id number] Discharge Plan Visit Data Chief Complaint: Alcohol Withdrawal Stated Complaint: alcohol withdrawal, reqst rehab ED Provider: Ad Pillai Discharge Problem: Alcohol withdrawal, Acute alcoholic hepatitis Forms Stand Alone Forms: My [facility], Suicide Prevention Resources Prescriptions Prescriptions: No Action montelukast 10 mg tablet 10 mg PO QAM Qty: 90 RF: 3 albuterol sulfate 90 mcg/actuation HFA aerosol inhaler 2 puff INHALATION Q6H PRN (Reason: Shortness Of Breath Or Wheezing) Qty: 8 RF: 5 epinephrine [EpiPen] 0.3 mg/0.3 mL Auto-Injector 0.3 mg IM DIRECTED PRN (Reason: Anaphylaxis) RF: 0 lamotrigine 25 mg tablet 25 mg PO BID RF: 0 trazodone 300 mg tablet 300 mg PO HS RF: 0 lorazepam 1 mg tablet 0.5 - 1 mg PO TID PRN (Reason: Anxiety) 14 Days Qty: 42 RF: 0 cetirizine [Zyrtec] 10 mg Tablet 10 mg PO DAILY RF: 0 multivitamin Tablet 1 tab PO DAILY RF: 0 esomeprazole magnesium 40 mg capsule,delayed release(DR/EC) 40 mg PO DAILY RF: 0 methylphenidate HCl 20 mg tablet extended release 20 mg PO QAM RF: 0 hydroxyzine HCl 25 mg tablet 25 mg PO DAILY PRN (Reason: Anxiety) RF: 0 fluvoxamine 50 mg tablet 50 mg PO HS RF: 0 quetiapine [Seroquel] 50 mg Tablet 50 mg PO HS RF: 0 Emergen-C 1,000 mg Powder Effervescent In Packet 1 ea PO DAILY RF: 0 methylphenidate HCl 10 mg tablet 10 mg PO QAM RF: 0 Vivitrol 380 mg Suspension,Extended Rel Recon 0 mg IM MONTHLY RF: 0 Referrals Referrals: Denisha Bertrand MD [Primary Care Provider] - Discharge Problem: Alcohol withdrawal Qualifiers: Complication of substance-induced condition: with unspecified complication Qualified Code(s): F10.239 - Alcohol dependence with withdrawal, unspecified
[2021-11-14 17:17] LABS: Basophils # (auto) 0.04 K/uL (0-0.2); Basophils % (auto) 1.1 %; Eosinophils # (auto) 0.23 K/uL (0-0.5); Eosinophils % (auto) 6.3 %; Hematocrit (blood only) 50.2 % (42-52); Hemoglobin 17.4 g/dL (14.0-18.0); Immature Granulocytes # (auto) 0.01 K/uL (0.00-0.02); Immature Granulocytes % (auto) 0.3 %; Lymphocytes # (auto) 1.47 K/uL (1.2-3.4); Lymphocytes % (auto) 40.3 %; Mean Corpuscular Hemoglobin 31.6 pg (25-34); Mean Corpuscular Hgb Conc 34.7 g/dL (32-36); Mean Corpuscular Volume 91.1 fL (80-100); Mean Platelet Volume 10.3 fL (7.4-10.4); Monocytes % (auto) 8.2 %; Neutrophils % (auto) 43.8 %; Platelet Count 172 K/uL (130-400); RDW Coefficient of Variation 14.2 % (11.5-14.5); RDW Standard Deviation 47.8 fL (36.4-46.3); Red Blood Count 5.51 M/uL (4.7-6.1); White Blood Count 3.65 K/uL (4.8-10.8)
[2021-11-14 17:36] LABS: Albumin Level 3.8 gm/dl (3.4-5.0); BUN Creatinine Ratio 7.1 (10-20); Calcium 8.5 mg/dl (8.5-10.1); Creatinine Clr Calc Pharmacy 155.4 ml/min; Est GFR (African American) 139.8 ml/min; Est GFR (Non-African American) 120.6 ml/min; Magnesium 2.2 mg/dl (1.8-2.4); Potassium 4.2 mmol/L (3.5-5.1)
[2021-11-14 17:45] LABS: Acetaminophen < 2 ug/ml (10-30)
[2021-11-14 17:46] LABS: Salicylate < 1.7 mg/dl (2.8-20)
[2021-11-14 17:47] LABS: Albumin Globulin Ratio 0.9 (0.9-2); Bilirubin,Total 0.4 mg/dl (0.2-1); Globulin 4.4 gm/dl (2.5-4.0); Thyroid Stimulating Hormone 1.34 uIu/ml (0.300-4.500); Total Protein 8.2 gm/dl (6.4-8.2)
[2021-11-14 19:22] LABS: Appearance Urine Clear (Clear); Bacteria Urine Automated Negative (Negative); Bilirubin Urine Negative (Negative); Blood Urine Negative (Negative); Color Urine Yellow; Glucose Urine UA Negative (Negative); Ketones Urine Negative (Negative); Leukocyte Esterase Urine Negative (Negative); Nitrite Urine Negative (Negative); RBC Urine Automated 0-4 /hpf (0-4); Specific Gravity Urine 1.014 (1.000-1.030); Urobilinogen Urine Negative (Negative); WBC Urine Automated 0 /hpf (0-5); pH Urine 7.5 (4.5-7.5)
[2021-11-14 19:38] LABS: Partial Thromboplastin Ratio 0.9; Partial Thromboplastin Time 24.3 Seconds (21.0-31.0); Prothrombin Time 10.3 Seconds (9.0-12.0)
[2021-11-14 19:39] LABS: Protein Urine 1+ (Negative)
[2021-11-14 19:48] LABS: Benzodiazepine, Urine Neg (Neg); Cocaine, Urine Neg (Neg); MDMA (Ecstacy), Urine Neg (Neg); Methadone, Urine Neg (Neg); Opiate, Urine Neg (Neg); Phencyclidine, Urine Neg (Neg)
--- NOTE | 2021-11-14 20:11 | Hospitalist Progress Note ---
Date of Service November 14, 2021 Assessment & Plan (1) Alcohol withdrawal: Plan: Right now seems mild, most of the time his pattern has been fairly mildbut certainly at risk for decompensation. He notes and prior withdrawals Librium seem to help better than anythingwe will continue this as well as symptom triggered Ativan. Continue to follow closely given that he was not that long since his last drink (2) Alcohol dependence: Plan: Supportive care, ongoing outpatient management for anxiety and depression. (3) Alcoholic hepatitis: Plan: Transaminases quite high, fortunately bilirubin and INR are reassuringly low. No indication for steroids at this time. Continue to trend (4) COVID-19: Plan: Cough, right lung rales, and sterile effusions of bilateral ears all likely has viral sequelaeno need for specific intervention at this time (5) Anxiety: Plan: Continue home meds (6) Leukopenia: Plan: Probably relates to recent Covid, cannot rule out alcohol bone marrow suppression but he has not had this before (7) DVT prophylaxis: Plan: SCDs (8) Discharge planning issues: Plan: Would like to go to [facility] for alcohol rehab after discharge Subjective Very pleasant 26-year-old male well-known to me coming back for alcohol withdrawal. Notes that unfortunately friend fairly recently, and that sentiment to a spiral which got him drinking again. Again back to about 12-15 high alcohol IPAs daily. Last drink he believes was this morning. Had an episode a few days ago where he found himself down on the floor in the hallway a nd was not quite sure what happened, his apple watch things heart rate was about 130 at the time. Had no tongue biting no loss of bowel or bladder. Now notes he starting to feel a degree of withdrawal. Also notes that he is ongoing cough congestion and ear congestion since having had Covid about 2 weeks ago. Review of Systems Review of Systems: All systems reviewed & are unremarkable except as noted in HPI & below Physical Exam Physical Exam: In general he is awake and alert pleasant no distress. HEENT normocephalic atraumatic mucous membranes are moist. Right TM a little bit difficult to visualize but does seem to have clear liquidleft definitely has a clear effusion. Cardio is regular somewhat tachycardic no rubs murmurs gallops, lungs clear to auscultation bilaterally no rales rhonchi or wheeze with good effort. Abdomen is soft mild epigastric tenderness no guarding rebound or rigidity extremities without sinus clubbing or edema no calf tenderness. Neuro shows cranial nerves II through XII be grossly intact gross motor and sensory are intact. Mental status shows good recent and remote recall normal mood and affect good judgment and insight. Musculoskeletal yields no gross lesions. Results & Data Results & Data ([facility]) Vital Signs (Past 12 Hours) Vital Signs Temp Pulse Pulse Resp BP BP Pulse Ox 11/14/21 19:21 98.6 F 116 H 18 140/106 H 100 11/14/21 16:32 98.2 F 153 H 20 105/75 97 PG Care Time/CCT Total # of Minutes Spent Total Time Spent with Patient: Total time spent is greater than 50% in coordination of care (as documented) at patient's floor/unit and/or counseling patient: Coding Level of Care Code 39326 Subseq Hosp Care Lvl 3 Diagnoses Alcohol withdrawal F10.230 Complication of substance-induced condition: uncomplicated Alcohol dependence F10.239 Complication of substance-induced condition: with unspecified complication Substance use status: in withdrawal Alcoholic hepatitis K70.10 COVID-19 U07.1 Anxiety F41.9 Leukopenia D72.819 DVT prophylaxis Z29.9 Discharge planning issues Z02.9 (1) Alcohol withdrawal Complication of substance-induced condition: uncomplicated Qualified Code(s): F10.230 - Alcohol dependence with withdrawal, uncomplicated (2) Alcohol dependence Complication of substance-induced condition: with unspecified complication Substance use status: in withdrawal Qualified Code(s): F10.239 - Alcohol dependence with withdrawal, unspecified
[2021-11-14 20:15] LABS: Amphetamines+Metham, Urine Neg (Neg); Barbiturates, Urine Neg (Neg)
[2021-11-14] MEDS ORDERED: FAMOTIDINE 20MG/5ML IV PUSH IV ONE (20:32)
[2021-11-14] MEDS ORDERED: MAGNESIUM HYDROXIDE SUSP 30 ML UDC PO PRN (20:46)
[2021-11-14] MEDS ORDERED: ALUMINUM/MAGNESIUM SUSP 30 ML UDC PO PRN (20:46)
[2021-11-14] MEDS ORDERED: ONDANSETRON INJ 2 MG/ML 2 ML VIAL IV PRN (20:46)
[2021-11-14] MEDS: FAMOTIDINE 20 MG in SYRINGE 3 ML IV SCH (20:51)
[2021-11-14] MEDS ORDERED: FAMOTIDINE 20MG/5ML IV PUSH IV SCH (21:00)
[2021-11-14] MEDS: chlordiazePOXIDE HCl 25 MG CAP PO SCH (21:32)
[2021-11-14] MEDS: LACTATED RINGER'S 1,000 ML IV SCH (21:32)
[2021-11-14] MEDS: THIAMINE HCL 100 MG TAB PO SCH (23:04)
[2021-11-14] MEDS: traZODone HCL 100 MG TAB PO SCH (23:05)
[2021-11-14] MEDS: QUEtiapine FUMARATE 25 MG TABLET PO SCH (23:05)
[2021-11-14] MEDS: lamoTRIgine 25 MG TAB PO SCH (23:05)
[2021-11-14] MEDS: FOLIC ACID 1 MG TAB PO SCH (23:06)
[2021-11-14] MEDS: fluvoxaMINE MALEATE 50 MG TAB PO SCH (23:06)
[2021-11-14] MEDS: hydrOXYzine HCl 25 MG TAB PO PRN (23:27)
[2021-11-15] MEDS: LORazepam 1 MG/2 ML VIAL IV PRN ×3 (01:39→18:43)
[2021-11-15] MEDS ORDERED: diazePAM 5 MG TABLET PO ONE (02:44)
[2021-11-15 05:55] LABS: INR 1.1 (0.9-1.1); Prothrombin Time 11.3 Seconds (9.0-12.0)
[2021-11-15 06:07] LABS: Basophils # (auto) 0.02 K/uL (0-0.2); Basophils % (auto) 0.4 %; Eosinophils # (auto) 0.18 K/uL (0-0.5); Eosinophils % (auto) 3.7 %; Hematocrit (blood only) 42.7 % (42-52); Hemoglobin 14.2 g/dL (14.0-18.0); Immature Granulocytes # (auto) 0.01 K/uL (0.00-0.02); Immature Granulocytes % (auto) 0.2 %; Lymphocytes # (auto) 1.31 K/uL (1.2-3.4); Lymphocytes % (auto) 27.2 %; Mean Corpuscular Hemoglobin 30.5 pg (25-34); Mean Corpuscular Hgb Conc 33.3 g/dL (32-36); Mean Corpuscular Volume 91.8 fL (80-100); Mean Platelet Volume 10.4 fL (7.4-10.4); Monocytes # (auto) 0.34 K/uL (0.11-0.59); Monocytes % (auto) 7.1 %; Neutrophils # (auto) 2.95 K/uL (1.4-6.5); Neutrophils % (auto) 61.4 %; Platelet Count 153 K/uL (130-400); RDW Coefficient of Variation 14.1 % (11.5-14.5); RDW Standard Deviation 47.4 fL (36.4-46.3); Red Blood Count 4.65 M/uL (4.7-6.1); White Blood Count 4.81 K/uL (4.8-10.8)
[2021-11-15 06:28] LABS: Albumin Globulin Ratio 0.9 (0.9-2); Albumin Level 3.2 gm/dl (3.4-5.0); BUN Creatinine Ratio 7.4 (10-20); Bilirubin,Total 0.6 mg/dl (0.2-1); Calcium 8.1 mg/dl (8.5-10.1); Creatinine Clr Calc Pharmacy 161.3 ml/min; Est GFR (African American) 141.9 ml/min; Est GFR (Non-African American) 122.4 ml/min; Globulin 3.6 gm/dl (2.5-4.0); Potassium 3.7 mmol/L (3.5-5.1); Total Protein 6.8 gm/dl (6.4-8.2)
[2021-11-15] MEDS: LACTATED RINGER'S 1,000 ML IV SCH ×2 (08:43→16:13)
[2021-11-15] MEDS: CETIRIZINE HCL 10 MG TABLET PO SCH (08:43)
[2021-11-15] MEDS: PANTOprazole 40 MG TAB PO SCH (08:44)
[2021-11-15] MEDS: chlordiazePOXIDE HCl 25 MG CAP PO SCH ×3 (08:44→21:42)
[2021-11-15] MEDS: MULTIVITAMIN TAB PO SCH (08:44)
[2021-11-15] MEDS: FAMOTIDINE 20 MG in SYRINGE 3 ML IV SCH ×2 (08:44→21:42)
[2021-11-15] MEDS: MONTELUKAST SODIUM 10 MG TABLET PO SCH (08:44)
[2021-11-15] MEDS: FOLIC ACID 1 MG TAB PO SCH (08:44)
[2021-11-15] MEDS: THIAMINE HCL 100 MG TAB PO SCH (08:45)
[2021-11-15] MEDS: lamoTRIgine 25 MG TAB PO SCH ×2 (08:48→21:31)
--- NOTE | 2021-11-15 17:01 | Hospitalist Progress Note ---
Date of Service November 15, 2021 Assessment & Plan (1) Alcohol withdrawal: Plan: Still tachycardic, sweats at times, but doing better. Continue current care for paulyI suspect his goal of being able to go to [facility] in about another 48 hours will be quite realistic. He noted with prior withdrawals Librium seem to help better than anythingwe will continue this as well as symptom triggered Ativan. Appears to be improving (2) Alcohol dependence: Plan: Supportive care, ongoing outpatient management for anxiety and depression. Should probably have more improvement in LFTs before starting p.o. na ltrexonedefinitely want him to continue the Vivitrol shots in the office given that he felt they were helping quite a bit. (3) Alcoholic hepatitis: Plan: Transaminases starting to trend down. Bilirubin and INR were reassuring (4) COVID-19: Plan: Cough, right lung rales, and sterile effusions of bilateral ears all likely has viral sequelaeno need for specific intervention at this time (5) Anxiety: Plan: Continue home meds (6) Leukopenia: Plan: Probably relates to recent Covid, cannot rule out alcohol bone marrow suppress ion but he has not had this beforeand has improved (7) DVT prophylaxis: Plan: SCDs (8) Discharge planning issues: Plan: Would like to go to [facility] for alcohol rehab after dischargehe is setting this up, and probably will be able to go Tuesday. Admission and Anticipated Discharge Date Admission Date: November 14, 2021 Subjective Generally feeling better. Still feels heart racing, and some sweats off and on. No tremulousness, much more calm. [facility] probably as soon as Tuesdayshe would like to go straight from here to there. Notes that he missed a Vivitrol shot, and definitely thinks this was a major mistake. Wonders about going on p.o. naltrexone until he is able to get the injection again Review of Systems Review of Systems: All systems reviewed & are unremarkable except as noted in HPI & below Physical Exam Physical Exam: General he is awake and alert pleasant no distress. HEENT normocephalic atraumatic mucous members moist. Breathing unlabored no accessory muscle use good effort. Neuro no tremulousness no focal deficits. Skin without rashes pallor or icterus. Mental status shows him to be calm and generally fairly happy at this time Results & Data Results & Data ([facility]) Vital Signs (Past 12 Hours) Vital Signs Pulse Resp BP Pulse Ox 11/15/21 13:10 116 H 17 161/115 H 96 11/15/21 08:54 124 H 16 148/106 H 97 11/15/21 06:14 122 H 20 148/89 H 97 PG Care Time/CCT Total # of Minutes Spent Total Time Spent with Patient: Total time spent is greater than 50% in coordination of care (as documented) at patient's floor/unit and/or counseling patient: Coding Level of Care Code 43198 Subseq Hosp Care Lvl 3 Diagnoses Alcohol withdrawal F10.230 Complication of substance-induced condition: uncomplicated Alcohol dependence F10.239 Complication of substance-induced condition: with unspecified complication Substance use status: in withdrawal Alcoholic hepatitis K70.10 COVID-19 U07.1 Anxiety F41.9 Leukopenia D72.819 DVT prophylaxis Z29.9 Discharge planning issues Z02.9 (1) Alcohol withdrawal Complication of substance-induced condition: uncomplicated Qualified Code(s): F10.230 - Alcohol dependence with withdrawal, uncomplicated (2) Alcohol dependence Complication of substance-induced condition: with unspecified complication Substance use status: in withdrawal Qualified Code(s): F10.239 - Alcohol dependence with withdrawal, unspecified
[2021-11-15] MEDS ORDERED: LORazepam 2 MG/4 ML VIAL IV PRN (18:07)
[2021-11-15] MEDS ORDERED: ATIVAN IV ALCOHOL WITHDRAWL IV PRN (18:07)
[2021-11-15] MEDS ORDERED: LORazepam 3 MG/6 ML VIAL IV PRN (18:07)
[2021-11-15] MEDS: fluvoxaMINE MALEATE 50 MG TAB PO SCH (21:30)
[2021-11-15] MEDS: QUEtiapine FUMARATE 25 MG TABLET PO SCH (21:30)
[2021-11-15] MEDS: traZODone HCL 100 MG TAB PO SCH (21:30)
[2021-11-16] MEDS: LACTATED RINGER'S 1,000 ML IV SCH ×3 (02:37→23:24)
--- NOTE | 2021-11-16 05:46 | Electrocardiogram Report ---
Test Reason : Blood Pressure : / mmHG Vent. Rate : 120 BPM Atrial Rate : 120 BPM P-R Int : 120 ms QRS Dur : 086 ms QT Int : 350 ms P-R-T Axes : 039 012 014 degrees QTc Int : 494 ms Sinus tachycardia Prolonged QT When compared with ECG of 02-NOV-2021 17:31, No significant change was found Confirmed by Eladio Pratt ([id number]) on 11/16/2021 5:45:48 AM Referred By: REFERRED SELF Confirmed By:Eladio Pratt
--- NOTE | 2021-11-16 08:08 | Hospitalist Progress Note ---
Date of Service November 16, 2021 Assessment & Plan (1) Alcohol withdrawal: Plan: 26 yo M w/ no significant pMHx. presents with alcohol withdrawal. Alcohol withdrawal, last drink 3 days prior improving tachycardic, tremulous, sweats at times, but doing better. - continue AWSS continue Librium and as needed IV Ativan Alcohol dependence: Supportive care, ongoing outpatient management for anxiety and depression. Reviewing inpatient [facility] rehab. If goes home - To resume vivitrol injection on discharge May need oral vivitrol doses until he gets the injection Discussed getting doses few days earlier than the due date to avoid delay in administration. D and A counselling Alcoholic hepatitis: Transaminases starting to trend down. Bilirubin and INR were reassuring - continue to follow CMP COVID-19: Cough, right lung rales, and sterile effusions of bilateral ears all likely has viral sequelae no need for specific intervention at this time Anxiety: - Continue home meds Leukopenia: Probably relates to recent Covid, cannot rule out alcohol bone marrow suppression but he has not had this beforeand has improved Diet: regular DVT prophylaxis: SCDs Dispo: Likely [facility] for alcohol rehab after dischargehe is setting this up, and probably will be able to go Tuesday. (2) Acute alcoholic hepatitis: (3) COVID-19: Admission and Anticipated Discharge Date Admission Date: November 14, 2021 Supervising Physician Co-Signing Physician Notes Resident Physician Supervision Note: I independently interviewed and examined the patient and verified the shields history and physical, reviewed labs and image studies and agree with resident Dr. Joseph findings and care plan. Subjective Hosea Castro is doing well today. He developed symptoms of COVID at [place] and his current symptoms include cough but he states that this is his chronic morning cough without worsening. He was planning on going to [facility] for inpatient rehab, but wanted to go home prior to going to inpatient. Review of Systems Review of Systems: Constitutional: denies fever, chills Cardiac: denies chest pain, palpitations GI: denies nausea, vomiting, constipation, diarrhea Pulm.: admit chronic cough, denies shortness of breath Physical Exam Constitutional: well developed and well nourished; no acute distress Eyes: PERRL, conjunctivae normal, anicteric sclerae ENMT: external ear and nose normal, oropharynx normal Neck: normal visual inspection Respiratory: normal respiratory effort, lungs clear to auscultation Cardiovascular: RRR, no murmur, no edema Gastrointestinal (Abdomen): normal bowel sounds, soft, nontender, no hepatosplenomegaly Musculoskeletal: no cyanosis or clubbing, extremities motor strength 5/5 Skin: no rashes, warm and dry Neurologic: no focal motor deficits - tremor - tongue fasciculations Psychiatric: A+Ox3, euthymic affect Results & Data Results & Data ([facility]) Vital Signs (Past 12 Hours) Vital Signs Temp Pulse Pulse Resp BP Pulse Ox 11/16/21 07:22 96 H 11/16/21 06:29 36.8 C 98 H 20 126/86 95 11/16/21 02:38 36.6 C 92 H 16 143/89 H 94 11/16/21 00:48 89 11/15/21 22:30 36.8 C 93 H 18 147/97 H 97 11/15/21 21:20 36.8 C 128 H 20 130/89 96 11/15/21 20:15 36.8 C 123 H 20 161/99 H 95 CBC Results Results Complete Blood Count Results: RBC 4.65 M/uL (4.7-6.1) L 11/15/21 WBC 4.81 K/uL (4.8-10.8) 11/15/21 Hgb 14.2 g/dL (14.0-18.0) 11/15/21 Hct 42.7 % (42-52) 11/15/21 Plt Count 153 K/uL (130-400) 11/15/21 Resident Activity Tracking Resident Involvement: Resident Care Provided Care Provided: Adult Hospital Medicine (1) Alcohol withdrawal Complication of substance-induced condition: with unspecified complication Qualified Code(s): F10.239 - Alcohol dependence with withdrawal, unspecified
[2021-11-16] MEDS: THIAMINE HCL 100 MG TAB PO SCH (09:19)
[2021-11-16] MEDS: PANTOprazole 40 MG TAB PO SCH (09:19)
[2021-11-16] MEDS: CETIRIZINE HCL 10 MG TABLET PO SCH (09:19)
[2021-11-16] MEDS: MULTIVITAMIN TAB PO SCH (09:19)
[2021-11-16] MEDS: lamoTRIgine 25 MG TAB PO SCH ×2 (09:19→22:31)
[2021-11-16] MEDS: MONTELUKAST SODIUM 10 MG TABLET PO SCH (09:19)
[2021-11-16] MEDS: FAMOTIDINE 20 MG in SYRINGE 3 ML IV SCH ×2 (09:19→23:24)
[2021-11-16] MEDS: FOLIC ACID 1 MG TAB PO SCH (09:19)
[2021-11-16 09:25] LABS: Albumin Level 3.3 gm/dl (3.4-5.0); BUN Creatinine Ratio 8.6 (10-20); Calcium 8.7 mg/dl (8.5-10.1); Creatinine Clr Calc Pharmacy 143.3 ml/min; Est GFR (African American) 135.2 ml/min; Est GFR (Non-African American) 116.6 ml/min; Potassium 3.8 mmol/L (3.5-5.1)
[2021-11-16 09:28] LABS: Albumin Globulin Ratio 0.8 (0.9-2); Globulin 3.9 gm/dl (2.5-4.0); Total Protein 7.2 gm/dl (6.4-8.2)
[2021-11-16] MEDS: chlordiazePOXIDE HCl 25 MG CAP PO SCH ×3 (09:36→22:29)
[2021-11-16] MEDS: LORazepam 1 MG/2 ML VIAL IV PRN ×3 (09:37→23:25)
[2021-11-16 10:19] LABS: Bilirubin,Total 1.2 mg/dl (0.2-1)
[2021-11-16] MEDS ORDERED: SENNA 8.6 MG TAB PO STA (13:13)
[2021-11-16] MEDS: hydrOXYzine HCl 25 MG TAB PO PRN (19:43)
[2021-11-16] MEDS: traZODone HCL 100 MG TAB PO SCH (22:30)
[2021-11-16] MEDS: QUEtiapine FUMARATE 25 MG TABLET PO SCH (22:30)
[2021-11-16] MEDS: fluvoxaMINE MALEATE 50 MG TAB PO SCH (22:31)
--- NOTE | 2021-11-17 07:18 | Hospitalist Progress Note ---
Date of Service November 17, 2021 Assessment & Plan (1) Alcohol withdrawal: Plan: 26 yo M w/ no significant pMHx. presents with alcohol withdrawal. Alcohol withdrawal, last drink 3 days prior improving tachycardic, tremulous, sweats at times, but doing better. - continue AWSS continue Librium and as needed IV Ativan Alcohol dependence: Supportive care, ongoing outpatient management for anxiety and depression. Reviewing inpatient [facility] A rehab. If goes home - To resume vivitrol injection on discharge May need oral vivitrol doses until he gets the injection Discussed getting doses few days earlier than the due date to avoid delay in administration. D and A counselling Alcoholic hepatitis: Transaminases starting to trend down. Bilirubin and INR were reassuring - continue to follow CMP COVID-19: Cough, right lung rales, and sterile effusions of bilateral ears all likely has viral sequelae no need for specific intervention at this time Anxiety: - Continue home meds Leukopenia: Probably relates to recent Covid, cannot rule out alcohol bone marrow suppression but he has not had this beforeand has improved Diet: regular DVT prophylaxis: SCDs Dispo: Likely [facility] for alcohol rehab after dischargehe is setting this up, and probably will be able to go Tuesday. (2) Acute alcoholic hepatitis: (3) COVID-19: Admission and Anticipated Discharge Date Admission Date: November 14, 2021 Results & Data Results & Data ([facility]) Vital Signs (Past 12 Hours) Vital Signs Temp Pulse Pulse Resp BP BP Pulse Ox 11/17/21 05:55 36.8 C 116 H 18 148/93 H 95 11/17/21 01:34 36.9 C 108 H 16 145/92 H 96 11/16/21 23:43 95 H 11/16/21 22:32 36.5 C 126 H 20 150/100 H 95 11/16/21 20:00 36.7 C 102 H 20 143/102 H 94 11/16/21 19:34 36.4 C L 119 H 22 147/100 H 146/107 H 95 (1) Alcohol withdrawal Complication of substance-induced condition: with unspecified complication Qualified Code(s): F10.239 - Alcohol dependence with withdrawal, unspecified
[2021-11-17 07:53] LABS: Basophils # (auto) 0.01 K/uL (0-0.2); Basophils % (auto) 0.2 %; Eosinophils # (auto) 0.24 K/uL (0-0.5); Eosinophils % (auto) 5.4 %; Hematocrit (blood only) 47.5 % (42-52); Immature Granulocytes # (auto) 0.01 K/uL (0.00-0.02); Immature Granulocytes % (auto) 0.2 %; Lymphocytes % (auto) 29.3 %; Mean Corpuscular Hemoglobin 31.2 pg (25-34); Mean Corpuscular Hgb Conc 33.7 g/dL (32-36); Mean Corpuscular Volume 92.6 fL (80-100); Mean Platelet Volume 10.9 fL (7.4-10.4); Monocytes # (auto) 0.47 K/uL (0.11-0.59); Monocytes % (auto) 10.6 %; Neutrophils % (auto) 54.3 %; Platelet Count 133 K/uL (130-400); RDW Coefficient of Variation 13.5 % (11.5-14.5); RDW Standard Deviation 46.1 fL (36.4-46.3); Red Blood Count 5.13 M/uL (4.7-6.1); White Blood Count 4.43 K/uL (4.8-10.8)
[2021-11-17] MEDS: LORazepam 1 MG/2 ML VIAL IV PRN (08:19)
[2021-11-17] MEDS: chlordiazePOXIDE HCl 25 MG CAP PO SCH (08:19)
[2021-11-17] MEDS: FOLIC ACID 1 MG TAB PO SCH (08:20)
[2021-11-17] MEDS: CETIRIZINE HCL 10 MG TABLET PO SCH (08:20)
[2021-11-17] MEDS: PANTOprazole 40 MG TAB PO SCH (08:20)
[2021-11-17] MEDS: lamoTRIgine 25 MG TAB PO SCH (08:20)
[2021-11-17] MEDS: MULTIVITAMIN TAB PO SCH (08:21)
[2021-11-17] MEDS: THIAMINE HCL 100 MG TAB PO SCH (08:21)
[2021-11-17] MEDS: MONTELUKAST SODIUM 10 MG TABLET PO SCH (08:21)
[2021-11-17 08:41] LABS: BUN Creatinine Ratio 8.3 (10-20); Calcium 8.9 mg/dl (8.5-10.1); Est GFR (African American) 113.5 ml/min; Est GFR (Non-African American) 97.9 ml/min; Potassium 3.7 mmol/L (3.5-5.1)
[2021-11-17] MEDS: FAMOTIDINE 20 MG in SYRINGE 3 ML IV SCH (09:54)
[2021-11-17] MEDS: LACTATED RINGER'S 1,000 ML IV SCH (09:59)
[2021-11-17] MEDS ORDERED: METHYLPHENIDATE HCL 10 MG TABLET PO SCH (10:30)
--- NOTE | 2021-11-17 17:14 | Discharge Summary ---
Date of Service November 17, 2021 Admission HPI Per Admitting Provider Very pleasant 26-year-old male well-known to me coming back for alcohol withdrawal. Notes that unfortunately friend fairly recently, and that sentiment to a spiral which got him drinking again. Again back to about 12-15 high alcohol IPAs daily. Last drink he believes was this morning. Had an episode a few days ago where he found himself down on the floor in the hallway and was not quite sure what happened, his apple watch things heart rate was about 130 at the time. Had no tongue biting no loss of bowel or bladder. Now notes he starting to feel a degree of withdrawal. Also notes that he is ongoing cough congestion and ear congestion since having had Covid about 2 weeks ago. Admission Exam Per Admitting Provider In general he is awake and alert pleasant no distress. HEENT normocephalic atraumatic mucous membranes are moist. Right TM a little bit difficult to visualize but does seem to have clear liquidleft definitely has a clear effusion. Cardio is regular somewhat tachycardic no rubs murmurs gallops, lungs clear to auscultation bilaterally no rales rhonchi or wheeze with good effort. Abdomen is soft mild epigastric tenderness no guarding rebound or rigidity extremities without sinus clubbing or edema no calf tenderness. Neuro shows cranial nerves II through XII be grossly intact gross motor and sensory are intact. Mental status shows good recent and remote recall normal mood and affect good judgment and insight. Musculoskeletal yields no gross lesions. Principal Diagnosis alcohol withdrawal Discharge Exam Constitutional: well developed and well nourished; no acute distress Eyes: PERRL, conjunctivae normal, anicteric sclerae ENMT: external ear and nose normal, oropharynx normal Neck: normal visual inspection Respiratory: normal respiratory effort, lungs clear to auscultation Cardiovascular: RRR, no murmur, no edema Gastrointestinal (Abdomen): normal bowel sounds, soft, nontender, no hepatosplenomegaly Musculoskeletal: no cyanosis or clubbing, extremities motor strength 5/5 Skin: no rashes, warm and dry Neurologic: no focal motor deficits - tremor - tongue fasciculations Psychiatric: A+Ox3, euthymic affect Discharge Data Allergies Allergy/AdvReac Type Severity Reaction Status Date / Time peanut Allergy Severe Anaphylaxis Verified 11/14/21 17:59 Consultations 11/14/21 18:17 ED Decision to Admit Stat Hospital Course (1) Alcohol withdrawal: 26 yo M w/ no significant pMHx. presents with alcohol withdrawal. Alcohol withdrawal, improving Sec to stress and missing naltrexone injection dose. - Kept on AWSS protocol librium taper - continue Librium taper at inpatient rehab - Plan for inpatient rehab for 28 days followed by a partial program in [place] and close follow up with PCP Alcohol dependence: Supportive care, ongoing outpatient management for anxiety and depression. D and A counselling Alcoholic hepatitis: Transaminases improved. Bilirubin and INR were reassuring - continue to follow CMP in the outpatient to ensure continued improvement COVID-19: Symptoms started on 10/31 and negative test on 11/14 and complete resolution of symptoms prior to discharge on 11/17 Anxiety: - Continue home meds - discussed therapy in the outpatient setting Leukopenia: Probably relates to recent Covid, cannot rule out alcohol bone marrow suppression but he has not had this beforeand has improved (2) Acute alcoholic hepatitis: (3) Anxiety: (4) Depression: Total Time Total Time Spent Total Time Spent (In Minutes): see attending attestation Discharge Plan Discharge Items Patient Disposition: Home - Self-Care Reason For Visit: ETOH WITHDRAWAL AND ETOH HEPATITIS Discharge Diagnosis: alcohol withdrawal Activity: Per Instructions section Non-emergency contact: Primary Care Provider Call non-emergency contact if: your symptoms worsen Follow-up/Referrals: Denisha Bertrand MD [Primary Care Provider] - Diet: Regular Addtl Attending Provider Instructions: Alcohol withdrawal: You came to the hospital for withdrawal from alcohol. You did well on Librium and Ativan while you were here. You have improved while you were in the hospital and have a plan to go home and then check in to an inpatient rehab facility. After the 28 days of inpatient rehab we talked about you going to a partial program and then close follow up with your primary doctor. Alcohol dependence: We continue to discuss working towards being alcohol free. After rehab we encourage you to continue to follow with your primary care doctor and could consider therapy. Alcoholic hepatitis: You were noted to have labs that were concerning for injury to your liver likely due to alcohol. Your labs were improved but still elevated prior to discharge from the hospital. You will need to have labs when you follow up with your PCP to ensure continued improvement but this should continue to improve. Pending Studies at Discharge: No Stand-Alone Forms: [facility], Smoking Cessation Medications and DC Order Prescriptions: Continued montelukast 10 mg tablet 10 mg PO QAM Qty: 90 RF: 3 albuterol sulfate 90 mcg/actuation HFA aerosol inhaler 2 puff INHALATION Q6H PRN (Reason: Shortness Of Breath Or Wheezing) Qty: 8 RF: 5 epinephrine [EpiPen] 0.3 mg/0.3 mL Auto-Injector 0.3 mg IM DIRECTED PRN (Reason: Anaphylaxis) RF: 0 lamotrigine 25 mg tablet 25 mg PO BID RF: 0 trazodone 300 mg tablet 300 mg PO HS RF: 0 lorazepam 1 mg tablet 0.5 - 1 mg PO TID PRN (Reason: Anxiety) 14 Days Qty: 42 RF: 0 cetirizine [Zyrtec] 10 mg Tablet 10 mg PO DAILY RF: 0 multivitamin Tablet 1 tab PO DAILY RF: 0 esomeprazole magnesium 40 mg capsule,delayed release(DR/EC) 40 mg PO DAILY RF: 0 methylphenidate HCl 20 mg tablet extended release 20 mg PO QAM RF: 0 hydroxyzine HCl 25 mg tablet 25 mg PO DAILY PRN (Reason: Anxiety) RF: 0 fluvoxamine 50 mg tablet 50 mg PO HS RF: 0 quetiapine [Seroquel] 50 mg Tablet 50 mg PO HS RF: 0 Emergen-C 1,000 mg Powder Effervescent In Packet 1 ea PO DAILY RF: 0 methylphenidate HCl 10 mg tablet 10 mg PO QAM RF: 0 Vivitrol 380 mg Suspension,Extended Rel Recon 0 mg IM MONTHLY RF: 0 Discharge Orders: Discharge Order (Routine); Ordered 11/17/21 Ordered By: Negro Joseph Admission Data Admit Date/Time: 11/14/21 20:04 Attending Provider: Jackie Perez Admit Provider: Ashish Purcell Primary Care Provider: Denisha Bertrand Other Providers: Ashish Purcell Other Interventions: Discharge Summary Assessment (RN) Last Done: 11/17/21 11:45 Supervising Physician Co-Signing Physician Notes Resident Physician Supervision Note: I independently interviewed and examined the patient and verified the shields history and physical, reviewed labs and image studies and agree with resident Dr. Joseph findings and care plan.
[2021-11-18 10:03] LABS: Marijuana Quant, GCMS Urine 326 ng/mL (<5)
== END 2021-11-17 12:08 | disposition home or self-care (01) ==
LOC: ED 16:25 → INTOOBSV 20:04 → SUATTDRO 20:04 → EDINP 20:04 → 2N 11-15 16:03